=== PATIENT | female | born 1985 | race Caucasian/White ===

== ENCOUNTER 2018-05-10 20:45 | Outpatient (REF) | payer MEDICAID, SELFPAY ==
[2018-05-12 13:59] LABS: Chlamydia Result Negative; GC Result Negative; Specimen Description URINE
== END 2018-05-10 20:46 ==
LOC: NCHCN 20:45
PROVIDERS: PCP Nurse Practitioner Family; Visit Provider Nurse Practitioner Family
DX: R10.2 Pelvic and perineal pain (principal); N94.6 Dysmenorrhea, unspecified; Z71.89 Other specified counseling
CPT/HCPCS: 87491; 87591

== ENCOUNTER 2018-05-24 15:54 | Outpatient (REF) | payer MEDICAID, SELFPAY | END 2018-05-24 15:55 | LOC: NCHCN 15:54 | PROVIDERS: PCP Nurse Practitioner Family; Visit Provider Nurse Practitioner Family | DX: N39.0 Urinary tract infection, site not specified (principal) | CPT/HCPCS: 87077; 87086; 87186 ==

== ENCOUNTER 2018-08-10 15:36 | Outpatient (REF) | payer MEDICAID, SELFPAY ==
[2018-08-10 21:15] LABS: Abs Immature Grans 0.02 k/cumm (0.0-0.09); Absolute Basophil Count 0.01 k/cumm (0.0-0.2); Absolute Eosinophil Count 0.11 k/cumm (0.0-0.7); Absolute Lymphocyte Count 2.03 k/cumm (1.2-3.4); Absolute Monocyte Count 0.45 k/cumm (0.11-0.7); Absolute Neutrophil Count 4.44 k/cumm (1.2-6.7); Basophils % 0.1; Eosinophils % 1.6; HCT 44.3 % (36.0-46.0); HGB 14.6 g/dL (12.0-15.5); Immature Grans % 0.3; Lymphocytes % 28.8; Mean Corpuscular Hemoglobin 29.4 pg (27.0-33.0); Mean Corpuscular Volume 89.3 fL (80-95); Mean Platelet Volume 10.2 fL (8.0-11.0); Monocytes % 6.4; Neutrophils % 62.8; Platelet Count 254 x1000/uL (130-400); RBC 4.96 m/cumm (4.00-5.20); RBC Distribution Width 13.7 % (11.7-14.6); White Blood Cell Count 7.06 k/cumm (4.4-10.8)
[2018-08-10 21:34] LABS: ALT 17 U/L (12-78); AST 16 U/L (15-37); Albumin 3.5 g/dL (3.4-5.0); Alkaline Phosphatase 72 U/L (46-116); BUN 9 mg/dL (7-18); Bilirubin, Total 0.3 mg/dL (0.2-1.0); C-Reactive Protein 4.35 mg/dL (0.0-0.3); CREATININE 0.78 mg/dL (0.55-1.02); Calcium 9.7 mg/dL (8.5-10.1); Chloride 102 mmol/L (98-107); Glucose 70 mg/dL (70-100); Potassium 4.6 mmol/L (3.5-5.1); Sodium 138 mmol/L (136-145); Total Protein 7.1 g/dL (6.4-8.2)
[2018-08-10 22:15] LABS: ESR 34 MM/HR (0-20)
== END 2018-08-10 15:56 ==
LOC: NCHCN 15:36
PROVIDERS: PCP Nurse Practitioner Family; Visit Provider Nurse Practitioner Family
DX: R53.81 Other malaise (principal); R19.7 Diarrhea, unspecified; K92.1 Melena; R11.2 Nausea with vomiting, unspecified; N94.6 Dysmenorrhea, unspecified
CPT/HCPCS: 80053; 85652; 84443; 85025; 86140

== ENCOUNTER 2018-08-13 21:40 | Outpatient (REF) | payer MEDICAID, SELFPAY ==
[2018-08-16 10:47] LABS: Campylobacter PCR SEE COMMENTS; Salmonella PCR SEE COMMENTS; Shiga Toxin PCR SEE COMMENTS; Shigella/Enteroinvasive Ecoli SEE COMMENTS
== END 2018-08-13 22:00 ==
LOC: NCHCN 21:40
PROVIDERS: PCP Nurse Practitioner Family; Visit Provider Nurse Practitioner Family
DX: R53.81 Other malaise (principal); R19.7 Diarrhea, unspecified; K92.1 Melena; R11.2 Nausea with vomiting, unspecified
CPT/HCPCS: 87329; 87505; 83630; 87177; 87324

== ENCOUNTER 2019-03-24 10:57 | Outpatient (REF) | payer MEDICAID, SELFPAY ==
[2019-03-25 11:19] LABS: Abs Immature Grans 0.02 k/cumm (0.0-0.09); Absolute Basophil Count 0.02 k/cumm (0.0-0.2); Absolute Eosinophil Count 0.08 k/cumm (0.0-0.7); Absolute Lymphocyte Count 1.81 k/cumm (1.2-3.4); Absolute Neutrophil Count 4.82 k/cumm (1.2-6.7); Basophils % 0.3; Eosinophils % 1.1; HCT 40.8 % (36.0-46.0); HGB 12.6 g/dL (12.0-15.5); Immature Grans % 0.3; Lymphocytes % 25.3; Mean Corp. HGB Concentration 30.9 g/dL (32.0-36.0); Mean Corpuscular Hemoglobin 26.5 pg (27.0-33.0); Mean Corpuscular Volume 85.9 fL (80-95); Mean Platelet Volume 10.5 fL (8.0-11.0); Monocytes % 5.6; Neutrophils % 67.4; Platelet Count 344 x1000/uL (130-400); RBC 4.75 m/cumm (4.00-5.20); RBC Distribution Width 14.2 % (11.7-14.6); White Blood Cell Count 7.15 k/cumm (4.4-10.8)
[2019-03-25 12:06] LABS: ALT 25 U/L (12-78); AST 19 U/L (15-37); Albumin 3.3 g/dL (3.4-5.0); Alkaline Phosphatase 62 U/L (46-116); Anion Gap 10.9 mmol/L (3-11); BUN 11 mg/dL (7-18); Bilirubin, Total 0.4 mg/dL (0.2-1.0); CO2 25.1 mmol/L (21.0-32.0); CREATININE 0.92 mg/dL (0.55-1.02); Calcium 9.3 mg/dL (8.5-10.1); Chloride 107 mmol/L (98-107); Glucose 89 mg/dL (70-100); Lipase 127 U/L (73-393); Sodium 143 mmol/L (136-145)
[2019-03-26 14:44] LABS: C-Reactive Protein 1.72 mg/dL (0.0-0.3); TSH 0.94 uIU/mL (0.358-3.74)
[2019-03-27 00:38] LABS: Anaplasma phagocytophilum Negative (Negative); B. miyamotoi PCR Negative (Negative); Babesia divergens/MO-1 Negative (Negative); Babesia duncani Negative (Negative); Babesia microti Negative (Negative); Ehrlichia chaffeensis Negative (Negative); Ehrlichia ewingii/canis Negative (Negative); Ehrlichia muris eauclairensis Negative (Negative)
[2019-03-28 09:36] LABS: Cyclic Citrullinated Peptide <2.5 U/mL (<5.0)
[2019-03-28 10:17] LABS: Rheumatoid Factor 10 IU/mL (<12.5)
[2019-03-28 11:48] LABS: Lyme Ab w Rflx to Lyme Confirm Negative
[2019-03-28 14:00] LABS: ANA Interpretation Negative (NEGAT)
== END 2019-03-24 11:17 ==
LOC: NCHCN 10:57
PROVIDERS: PCP Nurse Practitioner Family; Visit Provider Nurse Practitioner Family
DX: K52.9 Noninfective gastroenteritis and colitis, unspecified (principal); L56.8 Other specified acute skin changes due to ultraviolet radiation; R10.11 Right upper quadrant pain; M25.50 Pain in unspecified joint
CPT/HCPCS: 80053; 83690; 85652; 86200; 87798; 84443; 85025; 86038; 86140; 86431; 86618

== ENCOUNTER 2019-03-29 10:23 | Outpatient (REF) | payer MEDICAID, SELFPAY ==
[2019-03-29 22:19] LABS: ESR 34 MM/HR (0-20)
== END 2019-03-29 10:43 ==
LOC: NCHCN 10:23
PROVIDERS: PCP Nurse Practitioner Family; Visit Provider Nurse Practitioner Family
DX: M25.50 Pain in unspecified joint (principal); R10.11 Right upper quadrant pain; L56.8 Other specified acute skin changes due to ultraviolet radiation; K52.9 Noninfective gastroenteritis and colitis, unspecified
CPT/HCPCS: 85652

== ENCOUNTER 2019-04-29 13:27 | Outpatient (REF) | payer MEDICAID, SELFPAY ==
--- NOTE | 2019-04-29 10:00 | SKI_PTH ---
PATIENT: Liat Flanagan LOC: [facility] U#:[id number] AGE/SX: 33/F ROOM: RE04/29/[address]: Susi Wallace : 1985 BED: DIS: 04/29/2019 SPEC #: [id number] RECD: 05/02/19 12:46 STATUS: CHERELLE REJuany #: [id number] NAHEED: 04/29/19 10:[address]: Susi Yuan DEPT: Surgical Specimen RECD BY: Piper Meyer Tissues: 1 - SKIN BIOPSY(SHAVE/PUNCH) Procedures: SPECIAL STAIN 2 SKIN LEVEL 4 Comments: [id number]
== END 2019-04-29 13:47 ==
LOC: NCHCN 13:27
PROVIDERS: PCP Nurse Practitioner Family; Visit Provider Nurse Practitioner Family
DX: L98.8 Other specified disorders of the skin and subcutaneous tissue (principal); R21 Rash and other nonspecific skin eruption
CPT/HCPCS: 88305; 88313

== ENCOUNTER 2020-03-26 11:58 | Outpatient (REF) | payer MEDICAID, SELFPAY ==
--- NOTE | 2020-03-26 10:30 | PAPFT_PTH ---
PATIENT: Liat Flanagan LOC: [facility] U#:[id number] AGE/SX: 34/F ROOM: RE03/26/[address]: Susi Wallace : 1985 BED: DIS: 03/26/2020 SPEC #: [id number] RECD: 03/27/20 12:44 STATUS: CHERELLE REJuany #: [id number] ANHEED: 03/26/20 10:[address]: Susi Yuan DEPT: [facility] Cytology RECD BY: Piper Meyer Tissues: 1 - CX/ENDOCX FOR PAP SMEARS Procedures: PAP THIN PREP/UVM Screening HPV DNA PROBE Comments: [id number]
[2020-03-26 22:40] LABS: Hemoglobin A1C 5.3 % (3.8-5.6)
[2020-03-26 22:52] LABS: Calculated LDL 191 mg/dL (<100); Cholesterol 267 mg/dL (<200); HDL Cholesterol 53 mg/dL (40-60); Triglyceride 118 mg/dL (<150)
== END 2020-03-26 12:18 ==
LOC: NCHCN 11:58
PROVIDERS: PCP Nurse Practitioner Family; Visit Provider Nurse Practitioner Family
DX: R51 Headache (principal); K58.9 Irritable bowel syndrome, unspecified; K21.9 Gastro-esophageal reflux disease without esophagitis; E66.9 Obesity, unspecified; Z13.220 Encounter for screening for lipoid disorders; Z13.1 Encounter for screening for diabetes mellitus; Z12.4 Encounter for screening for malignant neoplasm of cervix; Z11.51 Encounter for screening for human papillomavirus (HPV)
CPT/HCPCS: 80061; 88142; 83036; 87624

== ENCOUNTER 2020-04-02 12:51 | Outpatient (REF) | payer MEDICAID, SELFPAY ==
[2020-04-02 21:40] LABS: Calculated LDL 160 mg/dL (<100); Cholesterol 244 mg/dL (<200); HDL Cholesterol 51 mg/dL (40-60); Triglyceride 169 mg/dL (<150)
== END 2020-04-02 13:11 ==
LOC: NCHCN 12:51
PROVIDERS: PCP Nurse Practitioner Family; Visit Provider Nurse Practitioner Family
DX: E78.5 Hyperlipidemia, unspecified (principal)
CPT/HCPCS: 80061

== ENCOUNTER 2022-06-02 17:19 | Outpatient (REF) | payer MEDICAID, SELFPAY ==
[2022-06-02 20:56] LABS: Bilirubin Color Interference (Negative); Blood Color Interference (Negative); Clarity Clear (Clear); Glucose Color Interference mg/dL (Negative); Ketones Color Interference mg/dL (Negative); Leukocyte Esterase Color Interference (Negative); Nitrite Color Interference (Negative); Specific Gravity 1.023 (1.005-1.025); Urobilinogen Color Interference EU/dL (Up TO 0.2)
[2022-06-02 21:04] LABS: Epithelial Cells Moderate HPF (Negative); RBC 0-2 HPF (0-2); WBC 0-2 HPF (0-5)
[2022-06-02 21:05] LABS: Bacteria Negative HPF (Negative); C & S Indicated? No; Crystals Mod Calcium Oxalate HPF (Negative); Mucus Heavy (Negative)
== END 2022-06-02 17:20 | disposition home or self-care (01) ==
LOC: NCHCN 17:19
PROVIDERS: PCP Family Medicine; Visit Provider Family Medicine
DX: R39.15 Urgency of urination (principal)
CPT/HCPCS: 81003; 81015

== ENCOUNTER 2022-06-26 16:43 | Outpatient (REF) | payer MEDICAID, SELFPAY ==
[2022-06-26 16:40] LABS: Bacteria Negative HPF (Negative); C & S Indicated? C&S Done As Ordered; Crystals Many Amorphous HPF (Negative); Epithelial Cells Few HPF (Negative); Mucus Negative (Negative); RBC Negative HPF (0-2); WBC Negative HPF (0-5)
== END 2022-06-26 16:44 | disposition home or self-care (01) ==
LOC: NCHCN 16:43
PROVIDERS: PCP Family Medicine; Visit Provider Nurse Practitioner Family
DX: N10 Acute pyelonephritis (principal)
CPT/HCPCS: 81015; 87086

== ENCOUNTER 2023-04-21 16:11 | Outpatient (REF) | payer MEDICAID, SELFPAY ==
[2023-04-21 15:02] LABS: Abs Immature Grans 0.02 10^3/uL (0.0-0.06); Absolute Basophil Count 0.04 10^3/uL (0.0-0.2); Absolute Eosinophil Count 0.12 10^3/uL (0.0-0.7); Absolute Monocyte Count 0.29 10^3/uL (0.1-0.8); Absolute Neutrophil Count 3.74 10^3/uL (1.2-6.7); Basophils % 0.7; Eosinophils % 2.1; HCT 40.3 % (36.0-46.0); Immature Grans % 0.4; Lymphocytes % 26.3; MCH 23.6 pg (27.0-33.0); MCHC 29.8 % (32.0-36.0); MCV 79 fL (80-95); MPV 10.5 fL (8.0-11.0); Monocytes % 5.1; Neutrophils % 65.4; RBC 5.09 10^6/uL (3.93-5.22); RDW 20.7 % (11.7-14.6); WBC 5.71 10^3/uL (4.4-10.8)
[2023-04-21 15:20] LABS: ESR 48 mm/hr (0-20)
[2023-04-21 15:30] LABS: ALT 17 U/L (14-59); AST 23 U/L (15-37); Albumin 3.3 g/dL (3.4-5.0); Alkaline Phosphatase 66 U/L (46-116); Anion Gap 10.8 mmol/L (3-11); BUN 10 mg/dL (7-18); Bilirubin, Total 0.4 mg/dL (0.2-1.0); C-Reactive Protein 2.02 mg/dL (0.0-0.3); CO2 21.2 mmol/L (21.0-32.0); CREATININE 1.1 mg/dL (0.55-1.02); Chloride 107 mmol/L (98-107); Glucose 89 mg/dL (74-106); Potassium 3.9 mmol/L (3.5-5.1); Sodium 139 mmol/L (136-145); TSH 1.72 uIU/mL (0.36-3.74); Total Protein 7.6 g/dL (6.4-8.2)
[2023-04-21 17:30] LABS: Anisocytosis 1+; Diff Comment RBC Morph Reviewed; Platelet Count 350 10^3/uL (130-400)
[2023-04-22 09:10] LABS: Cyclic Citrullinated Peptide <2.5 U/mL (<5.0)
[2023-04-22 11:12] LABS: Lyme Ab w Rflx to Lyme Confirm Negative (Negative)
[2023-04-22 15:55] LABS: ANA Interpretation Positive (Negative); ANA Titer Pattern 1:80 Speckled
[2023-04-24 00:34] LABS: Anaplasma phagocytophilum Negative (Negative); B. miyamotoi PCR Negative (Negative); Babesia divergens/MO-1 Negative (Negative); Babesia duncani Negative (Negative); Babesia microti Negative (Negative); Ehrlichia chaffeensis Negative (Negative); Ehrlichia ewingii/canis Negative (Negative); Ehrlichia muris eauclairensis Negative (Negative)
== END 2023-04-21 16:12 | disposition home or self-care (01) ==
LOC: NCHCN 16:11
PROVIDERS: PCP Family Medicine; Visit Provider Nurse Practitioner Family
DX: M79.641 Pain in right hand (principal); M79.642 Pain in left hand; R53.81 Other malaise; M25.59 Pain in other specified joint; M79.18 Myalgia, other site; N95.1 Menopausal and female climacteric states; R53.83 Other fatigue; R70.0 Elevated erythrocyte sedimentation rate; R79.82 Elevated C-reactive protein (CRP); R79.89 Other specified abnormal findings of blood chemistry; R76.0 Raised antibody titer
CPT/HCPCS: 80053; 82533; 85652; 86200; 87798; 83036; 84443; 85025; 86038; 86140; 86618

== ENCOUNTER 2023-04-29 10:09 | Outpatient (REF) | payer MEDICAID, SELFPAY ==
[2023-05-04 19:21] LABS: Cortisol, U 25 mcg/24 h (3.5-45); Urine Volume 1400 mL
== END 2023-04-29 10:10 | disposition home or self-care (01) ==
LOC: NCHCN 10:09
PROVIDERS: PCP Family Medicine; Visit Provider Nurse Practitioner Family
DX: R79.89 Other specified abnormal findings of blood chemistry (principal)
CPT/HCPCS: 81050; 82530; 83789

== ENCOUNTER 2024-01-25 16:07 | Outpatient (REF) | payer MEDICAID, SELFPAY ==
[2024-01-26 20:35] LABS: Anion Gap 11.3 mmol/L (3-11); BUN 8 mg/dL (7-18); CO2 20.7 mmol/L (21.0-32.0); CREATININE 0.9 mg/dL (0.55-1.02); Calcium 8.9 mg/dL (8.5-10.1); Chloride 108 mmol/L (98-107); Estimated GFR 84.97 (mL/min/1.73m2); Glucose 76 mg/dL (74-106); Potassium 3.9 mmol/L (3.5-5.1); Sodium 140 mmol/L (136-145); TSH (W/Ref FT4) 1.78 uIU/mL (0.36-3.74)
[2024-01-28 12:38] LABS: Lyme Ab w Rflx to Lyme Confirm Negative (Negative)
== END 2024-01-25 16:08 | disposition home or self-care (01) ==
LOC: NCHCN 16:07
PROVIDERS: PCP Family Medicine; Visit Provider Family Medicine
DX: R25.1 Tremor, unspecified (principal)
CPT/HCPCS: 80048; 84443; 86618

== ENCOUNTER 2024-01-27 13:29 | Outpatient (REF) | payer MEDICAID, SELFPAY ==
[2024-01-27 20:50] LABS: HCT 38.7 % (36.0-46.0); HGB 11.4 g/dL (11.2-15.7); MCH 24.3 pg (27.0-33.0); MCHC 29.5 % (32.0-36.0); MCV 83 fL (80-95); Platelet Count 376 10^3/uL (130-400); RBC 4.69 10^6/uL (3.93-5.22); RDW 16.6 % (11.7-14.6); RDW-SD 49.9 fL; WBC 7.64 10^3/uL (4.4-10.8)
== END 2024-01-27 13:30 | disposition home or self-care (01) ==
LOC: NCHCN 13:29
PROVIDERS: PCP Family Medicine; Visit Provider Nurse Practitioner Family
DX: R53.83 Other fatigue (principal)
CPT/HCPCS: 85027

== ENCOUNTER 2024-03-31 09:20 | Outpatient (REF) | payer MEDICAID, SELFPAY ==
--- OUTSIDE RECORDS SUMMARY | 2024-03-31 09:21 | XMS_ITS ---
Author Name Unknown Address [address] [place] [address] [phone] Phone Organization Unknown Address [address] [place] [address] [phone] Phone Care Team Providers Care Fitness Studies Teacher Name Role Phone TOÑO Dewitt Attending Unavailable Results XR CHEST 2V PA AND LATERAL - Completed: 03/07/2022 16:32 LOINC: CHEST - 2 VIEWS Heart size normal and the mediastinum is not widened. There are no infiltrates nor pleural effusions evident on the frontal view. On the lateral view there is a density noted anteriorly over the heart shadow, possibly representing a small area of infiltrate. No pleural effusions. No pneumothorax. IMPRESSION: Subtle infiltrates seen anteriorly on the lateral view. This is less evident on the frontal view. Appropriate follow up recommended. Dictated by: ISH BURNS MD Transcribed by: [facility] 03/10/22/14:33 D Monday, March 07, 2022 4:37:18 PM [id number] Electronically Reviewed and Signed By: CHAMP BURNS MD 03/10/22 20:28 Copy for: TOÑO Dewitt via fax Copy for: [facility] HEALTH INFORMATION MGMT Social History Type Status Start Date End Date Code Code Syst em Smoking History Former smoker 10/05/2004 10/05/[address] Sex Female Hospital Discharge Instructions Should you have any questions prior to discharge, please contact a member of your healthcare team. If you have left the hospital and have any questions, please contact your primary care physician. Reason For Referral No Data Found Allergies and Adverse Reactions Allergy Substance Reaction Severity Start Date Concern Status Co de Code System CEPHALOSPORIN Hives (SNOMED-CT: 589192908) Moderate Active AMOXICILLIN Rash (SNOMED-CT: 519899792) Moderate Active 723 RxNorm SCOPOLAMINE Nausea/Vomiting (SNOMED-CT: 22984462) Active Plan of Treatment MRI BRAIN W WO CONTRAST 10/29/2023 US BREAST UNI LT 05/07/2023 MM DIAG BILAT 05/07/2023 Encounters Encounter Diagnosis Start Date Code Code Sys tem Other nonspecific abnormal finding of lung field 03/07 SNOMED-CT Personal Care Team Section Performer Name Performer Role Active Date Inactive Da te
--- OUTSIDE RECORDS SUMMARY | 2024-03-31 09:22 | XMS_ITS ---
Author Name Unknown Address [address], [place] [phone] Phone Organization Unknown Address [address] [place] [address] [phone] Phone Care Team Providers Care Reel Winder Name Role Phone MARY Panda Attending Unavailable TOÑO Dewitt Primary Unavailable Social History Type Status Start Date End Date Code Code Syst em Smoking History Former smoker 10/05/2004 10/05/[address] Sex Female Hospital Discharge Instructions [...] Co de Code System CEPHALOSPORIN Hives (SNOMED-CT: 167030782) Moderate Active AMOXICILLIN Rash (SNOMED-CT: 286763973) Moderate Active 723 RxNorm SCOPOLAMINE Nausea/Vomiting (SNOMED-CT: 09709789) Active Plan of Treatment MRI BRAIN W WO CONTRAST 10/29/2023 US BREAST UNI LT 05/07/2023 MM DIAG BILAT 05/07/2023 Encounters Encounter Diagnosis Start Date Code Code Sys tem Fatigue 06/12/2023 43194122 SNOMED-CT Personal Care Team Section Performer Name Performer Role Active Date Inactive Da te
--- OUTSIDE RECORDS SUMMARY | 2024-03-31 09:22 | XMS_ITS ---
Author Name Unknown Address [address] [place] [address] [phone] Phone Organization Unknown Address [address] [place] [phone] Phone Care Team Providers Care Primer Inserting Machine Operator Name Role Phone KEMAR RENE Registered Nurse Unavailable RUBI AMBROSIO Registered Nurse Unavailable DANIEL Panda Attending Unavailable DIANA BLACKMON Unavailable TOÑO Dewitt Primary Unavailable UNLISTED PROVIDER - REQUESTED Xhandoff Un available Results URINALYSIS WITH REFLEX CULT IF POSITIVE* - Collect Date/Time: 12/06/2022 18:35 [facility] ID: [id number] [address], [place], [address] LOINC: 54002-3 Test Value Unit Reference Range Code Code System Flag COLLECTION MODE: CLEAN CATCH 32517-0 LOINC Color STRAW yellow 5778-6 LOINC Appearance SL CLOUD clear 5767-9 LOINC Glucose urine NEGATIVE negative mg/dl 11854-4 LOINC Bilirubin NEGATIVE negative 5770-3 LOINC Ketones NEGATIVE negative mg/dl 2514-8 LOINC Spec gravity 1.020 1.003 - 1.030 5811-5 LOINC pH urine 7.0 5.0 - 7.0 2756-5 LOINC Protein NEGATIVE negative mg/dl 63207-8 LOINC Urobilinogen 0.2 <or= 1 EU/dl 62578-0 LOINC Nitrite. NEGATIVE negative 5802-4 LOINC Blood NEGATIVE negative 5794-3 LOINC Leukocytes. NEGATIVE negative MICROSCOPIC NOT INDICAT TEST QUAL (URINE) - Collect Date/Time: 12/06/2022 18:35 [facility] ID: [id number] [address], [place], [address] LOINC: 2106-3 Test Value Unit Reference Range Code Code System Flag TEST NEGATIVE 2105-3 LOINC LIPASE* NEW - Collect Date/T [place]: 12/06/2022 18:35 [facility] ID: [id number] [address], [place], [id number] LOINC: 3040-3 Test Value Unit Reference Range Code Code System Flag LIPASE. 50 U/L L=16 H=77 COMPREHENSIVE METABOLIC PANE L (CMP) - Collect Date/Time: 12/06/2022 18:35 [facility] ID: [id number] [address] [place] [address], [address] LOINC: 39759-6 Test Value Unit Reference Range Code Code System Flag GLUCOSE 89 mg/dL L=70 H=116 2345-7 LOINC BUN 14 mg/dL L=6 H=25 3094-0 LOINC CREATININE 0.96 mg/dL L=0.51 H=0.95 2160-0 LOINC H SODIUM SERUM 138 mmol/L L=136 H=145 2951-2 LOINC POTASSIUM SERUM 3.7 mmol/L L=3.4 H=5.2 2823-3 LOINC CHLORIDE SERUM 106 mmol/L L=96 H=110 2075-0 LOINC CARBON DIOXIDE (CO2) 25 mmol/L L=22 H=34 2028-9 LOINC ANION GAP 7.1 mmol/L 65525-0 LOINC CALCIUM SERUM 8.8 mg/dL L=8.2 H=10.2 77270-3 LOINC BILIRUBIN TOTAL 0.2 mg/dL L=0.0 H=1.3 1975-2 LOINC ALK. PHOS. 58 U/L L=46 H=116 6768-6 LOINC SGOT (AST) 15 U/L L=15 H=37 1920-8 LOINC SGPT (ALT) 15 U/L L=12 H=78 1742-6 LOINC TOTAL PROTEIN 6.9 gm/dL L=6.0 H=8.0 2885-2 LOINC ALBUMIN 3.0 gm/dL L=3.4 H=5.0 1751-7 LOINC L AGE 37 years eGFR (non-Afr.Amer.) 66 mL/min 76566-5 LOINC eGFR (Afr-Belgian) 80 mL/min 33523-1 LOINC CBC W/ DIFFERENTIAL* - Colle ct Date/Time: 12/06/2022 18:35 [facility] ID: [id number] [address], [place], [address] LOINC: 77148-4 Test Value Unit Reference Range Code Code System Flag WBC 6.17 th/cmm L=5.00 H=10.00 6690-2 LOINC NEUT % 49.9 % L=40.0 H=80.0 LYMPH % 40.0 % L=10.0 H=50.0 MONO % 7.6 % L=2.0 H=12.0 15124-2 LOINC EOS % 1.8 % L=0.0 H=8.0 BASO % 0.5 % L=0.0 H=3.0 IG % 0.2 % L=0.0 H=1.1 2514-8 LOINC NRBC % 0.0 % L=0.0 H=0.0 08871-4 LOINC NEUT abs count 3.1 th/cmm L=1.6 H=8.4 751-8 LOINC LYMPH abs count 2.5 th/cmm L=1.5 H=4.0 731-0 LOINC MONO abs count 0.5 th/cmm L=0.2 H=1.0 742-7 LOINC EOS abs count 0.1 th/cmm L=0.0 H=0.5 711-2 LOINC BASO abs count 0.0 th/cmm L=0.0 H=0.2 704-7 LOINC IG abs count 0.0 th/cmm L=0.0 H=0.1 23566-3 LOINC NRBC abs count 0.0 mil/cmm L=0.0 H=0.0 60544-9 LOINC RBC 4.64 mil/cmm L=3.90 H=5.40 789-8 LOINC HEMOGLOBIN 10.7 gm/dL L=12.0 H=16.0 718-7 LOINC L HEMATOCRIT 35 % L=37 H=47 4544-3 LOINC L MCV 76 fL L=82 H=92 787-2 LOINC L MCH 23.1 pg L=27.0 H=31.0 785-6 LOINC L MCHC 30.2 % L=32.0 H=36.0 786-4 LOINC L RDW-SD 47.0 fL L=39.0 H=49.0 788-0 LOINC PLATELET COUNT 312 th/cmm L=150 H=450 777-[address] ABD PELVIS W IV CONTRAST ONLY - Completed: 12/06/2022 19:46 LOINC: [facility] [place], [place] [address] PACS ZONING ADMINISTRATOR REPORT Patient Name: REID MASON MRN: Sex: : Age: [id number] F 1985 37 Account: Accession: Admit: StayType: [id number] 12/06/2022 E/R Ordered: Order ID: Submitted: Ordering Provider: 12/06/2022 18:50 [id number] ANAYA RICHARD Completed: Technologist: Resulted: 12/06/2022 19:46 CLB 12/07/2022 15:22 Study Description: CT ABD PELVIS W IV CONTRAST ONLY Study Reason: RLQ Pain TECHNIQUE: Imaging Protocol: Axial computed tomography images with coronal and sagittal reformatted images were created and reviewed CONTRAST MATERIAL: Intravenous Omnipaque 100cc Oral: None COMPARISON: No exams were available for comparison FINDINGS: VISUALIZED LUNG BASES: No nodules nor pleural effusions evident ABDOMEN: There is no ascites. LIVER: There are no focal hepatic lesions evident. No dilated intrahepatic ducts. GALLBLADDER/BILIARY: No obvious gallbladder pathology. CBD is not dilated. PANCREAS: No evidence of pancreatic mass nor dilatation of the pancreatic duct. SPLEEN: Spleen is not enlarged. No obvious intrasplenic lesions. Splenic and portal veins are patent. ADRENALS: There are no significant adrenal masses. KIDNEYS:No cysts evident. No solid renal masses. No calculi nor hydronephrosis. ABDOMINAL AORTA: Abdominal aorta is not enlarged. LYMPH NODES: There is no retroperitoneal nor paraaortic adenopathy ABDOMINAL WALL/GI: No evidence of significant anterior abdominal wall hernia. No bowel obstruction. PELVIS: GI: No evidence of appendicitis.No evidence of sigmoid diverticulitis. LYMPH NODES: There is no intrapelvic nor inguinal adenopathy. REPRODUCTIVE: Retroverted zuterus and ovaries are age-appropriate. There is a tiny amount of fluid in the cul-de-sac, probably female physiologic. URINARY BLADDER: No calculi nor obvious masses evident OSSEOUS: No significant osseous lesions and no acute fractures evident. IMPRESSION: 1. The only findings is a small amount of fluid in the cul-de-sac which is probably female physiologic. Adnexal regions appear age-appropriate. Also no evidence of appendicitis nor diverticulitis. Report Digitally Signed by Sixto Lopez on 12/07/2022 03:22 PM EST Social History Type Status Start Date End Date Code Code Syst em Smoking History Former smoker 10/05/2004 10/05/[address] Sex Female Vital Signs Vital Sign Value Unit [place] Value [place] Unit Date/Time Recent/Initial? Code Code System Body Mass Index 39.16 kg/m2 12/06/2022 17:32 Initial 57955 -5 LOINC Systolic Blood Pressure 118 mm[Hg] 12/06/2022 20:42 Most Recent 8480- 6 LOINC Diastolic Blood Pressure 83 mm[Hg] 12/06/2022 20:42 Most Recent 8462- 4 LOINC Systolic Blood Pressure 130 mm[Hg] 12/06/2022 17:32 Initial 8480- 6 LOINC Diastolic Blood Pressure 83 mm[Hg] 12/06/2022 17:32 Initial 8462- 4 LOINC Body Surface Area 2.32 m2 12/06/2022 17:32 Initial 3140- 1 LOINC Height 170.180 0 cm 67.00 in 12/06/2022 17:32 Initial 8302- 2 LOINC O2 Saturation 98 % 2022 20:42 Most Recent 14985 -5 LOINC O2 Saturation 98 % 2022 17:32 Initial 70342 -5 LOINC Pulse 70.0 /min 12/06/2022 20:42 Most Recent 8867- 4 LOINC Pulse 79.0 /min 12/06/2022 17:32 Initial 8867- 4 LOINC Respiration 18 /min 12/07/19 20:42 Most Recent 9279- 1 LOINC Respiration 18 /min 12/07/19 17:32 Initial 9279- 1 LOINC Temperature 37.0 Citlalli 98.6 F 12/07/19 17:32 Initial 8310- 5 LOINC Weight 113.40 kg 250.00 lbs 12/06/2022 17:32 Initial 28595 -7 LOINC Hospital Discharge Instructions Should you have any questions prior to discharge, please contact a member of your healthcare team. If you have left the hospital and have any questions, please contact your primary care physician. Reason For Referral No Data Found Allergies and Adverse Reactions Allergy Substance Reaction Severity Start Date Concern Status Co de Code System CEPHALOSPORIN Hives (SNOMED-CT: 900232075) Moderate Active AMOXICILLIN Rash (SNOMED-CT: 557385298) Moderate Active 723 RxNorm SCOPOLAMINE Nausea/Vomiting (SNOMED-CT: 91675639) Active Plan of Treatment MRI BRAIN W WO CONTRAST 10/29/2023 US BREAST UNI LT 05/07/2023 MM DIAG BILAT 05/07/2023 Encounters Encounter Diagnosis Start Date Code Code Sys tem Nausea with vomiting, unspecified 12/06/2022 SNOMED-CT Personal Care Team Section Performer Name Performer Role Active Date Inactive Da te
--- OUTSIDE RECORDS SUMMARY | 2024-03-31 09:23 | XMS_ITS ---
Author Name Unknown Address [address] [place] [address] [phone] Phone Organization Unknown Address [address] [place] [address] [phone] Phone Care Team Providers Care Overhead Foreman Name Role Phone MARVEL Nelson Attending Unavailable TOÑO Dewitt Primary Unavailable Results MR BRAIN WWO CONTRAST - Comp leted: 10/29/2023 14:50 LOINC: [place], [place] [address] PACS VICE PRESIDENT INVESTOR RELATIONS REPORT Patient Name: REID MASON MRN: Sex: : Age: [id number] F 1985 38 Account: Accession: Admit: StayType: [id number] 10/29/2023 O/P Ordered: Order ID: Submitted: Ordering Provider: 10/29/2023 12:51 [id number] KT TONIA GRIER Completed: Technologist: Resulted: 10/29/2023 14:50 HTP 10/29/2023 15:03 Study Description: MR BRAIN WWO CONTRAST Study Reason: HEADACHE COMPARISON: Head CT 27 October 2023 TECHNIQUE: Multiplanar, multipulse images obtained. Post contrast imaging also performed following administration of ml Dotarem IV. FINDINGS: VENTRICLES AND EXTRA AXIAL SPACES: Normal in size and morphology for the patient's age. HEMORRHAGE: None. CEREBRAL PARENCHYMA: No focus of restricted diffusion to suggest acute infarct. No space-occupying lesion identified. No abnormal white matter MIDLINE SHIFT: None. BRAINSTEM/CEREBELLUM: Normal. CALVARIUM: Normal. ENHANCEMENT: No suspicious enhancement identified. VISUALIZED PARANASAL SINUSES/MASTOIDS: Clear. [place] REID: Normal flow void. PITUITARY GLAND: Unremarkable. Orbits are unremarkable. IMPRESSION: Normal MRI of the brain. Report Digitally Signed by Ashleigh Mensah on 10/29/2023 03:03 PM EST Social History Type Status Start Date End Date Code Code Syst em Smoking History Former smoker 10/05/2004 10/05/[address] Sex Female Hospital Discharge Instructions [...] Co de Code System CEPHALOSPORIN Hives (SNOMED-CT: 991202912) Moderate Active AMOXICILLIN Rash (SNOMED-CT: 943377983) Moderate Active 723 RxNorm SCOPOLAMINE Nausea/Vomiting (SNOMED-CT: 76635481) Active Plan of Treatment MRI BRAIN W WO CONTRAST 10/29/2023 US BREAST UNI LT 05/07/2023 MM DIAG BILAT 05/07/2023 Encounters Encounter Diagnosis Start Date Code Code Sys tem Headache, unspecified 10/29/2023 SNOMED -CT Personal Care Team Section Performer Name Performer Role Active Date Inactive Da te
--- OUTSIDE RECORDS SUMMARY | 2024-03-31 09:23 | XMS_ITS ---
Author Name Unknown Address [address] [place], [place] [phone] Phone Organization Unknown Address [address] [place] [phone] Phone Care Team Providers Care Operational Meteorologist Name Role Phone GILBERT CHAPPELL Attending Unavailable TOÑO Dewitt Primary Unavailable Social History Type Status Start Date End Date Code Code Syst em Smoking History Former smoker 10/05/2004 10/05/[address] Sex Female Hospital Discharge Instructions [...] Co de Code System CEPHALOSPORIN Hives (SNOMED-CT: 046080684) Moderate Active AMOXICILLIN Rash (SNOMED-CT: 930799859) Moderate Active 723 RxNorm SCOPOLAMINE Nausea/Vomiting (SNOMED-CT: 52852472) Active Plan of Treatment MRI BRAIN W WO CONTRAST 10/29/2023 US BREAST UNI LT 05/07/2023 MM DIAG BILAT 05/07/2023 Encounters Encounter Diagnosis Start Date Code Code Sys tem Periodic limb movement disorder 12/14/2023 SNOMED-CT Personal Care Team Section Performer Name Performer Role Active Date Inactive Da te
--- OUTSIDE RECORDS SUMMARY | 2024-03-31 09:23 | XMS_ITS ---
Author Name Unknown Address [address] [place] [address] [phone] Phone Organization Unknown Address [address] [place] [address] [phone] Phone Care Team Providers Care Videographer Name Role Phone KIKI SMALLWOOD Registered Nurse Unavailable DANIEL Panda Attending Unavailable [facility] Unavailable TOÑO Dewitt Primary Unavailable UNLISTED PROVIDER - REQUESTED Xhandoff Un available Results CT HEAD WO CONTRAST - Comple prasad: 10/27/2023 18:25 LOINC: [facility] [place], [place] [address] PACS TANK TENDER REPORT Patient Name: REID MASON MRN: Sex: : Age: [id number] F 1985 38 Account: Accession: Admit: StayType: [id number] 10/27/2023 E/R Ordered: Order ID: Submitted: Ordering Provider: 10/27/2023 18:13 [id number] SANJANA LONDONO Completed: Technologist: Resulted: 10/27/2023 18:25 BXS 10/27/2023 18:28 Study Description: CT HEAD WO CONTRAST Study Reason: Headache COMPARISON: None FINDINGS: Ventricles and Extra axial spaces: Normal in size and morphology for the patient's age. Hemorrhage: None. Cerebral parenchyma: No acute infarct or mass. Midline shift: None. Brainstem/Cerebellum: Normal. Calvarium: Normal. Visualized Paranasal sinuses/Mastoids: Clear. Soft Tissues: Unremarkable. IMPRESSION: No acute intracranial process. Radiation Optimization: All CT scans at this facility use at least one of these dose optimization techniques: automated exposure control; mA and/or kV adjustment per patient size (includes targeted exams where dose is matched to clinical indication); or iterative reconstruction. Report Digitally Signed by Ashleigh Mensah on 10/27/2023 06:28 PM EST Social History Type Status Start Date End Date Code Code Syst em Smoking History Former smoker 10/05/2004 10/05/[address] Sex Female Vital Signs Vital Sign Value Unit [place] Value [place] Unit Date/Time Recent/Initial? Code Code System Systolic Blood Pressure 101 mm[Hg] 10/27/2023 19:34 Most Recent 8480-6 LOINC Diastolic Blood Pressure 61 mm[Hg] 10/27/2023 19:34 Most Recent 8462-4 LOINC Systolic Blood Pressure 126 mm[Hg] 10/27/2023 17:25 Initial 8480-6 LOINC Diastolic Blood Pressure 85 mm[Hg] 10/27/2023 17:25 Initial 8462-4 LOINC O2 Saturation 99 % 2023 19:34 Most Recent 36763- 5 LOINC O2 Saturation 100 % 2023 17:25 Initial 02851- 5 LOINC Pulse 57.0 /min 10/27/2023 19:34 Most Recent 8867-4 LOINC Pulse 67.0 /min 10/27/2023 17:25 Initial 8867-4 LOINC Respiration 16 /min 10/27/19 19:34 Most Recent 9279-1 LOINC Respiration 18 /min 10/27/19 17:25 Initial 9279-1 LOINC Temperature 36.0 Citlalli 96.8 F 10/27/19 17:25 Initial 8310-5 LOINC Hospital Discharge Instructions Should you have any questions prior to discharge, please contact a member of your healthcare team. If you have left the hospital and have any questions, please contact your primary care physician. Reason For Referral No Data Found Allergies and Adverse Reactions Allergy Substance Reaction Severity Start Date Concern Status Co de Code System CEPHALOSPORIN Hives (SNOMED-CT: 947400585) Moderate Active AMOXICILLIN Rash (SNOMED-CT: 591878298) Moderate Active 723 RxNorm SCOPOLAMINE Nausea/Vomiting (SNOMED-CT: 28832350) Active Plan of Treatment MRI BRAIN W WO CONTRAST 10/29/2023 US BREAST UNI LT 05/07/2023 MM DIAG BILAT 05/07/2023 Encounters Encounter Diagnosis Start Date Code Code Sys tem Headache 10/27/2023 72503981 SNOMED-CT Personal Care Team Section Performer Name Performer Role Active Date Inactive Da te
[2024-03-31 14:57] LABS: Iron 23 ug/dL (50-170); Total Iron Binding Capacity 494 ug/dL (250-450); Transferrin Sat 5 % (15-50)
[2024-03-31 15:12] LABS: Ferritin 11 ng/mL (8-252); Vitamin B12 549 pg/mL (193-986)
== END 2024-03-31 09:21 | disposition home or self-care (01) ==
LOC: NCHCN 09:20
PROVIDERS: PCP Family Medicine; Visit Provider Nurse Practitioner Family
DX: E61.1 Iron deficiency (principal); Z86.2 Personal history of diseases of the blood and blood-forming organs and certain disorders involving the immune mechanism
CPT/HCPCS: 82607; 82728; 83540; 83550

== ENCOUNTER 2024-06-30 15:43 | Outpatient (REF) | payer MEDICAID, SELFPAY ==
[2024-06-30 15:33] LABS: HCT 42.2 % (36.0-46.0); HGB 13.3 g/dL (11.2-15.7); MCH 27.4 pg (27.0-33.0); MCHC 31.5 % (32.0-36.0); MCV 87 fL (80-95); MPV 10.3 fL (8.0-11.0); Platelet Count 368 10^3/uL (130-400); RBC 4.85 10^6/uL (3.93-5.22); RDW 14.6 % (11.7-14.6); RDW-SD 46.5 fL; WBC 6.67 10^3/uL (4.4-10.8)
--- OUTSIDE RECORDS SUMMARY | 2024-06-30 15:45 | XMS_ITS ---
Author Organization Unknown Address [address] [place] [phone] Phone Care Team Providers Care [employer] Name Role Phone KEMAR RENE Registered Nurse Unavailable RUBI AMBROSIO Registered Nurse Unavailable DANIEL Panda Attending Unavailable DIANA BLACKMON Unavailable TOÑO Dewitt Primary Unavailable UNLISTED PROVIDER - REQUESTED Xhandoff Un available Results URINALYSIS WITH REFLEX CULT IF POSITIVE* - Collect Date/Time: 12/06/2022 18:35 [facility] ID: [id number] [address] [place] [address], [address] LOINC: 46222-5 Test Value Unit Reference Range Code Code System Flag COLLECTION MODE: CLEAN CATCH 66370-4 LOINC Color STRAW yellow 5778-6 LOINC Appearance SL CLOUD clear 5767-9 LOINC Glucose urine NEGATIVE negative mg/dl 90260-5 LOINC Bilirubin NEGATIVE negative 5770-3 LOINC Ketones NEGATIVE negative mg/dl 2514-8 LOINC Spec gravity 1.020 1.003 - 1.030 5811-5 LOINC pH urine 7.0 5.0 - 7.0 2756-5 LOINC Protein NEGATIVE negative mg/dl 23593-0 LOINC Urobilinogen 0.2 <or= 1 EU/dl 79962-3 LOINC Nitrite. NEGATIVE negative 5802-4 LOINC Blood NEGATIVE negative 5794-3 LOINC Leukocytes. NEGATIVE negative MICROSCOPIC NOT INDICAT TEST QUAL (URINE) - Collect Date/Time: 12/06/2022 18:35 [facility] ID: [id number] [address] [place] [address], [address] LOINC: 2106-3 Test Value Unit Reference Range Code Code System Flag TEST NEGATIVE 2105-3 LOINC LIPASE* NEW - Collect Date/T [place]: 12/06/2022 18:35 [facility] ID: [id number] [address] [place], [place], [id number] LOINC: 3040-3 Test Value Unit Reference Range Code Code System Flag LIPASE. 50 U/L L=16 H=77 COMPREHENSIVE METABOLIC PANE L (CMP) - Collect Date/Time: 12/06/2022 18:35 [facility] ID: [id number] [address] [place], [place], [address] LOINC: 92259-1 Test Value Unit Reference Range Code Code [...] H=34 2028-9 LOINC ANION GAP 7.1 mmol/L 65151-1 LOINC CALCIUM SERUM 8.8 mg/dL L=8.2 H=10.2 41928-4 LOINC BILIRUBIN TOTAL 0.2 mg/dL L=0.0 H=1.3 1975-2 LOINC ALK. PHOS. 58 U/L L=46 H=116 6768-6 LOINC SGOT (AST) 15 U/L L=15 H=37 1920-8 LOINC SGPT (ALT) 15 U/L L=12 H=78 1742-6 LOINC TOTAL PROTEIN 6.9 gm/dL L=6.0 H=8.0 2885-2 LOINC ALBUMIN 3.0 gm/dL L=3.4 H=5.0 1751-7 LOINC L AGE 37 years eGFR (non-Afr.Amer.) 66 mL/min 80403-9 LOINC eGFR (Afr-Moroccan) 80 mL/min 62405-0 LOINC CBC W/ DIFFERENTIAL* - Colle ct Date/Time: 12/06/2022 18:35 [facility] ID: [id number] [address] [place], [place], [address] LOINC: 95555-2 Test Value Unit Reference Range Code Code System Flag WBC 6.17 th/cmm L=5.00 H=10.00 6690-2 LOINC NEUT % 49.9 % L=40.0 H=80.0 LYMPH % 40.0 % L=10.0 H=50.0 MONO % 7.6 % L=2.0 H=12.0 61605-4 LOINC EOS % 1.8 % L=0.0 H=8.0 BASO % 0.5 % L=0.0 H=3.0 IG % 0.2 % L=0.0 H=1.1 2514-8 LOINC NRBC % 0.0 % L=0.0 H=0.0 45300-4 LOINC NEUT abs count 3.1 th/cmm L=1.6 H=8.4 751-8 LOINC LYMPH abs count 2.5 th/cmm L=1.5 H=4.0 731-0 LOINC MONO abs count 0.5 th/cmm L=0.2 H=1.0 742-7 LOINC EOS abs count 0.1 th/cmm L=0.0 H=0.5 711-2 LOINC BASO abs count 0.0 th/cmm L=0.0 H=0.2 704-7 LOINC IG abs count 0.0 th/cmm L=0.0 H=0.1 62092-1 LOINC NRBC abs count 0.0 mil/cmm L=0.0 H=0.0 32760-9 LOINC RBC 4.64 mil/cmm L=3.90 H=5.40 789-8 [...] CONTRAST ONLY - Completed: 12/06/2022 19:46 LOINC: [facility] [place], [place] [address] PACS PRODUCT APPLICATIONS SCIENTIST REPORT Patient Name: REID MASON MRN: Sex: : Age: [id number] F 1985 37 Account: Accession: Admit: StayType: [id number] 12/06/2022 E/R Ordered: Order ID: Submitted: Ordering Provider: 12/06/2022 18:50 [id number] ANAYA RICHARD Completed: Technologist: Resulted: 12/06/2022 19:46 [...] em Smoking History Former smoker 10/05/2004 10/05/[address] Sex Female Vital Signs Vital Sign Value Unit [place] Value [place] Unit Date/Time Recent/Initial? Code Code System Body Mass Index 39.16 kg/m2 12/06/2022 17:32 Initial 77455 -5 LOINC Systolic Blood Pressure 118 mm[Hg] [...] Saturation 98 % 2022 20:42 Most Recent 60591 -5 LOINC O2 Saturation 98 % 2022 17:32 Initial 44741 -5 LOINC Pulse 70.0 /min 12/06/2022 20:42 Most Recent 8867- 4 LOINC Pulse 79.0 /min 12/06/2022 17:32 Initial 8867- 4 LOINC Respiration 18 /min 12/07/19 20:42 Most Recent 9279- 1 LOINC Respiration 18 /min 12/07/19 17:32 Initial 9279- 1 LOINC Temperature 37.0 Citlalli 98.6 F 12/07/19 17:32 Initial 8310- 5 LOINC Weight 113.40 kg 250.00 lbs 12/06/2022 17:32 Initial 91696 -7 LOINC Hospital Discharge Instructions Should you have any questions prior to discharge, please contact a member of your healthcare team. If you have left the hospital and have any questions, please contact your primary care physician. Reason For Referral No Data Found Allergies and Adverse Reactions Allergy Substance Reaction Severity Start Date Concern Status Co de Code System CEPHALOSPORIN Hives (SNOMED-CT: 013627805) Moderate Active AMOXICILLIN Rash (SNOMED-CT: 540690453) Moderate Active 723 RxNorm SCOPOLAMINE Nausea/Vomiting (SNOMED-CT: 54510449) Active Plan of Treatment MRI BRAIN W WO CONTRAST 10/29/2023 US BREAST UNI LT 05/07/2023 MM DIAG BILAT 05/07/2023 Encounters Encounter Diagnosis Start Date Code Code Sys tem Nausea with vomiting, unspecified 12/06/2022 SNOMED-CT Personal Care Team Section Performer Name Performer Role Active Date Inactive Da te
--- OUTSIDE RECORDS SUMMARY | 2024-06-30 15:45 | XMS_ITS ---
Author Organization Unknown Address [address] [place] [phone] Phone Care Team Providers Care Devulcanizer Operator Name Role Phone TOÑO Dewitt Attending Unavailable Results LALY DIAG BILAT MAMMO W CAD - Completed: 05/07/2023 09:07 LOINC: [facility] [place], [place] [address] PACS LAVATORY ATTENDANT REPORT Patient Name: REID MASON MRN: Sex: : Age: [id number] F 1985 37 Account: Accession: Admit: StayType: [id number] 05/07/2023 O/P Ordered: Order ID: Submitted: Ordering Provider: 05/07/2023 08:49 [id number] MOE ESTRADA Completed: Technologist: Resulted: 05/07/2023 09:07 MLL 05/07/2023 10:06 Study Description: MM DIAG BILAT MAMMO W CAD AND COMPLETE LEFT BREAST ULTRASOUND Study Reason: LT BREAST PAIN TECHNIQUE: Both CC and MLO views of both breasts were performed and were obtained with3D Tomosynthesistechnique and utilizing computer aided detection (CAD). Also performed Spot compression mammographic view of the area of clinical concern. Complete left breast ultrasound was also performed including all 4 quadrants as well as the left axilla. COMPARISON: None. This is a 7-year-old patient who feels lateral left breast pain for few months time. She does not feel an actual lump. FINDINGS: MAMMOGRAM: Tissue pattern of the breast is moderately dense. There are no spiculated masses nor malignant-appearing microcalcification groups in either breast. There is suggestion of a mild asymmetric density towards the lateral of the left breast. Additional spot compression 3D view of this area was and did not reveal evidence of discernible nodule. There is no significant architectural distortion or skin thickening-traction. Proceed with ultrasound. COMPLETE LEFT BREAST ULTRASOUND: There is no evidence of solid nor significant cystic lesions in all 4 quadrants. Scanning of the lateral left breast and multiple positions did not reveal discernible abnormality. Scanning of the ipsilateral left axilla is negative for adenopathy. IMPRESSION: No radiographic evidence of malignancy Also negative complete left breast ultrasound Appropriate follow-up is to perform repeat breast imaging months time if symptoms persist. BI-RADS category: 2-benign findings BI_RADS Density Category C: Heterogeneously denseDensity: Breast density Category C or D implies that the patient has dense breast tissue. Dense breast tissue can make it harder to find cancer on a mammogram. Dense breast tissue is also associated with an increased risk of breast cancer. This information about the result of the mammogram report was provided to the patient to raise their awareness. Use this report when you speak with the patient about their risks for breast cancer, which includes their family history. At that time, you may recommend additional screening tests (Ultrasound or MRI) as these tests may add significant information. A negative radiographic report should not delay biopsy if a dominant or clinically suspicious mass is present. Up to ten percent of cancers are not identified on mammography. A negative report may reinforce clinical impression. Adenosis and dense breasts may obscure an underlying neoplasm. False positive reports average 6 to 10%. Patient will receive a letter notifying them of these results. Report Digitally Signed by Sixto Lopez on 05/07/2023 10:06 AM EDT US BREAST COMPLETE LT* - Com pleted: 05/07/2023 09:57 LOINC: [facility] [place], [place] [address] PACS LAVATORY ATTENDANT REPORT Patient Name: REID MASON MRN: Sex: : Age: [id number] F 1985 37 Account: Accession: Admit: StayType: [id number] 05/07/2023 O/P Ordered: Order ID: Submitted: Ordering Provider: 05/07/2023 08:50 [id number] MOE ESTRADA Completed: Technologist: Resulted: 05/07/2023 09:57 GVS 05/07/2023 10:07 DIAGNOSTIC MAMMOGRAM AND COMPLETE LEFT BREAST ULTRASOUND Study Reason: LT BREAST PAIN Technique: See combination report. Report Digitally Signed by Sixto Lopez on 05/07/2023 10:07 AM EDT Social History Type Status Start Date End Date Code Code Syst em Smoking History Former smoker 10/05/2004 10/05/[address] Sex Female Hospital Discharge Instructions [...] Co de Code System CEPHALOSPORIN Hives (SNOMED-CT: 248555020) Moderate Active AMOXICILLIN Rash (SNOMED-CT: 443384712) Moderate Active 723 RxNorm SCOPOLAMINE Nausea/Vomiting (SNOMED-CT: 48055801) Active Plan of Treatment MRI BRAIN W WO CONTRAST 10/29/2023 US BREAST UNI LT 05/07/2023 MM DIAG BILAT 05/07/2023 Encounters Encounter Diagnosis Start Date Code Code Sys tem Pain of breast 05/07/2023 60527481 SNOMED-CT Personal Care Team Section Performer Name Performer Role Active Date Inactive Da te
--- OUTSIDE RECORDS SUMMARY | 2024-06-30 15:45 | XMS_ITS ---
Author Organization Unknown Address [address] [place] [address] [phone] Phone Care Team Providers Care Clearance Diver Name Role Phone TOÑO Dewitt Attending Unavailable [...] Dictated by: ISH BURNS MD Transcribed by: [facility] 03/10/22/14:33 D Monday, March 07, 2022 4:37:18 PM [id number] Electronically Reviewed and Signed By: CHAMP BURNS MD 03/10/22 20:28 Copy for: TOÑO Dewitt via fax Copy for: [facility] HEALTH INFORMATION MGMT Social History Type Status Start Date End Date Code Code Syst em Smoking History Former smoker 10/05/2004 10/05/[address] Sex Female Hospital Discharge Instructions [...] Co de Code System CEPHALOSPORIN Hives (SNOMED-CT: 816735008) Moderate Active AMOXICILLIN Rash (SNOMED-CT: 039786634) Moderate Active 723 RxNorm SCOPOLAMINE Nausea/Vomiting (SNOMED-CT: 80317194) Active Plan of Treatment MRI BRAIN W WO CONTRAST 10/29/2023 US BREAST UNI LT 05/07/2023 MM DIAG BILAT 05/07/2023 Encounters Encounter Diagnosis Start Date Code Code Sys tem Other nonspecific abnormal finding of lung field 03/07 SNOMED-CT Personal Care Team Section Performer Name Performer Role Active Date Inactive Da te
--- OUTSIDE RECORDS SUMMARY | 2024-06-30 15:46 | XMS_ITS ---
Author Organization Unknown Address [address] [place] [phone] Phone Care Team Providers Care Biostatistician Name Role Phone MARY Panda Attending Unavailable TOÑO Dewitt Primary Unavailable Social History Type Status Start Date End Date Code Code Syst em Smoking History Former smoker 10/05/2004 10/05/[address] Sex Female Hospital Discharge Instructions [...] Co de Code System CEPHALOSPORIN Hives (SNOMED-CT: 682017038) Moderate Active AMOXICILLIN Rash (SNOMED-CT: 257534883) Moderate Active 723 RxNorm SCOPOLAMINE Nausea/Vomiting (SNOMED-CT: 55141594) Active Plan of Treatment MRI BRAIN W WO CONTRAST 10/29/2023 US BREAST UNI LT 05/07/2023 MM DIAG BILAT 05/07/2023 Encounters Encounter Diagnosis Start Date Code Code Sys tem Fatigue 06/12/2023 49661351 SNOMED-CT Personal Care Team Section Performer Name Performer Role Active Date Inactive Da te
--- OUTSIDE RECORDS SUMMARY | 2024-06-30 15:46 | XMS_ITS ---
Author Organization Unknown Address [address] [place] [phone] Phone Care Team Providers Care Global Technical Writer Name Role Phone MARVEL Nelson Attending Unavailable TOÑO Dewitt Primary Unavailable Results MR BRAIN WWO CONTRAST - Comp leted: 10/29/2023 14:50 LOINC: [facility] [place], [place] [address] PACS SPEECH THERAPIST TECHNICIAN REPORT Patient Name: REID MASON MRN: Sex: : Age: [id number] F 1985 38 Account: Accession: Admit: StayType: [id number] 10/29/2023 O/P Ordered: Order ID: Submitted: Ordering Provider: 10/29/2023 12:51 [id number] KT TONIA GRIER Completed: Technologist: Resulted: 10/29/2023 [...] suspicious enhancement identified. VISUALIZED PARANASAL SINUSES/MASTOIDS: Clear. [employer] [place] [employer] [place] [facility] [place]: Normal flow void. PITUITARY GLAND: Unremarkable. Orbits are unremarkable. IMPRESSION: Normal MRI of the brain. Report Digitally Signed by Ashleigh Mensah on 10/29/2023 03:03 PM EST Social History Type Status Start Date End Date Code Code Syst em Smoking History Former smoker 10/05/2004 10/05/[address] [employer] [address] Sex Female Hospital Discharge Instructions Should you have any questions prior to discharge, please contact a member of your healthcare team. If you have left the hospital and have any questions, please contact your primary care physician. Reason For Referral No Data Found Allergies and Adverse Reactions Allergy Substance Reaction Severity Start Date Concern Status Co de Code System CEPHALOSPORIN Hives (SNOMED-CT: 737757161) Moderate Active AMOXICILLIN Rash (SNOMED-CT: 710214483) Moderate Active 723 RxNorm SCOPOLAMINE Nausea/Vomiting (SNOMED-CT: 27951425) Active Plan of Treatment MRI BRAIN W WO CONTRAST 10/29/2023 US BREAST UNI LT 05/07/2023 MM DIAG BILAT 05/07/2023 Encounters Encounter Diagnosis Start Date Code Code Sys tem Headache, unspecified 10/29/2023 SNOMED -CT Personal Care Team Section Performer Name Performer Role Active Date Inactive Da te
--- OUTSIDE RECORDS SUMMARY | 2024-06-30 15:46 | XMS_ITS ---
Author Organization Unknown Address [address] [place] [phone] Phone Care Team Providers Care Electrical Mechanic Name Role Phone KIKI SMALLWOOD Registered Nurse Unavailable DANIEL Panda Attending Unavailable [facility] Unavailable TOÑO Dewitt Primary Unavailable UNLISTED PROVIDER - REQUESTED Xhandoff Un available Results CT HEAD WO CONTRAST - Comple prasad: 10/27/2023 18:25 LOINC: [place], [place] [address] PACS BRUSH AND BROOM CLIPPER REPORT Patient Name: REID MASON MRN: Sex: : Age: [id number] F 1985 38 Account: Accession: Admit: StayType: [id number] 10/27/2023 E/R Ordered: Order ID: Submitted: Ordering Provider: 10/27/2023 18:13 [id number] SANJANA LONDONO Completed: Technologist: Resulted: 10/27/2023 18:25 [...] em Smoking History Former smoker 10/05/2004 10/05/[address] Sex Female Vital Signs Vital Sign Value Unit [place] Value [place] Unit Date/Time Recent/Initial? Code Code System Systolic Blood Pressure 101 mm[Hg] 10/27/2023 19:34 Most Recent 8480-6 LOINC Diastolic Blood Pressure 61 mm[Hg] 10/27/2023 19:34 Most Recent 8462-4 LOINC Systolic Blood Pressure 126 mm[Hg] 10/27/2023 17:25 Initial 8480-6 LOINC Diastolic Blood Pressure 85 mm[Hg] 10/27/2023 17:25 Initial 8462-4 LOINC O2 Saturation 99 % 2023 19:34 Most Recent 72979- 5 LOINC O2 Saturation 100 % 2023 17:25 Initial 91428- 5 LOINC Pulse 57.0 /min 10/27/2023 19:34 [...] Co de Code System CEPHALOSPORIN Hives (SNOMED-CT: 747329275) Moderate Active AMOXICILLIN Rash (SNOMED-CT: 259343902) Moderate Active 723 RxNorm SCOPOLAMINE Nausea/Vomiting (SNOMED-CT: 73643729) Active Plan of Treatment MRI BRAIN W WO CONTRAST 10/29/2023 US BREAST UNI LT 05/07/2023 MM DIAG BILAT 05/07/2023 Encounters Encounter Diagnosis Start Date Code Code Sys tem Headache 10/27/2023 28189328 SNOMED-CT Personal Care Team Section Performer Name Performer Role Active Date Inactive Da te
--- OUTSIDE RECORDS SUMMARY | 2024-06-30 15:46 | XMS_ITS ---
Author Organization Unknown Address [address] [place] [phone] Phone Care Team Providers Care Printing Sign Machine Operator Name Role Phone GILBERT CHAPPELL Attending Unavailable TOÑO Dewitt Primary Unavailable Social History Type Status Start Date End Date Code Code Syst em Smoking History Former smoker 10/05/2004 10/05/[address] Sex Female Hospital Discharge Instructions [...] Co de Code System CEPHALOSPORIN Hives (SNOMED-CT: 528014124) Moderate Active AMOXICILLIN Rash (SNOMED-CT: 358945495) Moderate Active 723 RxNorm SCOPOLAMINE Nausea/Vomiting (SNOMED-CT: 93305257) Active Plan of Treatment MRI BRAIN W WO CONTRAST 10/29/2023 US BREAST UNI LT 05/07/2023 MM DIAG BILAT 05/07/2023 Encounters Encounter Diagnosis Start Date Code Code Sys tem Periodic limb movement disorder 12/14/2023 SNOMED-CT Personal Care Team Section Performer Name Performer Role Active Date Inactive Da te
--- OUTSIDE RECORDS SUMMARY | 2024-06-30 15:47 | XMS_ITS | Encounter Summary ---
Author Organization [facility] Address [address] [place] [address] Care Team Providers Care Tire Repairman Name Role Phone Unknown, Provider Primary Care Provider [phone] Reason for Visit * Reason Comments EMG (Electomyography) * Consult, Test and Treat (Routine) - Authorization Not Required Specialty Diagnoses / Procedures [facility] Referred To Contact Neurology Diagnoses Carpal tunnel syndrome, bilateral Procedures EMG/NERVE CONDUCTION STUDY Celeste Mcneill [address] [place] [phone] [facility] [address] [place] [address] Referral ID Status Reason Start Date Expiration Date Visits Requested Visits Authorized [id number] Authorization Not Required 1 1 Encounter Details Date Type Department Care Team (Late st Contact Info) Description 07/09/2023 11:00 EDT Procedure visit [facility] [address] [place] [address] Pritesh Lemos MD [address] [place] [address] [address] [place] [address] Bilateral carpal tunnel syndrome (Primary Dx) Social History Tobacco Use Types Packs/Day Years Used Date Smoking Tobacco: Never Assessed Interpersonal Safety Answer Date Record ed Physically Hurt Never 05/06/2020 Verbally Threaten Not on file 05/06/2020 Sex and Gender Information Value Date Recorded Sex Assigned at Not on file Gender Identity Not on file Sexual Orientation Not on file documented as of this encounter Procedure Notes * Pritesh Lemos MD - 07/09/2023 1100 EDT [facility] [place] [facility] Clinical Neurophysiology Nerve Conduction and Electromyography Report PATIENT NAME: Liat Flanagan PATIENT : 1985 PCP: [facility] DATE OF SERVICE: 07/09/2023 History: Liat Flanagan is a 37 y.o. female who presents to EMG on referral by Celeste Mcneill MD for evaluation of hand symptoms. She describes left more than right sided hand pain and numbness. It came on all of a sudden one day, and there was sharp shooting pain. Since then symptoms have improved. She'staking gabapentin which helps with the pain, but numbness persists. No injury. There is chronic neck pain but not different around this time. All fingers are involved. Symptoms in fact have resolved on the right. Separate from those acute onset symptoms, she has had years of mild chronic bilateral nocturnal hand tingling which has not worsened since the onset of the bilateral hand pain. Clinical Exam: Limbs studied were warmed if necessary with moist heat, and skin temperature of the hands was measured at 33 deg C before starting the study. Motor : Normal bulk, strength in the arms and hands DTRs: 3/4 bilateral brachioradialis, biceps and triceps Sensation: Intact pinprick in the hands Electrodiagnostic Findings: Nerve Conduction: -The left median sensory peak latency was mildly prolonged (4.0 ms), as was the transcarpal latency, with normal amplitude. The left median motor response was normal. The left median/ulnar transcarpal mixed nerve comparison study showed a prolongation of the median response by 0.7 ms, mildly abnormal. -The right median sensory peak latency was mildly prolonged (4.0 ms) as was the transcarpal latency, with normal the right median motor response was normal. The right median/ulnar transcarpal mixed nerve comparison study showed a prolongation of the median response by 0.7 ms, mildly abnormal. -The left ulnar sensory and motor responses were normal. EMG: -The left abductor pollicis brevis showed very mild chronic reinnervation. The right was normal. The left biceps, triceps, pronator teres and first dorsal interosseous were all normal. For waveforms/values/tables of EMG/nerve conduction study please see accompanying scanned document in the scans tab in EMR. 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 Based on herchronic mild bilateral nocturnal hand tingling this would fit a clinical diagnosis of carpal tunnelsyndrome. There is no evidence of left cervical radiculopathy or ulnar neuropathy. Clinical Impression: -I do not think today's findings of mild bilateral median neuropathy is the cause of the acute severe onset bilateral hand pain that occurred several months ago. She does have some symptoms consistent with this finding which have been present nocturnally for many years, but have not worsened since the hand pain started. The overall arc of her symptoms recently in terms of the hand pain is of steady improvement reassuringly. Pritesh Lemos MD documented in this encounter Plan of Treatment Not on file documented as of this encounter Visit Diagnoses Diagnosis Bilateral carpal tunnel syndrome- Primary Carpal tunnel syndrome documented in this encounter Care Teams Tire Repairman Relationship Specialty Start Date End Date Unknown, Provider, PCP - General 08/10/09 documented as of this encounter
--- OUTSIDE RECORDS SUMMARY | 2024-06-30 15:47 | XMS_ITS | Encounter Summary ---
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 Name Role Phone Unknown, Provider Primary Care Provider Encounter Details Date Type Department Care Team (Late st Contact Info) Description 08/09/2009 Orders Only [facility] Laboratory Services - [facility] ([facility]) [address], [place] [phone] Sindhu Condon CNM [address] [place], [place] [id number] Social History Tobacco Use Types Packs/Day Years Used Date Smoking Tobacco: Never Assessed Sex and Gender Information Value Date Recorded Sex Assigned at Not on file Gender Identity Not on file Sexual Orientation Not on file documented as of this encounter Plan of Treatment Not on file documented as of this encounter Procedures Procedure Name Priority Date/Time Associated Diagnosis Comments CYTOPATHOLOGY Routine 08/09/2009 0:00 EST documented in this encounter Results * CYTOPATHOLOGY (08/09/2009 0:00 EST) Pathology Report: CYTOPATHOLOGY REPORT ? Reports generated via electronic interface contain original data; ? however they are lacking the format of the original report. ? Caution should be taken when reading/interpreti ng unformatted reports. ? Name: ? LIAT HARP ? Accession #: ? [id number] ? : ? 1985 (Age: 23) ??F ?Collect Date: ? 08/09/2009 ? Location: ? [facility] ? Receive Date: ? 08/10/2009 ? Provider: ?ANEA LELONG CNM ? Copy to: ? Specimen/Source: ?Pap Test, Cervix/Endocervix, ThinPrep Imaging System ? with manual evaluation ? Last Menstrual Period: ? 9/10/09 ? Menstrual/Pregnanc y Status: ? Other: ? HPVA - HPV testing requested if ASC-US on the current ThinPrep Pap test. ? SPECIMEN ADEQUACY ? Satisfactory for Evaluation ? - transformation zone component present ? GENERAL CATEGORIZATION ? Negative for Intraepithelial Lesion or Malignancy ? Document reviewed and electronically signed by: ? Lynan Elias, CT(ASCP) ? Report Date: ??08/17/2009 09:34 ? End of Report ? [facility] 08/09/2009 08/10/2009 Sindhu Condon CNM PATHOLOGY ORDERABLES Performing Organization Address City/State/[facility] Co de Phone Number [facility] [address] [place] [address] documented in this encounter Visit Diagnoses Not on filedocumented in this encounter Care Teams Hollow Handle Knife Assembler Relationship Specialty Start Date End Date Unknown, Provider, PCP - General 08/10/09 documented as of this encounter
--- OUTSIDE RECORDS SUMMARY | 2024-06-30 15:47 | XMS_ITS | Continuity of Care Document ---
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 Plan of Treatment Reminders Order Date Submit Date Provider Last Modified By Organization Details Last Modified Time Details Appointments Follow Up 2023 10:00A M Not available Not available Not available Lab ferritin, serum or plasma - 1 mint,1 lav, 1 tiger drawn in [place], [facility], . 2023 024 [facility] (Registration ), [address] [place] [address] [place] [facility] [place], [address], 06/30/2024 10:56:49 iron + total iron-bind ing capacity (TIBC), serum - 1 mint,1 lav, 1 tiger drawn in [place], [facility], KB. 2023 024 [facility] (Registration ), [address] [place] [address] [place], [address], 06/30/2024 10:56:49 CBC - 1 mint,1 lav, 1 tiger drawn in [place], [facility], [facility]. 2023 024 [facility] (Registration ), [address] [place] [address] [place], [address], 06/30/2024 15:44:04 lipid panel, serum - 1 mint, 1 lav, 1 tiger drawn in house. 2023 [facility] (Registration ), [address] [place] [address] [place], [address], 06/30/2024 12:03:58 HbA1c (hemoglob in A1c), blood - 1 mint, 1 lav, 1 tiger drawn in house. 2023 [facility] (Registration ), [address] [place] [address] , [place], [address], 06/30/2024 12:03:58 Referral gynecolog ist referral 2023 [facility] Damon Álvarez, [address] [place], [address], 06/30/2024 12:25:19 Procedures None recorded. Surgeries None recorded. Imaging US, pelvis, transabdo adrian + transvagi nal - heavy bleeding, r/o fibroids, cc dr Álvarez pls 2023 [facility], [address] [place], [address], 06/30/2024 11:58:57 Medication Orders Victoza 2-Sb 0.6 mg/0.1 mL (18 mg/3 mL) subcutane ous pen injector 2023 [facility], [address] [facility], [address], [place], [address], 06/30/2024 11:11:31 Patient TargetsNo targets recorded. Patient Instructions Encounter Date Encounter Id Patient Instructions Last Modified By Organization Details Last Modified Time 06/30/2024 [id number] Dear LOYDA, Thank you for visiting us today and for your dedication to enhancing your health. Your proactive approach to addressing your health concerns is commendable, and we are here to support you every step of the way. Here is a summary of the bishop instructions and recommendations we discussed: - Raynaud's Management: Continue the use of heated gloves or hot packs. Should symptoms escalate, medication may be considered. - Carpal Tunnel Surgery: Your surgery is scheduled with Dr. Knott, following the results of your EMG. - Medication Updates: - Maintain your current regimen of fluoxetine and buspirone as prescribed. - For headaches, persist with taking 50 mg in the morning and 25 mg at night. Utilize Tylenol as necessary for breakthrough headaches. - Adjust Victoza dosage to 1.8 mg daily, administered subcutaneously. Ensure your prescription is updated to reflect the correct dosage and that you have a sufficient supply. - Gastrointestinal Health: Aim to keep stools soft. If symptoms continue, consider discussing potential treatments with a specialist. - Menstrual Health: - A pelvic ultrasound is recommended. - Consultation with Dr. King at [facility] for potential treatments, such as uterine artery ablation, is advised. - Iron and Vitamin B12 Levels: - Iron levels will be rechecked today. - Continue with B12 supplements, as they have proven effective. - Prescription Management: It is crucial to process all prescriptions, particularly Victoza, through [facility] to ensure cost-effectiveness. Verify the supply of needle tips and the correct quantity of pens. Please make sure to follow up on all tests and consultations with specialists as recommended. Should you have any questions or require further clarification on your treatment plan, please feel free to reach out to our office. Warm regards, Susi Yuan, [facility] Family Medicine [email or web address] Not available 06/30/2024 10:10:49 Reason for Referral Neurologist Referral for Tavares mor semi-urgent referral Referring Physician: Mariaelena Plaza, Family Medicine, Encounter Date: 01/25/2024 General Surgeon Referral for Hemorrhoids hemorroids Referring Physician: Joleen Coates Family Medicine, Encounter Date: 03/24/2024 Orthopedic Surgeon Referral for Carpal tunnel syndrome of left wrist Pt wih hx of CTS in b/l wrist, worse in left currently, please eval for possible steroid injection Referring Physician: Jennifer Combs Family Medicine, Encounter Date: 05/31/2024 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 Not Available 06/17 01:10:29 06/17/20 24 05/07/2023 US, breas t, compl ete No observ ation record ed. Not Available 06/17 01:10:33 06/17/20 24 05/07/2023 MAMMO , scree danay, bilat eral, w/ CAD No observ ation record ed. Not Available 06/17 01:10:34 06/17/20 24 02/22/2019 XR, foot, 3 or more view No observ ation record ed. Not Available 06/17 01:10:36 06/17/20 24 12/07/2022 CT, abdom en + pelvi s, w/ contr ast No observ ation record ed. Not Available 06/17 01:12:15 06/17/20 24 03/10/2022 XR, chest No observ ation record ed. Not Available 06/17 01:12:26 Result Notes None recorded. Problems Name Problem SNOMED Code Status Onset Date Resolution Date Notes Provider Name and Address Organization Details Recorded Time Insomnia 567627768 Active 2015 Problem Code: G47.00; Problem Code Type: ICD-10; [address], [place], [address] , [facility]. 16:34:11 Obesity 657096165 Active 2015 Problem Code: E66.9; Problem Code Type: ICD-10; [address], [place], [address] , [facility]. 4 16:34:11 History of disorder of digestiv e system 190365365 Active 2016 Problem Code: Z87.19; Problem Code Type: ICD-10; [address], [address] 4 16:34:11 Acute bronchit is 88655356 Completed 201611/08/2016 Problem Code: J20.9; Problem Code Type: ICD-10; Not Available [facility] 3 04:42:39 Urticari a [id number] Completed 201602/28/2024 Problem Code: L50.9; Problem Code Type: ICD-10; [address], [address] 4 08:04:53 Pelvic and perineal pain 268503122 Active 2017 Problem Code: R10.2; Problem Code Type: ICD-10; [address], [address] 4 16:34:11 Dysmenor pilar 395295690 Active 2017 Problem Code: N94.6; Problem Code Type: ICD-10; [address], [address] 4 16:34:11 Urinary tract infectio us disease 15676650 Completed 201706/03/2018 05/24/20 18 - Comments only - 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 - -UA pos for leuks, RBCs, nitrites , sent for C&S -START bactim DS 1 tab po bid x3 days -reviewe d red flag sx -RTC if sx worsen/p ersist Problem Code: N39.0; Problem Code Type: ICD-10; Not Available [facility] 3 04:42:39 Malaise [id number] Completed 201711/24/2023 Problem Code: R53.81; Problem Code Type: ICD-10; [address], [place], [address] , [facility] 4 16:34:37 Joint pain 03913463 Active 2018 Problem Code: M25.50; Problem Code Type: ICD-10; [address], [facility] [address] , [facility] 4 16:34:11 C-reacti ve protein above referenc e range 97644315522 9104 Active 2018 Problem Code: R79.82; Problem Code Type: ICD-10; [address], [facility] [address] [place] [address] 4 16:34:10 Migraine 41064602 Active 2018 Problem Code: G43.909; Problem Code Type: ICD-10; [address], [facility] [address] , [facility] 4 16:34:11 Irritabl e bowel syndrome 51955434 Active 2019 Problem Code: K58.9; Problem Code Type: ICD-10; [address], [facility] [address] , [facility] 4 16:34:10 Gastroes ophageal reflux disease without esophagi tis 843760138 Active 2019 Problem Code: K21.9; Problem Code Type: ICD-Cory; [address], [facility] [address] , [facility] 4 16:34:11 Adult health examinat ion Active 2019 Problem Code: Z00.00; Problem Code Type: ICD-10; [address], [facility] [address] , [facility] 4 16:34:11 Hyperlip idemia screenin g Active 2019 Problem Code: Z13.220; Problem Code Type: ICD-10; [address], [facility] [address] , [facility] 4 16:34:11 Diabetes mellitus screenin g Active 2019 Problem Code: Z13.1; Problem Code Type: ICD-10; [address], [address] 4 16:34:10 Hyperlip idemia 19687846 Active 2019 Problem Code: E78.5; Problem Code Type: ICD-10; [address], [facility] [address] [place] [address] 4 16:34:11 Acute upper respirat ory infectio n 06555862 Completed 202103/19/2022 03/05/20 22 - Comments only - Zoya Oconnor MD - refilled cough syrup which helped before; advised conserva tive manageme nt; Reviewed indicati ons for re-evalu ation. Problem Code: J06.9; Problem Code Type: ICD-10; Not Available [facility] 3 04:42:41 Fever 769537903 Completed 202103/21/2022 Problem Code: R50.9; Problem Code Type: ICD-10; Not Available [facility] 3 04:42:41 Cough 91917806 Completed 202103/21/2022 Problem Code: R05.8; Problem Code Type: ICD-10; [address], [facility] [address] , [facility] 4 08:03:39 Urgent desire to urinate 51584113 Completed 202106/16/2022 Problem Code: R39.15; Problem Code Type: ICD-10; Not Available [facility] 3 04:42:41 Acute pyelonep hritis 03836802 Completed 202106/16/2022 06/02/20 22 - Comments only - Zoya Oconnor MD - will treat with 2 wk course cipro; cautione d re: rare risk of tendon rupture. Will send urine for cx and repeat UA followin g treatmen t to ensure clearanc e given presence of what appeared to be renal casts today. Cautione d against extended use of Pyridium and importan ce of prompt eval of recurren t urinary symptoms in future. Problem Code: N10; Problem Code Type: ICD-10; [address], [place], [address] , [facility] 4 16:34:28 Acute pyelonep hritis 50172779 Completed 202111/24/2023 Problem Code: N10; Problem Code Type: ICD-10; [address], [place], [address] , [facility] 4 16:34:28 Acute sinusiti s 67962835 Completed 202212/11/2022 12/02/19 23 - Comments only - Zoya Oconnor MD - And bronchit is in patient with history of asthma and prior pneumoni a. Nothing at this time pointing toward a bacteria l process but advised treatmen t with Flonase plus codeine to help with nighttim e symptoms , and if no signific ant improvem ent in the next day or 2, would add Bactrim DS (patient with penicill in and cephalos porin allergy) . Reviewed indicati ons for reevalua tion. Problem Code: J01.90; Problem Code Type: ICD-10; Not Available [facility] 3 04:42:42 Acute bronchit is 86444701 Completed 202212/17/2022 Problem Code: J20.9; Problem Code Type: ICD-10; Not Available [facility] 3 04:42:42 Carpal tunnel syndrome of left wrist 62534005285 9102 Active 2022 Problem Code: G56.02; Problem Code Type: ICD-10; [address], [facility] [address] [facility] 4 16:34:11 Hand pain 08308111 Completed 202207/27/2023 Problem Code: M79.643; Problem Code Type: ICD-10; Not Available [facility] 4 05:35:53 Pain of breast 08496234 Completed 202207/27/2023 Problem Code: N64.4; Problem Code Type: ICD-10; Not Available [facility] 4 05:35:54 Family history of breast cancer 596232874 Active 2022 Problem Code: Z80.3; Problem Code Type: ICD-10; [address], [facility] [address] , [facility] 4 16:34:11 Blood chemistr y outside referenc e range 143226086 Completed 202205/07/2023 Problem Code: R79.89; Problem Code Type: ICD-10; Not Available [facility] 3 04:42:43 Abnormal finding on evaluati on procedur e 102665577 Completed 202207/27/2023 Problem Code: R89.9; Problem Code Type: ICD-10; Not Available [facility] 4 05:35:52 Fatigue 43541077 Active 2022 Problem Code: R53.83; Problem Code Type: ICD-10; [address], [facility] [address] [facility] 4 16:34:11 Hypertro phic conditio n of skin 64925361 Completed 201705/10/2018 Problem Code: L91.8; Problem Code Type: ICD-10; Not Available [facility] 3 04:42:43 General examinat ion of patient Completed 200502/12/2018 Problem Code: Z00.8; Problem Code Type: ICD-10; Not Available [facility] 3 04:42:44 Acute effect of ultravio let radiatio n on normal skin 650697172 Completed 201805/30/2019 Problem Code: L56.8; Problem Code Type: ICD-10; Not Available [facility] 3 04:42:44 Headache 41577471 Completed 201807/01/2023 Problem Code: R51; Problem Code Type: ICD-10; Not Available [facility] 3 04:42:44 Abdomina l pain 76442426 Completed 202111/03/2022 Problem Code: R10.9; Problem Code Type: ICD-10; Not Available [facility] 3 04:42:44 Cholecys titis 94074843 Completed 201607/01/2023 Problem Code: K81.9; Problem Code Type: ICD-10; Not Available [facility] 3 04:42:44 Diarrhea 99853737 Completed 201704/29/2019 Problem Code: R19.7; Problem Code Type: ICD-10; Not Available [facility] 3 04:42:45 Irregula r periods 84788498 Completed 201505/10/2018 Problem Code: N92.6; Problem Code Type: ICD-10; Not Available [facility] 3 04:42:45 Pelvic and perineal pain 757920297 Completed 201502/12/2018 Problem Code: R10.2; Problem Code Type: ICD-10; [address], [place], [address] , [facility]. 4 16:34:11 Saurabh peoples Completed 201705/24/2018 Problem Code: Z71.89; Problem Code Type: ICD-10; Not Available [facility] 3 04:42:45 Pain of right knee joint 65897406542 4100 Completed 202106/26/2022 Problem Code: M25.561; Problem Code Type: ICD-10; Not Available [facility] 3 04:42:45 History AND physical examinat ion Completed 200507/01/2023 Not Available [facility] 3 04:42:45 Acute pharyngi tis 990836962 Completed 201702/12/2018 Problem Code: J02.9; Problem Code Type: ICD-10; Not Available [facility] 3 04:42:46 Pain in left foot 68088718238 9107 Completed 201806/26/2022 Problem Code: M79.672; Problem Code Type: ICD-10; Not Available [facility] 3 04:42:46 History of urinary disease 099254770 Active 2021 Problem Code: Z87.448; Problem Code Type: ICD-10; [address], [facility] [address] , [facility] 4 16:34:11 Mixed anxiety and depressi ve disorder 718482388 Active [address], [place], [address] , [facility] 4 10:36:32 Tremor 51638961 Completed 202306/30/[address], [facility] [address] , [facility]. 4 10:59:59 Numbness 23914231 Completed 202306/30/[address], [place], [address] , [facility]. 4 11:00:11 Cobalami n deficien cy 750755935 Active [address], [place], [address] , [facility]. 4 16:39:58 Iron deficien cy 23007772 Active [address], [place], [address] , [facility] 4 17:10:09 Hemorrho ids 81046538 Active [address], [place], [address] , [facility] 4 10:19:46 Paresthe fede 83171497 Completed 202306/30/[address], [facility] [address] , [facility] 4 11:00:03 Restless legs 82783529 Active 2023 sleep study 2023, no LORNE [address], [place], [address] , [facility] 16:47:53 Carpal tunnel syndrome 75773480 Active 2023 ALAN CHRISTIANSON MA null, [facility] 4 13:48:15 Sleep pattern disturba dce 58464870 Active 2023 no result from sleep study? Did not have it? [address], [place], [address] , [facility] 4 14:43:07 Menorrha og 407212339 Active [address], [place], [address] , [facility] 4 09:54:15 Raynaud' s phenomen on 884092636 Active [address], [place], [address] , [facility]. 4 09:55:53 Notes:*Problem Name: Franck mejia- 2012 *Problem Status: inactive *Comments: *Problem Code: V25.02 *Problem Code Type: ICD-9 *Note Date: 12/13/2013 Problem Notes None recorded. Medical Equipment None Reported. Allergies Allergen ID Allergen Name Allergen Category Reaction Reaction Severity Criticality Documentation Date Start Date Code Code System Note Provider Name and Address Organization Details Recorded Time amoxicill in trihydrat e medicatio n hives severe Not available 08/14/20232002 17474 8 RxNorm full body hives Aller gyCod e: '3081 82'; Aller gyNam e: 'AMOX ICILL IN'; Aller gyCon ceptT ype: 'RX Norm' ; Aller gyRea ction : 'full body hives '; Not Available [facility] 3 16:11:42 cephalexi n monohydra te medicatio n hives severe Not available 08/14/20232015 20218 8 RxNorm full body hives Aller gyRea ction : 'full body hives '; Not Available [facility] 3 16:11:42 Medications Name Sig Start Date Stop Date Status Note LastModified by Organization Details LastModified Time Prescript ion - Renewal active Med fill Not Available Not Available Not Available Singulair 10 mg tablet 1 TAB QD 12/23 completed Not Available Not Available Not Available fluoxetin e 40 mg capsule TAKE ONE CAPSULE BY MOUTH EVERY DAY 03/04 completed 40mg is thought to have cause tremor in pt. See #[id number]. Not Available Not Available Not Available promethaz ine-DM 6.25 mg-15 mg/5 mL oral syrup Take 5 ml by mouth three times a day as needed for cough 04/15 completed Not Available Not Available Not Available azithromy juanita 250 mg tablet Take 2 tablet by mouth single dose Take 2 tablets by mouth now, then take 1 tablet by mouth daily for the next 4 days 03/12 completed Not Available Not Available Not Available doxepin 25 mg capsule 2 tab at bedtime 06/21 completed Not Available Not Available Not Available sumatript an 100 mg tablet TAKE 1 TABLET BY MOUTH ONCE AT ONSET OF HEADACHE . MAY REPEAT DOSE AFTER 2 HOURS IF INEFFECT LELA active Not Available Not Available No t Available prednison e 20 mg tablet take 2 tabs po QD 03/27 completed Not Available Not Available Not Available Protonix 20 mg tablet,de layed release Take 1 tab by mouth daily 07/28 completed Not Available Not Available Not Available topiramat e 25 mg tablet TAKE 1 TABLET BY MOUTH ONCE DAILY AT BEDTIME FOR 1 WEEK, THEN TAKE 1 TABLET TWICE DAILY FOR 1 WEEK, THEN 2 TABLETS TWICE DAILY active Not Available Not Available No t Available Zyrtec 10 mg tablet 1 TAB UAD 06/21 completed Not Available Not Available Not Available omeprazol e 40 mg capsule,d elayed release TAKE ONE CAPSULE BY MOUTH EVERY DAY active Not Available Not Available No t Available Nexium 20 mg capsule,d elayed release 06/26 completed patient takes in morning Not Available Not Available Not Available Aerochamb er MV spacer Use 1 device as directed 2021 active Not Available Not Available Not Avai lable hydrocort isone 2.5 % topical cream with perineal applicato r APPLY THIN LAYER TOPICALL Y TO THE AFFECTED AREA 2 TO 4 TIMES DAILY 05/31 completed Not Available Not Available Not Available omeprazol e 10 mg capsule,d elayed release 06/26 completed pt takes in evening Not Available Not Available Not Available Zoloft 50 mg tablet 1 .5 tab QAM 03/06 completed Not Available Not Available Not Available IBU 600 mg tablet TAKE 1 TABLET BY MOUTH THREE TIMES DAILY WITH MEALS 11/26 completed Not Available Not Available Not Available dicyclomi ne 20 mg tablet take one tablet 4 times daily as needed for bowel issues 2019 active from [facility] Not Available Not Available Not Available pantopraz ole 40 mg tablet,de layed release Take 1 tablet by mouth once a day 04/15 completed Not Available Not Available Not Available Cipro 500 mg tablet 1 tablet by mouth twice a day 06/16 completed Not Available Not Available Not Available buspirone 10 mg tablet TAKE ONE TABLET BY MOUTH TWICE A DAY FOR ANXIETY active Not Available Not Available No t Available fluoxetin e 10 mg capsule Take 1 capsule by mouth once a day 11/03 completed Not Available Not Available Not Available gabapenti n 300 mg capsule TAKE 1 CAPSULE 1X DAILY AT BEDTIME NEEDED FOR 3 DAYS. THEN INCREASE TO 2X DAILY, THEN 2 CAPSULES 2X DAILY NEEDED AFTER 3 MORE DAYS 09/29 completed reports no longer taking Not Available Not Available Not Available omeprazol e 20 mg capsule,d elayed release TAKE ONE CAPSULE BY MOUTH ONCE DAILY 2019 active Not Available Not Available Not Avai lable hydroxyzi ne HCl 25 mg tablet Take 1 tab by mouth three times daily as needed 2016 active Not Available Not Available Not Avai lable codeine 10 mg-guaife nesin 100 mg/5 mL oral liquid 2 tsp at night as needed for cough 12/07 completed Not Available Not Available Not Available Entocort EC 3 mg capsule,d elayed,ex tended release Take 3 tablets/ day by mouth for 8 weeks. 04/29 completed Not Available Not Available Not Available gabapenti n 100 mg capsule TAKE ONE CAPSULE BY MOUTH EVERY DAY AT BEDTIME 06/30 completed Not Available Not Available Not Available SF 5000 Plus 1.1 % dental cream Use as directed 06/02 completed Not Available Not Available Not Available fluoxetin e 20 mg capsule Take 1 capsule by mouth once a day 2023 active Not Available Not Available Not Avai lable Vitamin B-12 1,000 mcg tablet Take 1 tablet every day by oral route. active Not Available Not Available No t Available Benadryl 25 mg capsule 1-2 tabs daily as needed 08/10 completed Not Available Not Available Not Available Bactrim DS 800 mg-160 mg tablet 1 tablet by mouth twice a day 04/03 completed Not Available Not Available Not Available Sprintec (28) 0.25 mg-35 mcg tablet TAKE ONE TABLET BY MOUTH EVERY DAY active Not Available Not Available No t Available Unifine Pentips 29 gauge x 1/2 needle USE ONCE DAILY WITH VICTOZA active Not Available Not Available No t Available topiramat e 50 mg tablet TAKE 2 TABLETS BY MOUTH ONCE DAILY IN THE MORNING AND 2 TABLETS AT BEDTIME active Not Available Not Available No t Available Albuterol Sulfate HFA 90 mcg/Actua tion aerosol inhaler 2 PUFFS q6h 12/23 completed Not Available Not Available Not Available Zantac Maximum Strength 150 mg tablet BID 08/10 completed Not Available Not Available Not Available Bactrim DS 1 tab bid 11/15 completed Not Available Not Available Not Available Zithromax Z-Sb 06/09 completed Not Available Not Available Not Available ProAir HFA 90 mcg/actua tion aerosol inhaler Inhale 1-2 puff as directed every four to six hours as needed 2023 active Not Available Not Available Not Avai lable FeroSul 325 mg (65 mg iron) tablet Take 1 tablet every day by oral route. active Not Available Not Available No t Available omeprazol e 20 mg tablet,de layed release 1CAP daily 06/19 completed Not Available Not Available Not Available Plus (calcium carbonate ) 27 mg iron-1 mg tablet Take 1 tab by mouth daily 07/28 completed Not Available Not Available Not Available Victoza 2-Sb 0.6 mg/0.1 mL (18 mg/3 mL) subcutane ous pen injector Inject 1.8 mg every day by subcutan eous route for 84 days. 2023 active Not Available Not Available Not Avai lable budesonid e DR-ER 9 mg tablet,de layed and extended release Take one tablet/d ay by mouth for 8 weeks. 02/14 completed Not Available Not Available Not Available Flonase Allergy Relief 50 mcg/actua tion nasal spray,ismael pension 2 spray once a day 04/03 completed Not Available Not Available Not Available Vitals Date Recorded Body height Body mass index (BMI) Body weight Body temperature Oxygen saturation Oxygen saturation in Arterial blood by Pulse oximetry Heart rate Systolic blood pressure Diastolic blood pressure Provider Name and Address Organization Details Last Updated DateTime 4 170.815 cm 37.2 kg/m2 590283. 58 g 97.3 [degF] 98 % 98 % 83 /min 100 mm[Hg] 70 mm[Hg] ALAN CHRISTIANSON [facility] 09:51:27 Social History Question Answer Notes LastModified by Organizat ion Details LastModified Time Tobacco Smoking Status Former Smoker ED MATTHEW MADDOX [facility] 09/29/2023 13:02:52 When Did You Quit Smoking? 11-15yearssi ncelastcigar ette Information not available 09/29/2023 Sex: Female Functional Status None recorded. Mental Status None recorded. Family History Relationship Description Onset Age of this Age Resolved Age Notes LastModified by Organization Details LastModified Time Unspecified Relation Family history unknown Relati ve: 'First Degree Blood Relati ve'; [email or web address] Not available 08/14/2023 03:54:41 Notes:*Problem: Mother: sebastian e , mental health, adiction mgm- ? DM, [place] 50s or 60s Father- HLD, mgm- breast cancer (? age) brother- healthy Father: alive age 43 Sisters: none Brothers: 1 Children: none Family History of: Hypertension: yes Hyperlipidemia: yes Coronary heart disease: yes Diabetes mellitus: no Breast cancer: yes Colorectal cancer: no Alcoholism: yes Mental illness: yes Other: yes [employer] paternal gm- breast cancer Medical History No medical history recorded. Gynecological HistoryNo gynecological history recorded. Obstetrics History GPAL:G 0 P 0 0 0 0 Immunizations Vaccine Type Date Status Provider Name and Address Organization Details Recorded Time Influenza, split virus, trivalent, PF 06/30/2024 completed [facility] 06/30/2024 11:12:59 MMR 11/11/1988 completed Not Available [facility] 05:59:12 MMR 05/19/1994 completed Not Available [facility] 05:59:12 Td (adult), 2 Lf tetanus toxoid, preservative free, adsorbed 04/15/2022 completed Not Available [facility] 08/14/2023 05:59:12 Tdap 03/04/2012 completed Not Available [facility] 05:59:12 Novel [id number], all formulations 08/02/2009 completed Not Available [facility] 08/14/2023 05:59:12 Td(adult) unspecified formulation 05/05/2002 completed Not Available [facility] 08/14/2023 05:59:12 Td(adult) unspecified formulation 08/15/1992 completed Not Available [facility] 08/14/2023 05:59:12 Influenza, split virus, quadrivalent, PF 06/26/2022 completed Not Available [facility] 08/14/2023 05:59:13 Influenza, split virus, quadrivalent, PF 07/05/2020 completed Not Available [facility] 08/14/2023 05:59:13 Influenza, split virus, quadrivalent, PF 09/09/2021 completed Not Available [facility] 08/14/2023 05:59:13 Influenza, split virus, quadrivalent, preservative 07/28/2017 completed Not Available [facility] 08/14/2023 05:59:13 DTaP 1987 completed Not Available [facility] 05:59:13 DTaP 1987 completed Not Available [facility] 05:59:13 DTaP 02/04/1989 completed Not Available [facility] 05:59:13 DTaP 02/26/1988 completed Not Available [facility] 05:59:13 COVID-19, mRNA, LNP-S, PF, 30 mcg/0.3 mL dose 09/11/2021 completed Not Available [facility] 08/14/2023 05:59:14 COVID-19, mRNA, LNP-S, PF, 30 mcg/0.3 mL dose 10/01/2021 completed Not Available [facility] 08/14/2023 05:59:14 Hep B, unspecified formulation 03/27/1998 completed Not Available [facility] 08/14/2023 05:59:14 Hep B, unspecified formulation 04/30/1998 completed Not Available [facility] 08/14/2023 05:59:14 Hep B, unspecified formulation 10/02/1998 completed Not Available [facility] 08/14/2023 05:59:14 influenza, unspecified formulation 06/21/2014 completed Not Available [facility] 08/14/2023 05:59:14 influenza, unspecified formulation 07/26/2009 completed Not Available [facility] 08/14/2023 05:59:14 influenza, unspecified formulation 08/23/2013 completed Not Available [facility] 08/14/2023 05:59:14 polio, unspecified formulation 1987 completed Not Available [facility] 08/14/2023 05:59:14 polio, unspecified formulation 1987 completed Not Available [facility] 08/14/2023 05:59:14 polio, unspecified formulation 02/04/1989 completed Not Available [facility] 08/14/2023 05:59:15 polio, unspecified formulation 02/26/1988 completed Not Available [facility] 08/14/2023 05:59:15 polio, unspecified formulation 08/15/1992 completed Not Available [facility] 08/14/2023 05:59:15 Influenza, split virus, quadrivalent, PF 07/27/2023 completed Not Available [facility] 10/16/2023 05:31:15 Past Encounters Encounter ID Performer Location Encounter Start Date Encounter Closed Date Diagnosis/Indication Diagnosis SNOMED-CT Code Diagnosis ICD10 Code [id number] SILVERIO PETTY [address] [address] 05/31/2024 07:45:38 05/31/2024 08:41:09 Carpal tunnel syndrome of left wrist 4973461372 49405 G56.02 Hand pain 42999440 M79.6 42 [id number] ALAN CHRISTIANSON MA [address] [address] 06/30/2024 09:42:18 06/30/2024 10:23:28 Mixed anxiety and depressive disorder 909060090 F41.8 Migraine 26373523 G43.90 9 Iron deficiency 66874088 E61.1 Fatigue 86429108 R53.83 Obesity 142458153 E66.9 Menorrhagia 190706724 N9 2.0 Carpal ana maria robbie syndrome 31538130 G56.02 Raynaud's phenomenon 266 990662 I73.00 Active or passive immunization 555069735 Z23 Diabetes m ellitus screening 541660968 Z13.1 Hyperlipid emia screening 752027479 Z13.220 Health Concerns Section Related Observation LastModified by Organization Detai ls LastModified Time None Recorded Concern Status LastModified by Organization Details LastModified Time None Recorded Payers Encounter Date Sequence Insurance Name Policy Number Policy Del Castillo Covered Member ID Del Castillo Member ID Guarantor Name 06/30/2024 1 [facility] (MEDICAID) Liat Flanagan [id number] Liat Flanagan Notes Date Note Type Note Provider Name and Address Organization Details Recorded Time 06/30/2024 text/html HPI Notes: CC: Follow-up The patient presents with a new symptom of fingers turning white and numb in cold, wet conditions, raising concerns about potential Raynaud's and nerve damage. Saw provider soumya harvey this am and they dx raynauds. Carpal tunnel syndrome has been confirmed by EMG, and surgery is scheduled with Dr. Knott. Medications: - Fluoxetine and buspirone: reports doing okay, working well for mood - Victoza: Dosage increased from 0.6 mg to 1.8 mg; notes prescription shortage from [facility], doing well w this medication and would like to continue Gynecological concerns: - Heavy periods; on Sprintec control - Daily bleeding for 3 months with cramping - Previous Mirena use resulted in ovarian cysts, wants it all out Supplements: - B12 and iron; hemoglobin normal, iron previously low - B12 levels fine on last check due to supplementation ALAN CHRISTIANSON MA null, [place] - [facility]. 06/30/2024 11:13:37 OBGyn Episode No OBEpisode recorded.
--- OUTSIDE RECORDS SUMMARY | 2024-06-30 15:47 | XMS_ITS | Encounter Summary ---
Author Organization [facility] Address [address] [place] [address] Care Team Providers Care Parcel Carrier Name Role Phone Unknown, Provider Primary Care Provider [phone] Encounter Details Date Type Department Care Team (Late st Contact Info) Description 05/13/2016 Results Only [facility] [phone] Vazquez Alex CNM Social History Tobacco Use Types Packs/Day Years Used Date Smoking Tobacco: Never Assessed Sex and Gender Information Value Date Recorded Sex Assigned at Not on file Gender Identity Not on file Sexual Orientation Not on file documented as of this encounter Plan of Treatment Not on file documented as of this encounter Procedures Procedure Name Priority Date/Time Associated Diagnosis Comments PAP TEST- RESULT ONLY Routine 05/13/2016 0:00 EDT documented in this encounter Results * PAP TEST- RESULT ONLY (05/13/2016 0:00 EDT) Pathology Report: CYTOPATHOLOGY REPORT Reports generated via electronic interface contain original data; however they are lacking the format of the original report. Caution should be taken when reading/interpreti ng unformatted reports. Name: ? LIAT FLANAGAN ? Accession #: ? [id number] : ? 1985 (Age: 30) ??F ?Collect Date: ? 05/13/2016 Location: ? [facility] ? Receive Date: ? 05/14/2016 Provider: ?VAZQUEZ ALEX CNM Copy to: ?DAVIS ARIZMENDI PLATE CLEANER ? Specimen/Source: ?Pap Test, Cervix/Endocervix, ThinPrep Imaging System with manual evaluation Last Menstrual Period: ? 03/09/2016 Menstrual/Pregnanc y Status: ? Other: ? Talent Buyer Clinical/Treatment Hx - None ? SPECIMEN ADEQUACY ? Satisfactory for Evaluation - transformation zone component present - scant squamous epithelial component secondary to excessive blood GENERAL CATEGORIZATION ? Negative for Intraepithelial Lesion or Malignancy ? Document reviewed and electronically signed by: ? LATHA Oscar(ASCP) ? Report Date: ??05/21/2016 14:[address] [facility] 05/13/2016 05/14/2016 Vazquez Alex CNM PATHOLOGY ORDERABLES [facility] [address] [place] [address] documented in this encounter Visit Diagnoses Not on filedocumented in this encounter Care Teams Parcel Carrier Relationship Specialty Start Date End Date Unknown, Provider, PCP - General 08/10/09 documented as of this encounter
--- OUTSIDE RECORDS SUMMARY | 2024-06-30 15:47 | XMS_ITS | Encounter Summary ---
Author Organization [facility] Address [address] [place] [address] Care Team Providers Care Air Tool Operator Name Role Phone Unknown, Provider Primary Care Provider [phone] Encounter Details Date Type Department Care Team (Latest Contact Info) Description 04/29/2019 13:29 EDT - 04/29/2019 23:59 EDT Hospital Encounter [address] [address] Unknown, Provider, Discharge Disposition: Home or Self Care Social History Tobacco Use Types Packs/Day Years Used Date Smoking Tobacco: Never Assessed Sex and Gender Information Value Date Recorded Sex Assigned at Not on file Gender Identity Not on file Sexual Orientation Not on file documented as of this encounter Discharge Disposition Disposition Code Departure Means Destination Home or Self Alf documented in this encounter Plan of Treatment Not on file documented as of this encounter Visit Diagnoses Not on filedocumented in this encounter Care Teams Air Tool Operator Relationship Specialty Start Date End Date Unknown, Provider, PCP - General 08/10/09 documented as of this encounter
--- OUTSIDE RECORDS SUMMARY | 2024-06-30 15:47 | XMS_ITS | Clinical Summary ---
Author Organization [facility] Address [address] [place] [address] Care Team Providers Care Oracle Architect Name Role Phone Unknown, Provider MD Primary Care Provider [phone] Allergies Active Allergy Reactions Criticality Noted Date Comments Amoxicillin Rash,Hives High 10/17/2002 Cephalosporins Hives,Rash High 11/28/2015 Scopolamine Nausea And Vomiting 05/23/2019 Medications Medication Sig Dispensed Refills Start Date End Date Status norgestimate-ethinyl estradioL (SPRINTEC, 28,) 0.25-35 mg-mcg per tablet Take 1 Tablet by mouth daily. Active insulin pen needles 29G x 1/2 (UNIFINE PENTIPS) USE ONCE DAILY WITH VICTOZA Active SUMAtriptan (IMITREX) 100 mg tablet Take 1 Tablet by mouth once as needed. Active albuterol (PROAIR HFA) 90 mcg/actuation inhaler Inhale 2 Puffs as directed every 4 hours as needed for Wheezing. 11/26/2023 Active liraglutide (VICTOZA 2-BIANCA) 0.6 mg/0.1 mL (18 mg/3 mL) injectable pen Inject 0.6 mg into the skin daily. 07/27/2023 Active gabapentin (NEURONTIN) 300 mg capsule Take 2 Capsules by mouth 2 times daily. 06/12/2023 Active topiramate (TOPAMAX) 50 mg tablet TAKE 2 TABLETS BY MOUTH ONCE DAILY IN THE MORNING AND 2 TABLETS AT BEDTIME Active omeprazole (PRILOSEC) 40 mg capsule Take 1 Capsule by mouth daily. Active FLUoxetine (PROZAC) 40 mg capsule Take 1 Capsule by mouth daily. Active Social History Tobacco Use Types Packs/Day Years Used Date Smoking Tobacco: Never Assessed Interpersonal Safety Answer Date Record ed Physically Hurt Never 05/06/2020 Verbally Threaten Not on file 05/06/2020 Sex and Gender Information Value Date Recorded Sex Assigned at Not on file Gender Identity Not on file Sexual Orientation Not on file Last Filed Vital Signs Vital Sign Reading Time Taken Comments Blood Pressure 96/60 02/10/2024 0845 EDT Pulse 76 02/10/2024 0845 EDT Temperature - - Respiratory Rate 12 02/10/2024 0845 EDT Oxygen Saturation - - Inhaled Oxygen Concentration - - Weight - - Height - - Body Mass Index - - Plan of Treatment Health Maintenance Due Date Last Done Comments Hepatitis C Screen 1987 Hepatitis B Vaccine (1 of 3 - 19+ 3-dose series) 2006 COVID-19 Vaccine (2022- season) 2024, 09/11/2021 Care Teams Oracle Architect Relationship Specialty Start Date End Date Unknown, Provider, PCP - General 08/10/09
--- OUTSIDE RECORDS SUMMARY | 2024-06-30 15:47 | XMS_ITS | Encounter Summary ---
Author Organization [facility] Address [address] [place] [address] Care Team Providers Care Metal Buffer Name Role Phone Unknown, Provider Primary Care Provider Encounter Details Date Type Department Care Team (Late st Contact Info) Description 04/21/2023 Lab Requisition [facility] Pathology & Laboratory Medicine - [facility] [address] [place], [place] [id number] Outr Resulting Lab, Provider Social History Tobacco Use Types Packs/Day Years [...] Procedure Name Priority Date/Time Associated Diagnosis Comments HOLD SST Today 04/21/2023 9:15 EDT CCP ANTIBODIES Today 04/21/2023 9:15 EDT LYME AB Today 04/21/2023 9:15 EDT ANTI NUCLEAR AB (MIYA), IFA Today 04/21/2023 9:15 EDT CORTISOL Today 04/21/2023 9:15 EDT documented in this encounter Results * HOLD SST (04/21/2023 9:15 EDT) Hold Hold 04/21/2023 22:46 EDT [facility] Blood VENOUS BLOOD / Unknown 04/21/2023 9:15 EDT 04/21/2023 21:37 EDT Provider Outr Resulting Lab LAB INFO SER VICE AND SUPPORT & PHONE RESULT Performing Organization Address [facility] Co de Phone Number [facility] [address] [place] [address] * LYME AB (04/21/2023 9:15 EDT) [facility] Lyme Ab Negative Negative 04/22/2023 11:08 EDT [facility] Blood VENOUS BLOOD / Unknown 04/21/2023 9:15 EDT 04/21/2023 21:35 EDT Provider Outr Resulting Lab IMMUNOLOGY A ND SEROLOGY ORDERABLES Performing Organization Address [facility] de Phone Number [facility] [address] [place] [address] * CORTISOL (04/21/2023 9:15 EDT) [facility] Cortisol 22 See Note ug/dL 04/21/2023 22:34 EDT [facility] Comment: NOTE: Reference Ranges (from OCD IFU): Collected Before 10:00 AM: ??4 - 23 ug/dL Collected After 5:00 PM: ?2 - 14 ug/dL The results of this assay can be falsely elevated due to the consumption of Biotin. Blood VENOUS BLOOD / Unknown 04/21/2023 9:15 EDT 04/21/2023 21:35 EDT Provider Outr Resulting Lab CHEMISTRY & BLOOD GAS ORDERABLES Performing Organization Address [facility] Co de Phone Number [facility] [address] [place] [address] * (ABNORMAL) ANTI NUCLEAR AB (MIYA), IFA (04/21/2023 9:15 EDT) [facility] MIYA Interpretation Positive(A) Negative 04/22/2023 15:48 EDT [facility] MIYA Titer and Pattern 1 1:80 Speckled 04/22/2023 15:48 EDT [facility] Blood VENOUS BLOOD / Unknown 04/21/2023 9:15 EDT 04/21/2023 21:35 EDT Narrative [facility] - 04/22/2023 15:48 EDT Results were obtained with the INOVA NOVA Lite HEp-2 MIYA Kit by indirect immunofluorescence. Provider Outr Resulting Lab IMMUNOLOGY A ND SEROLOGY ORDERABLES Performing Organization Address City/[facility]/ZIP Co de Phone Number [facility] [address] [place] [address] * CCP ANTIBODIES (04/21/2023 9:15 EDT) CCP Antibodies <2.5 <5.0 U/mL 04/22/2023 9:05 EDT [facility] Blood VENOUS BLOOD / Unknown 04/21/2023 9:15 EDT 04/21/2023 21:35 EDT Provider Outr Resulting Lab IMMUNOLOGY A ND SEROLOGY ORDERABLES Performing Organization Address City/[facility]/ZIP Co de Phone Number [facility] [address] [place] [address] documented in this encounter Visit Diagnoses Not on filedocumented in this encounter Care Teams Metal Buffer Relationship Specialty Start Date End Date Unknown, Provider, PCP - General 08/10/09 documented as of this encounter
--- OUTSIDE RECORDS SUMMARY | 2024-06-30 15:47 | XMS_ITS | Encounter Summary ---
Author Organization [facility] Address [address] [place] [address] Care Team Providers Care Eco Industrial Development Consultant Name Role Phone Unknown, Provider Primary Care Provider [phone] Encounter Details Date Type Department Care Team (Latest Contact Info) Description 03/13/2014 10:34 EDT - 03/13/2014 23:59 EDT Hospital Encounter [facility] [address] [place] [address] Unknown, Provider, Discharge Disposition: Home or Self Care Social History Tobacco Use Types Packs/Day Years Used Date Smoking Tobacco: Never Assessed Sex and Gender Information Value Date Recorded Sex Assigned at Not on file Gender Identity Not on file Sexual Orientation Not on file documented as of this encounter Discharge Disposition Disposition Code Departure Means Destination Home or Self Half-Way documented in this encounter Plan of Treatment Not on file documented as of this encounter Visit Diagnoses Not on filedocumented in this encounter Care Teams Eco Industrial Development Consultant Relationship Specialty Start Date End Date Unknown, Provider, PCP - General 08/10/09 documented as of this encounter
--- OUTSIDE RECORDS SUMMARY | 2024-06-30 15:47 | XMS_ITS | Encounter Summary ---
Author Organization [facility] Address [address] [place] [address] Care Team Providers Care Box Icer Name Role Phone Unknown, Provider Primary Care Provider Encounter Details Date Type Department Care Team (Late st Contact Info) Description 03/27/2020 Lab Requisition [facility] Pathology & Laboratory Medicine - [facility] [address] [place] [address] Susi Yuan, PRODUCTION CONTROL MANAGER [address] [place], [place] [address] Encounter for general adult medical examination without abnormal findings; Encounter for screening for malignant neoplasm of cervix Social History Tobacco Use Types Packs/Day Years Used Date Smoking Tobacco: Never Assessed Sex and Gender Information Value Date Recorded Sex Assigned at Not on file Gender Identity Not on file Sexual Orientation Not on file documented as of this encounter Plan of Treatment Not on file documented as of this encounter Procedures Procedure Name Priority Date/Time Associated Diagnosis Comments PAP TEST Today 03/26/2020 10:30 EDT Encounter for general adult medical examination without abnormal findings Encounter for screening for malignant neoplasm of cervix HPV DNA DETECTION WITH GENOTYPING, PCR Today 03/26/2020 10:30 EDT Encounter for general adult medical examination without abnormal findings Encounter for screening for malignant neoplasm of cervix documented in this encounter Results * HUMAN PAPILLOMAVIRUS (HPV) DETECTION-HIGH RISK TYPES (03/26/2020 10:30 EDT) HPV other High Risk types, PCR Negative Negative 04/06/2020 13:05 EDT [facility] Comment:No E6 or E7 mRNA is detected from HPV types 16,18,31,33,35,39,45,51,52,56,58,59,66, and 68 by special tester mediated amplification. Papanicolaou smear specimen (specimen) CERVIX UTERI STRUCTURE / Unknown 03/26/2020 10:30 EDT 04/04/2020 13:45 EDT Susi Yuan NP MICROBIOLOGY - GENER AL ORDERABLES [facility] [address] [place] [address] * PAP TEST (03/26/2020 10:30 EDT) Specimens A. Cervix and/or Endocervix , ThinPrep Imaging System with Manual Evaluation 04/06/2020 13:05 [facility] Specimen Adequacy Satisfactory for Evaluation - transformation zone component present Scant due to excessive blood 04/06/2020 13:05 [facility] General Categorization Negative for intraepithelial lesion or malignancy 04/06/2020 13:05 [facility] Attestation . 04/06/2020 13:05 [facility] at 1305 Educational Comments An additional slide was prepared and evaluated. 04/06/2020 13:05 [facility] Clinical History SEE ORDER COMMENTS 04/06/2020 13:05 [facility] HPV The result for the Human Papillomavirus (HPV) Detection-High Risk Types is Negative. No E6 or E7 mRNA is detected from HPV types 16,18,31,33,35,39 ,45,51,52,56,58,5 9,66, and 68 by special tester mediated amplification.Sintia ting was performed on specimen [id number] and was resulted on 04/06/2020 1303 EDT by MOISES, LAB INSTRUMENT RESULTS IN 04/06/2020 13:05 T [facility] Scanned Images 04/06/2020 13:05 [facility] Papanicolaou smear specimen (specimen) CERVIX UTERI STRUCTURE / Unknown 03/26/2020 10:30 EDT 03/27/2020 15:57 EDT Susi Yuan NP PATHOLOGY ORDERABLES [facility] [address] [place] [address] documented in this encounter Visit Diagnoses Diagnosis Encounter for general adult medical examination without abnormal findings Unspecified general medical examination Encounter for screening for malignant neoplasm of cervix Screening for malignant neoplasm of the cervix documented in this encounter Care Teams Box Icer Relationship Specialty Start Date End Date Unknown, Provider, PCP - General 08/10/09 documented as of this encounter
--- OUTSIDE RECORDS SUMMARY | 2024-06-30 15:47 | XMS_ITS | Encounter Summary ---
Author Organization [facility] Address [address] [place] [address] Care Team Providers Care Prop Maker Name Role Phone Unknown, Provider Primary Care Provider [phone] Encounter Details Date Type Department Care Team (Late st Contact Info) Description 01/28/2024 Lab Requisition [facility] Pathology & Laboratory Medicine - [address] [id number] Outr Resulting Lab, Provider Social History Tobacco [...] Procedure Name Priority Date/Time Associated Diagnosis Comments LYME AB Routine 01/25/2024 16:00 EDT documented in this encounter Results * LYME AB (01/25/2024 16:00 EDT) Lyme Ab Negative Negative 01/28/2024 12:34 EDT [facility] Blood VENOUS BLOOD / Unknown 01/25/2024 16:00 EDT 01/28/2024 11:15 EDT Provider Outr Resulting Lab IMMUNOLOGY A ND SEROLOGY ORDERABLES [facility] [address] [place] [address] documented in this encounter Visit Diagnoses Not on filedocumented in this encounter Care Teams Prop Maker Relationship Specialty Start Date End Date Unknown, Provider, PCP - General 08/10/09 documented as of this encounter
--- OUTSIDE RECORDS SUMMARY | 2024-06-30 15:47 | XMS_ITS | Encounter Summary ---
Author Organization [facility] Address [address] [place] [id number] Care Team Providers Care Core Stripper Name Role Phone Unknown, Provider Primary Care Provider [phone] Encounter Details Date Type Department Care Team (Late st Contact Info) Description 09/16/2010 Results Only [facility] Laboratory Services - [facility] ([facility] [address], [place] [phone] Sindhu Condon CNM [address] [place], [place] [phone] Social History Tobacco Use Types Packs/Day Years Used Date Smoking Tobacco: Never Assessed Sex and Gender Information Value Date Recorded Sex Assigned at Not on file Gender Identity Not on file Sexual Orientation Not on file documented as of this encounter Plan of Treatment Not on file documented as of this encounter Procedures Procedure Name Priority Date/Time Associated Diagnosis Comments CYTOPATHOLOGY Routine 09/16/2010 0:00 EST documented in this encounter Results * CYTOPATHOLOGY (09/16/2010 0:00 EST) Pathology Report: CYTOPATHOLOGY REPORT ? Reports generated via electronic interface contain original data; ? however they are lacking the format of the original report. ? Caution should be taken when reading/interpreti ng unformatted reports. ? Name: ? LIAT HARP ? Accession #: ? [id number] ? : ? 1985 (Age: 25) ??F ?Collect Date: ? 09/16/2010 ? Location: ? [facility] ? Receive Date: ? 09/17/2010 ? Provider: ?ANEA LELONG CNM ? Copy to: ? Specimen/Source: ?Pap Test, Cervix/Endocervix, ThinPrep Imaging System ? with manual evaluation ? Last Menstrual Period: ? spots occ. ? Hormonal/Contracep tive Status: ? Intrauterine device: Mirena ? SPECIMEN ADEQUACY ? Satisfactory for Evaluation ? - transformation zone component present ? GENERAL CATEGORIZATION ? Negative for Intraepithelial Lesion or Malignancy ? Document reviewed and electronically signed by: ? Lynan Elias, CT(ASCP) ? Report Date: ??09/20/2010 11:06 ? End of Report ? KATHRYN BOOTHE 09/16/2010 09/17/2010 Sindhu Condon [facility] ORDERABLES KATHRYN BOOTHE [address] [place] [address] documented in this encounter Visit Diagnoses Not on filedocumented in this encounter Care Teams Core Stripper Relationship Specialty Start Date End Date Unknown, Provider, PCP - General 08/10/09 documented as of this encounter
--- OUTSIDE RECORDS SUMMARY | 2024-06-30 15:47 | XMS_ITS | Encounter Summary ---
Author Organization [facility] Address [address] [place] [address] Care Team Providers Care Inseamer Name Role Phone Unknown, Provider Primary Care Provider [phone] Reason for Visit * Reason Comments Tremors * Consult, Test and Treat (Routine) - Authorization Not Required Specialty Diagnoses / Procedures [facility] Referred To Contact Neurology Diagnoses Tremor, unspecified Bola, MD Mariaelena [address] [place] [address] [facility] [address] [place] [address] Referral ID Status Reason Start Date Expiration Date Visits Requested Visits Authorized [id number] Authorization Not Required 1 1 Encounter Details Date Type Department Care Team (Late st Contact Info) Description 02/10/2024 9:00 EDT Office Visit [facility] [address] [place] [address] Pritesh Lemos MD [address] [place] [address] [address] [place] [address] Other fatigue (Primary Dx); Paresthesia; Excessive physiologic tremor Social History Tobacco Use Types Packs/Day Years Used Date Smoking Tobacco: Never Assessed Interpersonal Safety Answer Date Record ed Physically Hurt Never 05/06/2020 Verbally Threaten Not on file 05/06/2020 Sex and Gender Information Value Date Recorded Sex Assigned at Not on file Gender Identity Not on file Sexual Orientation Not on file documented as of this encounter Last Filed Vital Signs Vital Sign Reading Time Taken Comments Blood Pressure 96/60 02/10/2024 0845 EDT Pulse 76 02/10/2024 0845 EDT Temperature - - Respiratory Rate 12 02/10/2024 0845 EDT Oxygen Saturation - - Inhaled Oxygen Concentration - - Weight - - Height - - Body Mass Index - - documented in this encounter Functional Status Functional Status Response Date of Assess ment Because of a physical, menta l, or emotional condition, does this person have difficulty doing errands alone such as visiting a doctor's office or shopping? No 02/10/2024 Cognitive Status Response Date of Assessm ent Because of a physical, menta l, or emotional condition, does this person have serious difficulty concentrating, remembering, or making decisions? No 02/10/2024 documented as of this encounter Progress Notes * Pritesh Lemos MD - 02/10/2024 0900 EDT [facility] PATIENT NAME: Liat Flanagan PATIENT : 1985 PCP: Dr Plaza DATE OF SERVICE: 02/10/2024 CHIEF COMPLAINT: tremor HISTORY Liat Flanagan is a 38 y.o. female who presents as a new patient for evaluation of tremor. She describes waking up a while ago having trouble talking, which happens during interview and is a hesitant kind of speech, and is very intermittent. She has pain in her fingers also, and numbness in the toes, and feels generally weak and tired. She's sleeping excessively as well, with dizziness when she gets up. No medication changes recently, and no other changes in her health or body. Sometimes her lips feel like they're going numb which can also happen in the throat. She shivers also, in her hands mostly, and legs also sometimes. The arms will also shake, and she demonstrates a high frequency low a mplitude whole body shakiness. 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 The other day she had a tightening feeling around her mid abdomen which made it hard to breathe. The shakiness sometimes gets in the way of her eating or writing. The pain she had previously evaluated here by EMG/NCS is also back, both hands, predominantly index and ring fingers but also in the tips of all fingers. There are no triggering factors. Her hands also go completely numb sometimes. She has had testing so far with low titer 1:80 speckled MIYA. Gabapentin she takes for pain in the fingers. She had an MRI of her head done at [facility] which was read as normal. She also describes an internal creepy crawly feeling which comes and goes. ALLERGIES Allergies Allergen Reactions Amoxicillin Rash and Hives Cephalosporins Hives and Rash Scopolamine Nausea And Vomiting CURRENT MEDICATIONS Outpatient Medications Marked as Taking for the 02/10/24 encounter (Office Visit) with Pritesh Lemos MD Medication Sig albuterol (PROAIR HFA) 90 mcg/actuation inhaler Inhale 2 Puffs as directed every 4 hours as needed for Wheezing. FLUoxetine (PROZAC) 40 mg capsule Take 1 Capsule by mouth daily. gabapentin (NEURONTIN) 300 mg capsule Take 2 Capsules by mouth 2 times daily. liraglutide (VICTOZA 2-BIANCA) 0.6 mg/0.1 mL (18 mg/3 mL) injectable pen Inject 0.6 mg into the skin daily. norgestimate-ethinyl estradioL (SPRINTEC, 28,) 0.25-35 mg-mcg per tablet Take 1 Tablet by mouth daily. omeprazole (PRILOSEC) 40 mg capsule Take 1 Capsule by mouth daily. topiramate (TOPAMAX) 50 mg tablet TAKE 2 TABLETS BY MOUTH ONCE DAILY IN THE MORNING AND 2 TABLETS AT BEDTIME EXAMINATION BP 96/60 Pulse 76 Resp 12 Alert, fluent speech, normal content, overall psychomotor agitation, intermittent stuttering duringspeech but only briefly. No vocal tremor. She feels light touch slightly differently on the left side than the right. Normal extraocular movements in all cardinal planes. No significant nystagmus. Normal pupillary response to light and accommodation. Moderate right more than left arm postural kinetic tremor high-frequency low amplitude, but supple tone in the arms and the legs except for difficulty relaxing them. Full strength in the arms and the legs. No pronator drift. Normal rapid alternating movements of the hands. Intact pinprick in the arms and legs. 2/4 bilateral brachioradialis, biceps, triceps, patella and Achilles, though she has somewhat of a whole body jerk sometimes just beforeor just after reflex testing. Rises from a chair easily with arms crossed. Difficulty relaxing the arms to let them swing during ambulation, but normal casual gait. Absent Romberg. LABORATORY DATA: Lab Results Component Value Date LYME Negative 01/25/2024 Lab Results Component Value Date MIYA Positive (A) 04/21/2023 ANAT1P 1:80 Speckled 04/21/2023 NEUROIMAGING STUDIES: She describes MRI of the head from [facility] as normal but it is not available for my review. ASSESSMENT/PLAN: Liat Flanagan is a 38 y.o. female who presents for constellation of relatively acute onset diffuse whole body symptoms including fatigue, weakness, shakiness, lightheadedness and dizziness, cognitivesymptoms, stuttering, and diffuse paresthesia. Shaking appears to be enhanced physiologic tremor. Given normal head MRI, absence of timing of symptoms consistent with inflammation in the central nervous system, and very reassuring neurologic examination, I do not see any obvious concern for neurodegenerative or infectious condition. We talked about other ways this could potentially be further investigated from a primary neurologic disease standpoint such as lumbar puncture or MRI of the thoracic and cervical spine. I did explain that I think these would be very likely to be normal and would not explain her symptoms. I proposed to her the possibility that this could be a stress reaction, andshannene did seem to identify with that somewhat. I gave her quite a bit of reassurance that I think at this is likely to get better, though she will need probably some help in terms of counseling and/or medications. She will talk to her primary care provider about finding these resources. We did not schedule follow-up in neurology, but if new issues arise we are happy to see her back. Pritesh Lemos MD I spent a total of 45 minutes on the date of this encounter meeting with the patient and reviewing documentation/coordinating care as described in the above note. documented in this encounter Plan of Treatment Not on file documented as of this encounter Visit Diagnoses Diagnosis Other fatigue- Primary Paresthesia Disturbance of skin sensation Excessive physiologic tremor Essential and other specified forms of tremor documented in this encounter Historical Medications * This list may reflect changes made after this encounter. Medication Sig Dispensed Refills Start Date End Date FLUoxetine (PROZAC) 40 mg capsule Take 1 Capsule by mouth daily. omeprazole (PRILOSEC) 40 mg capsule Take 1 Capsule by mouth daily. topiramate (TOPAMAX) 50 mg tablet TAKE 2 TABLETS BY MOUTH ONCE DAILY IN THE MORNING AND 2 TABLETS AT BEDTIME gabapentin (NEURONTIN) 300 mg capsule Take 2 Capsules by mouth 2 times daily. 06/12/2023 liraglutide (VICTOZA 2-BIANCA) 0.6 mg/0.1 mL (18 mg/3 mL) injectable pen Inject 0.6 mg into the skin daily. 07/27/2023 albuterol (PROAIR HFA) 90 mcg/actuation inhaler Inhale 2 Puffs as directed every 4 hours as needed for Wheezing. 11/26/2023 SUMAtriptan (IMITREX) 100 mg tablet Take 1 Tablet by mouth once as needed. insulin pen needles 29G x 1/2 (UNIFINE PENTIPS) USE ONCE DAILY WITH VICTOZA norgestimate-ethinyl estradioL (SPRINTEC, 28,) 0.25-35 mg-mcg per tablet Take 1 Tablet by mouth daily. added in this encounter Care Teams Inseamer Relationship Specialty Start Date End Date Unknown, Provider, PCP - General 08/10/09 documented as of this encounter
--- OUTSIDE RECORDS SUMMARY | 2024-06-30 15:47 | XMS_ITS | Encounter Summary ---
Author Organization [facility] Address [address] [place] [address] Care Team Providers Care Fellmongering Machine Operator Name Role Phone Unknown, Provider Primary Care Provider [phone] Reason for Visit * Reason Onset Date Comments Appointment Related 08/10/2019 Encounter Details Date Type Department Care Team (Late st Contact Info) Description 08/10/2019 Telephone [facility] - [place] [address] [place] [phone] Unknown, Provider, Appointment Related Social History Tobacco Use Types Packs/Day Years Used Date Smoking Tobacco: Never Assessed Interpersonal Safety Answer Date Record ed Physically Hurt Never 05/06/2020 Verbally Threaten Not on file 05/06/2020 Sex and Gender Information Value Date Recorded Sex Assigned at Not on file Gender Identity Not on file Sexual Orientation Not on file documented as of this encounter Miscellaneous Notes * Telephone Encounter - Jose Botello - 08/10/2019 0930 EST PCP called to check on ref status for Consult - rec in January 2019 - Is in system and subject to newscheduling protocols and advised PCP of same - PCP is amenable and may look at other options for Pt. documented in this encounter Plan of Treatment Not on file documented as of this encounter Visit Diagnoses Not on filedocumented in this encounter Care Teams Fellmongering Machine Operator Relationship Specialty Start Date End Date Unknown, ProviderMD PCP - General 08/10/09 documented as of this encounter
--- OUTSIDE RECORDS SUMMARY | 2024-06-30 15:47 | XMS_ITS ---
Author Organization Unknown Address [address], [place] [id number] Phone Care Team Providers Care Stave Saw Operator Name Role Phone LAMELL RAHUL Plummer Attending Unavailable TOÑO Dewitt Primary Unavailable Social History Type Status Start Date End Date Code Code Syst em Smoking History Former smoker 10/05/2004 10/05/[id number] Sex Female Hospital Discharge Instructions [...] Co de Code System CEPHALOSPORIN Hives (SNOMED-CT: 374448612) Moderate Active AMOXICILLIN Rash (SNOMED-CT: 618687168) Moderate Active 723 RxNorm SCOPOLAMINE Nausea/Vomiting (SNOMED-CT: 92224752) Active Plan of Treatment MRI BRAIN W WO CONTRAST 10/29/2023 US BREAST UNI LT 05/07/2023 MM DIAG BILAT 05/07/2023 Personal Care Team Section Performer Name Performer Role Active Date Inactive Da te
--- OUTSIDE RECORDS SUMMARY | 2024-06-30 15:47 | XMS_ITS | Data Portability ---
Author Organization [facility] Address Zita Stuart [facility] [place] [address] Care Team Providers Care [employer]er Name Role Phone KEANU MARTIN Dentist SCHUYLER KRISHNAN Neurologist Assessment Encounter Date Assessment Date Assessment LastModified by Organization Details LastModified Time 03/24/2024 03/24/2024 The patient presents with a history of external hemorrhoids causing severe pain for over a week. The physical exam revealed the presence of external hemorrhoids. The patient has tried conservative treatments with little relief, and referral to a surgeon for potential surgical intervention. Not available 03/24/2024 10:34:32 03/31/2024 03/31/2024 38-year-old female here for follow-up of multiple symptoms, initially concerning for multiple sclerosis. Has been seen by neurology and has follow-up with them in a number of weeks. [email or web address] Not available 03/31/2024 09:21:16 05/31/2024 05/31/2024 Pt with hx of CTS with acute exacerbation, mild relief with OTC medications. Pt wishes to restart gabapentin 100mg nightly for pain. She is aware of SE, has taken for extended periods of time in the past. Offered steroid taper in lieu of gabapentin, pt prefers gabapentin. Will refer to ortho for CTS steroid injection. With current exacerbation of CTS, recommend avoiding repetitive wrist movements, wearing a brace regularly, modest weight loss, cool compresses, continuing OTC pain meds with food. [email or web address] Not available 05/31/2024 08:36:55 Plan of Treatment Reminders Order Date Submit Date Provider Last Modified By Organization Details Last Modified Time Details Appointments Follow Up 30 2023 10:00A M Not available Not available Not available Lab ferritin, serum or plasma [address] [facility] (Registration ), [address] [place] [address] [place], [address], 04/08/2024 08:04:52 iron + total iron-bind ing capacity (TIBC), serum - CC results: Aurelio Krishnan MOONER at [facility] [address] [facility] (Registration ), [address] [place] [address] [place], [address], 04/08/2024 08:04:32 vitamin B12, serum [address] [facility] (Registration ), [address] [place] [address] [place], [address], 04/08/2024 08:04:32 ferritin, serum or plasma - 1 mint,1 lav, 1 tiger drawn in house, [facility], [facility]. 2023 024 [facility] (Registration ), [address] [place] [address] [place], [address], 06/30/2024 10:56:49 iron + total iron-bind ing capacity (TIBC), serum - 1 mint,1 lav, 1 tiger drawn in house, [facility], KB. 2023 024 [facility] (Registration ), [address] [place] [address] [place], [address], 06/30/2024 10:56:49 CBC - 1 mint,1 lav, 1 tiger drawn in house, [facility], KB. 20[facility] [address] [place] [address] [place], [address], 06/30/2024 15:44:04 lipid panel, serum - 1 mint, 1 lav, 1 tiger drawn in house. 2023 024 [facility] (Registration ), [address] [place] [address] [place], [address], 06/30/2024 12:03:58 HbA1c (hemoglob in A1c), blood - 1 mint, 1 lav, 1 tiger drawn in house. 2023 024 [facility] (Registration ), [address] [place] [address] [place], [address], 06/30/2024 12:03:58 Referral general surgeon referral - hemorroid s [address] General Surgery, [address] [place] [address], [address], 04/21/2024 07:26:23 orthopedi c surgeon referral - Pt wih hx of CTS in b/l wrist, worse in left currently , please eval for possible steroid injection 2023 024 [facility], [address] [place], [address], 06/01/2024 17:55:17 gynecolog ist referral 2023 024 [facility], [address] [place], [address], 06/30/2024 12:25:19 Procedures None recorded. Surgeries None recorded. Imaging US, pelvis, transabdo adrian + transvagi nal - heavy bleeding, r/o fibroids, cc dr Álvarez pls 2023 024 [facility] - Radiology, [address] [place] [address], [address], 06/30/2024 11:58:57 Medication Orders sumatript an 100 mg tablet 2023 024 [id number], [address] [place], [address], 03/03/2024 12:16:03 buspirone 10 mg tablet 2023 024 [id number], [address] [place], [address], 03/03/2024 08:19:03 Anusol-HC 2.5 % topical cream with perineal applicato r 2023 024 [id number], [address], [place], [place], [id number], 05/31/2024 07:51:56 topiramat e 25 mg tablet 2023 024 [email or web address] [facility], [address] [place], [address], 03/31/2024 10:36:18 gabapenti n 100 mg capsule 2023 024 [employer] [facility], [address] [place], [address], 06/30/2024 09:55:21 Victoza 2-Sb 0.6 mg/0.1 mL (18 mg/3 mL) subcutane ous pen injector 2023 024 [facility], [address] [place] [address], [address], [place], [address], 06/30/2024 11:11:31 Patient TargetsNo targets recorded. Patient Instructions Encounter Date Encounter Id Patient Instructions Last Modified By Organization Details Last Modified Time 03/03/2024 [id number] It was nice to s ee you today! [email or web address] Not available 03/03/2024 16:34:50 03/24/2024 [id number] - Begin using si tz baths to help alleviate pain and discomfort. - Apply the prescription-strengt h cream as directed by the clinician. - Monitor symptoms and contact the clinic if there is any worsening or new symptoms. - Await referral for the surgical evaluation. [email or web address] Not available 03/24/2024 10:30:40 03/31/2024 [id number] medical record request* [email or web address] Not available 04/20/2024 10:28:09 It was nice to s ee you today! [email or web address] Not available 03/31/2024 10:12:00 06/30/2024 [id number] Dear EM, Thank you for visiting us today and [...] recommended. - Consultation with Dr. King at [facility] for potential treatments, such as uterine artery ablation, is advised. - Iron and Vitamin B12 Levels: - Iron levels will be rechecked today. - Continue with B12 supplements, as they have proven effective. - Prescription Management: It is crucial to process all prescriptions, particularly Victoza, through [facility] to ensure cost-effectiveness. Verify the supply of needle tips and the correct quantity of pens. Please make sure to follow up on all tests and consultations with specialists as recommended. Should you have any questions or require further clarification on your treatment plan, please feel free to reach out to our office. Warm regards, [facility] [email or web address] Not available 06/30/2024 10:10:49 Reason for Referral Neurologist Referral for Tavares mor semi-urgent referral Referring Physician: Mariaelena Plaza, Family Medicine, Encounter Date: 01/25/2024 General Surgeon Referral for Hemorrhoids hemorroids Referring Physician: Nicko Camarena, Family Medicine, Encounter Date: 03/24/2024 Orthopedic Surgeon Referral for Carpal tunnel syndrome of left wrist Pt wih hx of CTS in b/l wrist, worse in left currently, please eval for possible steroid injection Referring Physician: Jennifer Combs [facility], Encounter Date: 05/31/2024 Travel Administrator Referral for Me norrhagia Referring Physician: Susi Lundberg [facility], Encounter Date: 06/30/2024 Results Created Date Observation Date Name Description Value Unit Range Abnormal Flag Note LastModifiedBy Organization Detail LastModifiedTime 03/31/20 24 03/31/2024 IRON AND IBCT iron 23 ug/dL 50-170 low Not Available Johanna perdue [address] [place], [address] 03/31/2024 15:00:48 03/31/20 24 03/31/2024 IRON AND IBCT total iron binding capacity 494 ug/dL 250-45 0 high Not Available [address] [place], [address] 03/31/2024 15:00:48 03/31/20 24 03/31/2024 IRON AND IBCT transferrin sat 5 % 15-50 low Not Available Aneta yu [address] [place], [address] 03/31/2024 15:00:48 03/31/20 24 03/31/2024 VALERIA TIN ferritin 11 NG/mL 8-252 normal Not Available [address] [place], [address] 03/31/2024 15:15:58 03/31/20 24 03/31/2024 VITAM IN B12 vitamin B12 549 pg/mL 193-98 6 normal Not Available [address], [place], [address] 03/31/2024 15:15:59 06/17/20 24 03/31/2019 imagi ng/di agnos tic [...] and Address Organization Details Recorded Time Insomnia 778353583 Active 2015 Problem Code: G47.00; Problem Code Type: ICD-10; [address], [place], [address] , [facility] 4 16:34:11 Obesity 598572458 Active 2015 Problem Code: E66.9; Problem Code Type: ICDHeidi; [address], [place], [address] , [facility] 4 16:34:11 History of disorder of digestiv e system 282430881 Active 2016 Problem Code: Z87.19; Problem Code Type: ICD-10; [address], [facility] [address] , [facility] 4 16:34:11 Acute bronchit is 10365169 Completed 201611/08/2016 Problem Code: J20.9; Problem Code Type: ICD-10; Not Available [facility] 3 04:42:39 Urticari a [id number] Completed 201602/28/2024 Problem Code: L50.9; Problem Code Type: ICD-10; [address], [address] 4 08:04:53 Pelvic and perineal pain 829315199 Active 2017 Problem Code: R10.2; Problem Code Type: ICD-10; [address], [address] 4 16:34:11 Dysmenor pilar 550813342 Active 2017 Problem Code: N94.6; Problem Code Type: ICD-10; [address], [address] 4 16:34:11 Urinary tract infectio us disease 18005474 Completed 201706/03/2018 05/24/20 18 - Comments only - Liat Avila APRN - -UA pos for leuks, RBCs, nitrites , sent for C&S -START bactim DS 1 tab po bid x3 days -reviewe d red flag sx -RTC if sx worsen/p ersist Problem Code: N39.0; Problem Code Type: ICD-10; Not Available [facility] 3 04:42:39 Malaise 630916006 Completed 201711/24/2023 Problem Code: R53.81; Problem Code Type: ICD-10; [address], [facility] [address] , [facility] 4 16:34:37 Joint pain 07991697 Active 2018 Problem Code: M25.50; Problem Code Type: ICD-10; [address], [address] 4 16:34:11 C-reacti ve protein above referenc e range 06092959261 9104 Active 2018 Problem Code: R79.82; Problem Code Type: ICD-10; [address], [address] 4 16:34:10 Migraine 53629779 Active 2018 Problem Code: G43.909; Problem Code Type: ICD-10; [address]IL[address], [address] 4 16:34:11 Irritabl e bowel syndrome 84571504 Active 2019 Problem Code: K58.9; Problem Code Type: ICD-10; [address], [facility] [address] [place] [address] 4 16:34:10 Gastroes ophageal reflux disease without esophagi tis 356607142 Active 2019 Problem Code: K21.9; Problem Code Type: ICD-10; [address], [address] 4 16:34:11 Adult health examinat ion Active 2019 Problem Code: Z00.00; Problem Code Type: ICD-10; [address], [facility] [address] , [facility] 4 16:34:11 Hyperlip idemia screenin g Active 2019 Problem Code: Z13.220; Problem Code Type: ICD-10; [address], [place], [address] , [facility] 4 16:34:11 Diabetes mellitus screenin g Active 2019 Problem Code: Z13.1; Problem Code Type: ICD-10; [address], [facility] [address] [place] [address] 4 16:34:10 Hyperlip idemia 62141288 Active 2019 Problem Code: E78.5; Problem Code Type: ICD-10; [address]IL[address], [facility] [address] [place] [address] 4 16:34:11 Acute upper respirat ory infectio n 75994503 Completed 202103/19/2022 03/05/20 22 - Comments only - Zoya Oconnor MD - refilled cough syrup which helped before; advised conserva tive manageme nt; Reviewed indicati ons for re-evalu ation. Problem Code: J06.9; Problem Code Type: ICD-10; Not Available [facility] 3 04:42:41 Fever 823116014 Completed 202103/21/2022 Problem Code: R50.9; Problem Code Type: ICD-10; Not Available [facility] 3 04:42:41 Cough 87045572 Completed 202103/21/2022 Problem Code: R05.8; Problem Code Type: ICD-10; [address], [facility] [address] , [facility] 4 08:03:39 Urgent desire to urinate 53526072 Completed 202106/16/2022 Problem Code: R39.15; Problem Code Type: ICD-10; Not Available [facility] 3 04:42:41 Acute pyelonep hritis 79169545 Completed 202106/16/2022 06/02/20 22 - Comments only [...] Code: N10; Problem Code Type: ICD-10; SIL[address] F[address], [place], [address] , [facility] 4 16:34:28 Acute pyelonep hritis 20070398 Completed 202111/24/2023 Problem Code: N10; Problem Code Type: ICD-10; SIL[address] F[address], [place], [address] , [facility] 4 16:34:28 Acute sinusiti s 71784785 Completed 202212/11/2022 12/02/19 23 - Comments only [...] J01.90; Problem Code Type: ICD-10; Not Available [facility] 3 04:42:42 Acute bronchit is 45602426 Completed 202212/17/2022 Problem Code: J20.9; Problem Code Type: ICD-10; Not Available [facility] 3 04:42:42 Carpal tunnel syndrome of left wrist 54835625343 9102 Active 06/30/ 2023 Problem Code: G56.02; Problem Code Type: ICD-10; [address], [facility] [address] [facility] 4 16:34:11 Hand pain 96764941 Completed 202207/27/2023 Problem Code: M79.643; Problem Code Type: ICD-10; Not Available [facility] 4 05:35:53 Pain of breast 53446618 Completed 202207/27/2023 Problem Code: N64.4; Problem Code Type: ICD-10; Not Available [facility] 4 05:35:54 Family history of breast cancer 770641655 Active 2022 Problem Code: Z80.3; Problem Code Type: ICD-10; [address], [facility] [address] , [facility] 4 16:34:11 Blood chemistr y outside referenc e range 503718140 Completed 202205/07/2023 Problem Code: R79.89; Problem Code Type: ICD-10; Not Available [facility] 3 04:42:43 Abnormal finding on evaluati on procedur e 093239840 Completed 202207/27/2023 Problem Code: R89.9; Problem Code Type: ICD-10; Not Available [facility] 4 05:35:52 Fatigue 93428326 Active 2022 Problem Code: R53.83; Problem Code Type: ICD-10; [address], [facility] [address] [facility] 4 16:34:11 Hypertro phic conditio n of skin 03315219 Completed 201705/10/2018 Problem Code: L91.8; Problem Code Type: ICD-10; Not Available [facility] 3 04:42:43 General examinat ion of patient Completed 200502/12/2018 Problem Code: Z00.8; Problem Code Type: ICD-10; Not Available [facility] 3 04:42:44 Acute effect of ultravio let radiatio n on normal skin 505308168 Completed 201805/30/2019 Problem Code: L56.8; Problem Code Type: ICD-10; Not Available [facility] 3 04:42:44 Headache 67096061 Completed 201807/01/2023 Problem Code: R51; Problem Code Type: ICD-10; Not Available [facility] 3 04:42:44 Abdomina l pain 23040545 Completed 202111/03/2022 Problem Code: R10.9; Problem Code Type: ICD-10; Not Available [facility] 3 04:42:44 Cholecys titis 84842123 Completed 201607/01/2023 Problem Code: K81.9; Problem Code Type: ICD-10; Not Available [facility] 3 04:42:44 Diarrhea 49044318 Completed 201704/29/2019 Problem Code: R19.7; Problem Code Type: ICD-10; Not Available [facility] 3 04:42:45 Irregula r periods 18680922 Completed 201505/10/2018 Problem Code: N92.6; Problem Code Type: ICD-10; Not Available [facility] 3 04:42:45 Pelvic and perineal pain 744045861 Completed 201502/12/2018 Problem Code: R10.2; Problem Code Type: ICD-10; [address], [place], [address] , [facility]. 4 16:34:11 Saurabh peoples Completed 201705/24/2018 Problem Code: Z71.89; Problem Code Type: ICD-10; Not Available [facility] 3 04:42:45 Pain of right knee joint 29272972107 4100 Completed 202106/26/2022 Problem Code: M25.561; Problem Code Type: ICD-10; Not Available [facility] 3 04:42:45 History AND physical examinat ion Completed 200507/01/2023 Not Available [facility] 3 04:42:45 Acute pharyngi tis 871699563 Completed 201702/12/2018 Problem Code: J02.9; Problem Code Type: ICD-10; Not Available [facility] 3 04:42:46 Pain in left foot 26403562176 9107 Completed 201806/26/2022 Problem Code: M79.672; Problem Code Type: ICD-10; Not Available [facility] 3 04:42:46 History of urinary disease 476884198 Active 2021 Problem Code: Z87.448; Problem Code Type: ICD-10; [address], [facility] [address] , [facility] 4 16:34:11 Mixed anxiety and depressi ve disorder 526518531 Active [address], [facility] [address] , [facility] 4 10:36:32 Tremor 35701448 Completed 202306/30/[address], [facility] [address] , [facility] 4 10:59:59 Numbness 05280543 Completed 202306/30/[address], [facility] [address] , [facility] 4 11:00:11 Cobalami n deficien cy 498956772 Active [address], [facility] [address] , [facility] 4 16:39:58 Iron deficien cy 64094060 Active [address], [facility] [address] , [facility] 4 17:10:09 Hemorrho ids 98997766 Active [address], [facility] [address] , [facility] 4 10:19:46 Paresthe fede 36288718 Completed 202306/30/[address], [facility] [address] , [facility] 4 11:00:03 Restless legs 26077571 Active 2023 sleep study 2023, no LORNE [address], [facility] [address] , [facility] 4 16:47:53 Carpal tunnel syndrome 53640050 Active 2023 ALAN CHRISTIANSON MA null, [facility] 4 13:48:15 Sleep pattern disturba pre 46343058 Active 2023 no result from sleep study? Did not have it? SIL[address]IO F[address] Dr, [facility] [address] , [facility] 4 14:43:07 Menorrha og 896689322 Active [address], [facility] [address] , [facility] 4 09:54:15 Raynaud' s phenomen on 834224588 Active [address], [facility] [address] , [facility] 09:55:53 Notes:*Problem Name: Contrac eption-mirena- 2012 *Problem Status: inactive *Comments: *Problem Code: V25.02 *Problem Code Type: ICD-9 *Note Date: 12/13/2013 Problem Notes None recorded. Procedures Surgical History None recorded. Imaging Results Imaging Date Name Status LastModified by Organiz ation Details LastModified Time 03/31/2019 imaging/diagn ostic result completed Information not available 06/17/2024 01:10:29 05/07/2023 US, breast, complete completed Information not available 06/17/2024 01:10:33 05/07/2023 MAMMO, screening, bilateral, w/ CAD completed Information not available 06/17/2024 01:10:34 02/22/2019 XR, foot, 3 or more view completed Information not available 06/17/2024 01:10:36 12/07/2022 CT, abdomen + pelvis, w/ contrast completed Information not available 06/17/2024 01:12:15 03/10/2022 XR, chest completed Information no t available 06/17/2024 01:12:26 Procedure Notes None recorded. Medical Equipment None Reported. Allergies Allergen ID Allergen Name Allergen Category Reaction Reaction Severity Criticality Documentation Date Start Date Code Code System Note Provider Name and Address Organization Details Recorded Time amoxicill in trihydrat e medicatio n hives severe Not available 08/14/20232002 93922 8 RxNorm full body hives Aller gyCod e: '3081 82'; Aller gyNam e: 'AMOX ICILL IN'; Aller gyCon ceptT ype: 'RX Norm' ; Aller gyRea ction : 'full body hives '; Not Available [facility] 3 16:11:42 cephalexi n monohydra te medicatio n hives severe Not available 08/14/20232015 68831 8 RxNorm full body hives Aller gyRea ction : 'full body hives '; Not Available [facility] 3 16:11:42 Medications Name Sig Start Date [...] to have cause tremor in pt. See #[id number]. Not Available Not Available Not Available promethaz [...] needed for bowel issues 2019 active from [facility] Not Available [...] Details Last Updated DateTime 4 170.815 cm 36.3 kg/m2 506847. 74 g 97.5 [degF] 99 % 99 % 71 /min 118 mm[Hg] 72 mm[Hg] VARUN MIKE RN [facility] 4 07:40:41 Date Recorded Body height Body mass index (BMI) Body weight Body temperature Oxygen saturation Oxygen saturation in Arterial blood by Pulse oximetry Heart rate Systolic blood pressure Diastolic blood pressure Provider Name and Address Organization Details Last Updated DateTime 4 170.815 cm 37.6 kg/m2 052888. 35 g 97.4 [degF] 98 % 98 % 68 /min 116 mm[Hg] 84 mm[Hg] DEEPAK MCCALL MA [facility] 4 09:46:51 Date Recorded Body height Body mass index (BMI) Body weight Body temperature Oxygen saturation Oxygen saturation in Arterial blood by Pulse oximetry Heart rate Systolic blood pressure Diastolic blood pressure Provider Name and Address Organization Details Last Updated DateTime 4 170.815 cm 37 kg/m2 744200. 98 g 97.8 [degF] 99 % 99 % 79 /min 118 mm[Hg] 78 mm[Hg] VARUN MIKE RN [facility], [facility] 4 08:30:12 Date Recorded Body height Body mass index (BMI) Body weight Body temperature Oxygen saturation Oxygen saturation in Arterial blood by Pulse oximetry Heart rate Systolic blood pressure Diastolic blood pressure Provider Name and Address Organization Details Last Updated DateTime 4 170.815 cm 37.6 kg/m2 407880. 05 g 97.6 [degF] 99 % 99 % 80 /min 120 mm[Hg] 74 mm[Hg] ED MADDOX LPN [facility] 4 07:50:56 Date Recorded Body height Body mass index (BMI) Body weight Body temperature Oxygen saturation Oxygen saturation in Arterial blood by Pulse oximetry Heart rate Systolic blood pressure Diastolic blood pressure Provider Name and Address Organization Details Last Updated DateTime 4 170.815 cm 37.2 kg/m2 798569. 58 g 97.3 [degF] 98 % 98 % 83 /min 100 mm[Hg] 70 mm[Hg] ALAN CHRISTIANSON MA [facility] 4 09:51:27 Social History Question Answer Notes LastModified by Organizat ion Details LastModified Time Tobacco Smoking Status Former Smoker ED MADDOX LPN [facility], [facility] 09/29/2023 13:02:52 When Did You Quit Smoking? 11-15yearssi ncelastcigar ette Information not available 09/29/2023 Sex: Female Functional Status None recorded. Mental Status None recorded. Family History Relationship Description Onset Age of this Age Resolved Age Notes LastModified by Organization Details LastModified Time Unspecified Relation Family history unknown Relati ve: 'First Degree Blood Relati ve'; 72 Not available 08/14/2023 03:54:41 Notes:*Problem: Mother: sebastian e , mental health, adiction mgm- ? [place], [place] 50s or 60s Father- HLD, mgm- breast [...] Influenza, split virus, trivalent, PF 06/30/2024 completed ALAN CHRISTIANSON MA null, [place] - [facility] 06/30/2024 11:12:59 MMR 11/11/1988 completed Not Available [facility] 05:59:12 MMR 05/19/1994 completed Not Available [facility] 05:59:12 Td (adult), 2 Lf tetanus toxoid, preservative free, adsorbed 04/15/2022 completed Not Available [facility] 08/14/2023 05:59:12 Tdap 03/04/2012 completed Not Available [facility] 05:59:12 Novel Gqudyulmi-H2I8-94, all formulations 08/02/2009 completed Not Available [facility] 08/14/2023 05:59:12 Td(adult) unspecified formulation 05/05/2002 completed Not Available [facility] 08/14/2023 05:59:12 Td(adult) unspecified formulation 08/15/1992 completed Not Available [facility] 08/14/2023 05:59:12 Influenza, split virus, quadrivalent, PF 06/26/2022 completed Not Available [facility] 08/14/2023 05:59:13 Influenza, split virus, quadrivalent, PF 07/05/2020 completed Not Available [facility] 08/14/2023 05:59:13 Influenza, split virus, quadrivalent, PF 09/09/2021 completed Not Available [facility] 08/14/2023 05:59:13 Influenza, split virus, quadrivalent, preservative 07/28/2017 completed Not Available [facility] 08/14/2023 05:59:13 DTaP 1987 completed Not Available [facility] 05:59:13 DTaP 1987 completed Not Available [facility] 05:59:13 DTaP 02/04/1989 completed Not Available [facility] 05:59:13 DTaP 02/26/1988 completed Not Available [facility] 05:59:13 COVID-19, mRNA, LNP-S, PF, 30 mcg/0.3 mL dose 09/11/2021 completed Not Available [facility] 08/14/2023 05:59:14 COVID-19, mRNA, LNP-S, PF, 30 mcg/0.3 mL dose 10/01/2021 completed Not Available [facility] 08/14/2023 05:59:14 Hep B, unspecified formulation 03/27/1998 completed Not Available [facility] 08/14/2023 05:59:14 Hep B, unspecified formulation 04/30/1998 completed Not Available [facility] 08/14/2023 05:59:14 Hep B, unspecified formulation 10/02/1998 completed Not Available [facility] 08/14/2023 05:59:14 influenza, unspecified formulation 06/21/2014 completed Not Available [facility] 08/14/2023 05:59:14 influenza, unspecified formulation 07/26/2009 completed Not Available [facility] 08/14/2023 05:59:14 influenza, unspecified formulation 08/23/2013 completed Not Available [facility] 08/14/2023 05:59:14 polio, unspecified formulation 1987 completed Not Available [facility] 08/14/2023 05:59:14 polio, unspecified formulation 1987 completed Not Available [facility] 08/14/2023 05:59:14 polio, unspecified formulation 02/04/1989 completed Not Available [facility] 08/14/2023 05:59:15 polio, unspecified formulation 02/26/1988 completed Not Available [facility] 08/14/2023 05:59:15 polio, unspecified formulation 08/15/1992 completed Not Available [facility] 08/14/2023 05:59:15 Influenza, split virus, quadrivalent, PF 07/27/2023 completed Not Available [facility] 10/16/2023 05:31:15 Past Encounters Encounter ID Performer Location Encounter Start Date Encounter Closed Date Diagnosis/Indication Diagnosis SNOMED-CT Code Diagnosis ICD10 Code [id number] [facility] Yenni OJocelynGALO Banks [address] [address] 09/29/2023 12:54:32 09/29/2023 13:30:06 Headache 97692787 R51.9 [id number] Jennifer Yennielías Combs PA-C [address] [address] 10/27/2023 15:07:19 10/27/2023 16:35:54 Headache 78570187 R51.9 [id number] SUSI LUNDBERG [address] [address] 11/26/2023 07:55:37 11/26/2023 08:59:01 Migraine 42351043 G43.909 Obesity 974197795 E66.9 Cough 00194102 R05.9 [id number] SUSI LUNDBERG[address] [address] 12/21/2023 10:06:18 12/21/2023 10:38:38 Migraine 09155745 G43.909 Mixed anxi ety and depressive disorder 148318702 F41.8 [id number] SUSI LUNDBERG[address] [address] 01/25/2024 15:15:09 01/25/2024 15:55:28 Tremor 57646421 R25.1 [id number] JESSE GRAY LPN [address] [address] 01/27/2024 12:23:32 01/27/2024 12:30:47 Fatigue 83059676 R53.83 [id number] SUSI LUNDBERG [address] [address] 03/03/2024 07:25:04 03/03/2024 08:52:05 Adult health examination 806408895 Z00.00 Tremor 25794089 R25.1 Mixed anxi ety and depressive disorder 464727251 F41.8 Obesity 478855194 E66.9 Migraine 28947741 G43.90 9 Numbness 72980304 R20.0 Fatigue 96389295 R53.83 Cobalamin deficiency 190 349425 E53.8 Patient vt dical record not available [id number] Z76.89 [id number] NICKOSANJAY CAMARENA, [address] [address] 03/24/2024 09:37:14 03/24/2024 10:04:57 Hemorrhoids 87883877 K64.9 [id number] SUSI LUNDBERG, [address] [address] 03/31/2024 08:18:17 03/31/2024 09:06:05 Mixed anxiety and depressive disorder 571965897 F41.8 Tremor 88092952 R25.1 Migraine 89593831 G43.90 9 Iron deficiency 78273771 E61.1 Cobalamin deficiency 190 323347 E53.8 Hemorrhoids 42079916 K64 .9 Fatigue 47415286 R53.83 Obesity 941190727 E66.9 [id number] SUSI LUNDBERG, [address] [address] 05/31/2024 07:45:38 05/31/2024 08:41:09 Carpal tunnel syndrome of left wrist 7719531782 97929 G56.02 Hand pain 66980535 M79.6 [id number] ALAN CHRISTIANSON MA [address] [address] 06/30/2024 09:42:18 06/30/2024 10:23:28 Mixed anxiety and depressive disorder 276527322 F41.8 Migraine 40796807 G43.90 9 Iron deficiency 93537752 E61.1 Fatigue 58062015 R53.83 Obesity 720744268 E66.9 Menorrhagia 948649431 N9 2.0 Carpal ana maria robbie syndrome 58380658 G56.02 Raynaud's phenomenon 266 581962 I73.00 Active or passive immunization 049681625 Z23 Diabetes m ellitus screening 315943064 Z13.1 Hyperlipid emia screening 527771518 Z13.220 Health Concerns Section Related Observation LastModified by Organization Detai ls LastModified Time None Recorded Concern Status LastModified by Organization Details LastModified Time None Recorded Advance Directives Directive None Recorded Payers Encounter Date Sequence Insurance Name Policy Number Policy Del Castillo Covered Member ID Del Castillo Member ID Guarantor Name 03/03/2024 1 [employer] ([employer]ICAID) Liat Flanagan [id number] Liat Flanagan 03/24/2024 1 [employer] ([employer]ICA[employer]) Liat Flanagan [id number] Liat Flanagan 03/31/2024 1 [employer] ([employer]ICA[employer]) Liat Flanagan [id number] Liat Flanagan 05/31/2024 1 [employer] ([employer]ICA[employer]) Liat Flanagan [id number] Liat Flanagan 06/30/2024 1 [employer] ([employer]) Liat Flanagan [id number] Liat Flanagan Notes Date Note Type Note Provider Name and Address Organization Details Recorded Time 03/03/2024 text/html HPI Notes: Here for annual exam sleep study 2023- never had results Dental: yes Optho: not needed 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 Multiple complaints including fatigue, hard to get out of bread, worsening depression, no suicidal ideation. She was seen a couple of months ago with concerning neurologic symptoms including headache, tremor, numbness, weakness, stomach pain, lack of motivation. Had recently had an MRI in the emergency department which was normal. Was referred to neurology at [facility] for concern regarding MS. That provider did not feel that she needed any further evaluation other than perhaps lab work and suggested that her symptoms may be due to anxiety. She did get a second opinion in [place] with a neurology nurse practitioner there who did do additional lab work and told her she had low B12. She is now taking 1000 mg of B12 daily orally. There was also concern about essential tremor, but was reassuring that this was not Parkinson's. The patient also complained of paresthesias in her mouth and arm, predominantly affecting 1 side of her body. The decision was made to start slowly weaning down on the topiramate in case this was implicated. Liat reports that she still is having the paresthesias but has not completely weaned off the topiramate. She is not having any rebound migraine headaches. She is also trying to discontinue the gabapentin as she is wondering if that has anything to do with her symptoms. Finds it helpful to sleep at night. She did have a sleep evaluation but never got the result. Does report being very tired during the day, taking naps, hard to get out of bed. She complains of acid reflux but takes PPI. Also on Victoza and feels like she would like to continue this medication. Does not feel that the symptoms are related to starting the Victoza. Has good social support from her . Does admit to a great deal of emotional stress at home with a teenage daughter who is acting out SILVERIO FERRER [address], [place], [address], [facility] 03/03/2024 16:43:25 03/24/2024 text/html HPI Notes: The patient reports severe pain from external hemorrhoids for over a week. External hemorrhoids: The patient, a 38-year-old female, developed external hemorrhoids over a week ago after an episode of violent vomiting. She had a previous history of hemorrhoids after giving to her older child about 11 years ago. The patient describes the pain as unbearable, affecting her sleep and daily activities. She has tried kozu-plm-fralxvp treatments such as suppositories and creams with lidocaine, but the pain remains. She has not been using sitz baths, instead opting for warm showers. The patient denies any bleeding from the hemorrhoids. SH - [place] and has been unable to perform her daily activities due to the pain. - Patient has children, with the youngest being 7 years old and the oldest about to be 11. NICKO CAMARENA, [address], [place], [address], [facility] 03/24/2024 10:34:46 03/31/2024 text/html HPI Notes: She i s here for follow-up of several medical issues. Was seen a few weeks ago for hemorrhoids which continue to bother her. Had not previously had any issues with hemorrhoids, even during . Had started on iron supplementation due to iron deficiency and low ferritin which she thinks contributed to harder stools. However does report that her stools now are the consistency of toothpaste. Has a bump at her anus which continues to bother her. Has a referral to colorectal surgery but has not yet heard about the date She reports that after seeing neurology she started to take B12 supplementation as well as ferrous sulfate. Discontinued ferrous sulfate about 2 weeks ago due to hemorrhoids. Continuing B12. She also titrated off her topiramate as it was thought that that was causing her numbness and tingling in her hands. That has improved and almost resolved. She is no longer taking gabapentin as she does not need it. Notes that she is not sleeping as well. Due to tremor, decreased dose of fluoxetine and tremor has resolved. Added buspirone which she feels has helped significantly with anxiety and depression. Unfortunately has been out of Victoza due to shortage. Would like something instead to use for weight loss SUSI LUNDBERG, VIDEO SYSTEMS ENGINEER [address], [place], [address], [facility]. 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 Pt c/o soreness, numbness, tingling, hand feeling cold. She states her brace made it worse. She woke up at 3 am took 1000mg APAP and 800 mg ibuprofen with some relief. She is here for eval. 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 Denies new or increased repetitive movements. Denies limited ROM. Pt on topiramate taper for paresthesias, pt states this pain is more consistent with her hx of CTS sxs. Pt has neuro appt in [place] in 2 days. [place] [facility] [place]: dxed mild b/l CTS. Jennifer Combs PA-C [address], [place], [address], [place] [facility]. 05/31/2024 08:37:42 06/30/2024 text/html HPI Notes: CC: Follow-up The [...] to 1.8 mg; notes prescription shortage from [facility], doing well w this medication and would like to continue Gynecological concerns: - Heavy periods; on Sprintec control - Daily bleeding for 3 months with cramping - Previous Mirena use resulted in ovarian cysts, wants it all out Supplements: - B12 and iron; hemoglobin normal, iron previously low - B12 levels fine on last check due to supplementation ALAN CHRISTIANSON MA null, [place] - [facility]. 06/30/2024 11:13:37 OBGyn Episode No OBEpisode recorded.
--- OUTSIDE RECORDS SUMMARY | 2024-06-30 15:47 | XMS_ITS | Encounter Summary ---
Author Organization [facility] Address [address] [place] [address] Care Team Providers Care Child Protection Specialist Name Role Phone Unknown, Provider Primary Care Provider Encounter Details Date Type Department Care Team (Late st Contact Info) Description 04/29/2019 Results Only [facility] [phone] Susi Lundberg, COMMERCIAL DIRECTOR [address], [place] [id number] Social History Tobacco Use Types Packs/Day Years Used Date Smoking Tobacco: Never Assessed Sex and Gender Information Value Date Recorded Sex Assigned at Not on file Gender Identity Not on file Sexual Orientation Not on file documented as of this encounter Plan of Treatment Not on file documented as of this encounter Procedures Procedure Name Priority Date/Time Associated Diagnosis Comments SURGICAL PATHOLOGY Routine 04/29/2019 15 :18 EDT documented in this encounter Results * SURGICAL PATHOLOGY (04/29/2019 15:18 EDT) Pathology Report: SURGICAL PATHOLOGY REPORT Reports generated via electronic interface contain original data; however they are lacking the format of the original report. Caution should be taken when reading/interpret ing unformatted reports. Name: ? LIAT FLANAGAN ? Accession #: ? [id number] ? : ? 1985 (Age: 33) ??F ? Collect Date: ? 04/29/2019 ? Location: ? [facility] ? Receive Date: ? 05/02/2019 ? Provider: SUSI LUNDBERG COMMERCIAL DIRECTOR Copy to: ? Final Pathologic Diagnosis: SKIN OF ARM, RIGHT UPPER, PUNCH BIOPSY: - Sparse superficial perivascular inflammation with telangiectasias. See microscopic and comment. Comment: The histologic findings are subtle and nonspecific. ??There is mild dermal telangiectasia with a sparse perivascular inflammatory infiltrate. ??Eosinophils are not readily identified. ??The findings are not those of a connective tissue disease including lupus erythematosus. ??An urticarial-like reaction is a possibility though not all the classic findings are present. ??Clinical correlation is recommended. ??(Dr. Cervantes)/[facility] Microscopic Description: Sections reveal a small punch biopsy showing an unremarkable epidermis with basketweave stratum corneum. ??Within the dermis, scattered mildly dilated thin walled vessels are seen with a sparse perivascular inflammatory infiltrate. ??The infiltrate is composed of lymphocytes and a rare mast cell. ??Multiple levels are examined and show similar findings. ??A colloidal iron stain is performed, given the clinical history, and shows no increased dermal mucin deposition. ??(Dr. Cervantes)/[facility] Document reviewed and electronically signed by: BIANCA CERVANTES MD Report ??Date: 05/04/2019 13:10 By the signature above, the attending physician certifies that he/she has personally conducted a gross and/or microscopic examination of the described specimens and rendered or confirmed the above diagnosis. Specimen(s) Received: Punch biopsy R upper arm Clinical History: Rash bilat arms, ? SLE Gross Description: ? Received in formalin labelled with proper patient identification (initials M, E) and R upper arm is a punch biopsy of norman skin (0.2 cm in diameter x 0.2 cm in thickness). The specimen is submitted intact in 1. RAOUL Sanz ([facility]) 05/02/2019 3:30 PM End of Report [facility] 04/29/2019 15:1 8 EDT 05/02/2019 15:18 EDT Susi Lundberg NP PATHOLOGY ORDERABLES [facility] [address] [place] [address] documented in this encounter Visit Diagnoses Not on filedocumented in this encounter Care Teams Child Protection Specialist Relationship Specialty Start Date End Date Unknown, Provider, PCP - General 08/10/09 documented as of this encounter
--- OUTSIDE RECORDS SUMMARY | 2024-06-30 15:47 | XMS_ITS | Encounter Summary ---
Author Organization [facility] Address [address] [place] [address] Care Team Providers Care Manager Technical Support Name Role Phone Unknown, Provider Primary Care Provider [phone] Encounter Details Date Type Department Care Team (Late st Contact Info) Description 06/22/2012 Results Only [facility] - [facility] ([facility] [address] [place] [address] Natasha Garcia NP Social History Tobacco Use Types Packs/Day Years [...] Diagnosis Comments PAP TEST- RESULT ONLY Routine 06/22/2012 0:00 EDT documented in this encounter Results * PAP TEST- RESULT ONLY (06/22/2012 0:00 EDT) Pathology Report: CYTOPATHOLOGY REPORT Reports generated via electronic interface contain original data; however they are lacking the format of the original report. Caution should be taken when reading/interpreti ng unformatted reports. Name: ? LIAT FLANAGAN ? Accession #: ? [id number] : ? 1985 (Age: 26) ??F ?Collect Date: ? 06/22/2012 Location: ? [facility] ? Receive Date: ? 06/23/2012 Provider: ?NATASHA GARCIA SALESPERSON CORSETS Copy to: ?DAVIS ARIZMENDI DOUBLE SPINDLE SHAPER OPERATOR ? Specimen/Source: ?Pap Test, Cervix/Endocervix, ThinPrep Imaging System with manual evaluation Last Menstrual Period: ? Hormonal/Contracep tive Status: ? Yes: mirena removed today ? SPECIMEN ADEQUACY ? Satisfactory for Evaluation - transformation zone component present GENERAL CATEGORIZATION ? Negative for Intraepithelial Lesion or Malignancy ? Document reviewed and electronically signed by: ? LATHA Talley(ASCP) ? Report Date: ??06/29/2012 16:00 End of Report [facility] 06/22/2012 06/23/2012 Natasha Garcia NP PATHOLOGY ORDERABLES [facility] [address] [place] [address] documented in this encounter Visit Diagnoses Not on filedocumented in this encounter Care Teams Manager Technical Support Relationship Specialty Start Date End Date Unknown, Provider, PCP - General 08/10/09 documented as of this encounter
--- OUTSIDE RECORDS SUMMARY | 2024-06-30 15:47 | XMS_ITS | Referral Summary ---
Author Organization [facility] Address [address] [place] [address] Care Team Providers Care Drug Abuse Social Worker Name Role Phone Unknown, Provider MD Primary Care Provider [phone] Allergies Active Allergy Reactions Criticality Noted Date [...] - - Body Mass Index - - Functional Status Functional Status Response Date of [...] concentrating, remembering, or making decisions? No 02/10/2024 Plan of Treatment Not on file Care Teams Drug Abuse Social Worker Relationship Specialty Start Date End Date Unknown, Provider, PCP - General 08/10/09
--- OUTSIDE RECORDS SUMMARY | 2024-06-30 15:48 | XMS_ITS | Clinical Summary ---
Author Organization [facility] [place] [address] Care Team Providers Care Cargo Router Name Role Phone Susi Yuan APRN Primary Care Provider Allergies Active Allergy Reactions Criticality Noted Date Comments Amoxicillin Rash 12/03/2012 Cephalosporins Rash 05/23/2019 Scopolamine Nausea And Vomiting 05/23/2019 Medications Medication Sig Dispensed Refills Start Date End Date Status ALFONSO 0.25-35 mg-mcg Tablet take 1 tablet by mouth once daily 0 05/17/2019 Active omeprazole (PRILOSEC) 20 mg Capsule, Delayed Release(E.C.) daily. 0 05/17/2019 Active topiramate (TOPAMAX) 25 mg Tablet 50 mg 2 times daily. 0 04/29/2019 Active dicyclomine (Bentyl) 10 mg Capsule Take 1 capsule by mouth 4 times daily as needed. 60 capsule 3 01/18/2020 Active Active Problems No known active problems Immunizations Name Administration Dates Next Due DTaP 03/04/2012 Hepatitis B (Engerix-B, Brad mbivax) 0-19yrs 10/02/1998,04/30/1998,03/27/1998 Inactivated Polio Vaccine (IPOL) 992,02/04/1989,02/26/1988,1987,1987 MMR Vaccine LIVE 05/19/1994,11/11/1988 Family History Medical History Relation Comments Autism Spectrum Disorder Cousin Relation Status Comments Cousin Social History Tobacco Use Types Packs/Day Years Used Date Smoking Tobacco: Former Smokeless Tobacco: Former Alcohol Use Standard Drinks/Week Comments Yes 0 (1 standard drink = 0.6 oz pur e alcohol) once a month Sex and Gender Information Value Date Recorded Sex Assigned at Not on file Gender Identity Not on file Sexual Orientation Not on file Last Filed Vital Signs Vital Sign Reading Time Taken Comments Blood Pressure 107/93 12/05/2019 12:30 PM EST Pulse 65 12/05/2019 12:07 PM EST Temperature 36.7 ??C (98.1 ??F) 12/05/2019 1 0:23 AM EST Respiratory Rate 18 12/05/2019 12:3 0 PM EST Oxygen Saturation 100% 12/05/2019 12: 30 PM EST Inhaled Oxygen Concentration - - Weight 116.8 kg (257 lb 9.6 oz) 020 10:51 AM EST Height 172.7 cm (5' 8) 10/18/2019 10:5 1 AM EST Body Mass Index 39.17 10/18/2019 10:51 AM EST Plan of Treatment Health Maintenance Due Date Last Done Comments HIV screen 2005 Hepatitis C Screening 2005 HPV test 2017 PAP Smear 2017 Tetanus/Diphtheria/Pertussis Vaccines (2 - Tdap) 03/04/2022 03/04/2012 Covid-19 Vaccine ( - 2022-2 4 season) 2024 Influenza (Flu) vaccine (1 o f 1 - Influenza standard series) 06/05/2024 Hepatitis B vaccine (0-59 yrs) Completed 1 , 04/30/1998, 03/27/1998 Care Teams Cargo Router Relationship Specialty Start Date End Date Susi Yuan APRN [address] [place], [place] [address] PCP - General Family Medicine 8/19/19
--- OUTSIDE RECORDS SUMMARY | 2024-06-30 15:48 | XMS_ITS | Encounter Summary ---
[place] [address] Care Team Providers Care Backrest Assembler Name Role Phone Susi Yuan APRN Primary Care Provider [phone] Reason for Visit * Reason Onset Date Comments Medication Refill 01/18/2020 Encounter Details Date Type Department Care Team (Late st Contact Info) Description 01/18/2020 [place] [address] Liat Estrada APRN [address] [address] Social History Tobacco Use Types Packs/Day Years [...] on filedocumented in this encounter Care Teams Backrest Assembler Relationship Specialty Start Date End Date Susi Yuan APRN [address] [place] [address] PCP - General Family Medicine 05/23/19 documented as of this encounter
--- OUTSIDE RECORDS SUMMARY | 2024-06-30 15:48 | XMS_ITS | Continuity of Care Document ---
Author Organization [place] - [facility] Address [address] [place] [address] Care Team Providers Care Applications Development Analyst Name Role Phone KEANU MARTIN Dentist SCHUYLER KRISHNAN Neurologist Assessment Encounter Date Assessment Date Assessment LastModified by Organization Details LastModified Time 05/31/2024 05/31/2024 Pt with hx of CTS [...] Not available Not available Not available Lab None recorded. Referral orthopedi c surgeon referral - Pt wi hx of CTS in b/l wrist, worse in left currently , please eval for possible steroid injection 2023 024 [facility], [address] [place] [address], [id number], 06/01/2024 17:55:17 Procedures None recorded. Surgeries None recorded. Imaging None recorded. Medication Orders gabapenti n 100 mg capsule 2023 024 [id number], [address] [place], [address], 06/30/2024 09:55:21 Patient TargetsNo targets recorded. Patient InstructionsNo instructions recorded. Reason for Referral Neurologist Referral for Tavares mor semi-urgent referral Referring Physician: Mariaelena Plaza, Family Medicine, Encounter Date: 01/25/2024 General Surgeon Referral for Hemorrhoids hemorroids Referring Physician: Joleen Coates, Family Medicine, Encounter Date: 03/24/2024 Orthopedic Surgeon Referral for Carpal tunnel syndrome of left wrist Pt wih hx of CTS in b/l wrist, worse in left currently, please eval for possible steroid injection Referring Physician: Jennifer Combs Family Medicine, Encounter Date: 05/31/2024 Forest Pathology Professor Referral for Me norrhagia Referring Physician: Susi Lundberg, Family Medicine, Encounter Date: 06/30/2024 Results Created Date Observation Date Name Description Value Unit Range Abnormal Flag Note LastModifiedBy Organization Detail LastModifiedTime 06/17/20 24 03/31/2019 imagi ng/di uvaldo tic resul t No observ ation record [...] ation record ed. Not Available 06/17 01:12:15 06/17/2003/10/2022 XR, chest No observ ation record ed. Not Available 06/17 01:12:26 Result Notes None recorded. Problems Name Problem SNOMED Code Status Onset Date Resolution Date Notes Provider Name and Address Organization Details Recorded Time Insomnia 361555893 Active 2015 Problem Code: G47.00; Problem Code Type: ICD-10; [address], [place], [address] , [facility] 4 16:34:11 Obesity 546285662 Active 2015 Problem Code: E66.9; Problem Code Type: ICD-10; [address], [facility] [address] , [facility] 4 16:34:11 History of disorder of digestiv e system 892217593 Active 2016 Problem Code: Z87.19; Problem Code Type: ICD-10; [address], [facility] [address] , [facility] 4 16:34:11 Acute bronchit is 66834877 Completed 201611/08/2016 Problem Code: J20.9; Problem Code Type: ICD-10; Not Available [facility] 3 04:42:39 Urticari a 204764274 Completed 201602/28/2024 Problem Code: L50.9; Problem Code Type: ICD-10; [address], [facility] [address] , [facility] 4 08:04:53 Pelvic and perineal pain 764216712 Active 2017 Problem Code: R10.2; Problem Code Type: ICD-10; [address], [facility] [address] , [facility] 4 16:34:11 Dysmenor pilar 526938890 Active 2017 Problem Code: N94.6; Problem Code Type: ICD-10; [address], [address] 4 16:34:11 Urinary tract infectio us disease 11721010 Completed 201706/03/2018 05/24/20 18 - Comments only - Liat Margarita SPINNER HAND - -UA pos for leuks, RBCs, nitrites , sent for C&S -START bactim DS 1 tab po bid x3 days -reviewe d red flag sx -RTC if sx worsen/p ersist Problem Code: N39.0; Problem Code Type: ICD-10; Not Available [facility] 3 04:42:39 Malaise [id number] Completed 201711/24/2023 Problem Code: R53.81; Problem Code Type: ICD-10; [address], [address] 4 16:34:37 Joint pain 59827586 Active 2018 Problem Code: M25.50; Problem Code Type: ICD-10; [address], [place] [address] , [facility] 4 16:34:11 C-reacti ve protein above referenc e range 52990900589 9104 Active 2018 Problem Code: R79.82; Problem Code Type: ICD-10; [address], [facility] [address] [place] [address] 4 16:34:10 Migraine 98622899 Active 2018 Problem Code: G43.909; Problem Code Type: ICD-10; [address], [place], [address] , [facility] 4 16:34:11 Irritabl e bowel syndrome 53105456 Active 2019 Problem Code: K58.9; Problem Code Type: ICD-10; [address], [place], [address] , [facility] 4 16:34:10 Gastroes ophageal reflux disease without esophagi tis 045573467 Active 2019 Problem Code: K21.9; Problem Code Type: ICD-10; [address], [place] [address] , [facility] 4 16:34:11 Adult health examinat ion Active 2019 Problem Code: Z00.00; Problem Code Type: ICD-10; [address], [facility] [address] , [facility] 4 16:34:11 Hyperlip idemia screenin g Active 2019 Problem Code: Z13.220; Problem Code Type: ICD-10; [address], [facility] [address] , [facility] 4 16:34:11 Diabetes mellitus screenin g Active 2019 Problem Code: Z13.1; Problem Code Type: ICD-10; [address], [facility] [address] , [facility] 4 16:34:10 Hyperlip idemia 72502950 Active 2019 Problem Code: E78.5; Problem Code Type: ICD-10; [address], [facility] [address] , [facility] 4 16:34:11 Acute upper respirat ory infectio n 16065903 Completed 202103/19/2022 03/05/20 22 - Comments only - Zoya Oconnor MD - refilled cough syrup which helped before; advised conserva tive manageme nt; Reviewed indicati ons for re-evalu ation. Problem Code: J06.9; Problem Code Type: ICD-10; Not Available [facility] 3 04:42:41 Fever 144391700 Completed 202103/21/2022 Problem Code: R50.9; Problem Code Type: ICD-10; Not Available [facility] 3 04:42:41 Cough 48545749 Completed 202103/21/2022 Problem Code: R05.8; Problem Code Type: ICD-10; [address], [place], [address] , [facility] 4 08:03:39 Urgent desire to urinate 67057893 Completed 202106/16/2022 Problem Code: R39.15; Problem Code Type: ICD-10; Not Available [facility] 3 04:42:41 Acute pyelonep hritis 46722003 Completed 202106/16/2022 06/02/20 22 - Comments only [...] N10; Problem Code Type: ICD-10; [address], [place], [address] , [facility] 4 16:34:28 Acute pyelonep hritis 99087027 Completed 202111/24/2023 Problem Code: N10; Problem Code Type: ICD-10; [address], [place], [address] , [facility] 4 16:34:28 Acute sinusiti s 82460899 Completed 202212/11/2022 12/02/19 23 - Comments only [...] J01.90; Problem Code Type: ICD-10; Not Available [facility] 3 04:42:42 Acute bronchit is 67501189 Completed 202212/17/2022 Problem Code: J20.9; Problem Code Type: ICD-10; Not Available [facility] 3 04:42:42 Carpal tunnel syndrome of left wrist 03567934536 9102 Active 2022 Problem Code: G56.02; Problem Code Type: ICD-10; [address], [place], [address] , [facility] 4 16:34:11 Hand pain 58638552 Completed 202207/27/2023 Problem Code: M79.643; Problem Code Type: ICD-10; Not Available [facility] 4 05:35:53 Pain of breast 95209676 Completed 202207/27/2023 Problem Code: N64.4; Problem Code Type: ICD-10; Not Available [facility] 4 05:35:54 Family history of breast cancer 504465078 Active 2022 Problem Code: Z80.3; Problem Code Type: ICD-10; [address], [place], [address] , [facility] 4 16:34:11 Blood chemistr y outside referenc e range 784085119 Completed 202205/07/2023 Problem Code: R79.89; Problem Code Type: ICD-10; Not Available [facility] 3 04:42:43 Abnormal finding on evaluati on procedur e 214725834 Completed 202207/27/2023 Problem Code: R89.9; Problem Code Type: ICD-10; Not Available [facility] 4 05:35:52 Fatigue 78696666 Active 2022 Problem Code: R53.83; Problem Code Type: ICD-10; [address], [place], [address] , [facility] 4 16:34:11 Hypertro phic conditio n of skin 65967007 Completed 201705/10/2018 Problem Code: L91.8; Problem Code Type: ICD-10; Not Available [facility] 3 04:42:43 General examinat ion of patient Completed 200502/12/2018 Problem Code: Z00.8; Problem Code Type: ICD-10; Not Available [facility] 3 04:42:44 Acute effect of ultravio let radiatio n on normal skin 371622522 Completed 201805/30/2019 Problem Code: L56.8; Problem Code Type: ICD-10; Not Available [facility] 3 04:42:44 Headache 41546352 Completed 201807/01/2023 Problem Code: R51; Problem Code Type: ICD-10; Not Available [facility] 3 04:42:44 Abdomina l pain 25916769 Completed 202111/03/2022 Problem Code: R10.9; Problem Code Type: ICD-10; Not Available [facility] 3 04:42:44 Cholecys titis 96055250 Completed 201607/01/2023 Problem Code: K81.9; Problem Code Type: ICD-10; Not Available [facility] 3 04:42:44 Diarrhea 70272512 Completed 201704/29/2019 Problem Code: R19.7; Problem Code Type: ICD-10; Not Available [facility] 3 04:42:45 Irregula r periods 07276036 Completed 201505/10/2018 Problem Code: N92.6; Problem Code Type: ICD-10; Not Available [facility] 3 04:42:45 Pelvic and perineal pain 348725328 Completed 201502/12/2018 Problem Code: R10.2; Problem Code Type: ICD-10; [address], [place], [address] , [facility] 4 16:34:11 Counseli shelton Completed 201705/24/2018 Problem Code: Z71.89; Problem Code Type: ICD-10; Not Available [facility] 3 04:42:45 Pain of right knee joint 39137526221 4100 Completed 202106/26/2022 Problem Code: M25.561; Problem Code Type: ICD-10; Not Available [facility] 3 04:42:45 History AND physical examinat ion Completed 200507/01/2023 Not Available [facility] 3 04:42:45 Acute pharyngi tis 091826417 Completed 201702/12/2018 Problem Code: J02.9; Problem Code Type: ICD-10; Not Available [facility] 3 04:42:46 Pain in left foot 40073433966 9107 Completed 201806/26/2022 Problem Code: M79.672; Problem Code Type: ICD-10; Not Available [facility] 3 04:42:46 History of urinary disease 546970808 Active 2021 Problem Code: Z87.448; Problem Code Type: ICD-10; [place], [address] , [facility] 16:34:11 Mixed anxiety and depressi ve disorder 065657355 Active [address], [place], [address] , [facility] 10:36:32 Tremor 55266576 Completed 202306/30/[address], [place], [address] , [facility] 10:59:59 Numbness 16939183 Completed 202306/30/[address], [facility] [address] , [facility] 11:00:11 Cobalami n deficien cy 769747542 Active [address], [place], [address] , [facility] 16:39:58 Iron deficien cy 94887722 Active [address], [place], [address] , [facility] 17:10:09 Hemorrho ids 43005621 Active [address], [place], [address] , [facility] 10:19:46 Paresthe fede 20266952 Completed 202306/30/[address], [place], [address] , [facility] 11:00:03 Restless legs 86984466 Active 2023 sleep study 2023, no LORNE [address], [place], [address] , [facility] 4 16:47:53 Carpal tunnel syndrome 96143057 Active 2023 ALAN CHRISTIANSON MA [facility] [place], [facility] 4 13:48:15 Sleep pattern disturba sce 62452351 Active 2023 no result from sleep study? Did not have it? [address], [facility] [address] , [facility] 4 14:43:07 Menorrha og 533991107 Active [address], [facility] [address] [facility] 4 09:54:15 Raynaud' s phenomen on 727584416 Active [address], [facility] [address] , [facility] 4 09:55:53 Notes:*Problem Name: Contrac eption-mirena- 2013 *Problem Status: inactive *Comments: *Problem Code: V25.02 *Problem Code Type: ICD-9 *Note Date: 12/13/2013 Problem Notes None recorded. Medical Equipment None Reported. Allergies Allergen ID Allergen Name Allergen Category Reaction Reaction Severity Criticality Documentation Date Start Date Code Code System Note Provider Name and Address Organization Details Recorded Time amoxicill in trihydrat e medicatio n hives severe Not available 08/14/20232002 88591 8 RxNorm full body hives Aller gyCod e: '3081 82'; Aller gyNam e: 'AMOX ICILL IN'; Aller gyCon ceptT ype: 'RX Norm' ; Aller gyRea ction : 'full body hives '; Not Available [facility] 3 16:11:42 cephalexi n monohydra te medicatio n hives severe Not available 08/14/20232015 95226 8 RxNorm full body hives Aller gyRea ction : 'full body hives '; Not Available [facility] 16:11:42 Medications Name Sig Start Date Stop [...] to have cause tremor in pt. See #[id number]. Not Available Not Available Not Available promethaz [...] needed for bowel issues 2019 active from [facility] Not Available Not Available Not Available [...] Updated DateTime 4 170.815 cm 37.6 kg/m2 749160. 05 g 97.6 [degF] 99 % 99 % 80 /min 120 mm[Hg] 74 mm[Hg] ED MADDOX LPN [facility] 4 07:50:56 Social History Question Answer Notes LastModified by Organizat ion Details LastModified Time Tobacco Smoking Status Former Smoker ED MADDOX LPN [facility] [place], [facility] 09/29/2023 13:02:52 When Did You Quit Smoking? 11-15yearssi ncelastcigar ette Information not available 09/29/2023 Sex: Female Functional Status None recorded. Mental Status None recorded. Family History Relationship Description Onset Age of this Age Resolved Age Notes LastModified by Organization Details LastModified Time Unspecified Relation Family history unknown Relati ve: 'First Degree Blood Relati ve'; [email or web address] Not available 08/14/2023 03:54:41 Notes:*Problem: Mother: sebastian manriquez , mental health, adiction mgm- ? DM, [place] 50s or 60s Father- HLD, mgm- breast [...] PF 06/30/2024 completed ALAN CHRISTIANSON MA null, [place] [facility] 06/30/2024 11:12:59 MMR 11/11/1988 completed Not Available [facility] 05:59:12 MMR 05/19/1994 completed Not Available [facility] 05:59:12 Td (adult), 2 Lf tetanus toxoid, preservative free, adsorbed 04/15/2022 completed Not Available [facility] 08/14/2023 05:59:12 Tdap 03/04/2012 completed Not Available [facility] 05:59:12 Novel [id number], all formulations 08/02/2009 completed Not Available [facility] 08/14/2023 05:59:12 Td(adult) unspecified formulation 05/05/2002 completed Not Available [facility] 08/14/2023 05:59:12 Td(adult) unspecified formulation 08/15/1992 completed Not Available [facility] 08/14/2023 05:59:12 Influenza, split virus, quadrivalent, PF 06/26/2022 completed Not Available [facility] 08/14/2023 05:59:13 Influenza, split virus, quadrivalent, PF 07/05/2020 completed Not Available [facility] 08/14/2023 05:59:13 Influenza, split virus, quadrivalent, PF 09/09/2021 completed Not Available [facility] 08/14/2023 05:59:13 Influenza, split virus, quadrivalent, preservative 07/28/2017 completed Not Available [facility] 08/14/2023 05:59:13 DTaP 1987 completed Not Available [facility] 05:59:13 DTaP 1987 completed Not Available [facility] 05:59:13 DTaP 02/04/1989 completed Not Available [facility] 05:59:13 DTaP 02/26/1988 completed Not Available [facility] 05:59:13 COVID-19, mRNA, LNP-S, PF, 30 mcg/0.3 mL dose 09/11/2021 completed Not Available [facility] 08/14/2023 05:59:14 COVID-19, mRNA, LNP-S, PF, 30 mcg/0.3 mL dose 10/01/2021 completed Not Available [facility] 08/14/2023 05:59:14 Hep B, unspecified formulation 03/27/1998 completed Not Available [facility] 08/14/2023 05:59:14 Hep B, unspecified formulation 04/30/1998 completed Not Available [facility] 08/14/2023 05:59:14 Hep B, unspecified formulation 10/02/1998 completed Not Available [facility] 08/14/2023 05:59:14 influenza, unspecified formulation 06/21/2014 completed Not Available [facility] 08/14/2023 05:59:14 influenza, unspecified formulation 07/26/2009 completed Not Available [facility] 08/14/2023 05:59:14 influenza, unspecified formulation 08/23/2013 completed Not Available [facility] 08/14/2023 05:59:14 polio, unspecified formulation 1987 completed Not Available [facility] 08/14/2023 05:59:14 polio, unspecified formulation 1987 completed Not Available [facility] 08/14/2023 05:59:14 polio, unspecified formulation 02/04/1989 completed Not Available [facility] 08/14/2023 05:59:15 polio, unspecified formulation 02/26/1988 completed Not Available [facility] 08/14/2023 05:59:15 polio, unspecified formulation 08/15/1992 completed Not Available [facility] 08/14/2023 05:59:15 Influenza, split virus, quadrivalent, PF 07/27/2023 completed Not Available [facility] 10/16/2023 05:31:15 Past Encounters Encounter ID Performer Location Encounter Start Date Encounter Closed Date Diagnosis/Indication Diagnosis SNOMED-CT Code Diagnosis ICD10 Code [id number] SUSI LUNDBERGSILVERIO [address] [address] 05/31/2024 07:45:38 05/31/2024 08:41:09 Carpal tunnel syndrome of left wrist 3222136514 53055 G56.02 Hand pain 23650548 M79.6 42 Health Concerns Section Related Observation LastModified by Organization Detai ls LastModified Time None Recorded Concern Status LastModified by Organization Details LastModified Time None Recorded Payers Encounter Date Sequence Insurance Name Policy Number Policy Del Castillo Covered Member ID Del Castillo Member ID Guarantor Name 05/31/2024 1 [facility] (MEDICAID) Liat Flanagan [id number] Liat Flanagna Notes Date Note Type Note Provider Name and Address Organization Details Recorded Time 05/31/2024 text/html HPI Notes: Pt is a [...] CTS sxs. Pt has neuro appt in [place] in 2 days. Hx of [facility] 07/2023: dxed mild b/l CTS. [address], [place], [address], [facility]. 05/31/2024 08:37:42 OBGyn Episode No OBEpisode recorded.
--- OUTSIDE RECORDS SUMMARY | 2024-06-30 15:48 | XMS_ITS | Continuity of Care Document ---
Author Organization [facility] Address [address] [place] [address] Care Team Providers Care Loan Documents Closer Name Role Phone KEANU MARTIN Dentist SCHUYLER KRISHNAN Neurologist Assessment Encounter Date Assessment Date Assessment LastModified by Organization Details LastModified Time 03/31/2024 03/31/2024 38-year-old female here for follow-up of multiple symptoms, initially concerning for multiple sclerosis. Has been seen by neurology and has follow-up with them in a number of weeks. [email or web address] Not available 03/31/2024 09:21:16 Plan of Treatment Reminders Order Date Submit Date Provider Last Modified By Organization Details Last Modified Time Details Appointments Follow Up 30 2023 10:00A M Not available Not available Not available Lab ferritin, serum or plasma [address] [facility] (Registration ), [address] [place] [address] [place], [address], 04/08/2024 08:04:52 iron + total iron-bind ing capacity (TIBC), serum - CC results: Aurelio Krishnan LEACH T[employer] TENDER at [facility] [address] [facility] (Registration ), [address] [place] [address] [place], [address], 04/08/2024 08:04:32 vitamin B12, serum [address] [facility] (Registration ), [address] [place] [address] Dr, [place], [address], 04/08/2024 08:04:32 Referral None recorded. Procedures None recorded. Surgeries None recorded. Imaging None recorded. Medication Orders topiramat e 25 mg tablet 2023 024 [email or web address] [id number], [address] [place], [address], 03/31/2024 10:36:18 Patient TargetsNo targets recorded. Patient Instructions Encounter Date Encounter Id Patient Instructions Last Modified By Organization Details Last Modified Time 03/31/2024 [id number] medical record request* [email or web address] Not available 04/20/2024 10:28:09 It was nice to see you today! [email or web address] Not available 03/31/2024 10:12:00 Reason for Referral Neurologist Referral for Tavares mor semi-urgent referral Referring Physician: Mariaelena Plaza, Family Medicine, Encounter Date: 01/25/2024 General Surgeon Referral for Hemorrhoids hemorroids Referring Physician: Nicko Coates Family Medicine, Encounter Date: 03/24/2024 Orthopedic Surgeon Referral for Carpal tunnel syndrome of left wrist Pt wih hx of CTS in b/l wrist, worse in left currently, please eval for possible steroid injection Referring Physician: Jennifer Combs Family Medicine, Encounter Date: 05/31/2024 Telephone Solicitor Referral for Me norrhagia Referring Physician: Susi Lundberg Family Medicine, Encounter Date: 06/30/2024 Results Created Date Observation Date Name Description Value Unit Range Abnormal Flag Note LastModifiedBy Organization Detail LastModifiedTime 06/17/2003/31/2019 livia peoples/jaclyn de t No observ ation record ed. Not Available 06/17 01:10:29 06/17/20 24 05/07/2023 , chas alvarez, compl ete No observ ation record ed. Not Available 06/17 01:10:33 06/17/20 24 05/07/2023 MAMMO , scree danay, bilat eral, w/ CAD No observ ation record ed. [email or web address] Not Available 06/17 01:10:34 06/17/20 24 02/22/2019 XR, foot, 3 or more view No observ ation record ed. Not Available 06/17 01:10:36 06/17/20 24 12/07/2022 CT, abdom en + pelvi s, w/ contr ast No observ ation record ed. Not Available 06/17 01:12:15 06/17/20 24 03/10/2022 XR, chest No observ ation record ed. [email or web address] Not Available 06/17 01:12:26 Result Notes None recorded. Problems Name Problem SNOMED Code Status Onset Date Resolution Date Notes Provider Name and Address Organization Details Recorded Time Insomnia 757790796 Active 2015 Problem Code: G47.00; Problem Code Type: ICD-10; [address], [place], [address] , [facility] 4 16:34:11 Obesity 079054794 Active 2015 Problem Code: E66.9; Problem Code Type: ICD-Cory; [address], [place], [address] , [facility] 4 16:34:11 History of disorder of digestiv e system 517005173 Active 2016 Problem Code: Z87.19; Problem Code Type: ICD-10; [address], [place], [address] , [facility] 4 16:34:11 Acute bronchit is 08248526 Completed 201611/08/2016 Problem Code: J20.9; Problem Code Type: ICD-10; Not Available [facility] 3 04:42:39 Urticari a [id number] Completed 201602/28/2024 Problem Code: L50.9; Problem Code Type: ICD-10; [address], [facility] [address] , [facility] 4 08:04:53 Pelvic and perineal pain 524429954 Active 2017 Problem Code: R10.2; Problem Code Type: ICD-10; [address], [facility] [address] [place] [address] 4 16:34:11 Dysmenor pilar 290103489 Active 2017 Problem Code: N94.6; Problem Code Type: ICD-10; [address], [facility] [address] [place] [address] 4 16:34:11 Urinary tract infectio us disease 77733092 Completed 201706/03/2018 05/24/20 18 - Comments only - Liat Margarita M1A1 TANK CREWMAN - -UA pos for leuks, RBCs, nitrites , sent for C&S -START bactim DS 1 tab po bid x3 days -reviewe d red flag sx -RTC if sx worsen/p ersist Problem Code: N39.0; Problem Code Type: ICD-10; Not Available [facility] 3 04:42:39 Malaise 758041599 Completed 201711/24/2023 Problem Code: R53.81; Problem Code Type: ICD-10; [address], [facility] [address] , [facility] 4 16:34:37 Joint pain 32426817 Active 2018 Problem Code: M25.50; Problem Code Type: ICD-10; [address], [facility] [address] [place] [address] 4 16:34:11 C-reacti ve protein above referenc e range 20946513108 9104 Active 2018 Problem Code: R79.82; Problem Code Type: ICD-10; [address], [place] [address] , [facility] 4 16:34:10 Migraine 01090349 Active 2018 Problem Code: G43.909; Problem Code Type: ICD-10; [address], [address] 4 16:34:11 Irritabl e bowel syndrome 07371744 Active 2019 Problem Code: K58.9; Problem Code Type: ICD-10; [address], [address] 4 16:34:10 Gastroes ophageal reflux disease without esophagi tis 703462433 Active 2019 Problem Code: K21.9; Problem Code Type: ICD-Cory; [address], [place] [address] , [facility] 4 16:34:11 Adult health examinat ion Active 2019 Problem Code: Z00.00; Problem Code Type: ICD-Cory; [address], [address] 4 16:34:11 Hyperlip idemia screenin g Active 2019 Problem Code: Z13.220; Problem Code Type: ICD-10; [address], [place] [address] , [facility] 4 16:34:11 Diabetes mellitus screenin g Active 2019 Problem Code: Z13.1; Problem Code Type: ICD-10; [address], [place], [address] , [facility] 4 16:34:10 Hyperlip idemia 39940869 Active 2019 Problem Code: E78.5; Problem Code Type: ICD-10; [address], [facility] [address] , [facility] 4 16:34:11 Acute upper respirat ory infectio n 54019369 Completed 202103/19/2022 03/05/20 22 - Comments only - Zoya Oconnor MD - refilled cough syrup which helped before; advised conserva tive manageme nt; Reviewed indicati ons for re-evalu ation. Problem Code: J06.9; Problem Code Type: ICD-10; Not Available [facility] 3 04:42:41 Fever 406337562 Completed 202103/21/2022 Problem Code: R50.9; Problem Code Type: ICD-10; Not Available [facility] 3 04:42:41 Cough 93146352 Completed 202103/21/2022 Problem Code: R05.8; Problem Code Type: ICD-10; [address], [facility] [address] , [facility] 4 08:03:39 Urgent desire to urinate 59550086 Completed 202106/16/2022 Problem Code: R39.15; Problem Code Type: ICD-10; Not Available [facility] 3 04:42:41 Acute pyelonep hritis 95648232 Completed 202106/16/2022 06/02/20 22 - Comments only [...] Problem Code Type: ICD-10; [address], [place], [address] , [facility] 4 16:34:28 Acute pyelonep hritis 33600370 Completed 202111/24/2023 Problem Code: N10; Problem Code Type: ICD-10; [address], [place], [address] , [facility] 4 16:34:28 Acute sinusiti s 27589412 Completed 202212/11/2022 12/02/19 23 - Comments only [...] J01.90; Problem Code Type: ICD-10; Not Available [facility] 3 04:42:42 Acute bronchit is 60433175 Completed 202212/17/2022 Problem Code: J20.9; Problem Code Type: ICD-10; Not Available [facility] 3 04:42:42 Carpal tunnel syndrome of left wrist 88296315678 9102 Active 2022 Problem Code: G56.02; Problem Code Type: ICD-10; [address], [place], [address] , [facility] 4 16:34:11 Hand pain 37276012 Completed 202207/27/2023 Problem Code: M79.643; Problem Code Type: ICD-10; Not Available [facility] 4 05:35:53 Pain of breast 71303724 Completed 202207/27/2023 Problem Code: N64.4; Problem Code Type: ICD-10; Not Available [facility] 4 05:35:54 Family history of breast cancer 057704942 Active 2022 Problem Code: Z80.3; Problem Code Type: ICD-10; [address], [place], [address] , [facility] 4 16:34:11 Blood chemistr y outside referenc e range 506358956 Completed 202205/07/2023 Problem Code: R79.89; Problem Code Type: ICD-10; Not Available [facility] 3 04:42:43 Abnormal finding on evaluati on procedur e 085203865 Completed 202207/27/2023 Problem Code: R89.9; Problem Code Type: ICD-10; Not Available [facility] 4 05:35:52 Fatigue 17349433 Active 2022 Problem Code: R53.83; Problem Code Type: ICD-10; [address], [place], [address] , [facility] 4 16:34:11 Hypertro phic conditio n of skin 89254430 Completed 201705/10/2018 Problem Code: L91.8; Problem Code Type: ICD-10; Not Available [facility] 3 04:42:43 General examinat ion of patient Completed 200502/12/2018 Problem Code: Z00.8; Problem Code Type: ICD-10; Not Available [facility] 3 04:42:44 Acute effect of ultravio let radiatio n on normal skin 190602399 Completed 201805/30/2019 Problem Code: L56.8; Problem Code Type: ICD-10; Not Available [facility] 3 04:42:44 Headache 52321218 Completed 201807/01/2023 Problem Code: R51; Problem Code Type: ICD-10; Not Available [facility] 3 04:42:44 Abdomina l pain 33163996 Completed 202111/03/2022 Problem Code: R10.9; Problem Code Type: ICD-10; Not Available [facility] 3 04:42:44 Cholecys titis 75648067 Completed 201607/01/2023 Problem Code: K81.9; Problem Code Type: ICD-10; Not Available [facility] 3 04:42:44 Diarrhea 82466320 Completed 201704/29/2019 Problem Code: R19.7; Problem Code Type: ICD-10; Not Available [facility] 3 04:42:45 Irregula r periods 32537629 Completed 201505/10/2018 Problem Code: N92.6; Problem Code Type: ICD-10; Not Available [facility] 3 04:42:45 Pelvic and perineal pain 588245280 Completed 201502/12/2018 Problem Code: R10.2; Problem Code Type: ICD-10; [address], [place], [address] , [facility]. 4 16:34:11 Counseli shelton Completed 201705/24/2018 Problem Code: Z71.89; Problem Code Type: ICD-10; Not Available [facility] 3 04:42:45 Pain of right knee joint 69124608520 4100 Completed 202106/26/2022 Problem Code: M25.561; Problem Code Type: ICD-10; Not Available [facility] 3 04:42:45 History AND physical examinat ion Completed 200507/01/2023 Not Available [facility] 3 04:42:45 Acute pharyngi tis 699768938 Completed 201702/12/2018 Problem Code: J02.9; Problem Code Type: ICD-10; Not Available [facility] 3 04:42:46 Pain in left foot 62982721766 9107 Completed 201806/26/2022 Problem Code: M79.672; Problem Code Type: ICD-10; Not Available [facility] 3 04:42:46 History of urinary disease 311170880 Active 2021 Problem Code: Z87.448; Problem Code Type: ICD-10; [address], [facility] [address] , [facility] 4 16:34:11 Mixed anxiety and depressi ve disorder 299367572 Active [address], [place] [address] , [facility] 4 10:36:32 Tremor 54631369 Completed 202306/30/[address], [place] [address] , [facility] 4 10:59:59 Numbness 38157808 Completed 202306/30/[address], [facility] [address] , [facility] 4 11:00:11 Cobalami n deficien cy 650841471 Active [address], [place] [address] , [facility] 4 16:39:58 Iron deficien cy 66976452 Active [address], [place] [address] , [facility] 4 17:10:09 Hemorrho ids 38379781 Active [address], [place], [address] , [facility] 4 10:19:46 Macho mistry 38673350 Completed 202306/30/[address], [facility] [address] , [facility] 4 11:00:03 Restless legs 49665974 Active 2023 sleep study 2023, no LORNE [address], [place], [address] , [facility] 4 16:47:53 Carpal tunnel syndrome 67644587 Active 2023 ALAN CHRISTIANSON MA null, [facility] 4 13:48:15 Sleep pattern disturba are 22169402 Active 2023 no result from sleep study? Did not have it? [address], [place], [address] , [facility] 4 14:43:07 Menorrha og 157707320 Active [address], [place], [address] , [facility] 4 09:54:15 Raynaud' s phenomen on 101050861 Active [address], [place], [address] , [facility] 4 09:55:53 Notes:*Problem Name: Contrac eption-mirena- [...] medicatio n hives severe Not available 08/14/20232002 05628 8 RxNorm full body hives Aller gyCod e: '3081 82'; Aller gyNam e: 'AMOX ICILL IN'; Aller gyCon ceptT ype: 'RX Norm' ; Aller gyRea ction : 'full body hives '; Not Available [facility] 3 16:11:42 cephalexi n monohydra te medicatio n hives severe Not available 08/14/20232015 23149 8 RxNorm full body hives Aller gyRea ction : 'full body hives '; Not Available [facility] 3 16:11:42 Medications Name Sig Start Date [...] to have cause tremor in pt. See #241280. Not Available Not Available Not Available promethaz [...] needed for bowel issues 2019 active from [facility] Not Available Not Available Not Available [...] Updated DateTime 4 170.815 cm 37 kg/m2 909548. 98 g 97.8 [degF] 99 % 99 % 79 /min 118 mm[Hg] 78 mm[Hg] VARUN MIKE RN [place] - [facility]. 4 08:30:12 Social History Question Answer Notes LastModified by Organizat ion Details LastModified Time Tobacco Smoking Status Former Smoker ED MADDOX LPN [facility] 09/29/2023 13:02:52 When Did You Quit Smoking? 11-17yearssi urielelalawanda charles Information not available 09/29/2023 Sex: Female Functional Status None recorded. Mental Status None recorded. Family History Relationship Description Onset Age of this Age Resolved Age Notes LastModified by Organization Details LastModified Time Unspecified Relation Family history unknown Relati ve: 'First Degree Blood Relati ve'; [email or web address] Not available 08/14/2023 03:54:41 Notes:*Problem: Mother: sebastian manriquez , mental health, adiction mgm- ? [place], [place] 50s or 60s Father- HLD, mgm- breast [...] trivalent, PF 06/30/2024 completed [address]IAN[address] MA [facility], [facility] 06/30/2024 11:12:59 MMR 11/11/1988 completed Not Available [facility] 05:59:12 MMR 05/19/1994 completed Not Available [facility] 05:59:12 Td (adult), 2 Lf tetanus toxoid, preservative free, adsorbed 04/15/2022 completed Not Available [facility] 08/14/2023 05:59:12 Tdap 03/04/2012 completed Not Available [facility] 05:59:12 Novel [id number], all formulations 08/02/2009 completed Not Available [facility] 08/14/2023 05:59:12 Td(adult) unspecified formulation 05/05/2002 completed Not Available [facility] 08/14/2023 05:59:12 Td(adult) unspecified formulation 08/15/1992 completed Not Available [facility] 08/14/2023 05:59:12 Influenza, split virus, quadrivalent, PF 06/26/2022 completed Not Available [facility] 08/14/2023 05:59:13 Influenza, split virus, quadrivalent, PF 07/05/2020 completed Not Available [facility] 08/14/2023 05:59:13 Influenza, split virus, quadrivalent, PF 09/09/2021 completed Not Available [facility] 08/14/2023 05:59:13 Influenza, split virus, quadrivalent, preservative 07/28/2017 completed Not Available [facility] 08/14/2023 05:59:13 DTaP 1987 completed Not Available [facility] 05:59:13 DTaP 1987 completed Not Available [facility] 05:59:13 DTaP 02/04/1989 completed Not Available [facility] 05:59:13 DTaP 02/26/1988 completed Not Available [facility] 05:59:13 COVID-19, mRNA, LNP-S, PF, 30 mcg/0.3 mL dose 09/11/2021 completed Not Available [facility] 08/14/2023 05:59:14 COVID-19, mRNA, LNP-S, PF, 30 mcg/0.3 mL dose 10/01/2021 completed Not Available [facility] 08/14/2023 05:59:14 Hep B, unspecified formulation 03/27/1998 completed Not Available [facility] 08/14/2023 05:59:14 Hep B, unspecified formulation 04/30/1998 completed Not Available [facility] 08/14/2023 05:59:14 Hep B, unspecified formulation 10/02/1998 completed Not Available [facility] 08/14/2023 05:59:14 influenza, unspecified formulation 06/21/2014 completed Not Available [facility] 08/14/2023 05:59:14 influenza, unspecified formulation 07/26/2009 completed Not Available [facility] 08/14/2023 05:59:14 influenza, unspecified formulation 08/23/2013 completed Not Available [facility] 08/14/2023 05:59:14 polio, unspecified formulation 1987 completed Not Available [facility] 08/14/2023 05:59:14 polio, unspecified formulation 1987 completed Not Available [facility] 08/14/2023 05:59:14 polio, unspecified formulation 02/04/1989 completed Not Available [facility] 08/14/2023 05:59:15 polio, unspecified formulation 02/26/1988 completed Not Available [facility] 08/14/2023 05:59:15 polio, unspecified formulation 08/15/1992 completed Not Available [facility] 08/14/2023 05:59:15 Influenza, split virus, quadrivalent, PF 07/27/2023 completed Not Available Critical access hospital 10/16/2023 05:31:15 Past Encounters Encounter ID Performer Location Encounter Start Date Encounter Closed Date Diagnosis/Indication Diagnosis SNOMED-CT Code Diagnosis ICD10 Code [id number] SUSI LUNDBERG [address] [address] 03/03/2024 07:25:04 03/03/2024 08:52:05 Adult health examination 949931631 Z00.00 Tremor 15745282 R25.1 Mixed anxi ety and depressive disorder 739209617 F41.8 Obesity 972584382 E66.9 Migraine 46224659 G43.90 9 Numbness 90957191 R20.0 Fatigue 93979096 R53.83 Cobalamin deficiency 190 884540 E53.8 Patient me dical record not available 833139174 Z76.89 [id number] NICKO MIGUE, [address] [address] 03/24/2024 09:37:14 03/24/2024 10:04:57 Hemorrhoids 73521332 K64.9 [id number] SUSI LUNDBERG [address] [address] 03/31/2024 08:18:17 03/31/2024 09:06:05 Mixed anxiety and depressive disorder 490843916 F41.8 Tremor 70394970 R25.1 Migraine 41072051 G43.90 9 Iron deficiency 24999124 E61.1 Cobalamin deficiency 190 988848 E53.8 Hemorrhoids 51256100 K64 .9 Fatigue 04830126 R53.83 Obesity 754566565 E66.9 Health Concerns Section Related Observation LastModified by Organization Danisha ls LastModified Time None Recorded Concern Status LastModified by Organization Details LastModified Time None Recorded Payers Encounter Date Sequence Insurance Name Policy Number Policy Del Castillo Covered Member ID Del Castillo Member ID Guarantor Name 03/31/2024 1 [facility] (MEDICAID) Liat Flanagan [id number] Liat Flanagan Notes Date Note Type Note Provider Name and Address Organization Details Recorded Time 03/31/2024 text/html HPI Notes: She i s [...] to use for weight loss SUSI LUNDBERG, [address], [place], [address], [facility], [facility]. 03/31/2024 10:12:32 OBGyn Episode No OBEpisode recorded.
--- OUTSIDE RECORDS SUMMARY | 2024-06-30 15:48 | XMS_ITS | Encounter Summary ---
[place] [address] Care Team Providers Care Repairer Resistance Welding Machines Name Role Phone Susi Yuan APRN Primary Care Provider [phone] Encounter Details Date Type Department Care Team (Late st Contact Info) Description 09/17/2020 Telephone Gastroenterology at [place] [id number] Yanique Dunne Social History Tobacco Use Types Packs/Day Years [...] encounter Miscellaneous Notes * Telephone Encounter - Yanique Dunne - 09/17/2020 1:12 PM EST 24 HOUR PH IMPEDANCE CLINICAL SAFETY CHECKLIST 09/17/2020 Yanique Flanagan [address] [facility] [address] [id number] : 1985 REFERRING PROVIDER: LIAT LUNSFORD [[id number]] PRIMARY CARE PROVIDER: Susi Yuan APRN PRIMARY SYMPTOM (PROCEDURE INDICATION): heartburn SAFETY QUESTIONS FOR THE PATIENT HISTORY OF TRANSSPHENOIDAL OR PITUITARY SURGERY? no IF YES, please inform the patient that the test cannot be scheduled due to safety concerns about testing, and the patient should speak with their provider to consider alternative testing. The senior care specialist should also contact the provider's office directly to notify them that we are unable to schedule due to a contraindication to testing. Then, delete the remainder of this checklist and close out thereferral. HISTORY OF NASAL SURGERY IN THE LAST SIX MONTHS? no IF YES: PT CANNOT BE SCHEDULED DUE TO SAFETY CONCERNS until we receive documented clearance by their ENT provider. Then, delete the remainder of this checklist and close out the referral. PLEASE LOOK THIS UP IN THE CHART IN THE PRIOR 12 MONTHS, HAS AN ESOPHAGEAL MANOMETRY BEEN PERFORMED AT [facility]? no IF NO, please inform the patient that an esophageal manometry will be scheduled at the same time asthe pH impedance test as part of the procedure. A new referral is not needed. Please add the .xmohrem checklist to bottom of this note. QUESTIONS FOR THE PATIENT DIABETIC? no Diabetic patients should speak with their PCP or managing provider at least two weeks before the test to ask what medication or insulin adjustments are needed for testing. If the patient feels ill while fasting due to diabetes, it is OK to have a little apple juice - just enough to feel better. Patients fast 8 hours before testing and the test lasts 1 hour. ALLERGIC TO LIDOCAINE, BENZOCAINE? no (OK to schedule procedure but please document type of allergy if present) BLOOD THINNERS SUCH PLAVIX, COUMADIN, PRADAXA? no (pt does not have to stop any blood thinners for this procedure) DOES THE PATIENT USE A WHEELCHAIR? no ANA MARIA VERBAL PATIENT INSTRUCTIONS FOR on-PPI STUDY The written instructions are very important for the patient to review and contain specific dietary and medication instructions prior to testing. These instructions will give the patient the most accurate test result. The patient should speak with their referring provider or our office if they have any questions. APPOINTMENT NOTES TEMPLATE Document the correct appointment notes template depending on if an esophageal manometry is also needed. Esophageal manometry with pH impedance: HREM with Ph/IMP on PPI, symptom: heartburn, RMD: LIAT LUNSFORD [[id number]], PCP: Susi Yuan APRN, wheelchair: No, blood thinners: No, allergy to lidocaine/benzocaine/novocaine: No PLEASE DOCUMENT THE ESOPHAGEAL MANOMETRY CHECKLIST BELOW if you use this template. (At exit, the RMD for appointment notes is the GI provider who saw the patient) documented in this encounter Plan of Treatment Not on file documented as of this encounter Visit Diagnoses Not on filedocumented in this encounter Care Teams Repairer Resistance Welding Machines Relationship Specialty Start Date End Date Susi Yuan APRN [address] [place] [address] PCP - General Family Medicine 05/23/19 documented as of this encounter
--- OUTSIDE RECORDS SUMMARY | 2024-06-30 15:48 | XMS_ITS | Encounter Summary ---
Author Organization [facility] [place] [address] Care Team Providers Care Pairer Substandard Name Role Phone Susi Yuan APRN Primary Care Provider [phone] Encounter Details Date Type Department Care Team (Late st Contact Info) Description 12/05/2019 Telephone Gastroenterology at [facility] [place] [id number] Adam Narvaez MD [facility] [place] [address] Social History Tobacco Use Types Packs/Day Years [...] encounter Miscellaneous Notes * Telephone Encounter - Adam Narvaez MD - 12/05/2019 12:03 PM EST Schedule esophageal manometry with pH impedance ON PPI for heartburn, RMD Liat Estrada If this is negative, then Liat can consider a Lab Whitten OFF PPI. documented in this encounter Plan of Treatment Not on file documented as of this encounter Visit Diagnoses Not on filedocumented in this encounter Care Teams Pairer Substandard Relationship Specialty Start Date End Date Susi Yuan APRN [address] [place] [address] PCP - General Family Medicine 05/23/19 documented as of this encounter
--- OUTSIDE RECORDS SUMMARY | 2024-06-30 15:48 | XMS_ITS | Encounter Summary ---
[place] [address] Care Team Providers Care Forestry Consultant Name Role Phone Susi Yuan APRN Primary Care Provider [phone] Encounter Details Date Type Department Care Team (Late st Contact Info) Description 02/20/2021 Telephone Gastroenterology [place] [address] Joseph Benavides Social History Tobacco Use Types Packs/Day Years [...] encounter Miscellaneous Notes * Telephone Encounter - Joseph Benavides - 02/20/2021 1:57 PM EDT Inbound/Outbound: Outbound Spoke to Patient/Left Message: Left message Notes: Outbound call to patient as she is on wait list for earlier testing in motility lab. Left message advising of 02/21 opening and that spot cannot be held. Asked patient to call back LEONARD if interested. Return calls can be handled by: Motility Lab Director Compensation documented in this encounter Plan of Treatment Not on file documented as of this encounter Visit Diagnoses Not on filedocumented in this encounter Care Teams Forestry Consultant Relationship Specialty Start Date End Date Susi Yuan APRN [address] [place] [address] PCP - General Family Medicine 05/23/19 documented as of this encounter
--- OUTSIDE RECORDS SUMMARY | 2024-06-30 15:48 | XMS_ITS | Encounter Summary ---
Author Organization [facility] [place] [address] Care Team Providers Care Coal Weigher Name Role Phone Lissy Susi Dewitt APRN Primary Care Provider [phone] Encounter Details Date Type Department Care Team (Latest Contact Info) Description 12/05/2019 9:54 AM EST - 12/05/2019 12:53 PM EST Hospital Encounter Gastroenterology at [facility] [place] [address] Adam Narvaez MD [facility] [place] [address] Discharge Disposition: Home Social History Tobacco Use Types Packs/Day Years [...] EST Temperature 36.7 ??C (98.1 ??F) 12/05/2019 10:[address] Respiratory Rate 18 12/05/2019 12:30 PM EST Oxygen Saturation 100% 12/05/2019 12:30 PM EST Inhaled Oxygen Concentration - - Weight - - Height - - Body Mass Index - - documented in this encounter Discharge Instructions * Discharge Instructions* Frank Coppola RN - 12/05/2019 12:10 PM EST Upper GI Endoscopy: What to Expect at Home Your Recovery You will be able to go home after your doctor or nurse checks to make sure you are not having any problems. You may have to stay overnight if you had treatment during the test. You may have a sore throat fora day or two after the test. This care sheet gives you a general idea about what to expect after the test. How can you care for yourself at home? Activity Rest when you feel tired. ?? You can do your normal activities when it feels okay to do so. Diet ?? Follow your doctor's directions for eating. ?? Unless your doctor has told you not to, drink plenty of fluids. This helps to replace the fluidsthat were lost during the prep. ?? Do not drink alcohol. Medicines ?? Your doctor will tell you if and when you can restart your medicines. He or she will also give you instructions about taking any new medicines. ?? If you take blood thinners, such as warfarin (Coumadin), clopidogrel (Plavix), or aspirin, be sure to talk to your doctor. He or she will tell you if and when to start taking those medicines again. Make sure that you understand exactly what your doctor wants you to do. ?? If polyps were removed or a biopsy was done during the test, your doctor may tell you not to take aspirin or other anti-inflammatory medicines for a few days. These include ibuprofen (Advil, Motrin) and naproxen (Aleve). ?? If you have a sore throat the day after the procedure, use an ghee-gsw-[id number] spray to numb your throat. Sucking on throat lozenges and gargling with warm salt water may also help relieve your symptoms. Other instructions ?? For your safety, do not drive or operate machinery until the medicine wears off and you can think clearly. Your doctor may tell you not to drive or operate machinery until the day after your test. ?? Do not sign legal documents or make major decisions until the medicine wears off and you can think clearly. The anesthesia can make it hard for you to fully understand what you are agreeing to. Additional Information for Sedation Patients For patients who received sedation: ?? You may have received medications before and/or during your procedure which effects your judgement and reaction time. ?? Do not drive, operate machinery, drink alcoholic beverages or make important decisions for 24 hours. ?? Be careful on stairs as you may be unsteady on your feet. ?? You may eat a regular diet as tolerated. ?? Do not smoke if you are alone. ?? IV site: Slight redness or tenderness is normal, you can use a warm compress if you would like. If tenderness and/or redness increase or if foul drainage occurs, please contact your Doctor. Please call [phone] before 8pm Mon-Fri with problems, questions or concerns. If you call after 8pm or on weekends, call the Hospital at [phone] and ask to speak to the Primary Class Teacher chapter relations administrator and the robotic machine operator will contact that person for you. When should you call for help? Call [phone] anytime you think you may need emergency care. For example, call if: ?? You passed out (lost consciousness). ?? You pass maroon or bloody stools. ?? You have trouble breathing. Call your doctor now or seek immediate medical care if: ?? You have pain that does not get better after you take pain medicine. ?? You are sick to your stomach or cannot drink fluids. ?? You have new or worse belly pain. ?? You have blood in your stools. ?? You have a fever. ?? You cannot pass stools or gas. Watch closely for changes in your health, and be sure to contact your doctor if you have any problems. Where can you learn more? [facility] View your After Visit Summary and more online at [email or web address] If you would like to provide feedback about your hospital experience, please call the Office of Patient and Family Relations at . If you have received this After Visit Summary in error, please immediately return it in person to the department, or notify the [facility] Privacy Office by calling toll free at between the hours of 8AM and 5PM to arrange for our retrieval of the documents at no cost to you. Content Version: 12.2 ?? 1717-2458 [employer]. Care instructions adapted under license by [facility]. If you have questions about a medical condition or this instruction, always ask your healthcare professional. [employer] disclaims any warranty or liability for your use of this information. documented in this encounter Medications at Time of Discharge Medication Sig Dispensed Refills Start Date End Date ALFONSO 0.25-35 mg-mcg Tablet take 1 tablet by mouth once daily 0 05/17/2019 omeprazole (PRILOSEC) 20 mg Capsule, Delayed Release(E.C.) daily. 0 05/17/2019 topiramate (TOPAMAX) 25 mg Tablet 50 mg 2 times daily. 0 04/29/2019 dicyclomine (BENTYL) 10 mg Capsule Take 1 capsule by mouth 4 times daily as needed. 60 capsule 3 10/18/2019 01/18/2020 documented as of this encounter H&P Notes * Adam Narvaez MD - 12/05/2019 11:25 AM EST Gastroenterology and Hepatology Pre-Procedure History and Physical Exam Procedure: EGD: Indication: diarrhea There is no problem list on file for this patient. EXAM: HEENT: Airway examined, oropharynx clear Mallampati Score: II (soft palate, uvula, fauces visible) LUNGS: Clear to auscultation HEART: Regular rate and rhythm, normal S1, S2 ABDOMEN: Normal bowel sounds, soft, non tender, non distended, A/P Proceed with the planned endoscopic procedure. ASA 1 - Normal health patient Sedation Plan: moderate (conscious sedation) Risks and benefits of the procedure explained to the patient. Consent signed. documented in this encounter Plan of Treatment Not on file documented as of this encounter Procedures Procedure Name Priority Date/Time Associated Diagnosis Comments SPECIMEN TO PATHOLOGY Routine 12/05/2019 12:00 PM EST SPECIMEN TO PATHOLOGY Routine 12/05/2019 12:00 PM EST SPECIMEN TO PATHOLOGY Routine 12/05/2019 12:00 PM EST SURGICAL PATHOLOGY REPORT Routine 12/05/2019 11:54 AM EST Upper Gi Endoscopy, Biopsy ([id number]) 12/05/2019 11:43 AM EST Gastroesophageal reflux disease, esophagitis presence not specified Lower abdominal pain UPPER GI ENDOSCOPY Routine 12/05/2019 11 :28 AM EST documented in this encounter Results * Specimen to Pathology (12/05/2019 12:00 PM EST) AP Specimen 12/05/2019 12:0 0 PM EST 12/05/2019 12:[address] [facility] - 12/05/2019 12:00 PM EST Specimen requisition ordered. ??Separate Pathology report to follow Adam Narvaez MD PATHOLOGY/CYTOLOGY O [place] Performing Organization Address [facility] [place] [place] [address] * Specimen to Pathology (12/05/2019 12:00 PM EST) AP Specimen 12/05/2019 12:0 0 PM EST 12/05/2019 12:[address] [facility] - 12/05/2019 12:00 PM EST Specimen requisition ordered. ??Separate Pathology report to follow Adam Narvaez MD PATHOLOGY/CYTOLOGY O [place] Performing Organization Address [facility] [place] [address] * Specimen to Pathology (12/05/2019 12:00 PM EST) AP Specimen 12/05/2019 12:0 0 PM EST 12/05/2019 12:[address] [facility] - 12/05/2019 12:00 PM EST Specimen requisition ordered. ??Separate Pathology report to follow Adam Narvaez MD PATHOLOGY/CYTOLOGY O [place] Performing Organization Address [facility] Co de Phone Number [facility] [place] [address] * Surgical Pathology Report (12/05/2019 11:54 AM EST) Final Diagnosis [id number] ? Location: 4T; EA13; A The signing pathologist has (i) examined the relevant preparation(s) for the specimen(s) and (ii) rendered or confirmed the diagnosis(es). . ?Surgical Pathology DIAGNOSIS A - Duodenum, biopsy: - ??Duodenal mucosa, negative for diagnostic abnormality ??. B - Stomach, biopsy: - Gastric antrum-type and body/fundic-typ e mucosa, negative for diagnostic abnormality. C - Esophagus, biopsy: - ??Squamous mucosa negative for diagnostic abnormality. Electronically signed by: ??Turner Cunningham MD Verified: ??12/07/2019 ?Pathologist Performed at: ??-[facility] [place], [place], [place] CLINICAL INFORMATION Specimen Submitted: A - Duodenum biopsies, r/o celiac disease B - Gastric biopsies r/o h pylori C - Esophagus biopsies r/o EOE Clinical History and Diagnosis: History of diarrhea, heartburn SPECIMEN PROCESSING A - Labeled/Fixativ e: Duodenum biopsies R/O celiac, formalin. Quantity/Size: Six, 0.1-0.3 cm. Tissue Description: Soft, norman tissues. Sections/Proces sing: Submitted en toto ??in 2 cassettes labeled A1-A2. B - Labeled/Fixativ e: Gastric biopsies R/O H. pylori, formalin. Quantity/Size: Three, 0.2-0.4 cm. Tissue Description: Soft, norman tissues. Sections/Proces sing: Submitted en toto ??in 1 cassette labeled B1. C - Labeled/Fixativ e: Esophagus biopsies rule out EoE, formalin. Quantity/Size: Multiple, 0.2-0.3 cm. Tissue Description: Soft, white tissues. Sections/Proces sing: Submitted en toto ??in 2 cassettes labeled C1-C2. ??scar 12/07/2019 3:20 PM [facility] GI Biopsy 12/05/2019 11:5 4 AM EST 12/05/2019 11:54 AM EST GI Biopsy 12/05/2019 11:5 4 AM EST 12/05/2019 11:54 AM EST GI Biopsy 12/05/2019 11:5 4 AM EST 12/05/2019 11:54 AM EST Adam Narvaze MD PATHOLOGY/CYTOLOGY Brittni MORA [facility] [place] [address] * UPPER GI ENDOSCOPY (12/05/2019 11:28 AM EST) UPPER GI ENDOSCOPY [facility] Endoscopy ___ Procedure Date: 12/05/2019 11:28 AM ? Patient Name: Liat Flanagan ? Date of : 1985 ? Age: 34 ? Order #: [id number] ? Instrument Name: [id number] ? ___ Procedure: ? Upper GI endoscopy Indications: ? Heartburn, Diarrhea Providers: ? Adam Narvaez, Yanique Bowles, ? Dalton Bledsoe MD: ?Louisa Yuan MD Medicines: ? Fentanyl 150 micrograms IV, Midazolam ? 4 mg IV, Benzocaine spray Complications: ? No immediate complications. ___ Procedure: ? Pre-Anesthesia Assessment: ? - Prior to the procedure, a History ? and Physical was performed, and ? patient medications and allergies ? were reviewed. The patient is ? competent. The risks and benefits of ? the procedure and the sedation ? options and risks were discussed with ? the patient. All questions were ? answered and informed consent was ? obtained. Patient identification and ? proposed procedure were verified by ? the physician and the nurse in the ? endoscopy suite. Mental Status ? Examination: alert and oriented. ? Airway Examination: normal ? oropharyngeal airway and neck ? mobility. Respiratory Examination: ? clear to auscultation. CV ? Examination: normal. Prophylactic ? Antibiotics: The patient does not ? require prophylactic antibiotics. ? Prior Anticoagulants: The patient has ? taken no previous anticoagulant or ? antiplatelet agents. ASA Grade ? Assessment: I - A normal, healthy ? patient. After reviewing the risks ? and benefits, the patient was deemed ? in satisfactory condition to undergo ? the procedure. The anesthesia plan ? was to use monitored anesthesia care ? (MAC). Immediately prior to ? administration of medications, the ? patient was re-assessed for adequacy ? to receive sedatives. The heart rate, ? respiratory rate, oxygen saturations, ? blood pressure, adequacy of pulmonary ? ventilation, and response to care ? were monitored throughout the ? procedure. The physical status of the ? patient was re-assessed after the ? procedure. ? The procedure, indications, benefits, ? risks and alternatives were explained ? to the patient. Specifically ? discussed were potential ? complications including, but not ? limited to, bleeding, perforation, ? infection, missing a cancer, and ? adverse medication reactions. The ? Endoscope was introduced through the ? mouth, and advanced to the second ? part of duodenum. The patient ? tolerated the procedure well. The ? upper GI endoscopy was accomplished ? without difficulty. The patient ? tolerated the procedure well. ? Findings: ? Two areas of ectopic gastric mucosa were found in the ? proximal esophagus just distal to the epiglottis. ? The examined esophagus was otherwise normal. Biopsies ? were obtained from the proximal and distal esophagus ? with cold forceps for histology of suspected ? eosinophilic esophagitis. ? The Z-line was found 39 cm from the incisors. ? The esophagus and gastroesophageal junction were ? examined with white light and narrow band imaging ? (NBI). There was no visual evidence of Currie's ? esophagus. ? The entire examined stomach was normal. Biopsies were ? taken with a cold forceps for Helicobacter pylori ? testing. ? The examined duodenum was normal. Biopsies for ? histology were taken with a cold forceps for ? evaluation of celiac disease. ? Moderate Sedation: ? I was present during the intraservice time as ? documented by the sedation RN. 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 This may be ? related to her hoarseness, although ? this is less likely as she is already ? on PPI therapy. ? - Otherwise normal esophagus. ? Biopsied to rule out eosinophilic ? esophagitis. ? - Z-line, 39 cm from the incisors. ? - There is no endoscopic evidence of ? Currie's esophagus. ? - Normal stomach. Biopsied. ? - Normal examined duodenum. Biopsied. Recommendation: ?- Await pathology results. ? - Discharge patient to home (with ? escort). ? - Return to GI clinic as previously ? scheduled. ? - I separately sent a message to our ? motility schedulers to arrange: ? combined esophageal manometry with pH ? impedance ON PPI for heartburn. RMD: ? Liat Estrada ? Attending Participation: ? I personally performed the entire procedure. ? Adam Narvaez, 12/05/2019 12:06:03 PM Number of Addenda: 0 Note Initiated On: 12/05/2019 11:28 AM PROVATION 12/05/2019 11:2 8 AM EST Susi Yuan APRN GENERAL SURGICAL OR DERABLES PROVATION documented in this encounter Visit Diagnoses Not on filedocumented in this encounter Administered Medications Inactive Administered Medications - up to 3 most recent administrations Medication Order MAR Action Action Date Dose Rate Site lactated ringers infusion 100 mL/hr, Intravenous, CONTINUOUS, Starting on Thu12/05/19 at 1100, Until Thu12/05/19 at 1253, Endoscopy (Day of Procedure) New Bag 12/05/2019 10:32 AM EST 100 mL/hr 100 mL/hr documented in this encounter Active and Recently Administered Medications Times are shown in EST. Continuous Medication Order 12/03/2019 12/04/2019 12/05/2019 lactated ringers infusion (CANCELED) 100 mL/hr, Intravenous, CONTINUOUS, Starting on Thu12/05/19 at 1100, Until Thu12/05/19 at 1253, Endoscopy (Day of Procedure) 1032 (New Bag - Prov ider: Inder Kidd RN) PRN Medication Order 12/03/2019 12/04/2019 12/05/2019 benzocaine (Hurricane One) Mucosal spray 20% (restricted to concepcion-procedural use) (CANCELED) ONCE PRN, Starting on Thu12/05/19 at 1146, Until Thu12/05/19 at 1454, Intra-Operative (Intra-Procedure) 1146 (Given - Provid er: Yanique Bolwes RN) fentaNYL 50 mcg/mL multi-dose injection (CANCELED) ONCE PRN, Starting on Thu12/05/19 at 1144, Until Thu12/05/19 at 1454, Intra-Operative (Intra-Procedure), Routine 1144 (Given - Provid er: Yanique Bowles RN)1147 (Given - Provider: Yanique Bowles RN)1150 (Given - Provider: Yanique Bowles RN) midazolam (PF) (VERSED) multi-dose injection (CANCELED) ONCE PRN, Starting on Thu12/05/19 at 1145, Until Thu12/05/19 at 1454, Intra-Operative (Intra-Procedure), Routine 1144 (Given - Provid er: Yanique Bowles RN)1147 (Given - Provider: Yanique Bowles RN)1150 (Given - Provider: Yanique Bowles RN)1155 (Given - Provider: Yanique Bowles RN) documented in this encounter Care Teams Coal Weigher Relationship Specialty Start Date End Date Susi Yuan APRN [address] [place] [address] PCP - General Family Medicine 05/23/19 documented as of this encounter
--- OUTSIDE RECORDS SUMMARY | 2024-06-30 15:48 | XMS_ITS | Encounter Summary ---
Author Organization Formerly [facility] [place] [address] Care Team Providers Care Group Exercise Instructor Name Role Phone Lissy Susi Dewitt APRN Primary Care Provider [phone] Encounter Details Date Type Department Care Team (Late st Contact Info) Description 12/05/2019 11:30 AM EST - 12/05/2019 12:00 PM EST Surgery Gastroenterology at [facility] [place] [address] Adam Narvaez MD [facility] [place] [address] EGD WITH BIOPSY (WRVU 2.39) Social History Tobacco Use Types Packs/Day Years [...] Sign Reading Time Taken Comments Blood Pressure 118/65 12/05/2019 11:55 AM EST Pulse 75 12/05/2019 11:55 AM EST Temperature 36.7 ??C (98.1 ??F) 12/05/2019 10:[address] Respiratory Rate 13 12/05/2019 11:55 AM EST Oxygen Saturation 98% 12/05/2019 11:55 AM EST Inhaled Oxygen Concentration - - Weight [...] the day after the procedure, use an gzhz-ccj-zxqfqna spray to numb your throat. Sucking on [...] occurs, please contact your Doctor. Please call [phone] before 8pm Mon-Fri with problems, questions or concerns. If you call after 8pm or on weekends, call the Hospital at [phone] and ask to speak to the Production [employer] configuration management consultant and the picking machine operator will contact that person for you. When should you call for help? Call [phone] anytime you think you may need emergency [...] any problems. Where can you learn more? [facility] View your After Visit Summary and more online at [email or web address] If you would like to provide feedback about your hospital experience, please call the Office of Patient and Family Relations at . If you have received this After Visit Summary in error, please immediately return it in person to the department, or notify the [facility] Privacy Office by calling toll free at between the hours of 8AM and 5PM to arrange for our retrieval of the documents at no cost to you. Content Version: 12.2 ?? [id number] [employer]. Care instructions adapted under license by [facility]. If you have questions about a medical condition or this instruction, always ask your healthcare professional. [employer] disclaims any warranty or liability for your [...] 11:54 AM EST Upper Gi Endoscopy, Biopsy (32780) 12/05/2019 11:43 AM EST Gastroesophageal reflux disease, esophagitis presence not specified Lower abdominal pain UPPER GI ENDOSCOPY Routine 12/05/2019 11 :28 AM EST documented in this encounter Results * Specimen to Pathology (12/05/2019 12:00 PM EST) AP Specimen 12/05/2019 12:0 0 PM EST 12/05/2019 12:[address] [facility] - 12/05/2019 12:00 PM EST Specimen requisition ordered. ??Separate Pathology report to follow Adam Narvaez MD PATHOLOGY/CYTOLOGY O [place]ORGAN Performing Organization Address City/[facility]/[place] [address] * Specimen to Pathology (12/05/2019 12:00 PM EST) AP Specimen 12/05/2019 12:0 0 PM EST 12/05/2019 12:[address] [facility] - 12/05/2019 12:00 PM EST Specimen requisition ordered. ??Separate Pathology report to follow Adam Narvaez MD PATHOLOGY/CYTOLOGY O [place] Performing Organization Address City/[facility]/[place] [address] * Specimen to Pathology (12/05/2019 12:00 PM EST) AP Specimen 12/05/2019 12:0 0 PM EST 12/05/2019 12:[address] [facility] - 12/05/2019 12:00 PM EST Specimen requisition ordered. ??Separate Pathology report to follow Adam Narvaez MD PATHOLOGY/CYTOLOGY O [place] Performing Organization Address City/[facility]/ZIP Co de Phone Number [facility] [place] [address] * Surgical Pathology Report (12/05/2019 11:54 AM EST) Final Diagnosis [id number] ? Location: 4T; EA13; A The signing [...] Cunningham MD Verified: ??12/07/2019 ?Pathologist Performed at: ??-[facility] [place], [place], [place] CLINICAL INFORMATION Specimen Submitted: A - [...] cassettes labeled C1-C2. ??scar 12/07/2019 3:20 PM [facility] GI Biopsy 12/05/2019 11:5 4 AM EST 12/05/2019 11:54 AM EST GI Biopsy 12/05/2019 11:5 4 AM EST 12/05/2019 11:54 AM EST GI Biopsy 12/05/2019 11:5 4 AM EST 12/05/2019 11:54 AM EST Adam Narvaez MD PATHOLOGY/CYTOLOGY O RDLESLY [facility] [place] [address] * UPPER GI ENDOSCOPY (12/05/2019 11:28 AM EST) UPPER GI ENDOSCOPY [facility] Endoscopy ___ Procedure Date: 12/05/2019 11:28 AM ? Patient Name: Liat Flanagan ? Date of : 1985 ? Age: 34 ? Order #: [id number] ? Instrument Name: [id number] ? ___ Procedure: ? Upper GI endoscopy Indications: ? Heartburn, Diarrhea Providers: ? Adam Narvaez, Yanique Bowles, ? Dalton Casas Referring : ?Louisa Yuan MD Medicines: ? Fentanyl 150 [...] 12/05/2019 11:2 8 AM EST Susi Yuan HOME OFFICE CLAIMS EXAMINER GENERAL SURGICAL OR DERABLES PROVATION documented in this encounter Visit Diagnoses Diagnosis Gastroesophageal reflux disease, esophagitis presence not specified Lower abdominal pain Abdominal pain, other specified site documented in this encounter Administered Medications Inactive Administered Medications - up to 3 most recent administrations Medication Order MAR Action Action Date Dose Rate Site benzocaine (Hurricane One) Mucosal spray 20% (restricted to concepcion-procedural use) ONCE PRN, Starting on Thu12/05/19 at 1146, Until Thu12/05/19 at 1454, Intra-Operative (Intra-Procedure) Given 12/05/2019 11:46 AM EST 1 each fentaNYL 50 mcg/mL multi-dose injection ONCE PRN, Starting on Thu12/05/19 at 1144, Until Thu12/05/19 at 1454, Intra-Operative (Intra-Procedure), Routine Given 12/05/2019 11:50 AM EST 50 mcg Given 12/05/2019 11:47 AM EST 50 mcg Given 12/05/2019 11:44 AM EST 50 mcg lactated ringers infusion 100 mL/hr, Intravenous, CONTINUOUS, Starting on Thu12/05/19 at 1100, Until Thu12/05/19 at 1253, Endoscopy (Day of Procedure) New Bag 12/05/2019 10:32 AM EST 100 mL/hr 100 mL/hr midazolam (PF) (VERSED) multi-dose injection ONCE PRN, Starting on Thu12/05/19 at 1145, Until Thu12/05/19 at 1454, Intra-Operative (Intra-Procedure), Routine Given 12/05/2019 11:55 AM EST 1 mg Given 12/05/2019 11:50 AM EST 1 mg Given 12/05/2019 11:47 AM EST 1 mg documented in this encounter Active and Recently [...] (Intra-Procedure) 1146 (Given - Provid er: Yanique Bowles RN) fentaNYL 50 mcg/mL multi-dose injection (CANCELED) ONCE PRN, Starting on Thu12/05/19 at 1144, Until Thu12/05/19 at 1454, Intra-Operative (Intra-Procedure), Routine 1144 (Given - Provid er: Yanique Bowles RN)1147 (Given - Provider: Yanique Bowles RN)1150 (Given - Provider: Yanique Bowles RN) midazolam (PF) (VERSED) multi-dose injection (CANCELED) ONCE PRN, Starting on 12/05/19 at 1145, Until Thu12/05/19 at 1454, Intra-Operative (Intra-Procedure), Routine 1144 (Given - Provid er: Yanique Bowles RN)1147 (Given - Provider: Yanique Bowles RN)1150 (Given - Provider: Yanique Bowles RN)1155 (Given - Provider: Yanique Bowles RN) documented in this encounter Care Teams Group Exercise Instructor Relationship Specialty Start Date End Date Susi Yuan APRN [address] [place] [address] PCP - General Family Medicine 05/23/19 documented as of this encounter
[2024-06-30 15:49] LABS: Iron 49 ug/dL (50-170); Total Iron Binding Capacity 462 ug/dL (250-450); Transferrin Sat 11 % (15-50)
--- OUTSIDE RECORDS SUMMARY | 2024-06-30 15:49 | XMS_ITS | Encounter Summary ---
[place] [address] Care Team Providers Care Industrial Designer Name Role Phone Susi Yuan APRN Primary Care Provider [phone] Reason for Visit * Consultation (Routine) - Closed Specialty Diagnoses / Procedures Referred By Damaso t Referred To Contact Gastroenterology Diagnoses Noninfective gastroenteritis and colitis, unspecified Melena Chronic diarrhea , Hematochezia - blood in stool Procedures consult Susi Yuan APRN [address] [place] [address] [facility] [address] [place] [address] Referral ID Status Reason Start Date Expiration Date Visits Re quested Visits Authorized [id number] Closed 03/31/2019 03/30/2020 1 1 Encounter Details Date Type Department Care Team (Latest Contact Info) Description 10/18/2019 11:00 AM EST Office Visit [place] [address] Liat Estrada, SEROLOGY TECHNICIAN [address] [address] Gastroesophageal reflux disease, esophagitis presence not specified; Lower abdominal pain Social History Tobacco Use Types Packs/Day Years Used Date Smoking Tobacco: Former Smokeless Tobacco: Former Alcohol Use Standard Drinks/Week Comments No 0 (1 standard drink = 0.6 oz pur e alcohol) Comments Yes Sex and Gender Information Value Date Recorded Sex Assigned at Not on file Gender Identity Not on file Sexual Orientation Not on file documented as of this encounter Last Filed Vital Signs Vital Sign Reading Time Taken Comments Blood Pressure 147/84 10/18/2019 10:51 AM EST Pulse 74 10/18/2019 10:51 AM EST Temperature - - Respiratory Rate - - Oxygen Saturation - - Inhaled Oxygen Concentration - - Weight 116.8 kg (257 lb 9.6 oz) 020 10:51 AM EST Height 172.7 cm (5' 8) 10/18/2019 10:5 1 AM EST Body Mass Index 39.17 10/18/2019 10:51 AM EST documented in this encounter Patient Instructions * Patient Instructions* Liat Estrada APRN - 10/18/2019 11:00 AM EST 1. Upper endoscopy 2. Change timing of omeprazole 20mg 30-60 minutes prior to eating first meal of the day 3. Avoid non-steroidal anti-inflammatory medications (NSAIDs) including but not limited to Advil, ibuprofen, Motrin, Aleve, Excedrin, naproxen, Mobic, indomethacin, and aspirin. Acetaminophen (Tylenol) is okay for aches and pains. 4. Metamucil FREE or psyllium husk powder one teaspoon mixed in 8 oz of fluid daily. Increase by one teaspoon per day every 2 weeks as tolerated up to 2 Tbs per day. If this makes symptoms worse, please stop taking. 5. Ideally you wouldn't drink soda, but please change your soda to diet or throw-back soda 6. Dicyclomine 10mg four times daily as needed for abdominal pain. May make you sleepy. 7. Please send me a [employer] message about 1-2 weeks after upper endoscopy 8. Follow up in 3-6 months documented in this encounter Progress Notes * Liat Estrada APRN - 10/18/2019 11:00 AM EST FINISHED HARDWARE ERECTOR: THANH NesbittCP: Susi Yuan APRN REQUESTING PROVIDER: Susi Yuan APRN REASON FOR CONSULTATION This is a 34 y.o. female with a history significant for migraines and autoimmune uticaria. I am seeing her as a new patient today in consult for chronic diarrhea and hematochezia. HPI COMMENTS Onset of symptoms years ago. I got really sick during in 2012. In 2017- was again. Sick. Abdominal ultrasound. Biliary colic and sludge. Reflux during the entire . Even after reflux didn't resolve. Omeprazole did relieve symptoms initially. Stopped working. Vocal changes. Coughing with drinking fluids. It tickles. Constant cough. Foul taste in the morning. Currently taking omeprazole 20mg at night. Pepcid doesn't relieve symptoms. Nausea with vomiting. Vomiting several times per month. Mostly in the morning. Admits to chronic NSAID use on a daily basis for many years. Has not used for several months. Good appetite. Denies early satiety. Denies dysphagia, odynophagia, and globus. Since May her symptoms have been getting worse. Laryngitis. Bloating and gas. Denies unintentional weight loss. No anemia. Abdominal pain and fecal urgency. Located in periumbilicus. Occasionally has gallbladder pain. Occasionally pain is located in lower quadrants. Difficulty emptying. Failed attempts at defecation. Straining and difficulty emptying. Denies fecal incontinence. Denies fecal seepage. This occurs most days. bristol type 1-7. Denies blood in stool currently. Did have hematochezia prior to colonoscopy.I feel like I have diarrhea but I'm constipated. Colonoscopy unrevealing except for mild non-specific inflammation. Budesonide made symptoms worse. Endorses three vaginal deliveries. Denies urinary symptoms. Has not tried eliminating foods from her diet. Has been trying to identify triggers. Endorses a low grade fever for several months. Consistently 99 degrees. Endorses autoimmune uticaria. Diet Reviewed: Soda/Juice/Sugary Beverages: Drinks soda daily Coffee: a few cups per week Food recall: Breakfast- 1/2 croissant and 1/2 egg. Lunch- school lunch Dinner- meat/starch/veg or take-out Eating disorders: Denies Abuse history: Denies ROS Notable for the gastrointestinal symptoms as described above. CONSTITUTIONAL: Denies anorexia, fever, or unintended weight change EYES: Denies red or painful eyes ENT: Denies oral ulcers, dysphagia, odynophagia, globus. RESPIRATORY: Denies cough, shortness of breath, wheezing CV: Denies palpitations, chest pain. : Denies dysuria, urinary incontinence, or dyspareunia. MUSC/SKELETAL: Denies chronic joint pains or history of inflammatory arthritis. INTEGUMENTARY: Autoimmune uticaria. NEURO: Denies neuropathy, loss of sensation, facial drooping or unilateral weakness. PSYCH: Denies psychiatric problems. ENDO: Denies frequent urination and excessive hunger or thirst. HEM/LYMPH: Denies easy bleeding or bruising. ALL/IMMUNO: Denies seasonal allergies, frequent colds. ALLERGIES Allergies Allergen Reactions ??? Amoxicillin Rash ??? Cephalosporins Rash ??? Scopolamine Nausea And Vomiting CURRENT MEDICATIONS Medications reviewed and reconciled in e-DH Current Outpatient Medications: ??? ALFONSO 0.25-35 mg-mcg Tablet, take 1 tablet by mouth once daily, Disp: , Rfl: 0 ??? omeprazole (PRILOSEC) 20 mg Capsule, Delayed Release(E.C.), daily., Disp: , Rfl: 0 ??? topiramate (TOPAMAX) 25 mg Tablet, 50 mg 2 times daily., Disp: , Rfl: 0 ??? dicyclomine (BENTYL) 10 mg Capsule, Take 1 capsule by mouth 4 times daily as needed., Disp: 60 capsule, Rfl: 3 MEDICAL HISTORY 1. Migraines 2. Autoimmune uticaria SURGICAL HISTORY Past Surgical History: Procedure Laterality Date ??? 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 . 4 children (3 biological). HABITS Denies tobacco use. Occasional alcohol use. Denies using other substances. FAMILY HISTORY Father- diverticulitis Maternal GF- some sort of colitis. Denies family history of celiac disease, esophageal cancer, stomach cancer, colon cancer, pancreatic or liver issues. RELEVANT TESTING 1. Colonoscopy 12/2018 outside hospital; mild non-specific inflammation 2. O&P, lactoferrin outside hospital negative per referral note 3. Abdominal ultrasound 10/2016 outside hospital normal/negative 4. HIDA scan several months ago outside hospital normal TREATMENT TRIALS 1. Omeprazole; initially effective for reflux symptoms. No longer effective. PHYSICAL EXAM: Most Recent Vitals: 10/18/19 1051 BP: 147/84 Pulse: 74 Height: 172.7 cm (5' 8) Weight: 116.8 kg (257 lb 9.6 oz) Body mass index is 39.17 kg/m??. GENERAL: Healthy-appearing in no acute distress. Appears stated age. Well nourished. SKIN: No lesions, rashes, lumps, or angiomas on exposed skin. NECK: No adenopathy. No thyromegaly. HEENT: PERRL, EOMI, mucosa clear without ulceration or lesions, normal Dentition LUNGS: Clear to auscultation bilaterally COR: Regular, normal S1 and S2 without murmurs. ABD: Tympanic. Tenderness deep palpation periumbilicus. No rebound or guarding. Normal active BS. Soft, non-distended. No bruits. No organomegaly. EXT: No cyanosis, clubbing, or edema. NEURO: Alert and oriented to person, place, time, and situation. Cranial nerves II-XII intact. PSYCH: Mood appropriate. Good eye contact. Normal interaction. Answers all questions appropriately. LABS: ASSESSMENT This is a 34 y.o. female with a history significant for migraines and autoimmune uticaria. I am seeing her as a new patient today in consult for chronic diarrhea and hematochezia. Previous work-up includes a negative ova and parasite and fecal is interesting lactoferrin and a colonoscopy done summer 2018. This was grossly normal, but pathology showed a mild nonspecific inflammation. She was subsequently treated with a course of budesonide, which seemed to make her symptoms worse per her report.She has not had an abdominal ultrasound and HIDA scan without significant findings. She does admit to history of chronic NSAID use, which is most likely contributing to her current symptoms. She is no longer taking NSAIDs. We reviewed adverse effects of NSAIDs on the GI tract including erosions, ulcers, and GI bleeds. She is currently taking proton pump inhibitor at bedtime. Recommend changing the timing of omeprazole to maximize therapy. Recommend an upper endoscopy. Recommend GERD diet and lifestyle modifications. Differential diagnoses include GERD, Currie's esophagus, gastritis, reflux hy persensitivity. In terms of her lower GI symptoms, recommend eliminating high fructose corn syrup from her diet as she does consume a fair amount of soda. Recommend Metamucil. Recommend dicyclomine. We reviewed medication indications, administration, and side effects. There does seem to be a pelvicfloor component to her symptoms. Consider utility of anorectal manometry and MR defecography. Consider increasing PPI dosing pending results of EGD. Ddx for lower GI symptoms; NSAID induced enteritis/colitis, IBD, IBS, celiac disease, pelvic floor dyssynergia PLAN 1. Upper endoscopy 2. Change timing of omeprazole 20mg 30-60 minutes prior to eating first meal of the day 3. Avoid non-steroidal anti-inflammatory medications (NSAIDs) including but not limited to Advil, ibuprofen, Motrin, Aleve, Excedrin, naproxen, Mobic, indomethacin, and aspirin. Acetaminophen (Tylenol) is okay for aches and pains. 4. Metamucil FREE or psyllium husk powder one teaspoon mixed in 8 oz of fluid daily. Increase by one teaspoon per day every 2 weeks as tolerated up to 2 Tbs per day. If this makes symptoms worse, please stop taking. 5. Ideally you wouldn't drink soda, but please change your soda to diet or throw-back soda 6. Dicyclomine 10mg four times daily as needed for abdominal pain. May make you sleepy. 7. Please send me a [employer] message about 1-2 weeks after upper endoscopy 8. Follow up in 3-6 months I have provided her with my contact information. She has been encouraged to contact me with any questions or concerns. I used voice recognition technology to dictate this note. Although I do my best to review documentation, errors in dictation may still be present. Please contact me for clarification if needed. Signed, Liat Estrada APRN 10/18/2019 11:51 AM Section of Gastroenterology & Hepatology [facility] documented in this encounter Plan of Treatment Scheduled Orders Name Type Priority Associated Diagnoses Orde r Schedule UPPER GI ENDOSCOPY Procedures Routine Gastroesophageal Reflux Disease, Esophagitis Presence Not Specified Lower abdominal pain Ordered: 10/18/2019 documented as of this encounter Visit Diagnoses Diagnosis Gastroesophageal reflux disease, esophagitis presence not specified Lower abdominal pain Abdominal pain, other specified site documented in this encounter Care Teams Industrial Designer Relationship Specialty Start Date End Date Susi Yuan APRN [address] [place] [address] PCP - General Family Medicine 05/23/19 documented as of this encounter
--- OUTSIDE RECORDS SUMMARY | 2024-06-30 15:49 | XMS_ITS | Encounter Summary ---
[place] [address] Care Team Providers Care Rose Grading Supervisor Name Role Phone Susi Yuan APRN Primary Care Provider Encounter Details Date Type Department Care Team (Late st Contact Info) Description 10/17/2019 Tele[place] [id number] Clary Saul Social History Tobacco Use Types Packs/Day Years [...] encounter Miscellaneous Notes * Telephone Encounter - Clary Saul - 10/17/2019 8:34 AM EST Left message asking patient to come at 11am for her office visit with Liat tomorrow instead of 1pm. documented in this encounter Plan of Treatment Not on file documented as of this encounter Visit Diagnoses Not on filedocumented in this encounter Care Teams Rose Grading Supervisor Relationship Specialty Start Date End Date Susi Yuan APRN [address] [place] [address] PCP - General Family Medicine 05/23/19 documented as of this encounter
--- OUTSIDE RECORDS SUMMARY | 2024-06-30 15:49 | XMS_ITS | Encounter Summary ---
[facility] Organization [facility] [place] [place] [address] Care Team Providers Care Telemetry Rn Name Role Phone Susi Yuan APRN Primary Care Provider [phone] Reason for Visit * Consultation (Routine) - Closed Specialty Diagnoses / Procedures Referred By Damaso t Referred To Contact Rheumatology Diagnoses Polyarthralgia; Photosensitivity due to sunlight; Malaise and fatigue Susi Yuan APRN [address] [place] [id number] [facility] Rheumatology [address] [place] [id number] Referral ID Status Reason Start Date Expiration Date Visits Re quested Visits Authorized [id number] Closed 03/29/2019 03/28/2020 1 1 Encounter Details Date Type Department Care Team (Late st Contact Info) Description 05/23/2019 2:00 PM EDT Office [place] [address] Howie Galarza MD [facility] [address] [place] [address] Sleep disturbance; Carpal tunnel syndrome, bilateral Social History Tobacco Use Types Packs/Day Years [...] Sign Reading Time Taken Comments Blood Pressure 126/72 05/23/2019 1:56 PM EDT Pulse 73 05/23/2019 1:56 PM EDT Temperature 36.5 ??C (97.7 ??F) 05/23/2019 1:56 PM ED T Respiratory Rate - - Oxygen Saturation 100% 05/23/2019 1:56 PM EDT Inhaled Oxygen Concentration - - Weight 121.1 kg (267 lb) 05/23/2019 1:56 PM EDT Height 172.7 cm (5' 8) 05/23/2019 1:56 PM EDT Body Mass Index 40.6 05/23/2019 1:56 PM EDT documented in this encounter Progress Notes * Howie Galarza MD - 05/23/2019 2:00 PM EDT 33 yo woman referred simultaneously for gastroenterology and rheumatology consultations. The formerwas appparently prompted by chronic abdominal pain and diarrhea unresponsive to budesonide and the latter because of a photosensitive rash, peripheral polyarthralgias and malaise/fatigue with daytimesomnolence. Her chief complaint today is: I used to be healthy and my life has been hard 6 years ago after a complicated with chronic hives 9 months with prednisone making my hives came back. One other recurrence. She reports a photosensitve rash with diffuse erythema on upper arms, very sensitive to pressure and reports sun induced rash that occurs for 24 h characterized by 1mm bumps. Has been present for 5 years. 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 Good night sleep. Daytime somnolence. Topamax for chronic BRAMBILA for 3 weeks,post reactive, doing well Review of Systems Constitutional: No fevers, chills, malaise. Skin: no rashes HEENT: no sicca sx, change in hearing, taste sinus pain, BRAMBILA, change in taste. Respiratory: no chest pain, shortness of breath CV: no CARRIZALES, angina sx, claudication Back: No sciatica, pain with standing GI: no abd pain, normal bowel movements : no dysuria, normal voiding, no nocturia Neuro: no focal deficit There is no problem list on file for this patient. This symptom complex exists on a backdrop of the following medical issues in the referring provider's note 1. Morbid obesity 67 inches 277 pounds 2. Chronic fatigue in association with a sleep disturbance 3. Chronic Pelvic Pain and dysmenorrhea 4. Chronic RUQ pain in association with chronic nausea, vomiting and diarrhea 5. Photosensitive rash 6. 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 4 kids 2,,6,9 and 12 No smoke, occasional alcohol Physical Examination: Blood pressure 126/72, pulse 73, temperature 36.5 ??C (97.7 ??F), temperature source Oral, height 172.7 cm (5' 8), weight 121.1 kg (267 lb), SpO2 100 %. General-obese vigorous who is alert and in no apparent distress at rest. Skin-No clubbing, cyanosis, edema, rash. Diffuse rubor of deltoids and upper arms, blanching,not indrate HEENT: No temporal artery, sinus or TMJ tenderness. Mucus membranes moist, normal salivary pooling without lesions.Normal parotid, submental and submandibular nodes Neck-Supple no bruits Chest: clear to auscultation, good air movement without wheezes Cor: RR no M,G,R Abd: normal Back: No tenderness to punch, normal SLR Ext: Extremities warm w// normal pulses Musculoskeletal: Trigger points not present. Shoulders: FROM, no AC/subacromial tenderness. Elbows: Full motion, no joint or epicondylar swelling or tenderness. Wrists: Full motion, no swelling, no warmth, no tenderness over radiocarpal or ulnocarpal joints. Hands: Normal computed tomography technologist and claw. SJC/TJC 0/0. Hips: Full motion, no trochanteric tenderness Knees: Full motion, no swelling, no popliteal or joint line tenderness. No patellar tenderness or crepitance. Ankles: No warmth, swelling, normal motion. No Achilles or plantar fascia tenderness. Feet: No deformity. Normal MTPJs no compression tenderness. Neuro: No focal weakness, normal sensation, including JPS. Romberg normal Tandem gait normal +phalens Outside labs: normal CBC and chemistries Assess This is not a rheumatologic process. Photosensitive rash is not really a rash as much as it is ruborous; biopsy reportedly showed hives. Normal joint and nailfold exam. Nothing to suggest SLE, psoriasis, RA.. Very strong hx for sleep disturbance. No obvious secondary gain associated. 2. CT syndrome Recommend 1. Wrist splints at night refer prn for nerve conductions 2. Sleep study. 3. Refer Dermatology in winter to assess rash (present for 5 years) Level 4 consult Howie Galarza M.D. documented in this encounter Plan of Treatment Not on file documented as of this encounter Visit Diagnoses Diagnosis Sleep disturbance Sleep disturbance, unspecified Carpal tunnel syndrome, bilateral Carpal tunnel syndrome documented in this encounter Care Teams Telemetry Rn Relationship Specialty Start Date End Date Susi Yuan, HOSPICE COORDINATOR [address] [place] [address] PCP - General Family Medicine 05/23/19 documented as of this encounter
--- OUTSIDE RECORDS SUMMARY | 2024-06-30 15:49 | XMS_ITS | Encounter Summary ---
Author Organization [facility] [address] Care Team Providers Care Optical Technician Name Role Phone Otilia Escamilla APRN Primary Care Provider + Reason for Visit * Reason Onset Date Comments Other 11/25/2012 please sign orde r Encounter Details Date Type Department Care Team (Late st Contact Info) Description 11/25/2012 Telephone Obstetrics [place] [address] Mitra Aceves MD [facility] DR OBSTETRICS [place] [address] Other (please sign order) Social History Tobacco Use Types Packs/Day Years Used Date Smoking Tobacco: Never Assessed Sex and Gender Information Value Date Recorded Sex Assigned at Not on file Gender Identity Not on file Sexual Orientation Not on file documented as of this encounter Miscellaneous Notes * Telephone Encounter - [address] - 11/25/2012 8:01 AM EST Please sign order documented in this encounter Plan of Treatment Not on file documented as of this encounter Visit Diagnoses Diagnosis Choroid plexus cyst- Primary Cerebral cysts documented in this encounter Care Teams Optical Technician Relationship Specialty Start Date End Date Otilia Escamilla APRN [address] [place] [address] PCP - General 11/24/12 05/22/19 documented as of this encounter
--- OUTSIDE RECORDS SUMMARY | 2024-06-30 15:49 | XMS_ITS | Encounter Summary ---
Author Organization [facility] [place] [address] Care Team Providers Care Profile Saw Operator Name Role Phone Otilia Escamilla APRN Primary Care Provider + Reason for Visit * Reason Comments Advice Only Encounter Details Date Type Department Care Team (Late st Contact Info) Description 12/03/2012 10:45 AM EST Office Visit Obstetrics [place] [phone] Liat Maldonado MD [facility] DR OBSTETRICS [place] [address] choroid plexus cysts affecting antepartum care of mother (Primary Dx) Discharge Disposition: Home Social History Tobacco Use Types Packs/Day Years Used Date Smoking Tobacco: Former Alcohol Use Standard Drinks/Week Comments No 0 (1 standard drink = 0.6 oz pur e alcohol) Comments Yes Sex and Gender Information Value Date Recorded Sex Assigned at Not on file Gender Identity Not on file Sexual Orientation Not on file documented as of this encounter Last Filed Vital Signs Vital Sign Reading Time Taken Comments Blood Pressure 112/66 12/03/2012 8:44 AM EST Pulse - - Temperature - - Respiratory Rate - - Oxygen Saturation - - Inhaled Oxygen Concentration - - Weight 112.6 kg (248 lb 3.2 oz) 12/03/2012 8:44 AM EST Height - - Body Mass Index - - documented in this encounter Progress Notes * Liat Maldonado MD - 12/03/2012 5:19 PM EST Liat Flanagan is a 27-year-old 2, para 1 ED 04/18/2013 currently at 20 weeks 4 days by menstrual dates consistent with early ultrasound examination. She is sent at the request of Sindhu Condon C.N.M., with regard to an ultrasound examination finding of bilateral choroid plexus cysts. The patient reports that this has been an otherwise uncomplicated . She had quad screen/aneuploidy testing. The results included a risk for Down syndrome of less than 1 in 20,000 and trisomy 18 at 1 in 10,000. The risk for open spinal bifida is 1 in 35,300. The patient's medical history is remarkable for knee surgery from a sports injury in 2007. She has had one other and was delivered vaginally at term of a 7 pound 11 ounce baby. She is allergic to AMOXICILLIN, which produces a pruritic rash. Medications are vitamins. A family history revealed no structural abnormality, inherited disease, learning disability, mental retardation, repetitive loss, , or epilepsy. Social History: The patient denies alcohol, tobacco, or drug exposure. Ultrasound Examination: There is a devlin in cephalic presentation with posterior placenta and normal amniotic fluid. The biometry is consistent with previous dates with an estimated gestational age of 20 weeks 5 days. The choroid plexus cysts are confirmed, and no other abnormalities are noted. Impression: Isolated choroid plexus cysts are confirmed. In the absence of other structural abnormalities, markers for aneuploidy, or an increased risk for trisomy 18 by aneuploidy screening, the risk to this fetus of having trisomy 18 is very small. I explained that further precision could be obtained with amniocentesis, which would carry risk of loss of normal . The patient is not interested in amniocentesis at this time. I do not recommend any additional evaluation during this . The physician practice market manager does not need to be informed of the choroid plexus cysts nor do followup ultrasound examinations need be done. I appreciated the opportunity to be involved in this patient's care and would be happy to see her again in the future if needed. This was a 30 minute encounter 25 minutes of which was face to face consultation regarding the ultrasound findings and options for follow up. 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
--- OUTSIDE RECORDS SUMMARY | 2024-06-30 15:49 | XMS_ITS | Encounter Summary ---
[place] [address] Care Team Providers Care Revolving Field Assembler Name Role Phone Otilia Escamilla ARTIFICIAL MARBLE WORKER Primary Care Provider + Encounter Details Date Type Department Care Team (Late st Contact Info) Description 12/03/2012 8:28 AM EST - 12/03/2012 11:59 PM EST Hospital [place] [phone] Social History Tobacco Use Types Packs/Day Years Used Date Smoking Tobacco: Former Alcohol Use Standard Drinks/Week Comments No 0 (1 standard drink = 0.6 oz pur e alcohol) Comments Yes Sex and Gender Information Value Date Recorded Sex Assigned at Not on file Gender Identity Not on file Sexual Orientation Not on file documented as of this encounter Medications at Time of Discharge Medication Sig Dispensed Refills Start Date End Date vitamin 27 & [id number] 60 mg iron-1 mg tablet Take 1 tablet by mouth daily. 05/23/2019 documented as of this encounter Plan of Treatment Not on file documented as of this encounter Procedures Procedure Name Priority Date/Time Associated Diagnosis Comments US OB DETAILED MORPHOLOGY Routine 12/03/2012 11:25 AM EST documented in this encounter Results * US OB Targeted Morphology (12/03/2012 11:25 AM EST) Anatomical Region Laterality Modality Pelvis, Abdomen Ultrasound 12/03/2012 11:2 5 AM EST Narrative 12/03/2012 5:19 PM EST ?OBSTETRICS REPORT ? (Signed Final 12/03/2012 05:18 pm) Patient Info ID: ? [id number] ? : ??[birth year] (27 yrs) Name: ? LIAT FLANAGAN ? Visit Date: 12/03/2012 11:18 am Performed By Performed By: ?Gloria Perez Attending: ? Liat Maldonado MD Service(s) Provided [facility] - Targeted Morphology - Genetics - ? [id number] Indications Bilateral SUPERVISOR ELEMENTARY EDUCATION Evaluation Num Of Fetuses: ?1 Heart Rate: ??129 ?bpm Cardiac Activity: ??Observed, normal rhythm Presentation: ?Cephalic Placenta: ?Posterior P. Cord ?Within Normal Limits Insertion: Amniotic Fluid KUMAR FV: ?Normal -------- Biometry -------- BPD: ?50.1 ??mm ?G. Age: ?? 21w 1d OFD: ?59.3 ??mm HC: ?176.9 ??mm ?G. Age: ?? 20w 1d AC: ?155.4 ??mm ?G. Age: ?? 20w 5d FL: ? 35 ??mm ?G. Age: ?? 21w 0d HUM: ?32.2 ??mm ?G. Age: ?? 20w 5d CER: ?20.8 ??mm ?G. Age: ?? 19w 6d CI: ?84.5 ??% ? 70 - 86 FL/HC: ? 19.8 ??% ? 15.9 - 20.3 HC/AC: ? 1.14 ?1.06 - 1.25 FL/BPD: ?69.9 ??% FL/AC: ? 22.5 ??% ? 20 - 24 Est. FW: ? 379 ?? gm ?? 0 lb 13 oz Gestational Age LMP: ? 20w 4d ?Date: ??07/12/12 ? DERRICK: ?? 04/18/13 U/S Today: ? 20w 5d ?DERRICK: ?? 04/17/13 Best: ?20w 4d ?? Det. By: ??LMP ??(07/12/12) ?DERRICK: ?? 04/18/13 Targeted Anatomy Central Nervous System Calvarium: ?Within Normal Limits Intracranial: ? Within Normal Limits Lat. Ventricles: ?Within Normal Limits Cerebellum: ? Within Normal Limits Choroid Plexus: ? Bilateral choroid plexus cysts Cisterna Magna: ? Within Normal Limits Spine Cervical: ? Visualized Thoracic: ? Visualized Lumbar: ? Visualized Sacral: ? Visualized Head/Neck Face: ? Within Normal Limits Nuchal Fold: ?Within Normal Limits Thorax Four Chamber: ? Within Normal Limits Cardiac Motion: ? Normal Rhythm R Outflow Tract: ?Visualized L Outflow Tract: ?Visualized Cardiac Mcintosh: ? Visualized Diaphragm: ?Visualized Abdomen Ventral Wall: ? Visualized Stomach: ?Visualized Lt Kidney: ?Visualized Rt Kidney: ?Visualized Bladder: ?Visualized Extremities Lt Humerus: ? Within Nomal Limits Rt Humerus: ? Within Normal Limits Lt Forearm: ? Within Normal Limits Rt Forearm: ? Within Normal Limits Lt Hand: ?Within Normal Limits Rt Hand: ?Within Normal Limits Lt Femur: ? Within Normal Limits Rt Femur: ? Within Normal Limits Lt Lower Leg: ? Within Normal Limits Rt Lower Leg: ? Within Normal Limits Lt Foot: ?Visualized Rt Foot: ?Visualized Other Umbilical Cord: ? 3 vessel cord Cord Insertion: ? WIthin Normal Limits Comment: ? Nasal Bone: Present Cervix Uterus Adnexa Left Ovary: ?visualized Right Ovary: ?? visualized Impression 2nd Trimester - Targeted Morphology- Summary Single intrauterine with a gestational age of 20w 4d based on LMP. Composite age based on the current ultrasound alone is 20w 5d. Amniotic fluid volume is Normal. Current growth parameters are consistent indicating normal growth. Detailed anatomic evaluation was performed and no structural abnormalities are noted other than bilateral choroid plexus cysts. I ??viewed the images and agree with the above interpretation. Thank you for allowing us to participate in the care of LIAT FLANAGAN. Please do not hesitate to call if you have any questions. ? Liat Maldonado MD Electronically Signed Final Report ?? 12/03/2012 05:18 pm Procedure Note Liat Maldonado MD - 12/03/2012 OBSTETRICS REPORT (Signed Final 12/03/2012 05:18 pm) Patient Info ID: [id number] : [birth year] (27 yrs) Name: LIAT FLANAGAN Visit Date: 12/03/2012 11:18 am Performed By Performed By: Gloria Perez Attending: Liat Maldonado MD Service(s) Provided [facility] - Targeted Morphology - Genetics - [id number] Indications Bilateral SUPERVISOR ELEMENTARY EDUCATION Evaluation Num Of Fetuses: 1 Heart Rate: 129 bpm Cardiac Activity: Observed, normal rhythm Presentation: Cephalic Placenta: Posterior P. Cord Within Normal Limits Insertion: Amniotic Fluid KUMAR FV: Normal -------- Biometry -------- BPD: 50.1 mm G. Age: 21w 1d OFD: 59.3 mm HC: 176.9 mm G. Age: 20w 1d AC: 155.4 mm G. Age: 20w 5d FL: 35 mm G. Age: 21w 0d HUM: 32.2 mm G. Age: 20w 5d CER: 20.8 mm G. Age: 19w 6d CI: 84.5 % 70 - 86 FL/HC: 19.8 % 15.9 - 20.3 HC/AC: 1.14 1.06 - 1.25 FL/BPD: 69.9 % FL/AC: 22.5 % 20 - 24 Est. FW: 379 gm 0 lb 13 oz Gestational Age LMP: 20w 4d Date: 07/12/12 DERRICK: 04/18/13 U/S Today: 20w 5d DERRICK: 04/17/13 Best: 20w 4d Det. By: LMP (07/12/12) DERRICK: 04/18/13 Targeted Anatomy Central Nervous System Calvarium: Within Normal Limits Intracranial: Within Normal Limits Lat. Ventricles: Within Normal Limits Cerebellum: Within Normal Limits Choroid Plexus: Bilateral choroid plexus cysts Cisterna Magna: Within Normal Limits Spine Cervical: Visualized Thoracic: Visualized Lumbar: Visualized Sacral: Visualized Head/Neck Face: Within Normal Limits Nuchal Fold: Within Normal Limits Thorax Four Chamber: Within Normal Limits Cardiac Motion: Normal Rhythm R Outflow Tract: Visualized L Outflow Tract: Visualized Cardiac Mcintosh: Visualized Diaphragm: Visualized Abdomen Ventral Wall: Visualized Stomach: Visualized Lt Kidney: Visualized Rt Kidney: Visualized Bladder: Visualized Extremities Lt Humerus: Within Nomal Limits Rt Humerus: Within Normal Limits Lt Forearm: Within Normal Limits Rt Forearm: Within Normal Limits Lt Hand: Within Normal Limits Rt Hand: Within Normal Limits Lt Femur: Within Normal Limits Rt Femur: Within Normal Limits Lt Lower Leg: Within Normal Limits Rt Lower Leg: Within Normal Limits Lt Foot: Visualized Rt Foot: Visualized Other Umbilical Cord: 3 vessel cord Cord Insertion: WIthin Normal Limits Comment: Nasal Bone: Present Cervix Uterus Adnexa Left Ovary: visualized Right Ovary: visualized Impression 2nd Trimester - Targeted Morphology- Summary Single intrauterine with a gestational age of 20w 4d based on LMP. Composite age based on the current ultrasound alone is 20w 5d. Amniotic fluid volume is Normal. Current growth parameters are consistent indicating normal growth. Detailed anatomic evaluation was performed and no structural abnormalities are noted other than bilateral choroid plexus cysts. I viewed the images and agree with the above interpretation. Thank you for allowing us to participate in the care of LIAT FLANAGAN. Please do not hesitate to call if you have any questions. Liat Maldonado MD Electronically Signed Final Report 12/03/2012 05:18 pm Anea G Roseanna CNM IMG US OB ORDERABLES documented in this encounter Visit Diagnoses Not on filedocumented in this encounter Care Teams Revolving Field Assembler Relationship Specialty Start Date End Date Otilia Escamilla APRN [address] [place] [address] PCP - General 11/24/12 05/22/19 documented as of this encounter
--- OUTSIDE RECORDS SUMMARY | 2024-06-30 15:49 | XMS_ITS | Encounter Summary ---
[place] [address] Care Team Providers Care Survey Superintendent Name Role Phone Susi Yuan APRN Primary Care Provider [phone] [phone] Encounter Details Date Type Department Care Team (Late st Contact Info) Description 10/27/2019 Telephone [place] [phone] Clary Saul Social History Tobacco Use Types [...] * Telephone Encounter - Clary Saul - 10/28/2019 10:32 AM EST Left second message for patient for patient to contact the office to schedule a gif with Liat (blue sheet). A letter has been sent to the patient requesting that she contact the office for scheduling. * Telephone Encounter - Clary Saul - 10/27/2019 4:00 PM EST Left message for patient for patient to contact the office to schedule a gif with Liat (blue sheet). documented in this encounter Plan of Treatment Not on file documented as of this encounter Visit Diagnoses Not on filedocumented in this encounter Care Teams Survey Superintendent Relationship Specialty Start Date End Date Susi Yuan, KATH [address] [place] [address] PCP - General Family Medicine 05/23/19 documented as of this encounter
--- OUTSIDE RECORDS SUMMARY | 2024-06-30 15:49 | XMS_ITS | Encounter Summary ---
[facility] Organization [facility] [place] [address] Care Team Providers Care Media Clerk Name Role Phone Otilia Escamilla APRN Primary Care Provider + Reason for Visit * Reason Comments Ultrasound Finding choroid plexus cysts Encounter Details Date Type Department Care Team (Late st Contact Info) Description 12/03/2012 9:30 AM EST Office Visit Obstetrics [place] [address] Jayme Ortega, [facility] [place] [address] Choroid plexus cysts, , affecting care of mother, antepartum (Primary Dx); Genetic counseling Social History Tobacco Use Types Packs/Day Years Used Date Smoking Tobacco: Former Alcohol Use Standard Drinks/Week Comments No 0 (1 standard drink = 0.6 oz pur e alcohol) Comments Yes Sex and Gender Information Value Date Recorded Sex Assigned at Not on file Gender Identity Not on file Sexual Orientation Not on file documented as of this encounter Progress Notes * Jayme Ortega, MS - 12/06/2012 11:26 AM EST GENETIC COUNSELING NOTE Liat Flanagan was referred to the Diagnosis Program by Sindhu Condon CNM. I met with Liat for a 25 minute genetic counseling visit. She was accompanied to the visit by her , Kodak Flanagan. Chief Complaint Patient presents with ??? Ultrasound Finding choroid plexus cysts Medical History No significant medical history. Family History Problem Relation Age of Onset ??? Autism Spectrum Disorder Cousin Kodak reports that his brother and his have four children and also had two miscarriages. The family history was otherwise unremarkable for intellectual disability, congenital anomalies, recurrent loss, or known genetic conditions. Liat and Kodak are both of ancestry. OB History Grav Para Term Abortions TAB SAB Ect Mult Living 2 1 1 1 Patient's last menstrual period was 07/12/2012. Estimated Date of Delivery: 04/18/2013 based on menstrual dating. Screening Results Test Result ??? Quad screen Screen negative ??? Open spina bifida risk 1:57783 ? ? Down syndrome risk <1:37747 ??? Trisomy 18 risk 1:76883 ??? Cystic fibrosis carrier screen Negative in 2008 (report not available for review) ??? Thalassemia screen MCV within normal limits (89.6 fL) Assessment Liat is a 27 y.o. female currently at 20w4d by menstrual dating with the sonographic finding of choroid plexus cysts. Discussion Choroid plexus cysts are found in up to 2% of euploid second-trimester fetuses. They are also seen in 30% to 50% of fetuses with trisomy 18. Most fetuses with trisomy 18 have other sonographic findings suggesting aneuploidy. We reviewed the results of Liat's quad marker screen, which estimated a 1:85400 risk for trisomy 18. We discussed the benefits, risks, and limitations of amniocentesis for chromosome analysis, which Liat declines at this time. Isolated choroid plexus cysts have not been associated with any significant neurocognitive delays. Choroid plexus cysts generally resolve by 28 weeks gestation; however, resolution does not necessarily reflect a normal karyotype. Plan Liat is scheduled for a targeted morphology ultrasound and maternal- medicine consultation following our visit today. She declines amniocentesis at this time. 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
--- OUTSIDE RECORDS SUMMARY | 2024-06-30 15:49 | XMS_ITS | Encounter Summary ---
[place] [address] Care Team Providers Care Sterilization Specialist Name Role Phone Otilia Escamilla APRN Primary Care Provider + Encounter Details Date Type Department Care Team (Late st Contact Info) Description 12/28/2015 Telephone [place] [phone] Hilda Urias Social History Tobacco Use Types Packs/Day Years [...] encounter Miscellaneous Notes * Telephone Encounter - Hilda Rivera - 02/29/2016 1:26 PM EDT error documented in this encounter Plan of Treatment Not on file documented as of this encounter Visit Diagnoses Not on filedocumented in this encounter Care Teams Sterilization Specialist Relationship Specialty Start Date End Date Otilia Escamilla APRN [address] [place] [address] PCP - General 11/24/12 05/22/19 documented as of this encounter
--- OUTSIDE RECORDS SUMMARY | 2024-06-30 15:49 | XMS_ITS | Encounter Summary ---
Author Organization [facility] [place] [address] Care Team Providers Care Animal Feeder Name Role Phone Lissy Susi Esdras STOCKTON Primary Care Provider [phone] Encounter Details Date Type Department Care Team (Late st Contact Info) Description 10/31/2019 Telephone [place] [phone] Yanique Dunne Social History Tobacco Use Types [...] * Telephone Encounter - Yanique Dunne - 10/31/2019 9:35 AM EST Liat Flanagan [id number] Diagnosis/Indication: Reflux symptoms with h/o chronic NSAID use. ?Currie's ?GERD ?gastritis 1. Have you ever had a/an Upper Endoscopy before? No If yes, did you have any problems with the procedure? No What type of sedation was used: None 2. Do you take any Blood Thinners? No 3. Do you have a Pacemaker or Defibrillator device? No 4. Are you a diabetic? No 5. Do you have any Allergies to Eggs, Latex or Medications? Yes: See EDH 6. Do you take any Oral Iron Supplements (Including multi-vitamins)? No 7. Do you have a history of three or more abdominal surgeries? No 8. Have you had a problem with sedation or anesthesia? No 9. Do you have a c-pap machine or oxygen tank? Neither 10. Do you take prescription narcotic pain medications? No 11. Do you have a preference regarding the gender of your provider? No Preference 12. Is there any other information you would like to give us to aid in scheduling? No 13. Say to patient: You must have a responsible alliance party who will drive you to your procedure, stay oncampus for the entire duration of your procedure, and drive you home from your procedure? Yes Height: 5' 8 Weight:280 BMI: 42.6 Age:34 y.o. documented in this encounter Plan of Treatment Not on file documented as of this encounter Visit Diagnoses Not on filedocumented in this encounter Care Teams Animal Feeder Relationship Specialty Start Date End Date Susi Yuan APRN [address] [place] [phone] PCP - General Family Medicine 05/23/19 documented as of this encounter
[2024-06-30 15:57] LABS: Calculated LDL 164 mg/dL (<100); Cholesterol 259 mg/dL (<200); Ferritin 9 ng/mL (8-252); HDL Cholesterol 58 mg/dL (40-60); Triglyceride 186 mg/dL (<150)
== END 2024-06-30 15:44 | disposition home or self-care (01) ==
LOC: NCHCN 15:43
PROVIDERS: PCP Family Medicine; Visit Provider Nurse Practitioner Family
DX: E61.1 Iron deficiency (principal); Z13.1 Encounter for screening for diabetes mellitus; Z13.220 Encounter for screening for lipoid disorders
CPT/HCPCS: 80061; 85027; 82728; 83036; 83540; 83550

== ENCOUNTER 2024-10-18 16:34 | Outpatient (REF) | payer MEDICAID, SELFPAY ==
--- OUTSIDE RECORDS SUMMARY | 2024-10-18 16:37 | XMS_ITS ---
Author Organization Unknown Address [address] [place] [phone] Phone Care Team Providers Care Senior Electronics Technician Name Role Phone KEMAR RENE Registered Nurse Unavailable RUBI AMBROSIO Registered Nurse Unavailable DANIEL Panda Attending Unavailable DIANA BLACKMON Unavailable TOÑO Dewitt Primary Unavailable UNLISTED PROVIDER - REQUESTED Xhandoff Un available Results URINALYSIS WITH REFLEX CULT IF POSITIVE* - Collect Date/Time: 12/06/2022 18:35 [facility] ID: [id number] [address] [place] [address], [address] LOINC: 15030-1 Test Value Unit Reference Range Code Code System Flag COLLECTION MODE: CLEAN CATCH 71840-4 LOINC Color STRAW yellow 5778-6 LOINC Appearance SL CLOUD clear 5767-9 LOINC Glucose urine NEGATIVE negative mg/dl 50525-4 LOINC Bilirubin NEGATIVE negative 5770-3 LOINC Ketones NEGATIVE negative mg/dl 2514-8 LOINC Spec gravity 1.020 1.003 - 1.030 5811-5 LOINC pH urine 7.0 5.0 - 7.0 2756-5 LOINC Protein NEGATIVE negative mg/dl 84951-8 LOINC Urobilinogen 0.2 <or= 1 EU/dl 91354-9 LOINC Nitrite. NEGATIVE negative 5802-4 LOINC Blood NEGATIVE negative 5794-3 LOINC Leukocytes. NEGATIVE negative MICROSCOPIC NOT INDICAT TEST QUAL (URINE) - Collect Date/Time: 12/06/2022 18:35 [facility] ID: [id number] [address] [place] [address], [address] LOINC: 2106-3 Test Value Unit Reference Range Code Code System Flag TEST NEGATIVE 2105-3 LOINC LIPASE* NEW - Collect Date/T [place]: 12/06/2022 18:35 [facility] ID: [id number] [address] [place], [place], [id number] LOINC: 3040-3 Test Value Unit Reference Range Code Code System Flag LIPASE. 50 U/L L=16 H=77 COMPREHENSIVE METABOLIC PANE L (CMP) - Collect Date/Time: 12/06/2022 18:35 [facility] ID: [id number] [address] [place], [place], [address] LOINC: 33553-4 Test Value Unit Reference Range Code Code [...] H=34 2028-9 LOINC ANION GAP 7.1 mmol/L 34468-3 LOINC CALCIUM SERUM 8.8 mg/dL L=8.2 H=10.2 86714-2 LOINC BILIRUBIN TOTAL 0.2 mg/dL L=0.0 H=1.3 1975-2 LOINC ALK. PHOS. 58 U/L L=46 H=116 6768-6 LOINC SGOT (AST) 15 U/L L=15 H=37 1920-8 LOINC SGPT (ALT) 15 U/L L=12 H=78 1742-6 LOINC TOTAL PROTEIN 6.9 gm/dL L=6.0 H=8.0 2885-2 LOINC ALBUMIN 3.0 gm/dL L=3.4 H=5.0 1751-7 LOINC L AGE 37 years eGFR (non-Afr.Amer.) 66 mL/min 80055-6 LOINC eGFR (Afr-Ghanaian) 80 mL/min 18418-7 LOINC CBC W/ DIFFERENTIAL* - Colle ct Date/Time: 12/06/2022 18:35 [facility] ID: [id number] [address] [place], [place], [address] LOINC: 17499-8 Test Value Unit Reference Range Code Code System Flag WBC 6.17 th/cmm L=5.00 H=10.00 6690-2 LOINC NEUT % 49.9 % L=40.0 H=80.0 LYMPH % 40.0 % L=10.0 H=50.0 MONO % 7.6 % L=2.0 H=12.0 53236-5 LOINC EOS % 1.8 % L=0.0 H=8.0 BASO % 0.5 % L=0.0 H=3.0 IG % 0.2 % L=0.0 H=1.1 2514-8 LOINC NRBC % 0.0 % L=0.0 H=0.0 17893-8 LOINC NEUT abs count 3.1 th/cmm L=1.6 H=8.4 751-8 LOINC LYMPH abs count 2.5 th/cmm L=1.5 H=4.0 731-0 LOINC MONO abs count 0.5 th/cmm L=0.2 H=1.0 742-7 LOINC EOS abs count 0.1 th/cmm L=0.0 H=0.5 711-2 LOINC BASO abs count 0.0 th/cmm L=0.0 H=0.2 704-7 LOINC IG abs count 0.0 th/cmm L=0.0 H=0.1 70721-9 LOINC NRBC abs count 0.0 mil/cmm L=0.0 H=0.0 75347-0 LOINC RBC 4.64 mil/cmm L=3.90 H=5.40 789-8 [...] CONTRAST ONLY - Completed: 12/06/2022 19:46 LOINC: [facility] [place], [place] [address] PACS SPOILAGE WORKER REPORT Patient Name: REID MASON MRN: Sex: : Age: [id number] F 1985 37 Account: Accession: Admit: StayType: [id number] 12/06/2022 E/R Ordered: Order ID: Submitted: Ordering Provider: 12/06/2022 18:50 [id number] ANAYA RICHARD Completed: Technologist: Resulted: 12/06/2022 19:46 [...] em Smoking History Former smoker 10/05/2004 10/05/[address] Sex Female Vital Signs Vital Sign Value Unit [place] Value [place] Unit Date/Time Recent/Initial? Code Code System Body Mass Index 39.16 kg/m2 12/06/2022 17:32 Initial 50414 -5 LOINC Systolic Blood Pressure 118 mm[Hg] [...] Saturation 98 % 2022 20:42 Most Recent 60162 -5 LOINC O2 Saturation 98 % 2022 17:32 Initial 88497 -5 LOINC Pulse 70.0 /min 12/06/2022 20:42 Most Recent 8867- 4 LOINC Pulse 79.0 /min 12/06/2022 17:32 Initial 8867- 4 LOINC Respiration 18 /min 12/07/19 20:42 Most Recent 9279- 1 LOINC Respiration 18 /min 12/07/19 17:32 Initial 9279- 1 LOINC Temperature 37.0 Citlalli 98.6 F 12/07/19 17:32 Initial 8310- 5 LOINC Weight 113.40 kg 250.00 lbs 12/06/2022 17:32 Initial 67663 -7 LOINC Hospital Discharge Instructions Should you have any questions prior to discharge, please contact a member of your healthcare team. If you have left the hospital and have any questions, please contact your primary care physician. Reason For Referral No Data Found Allergies and Adverse Reactions Allergy Substance Reaction Severity Start Date Concern Status Co de Code System CEPHALOSPORIN Hives (SNOMED-CT: 129408848) Moderate Active AMOXICILLIN RASH (SNOMED-CT: null) Moderate Active 723 RxNorm SCOPOLAMINE NAUSEA/VOMITING (SNOMED-CT: null) Active Plan of Treatment LAB DRAW 20MIN 08/20/2024 US PELVIC / TV 07/14/2024 MRI BRAIN W WO CONTRAST 10/29/2023 US BREAST UNI LT 05/07/2023 MM DIAG BILAT 05/07/2023 Encounters Encounter Diagnosis Start Date Code Code Sys tem Nausea with vomiting, unspecified 12/06/2022 SNOMED-CT Personal Care Team Section Performer Name Performer Role Active Date Inactive Pascual reyes
--- OUTSIDE RECORDS SUMMARY | 2024-10-18 16:37 | XMS_ITS ---
Author Organization Unknown Address [address] [place] [address] [phone] Phone Care Team Providers Care Front Of House Manager Name Role Phone TOÑO Dewitt Attending Unavailable [...] Dictated by: ISH BURNS MD Transcribed by: [facility]/10/22/14:33 D Monday, March 07, 2022 4:37:18 PM [id number] Electronically Reviewed and Signed By: CHAMP BURNS MD 03/10/22 20:28 Copy for: TOÑO Dewitt via fax Copy for: [facility] HEALTH INFORMATION MGMT Social History Type Status Start Date End Date Code Code Syst em Smoking History Former smoker 10/05/2004 10/05/[address] Sex Female Hospital Discharge Instructions [...] Co de Code System CEPHALOSPORIN Hives (SNOMED-CT: 545383662) Moderate Active AMOXICILLIN RASH (SNOMED-CT: null) Moderate [...]
--- OUTSIDE RECORDS SUMMARY | 2024-10-18 16:38 | XMS_ITS ---
Author Organization Unknown Address [address] [place] [address] [phone] Phone Care Team Providers Care Chute Boss Name Role Phone KIKI SMALLWOOD Registered Nurse Unavailable DANIEL Panda Attending Unavailable [facility] Unavailable TOÑO Dewitt Primary Unavailable UNLISTED PROVIDER - REQUESTED Xhandoff Un available Results CT HEAD WO CONTRAST - Comple prasad: 10/27/2023 18:25 LOINC: [place], [place] [address] PACS INBOUND SALES ADVISOR REPORT Patient Name: REID MASON MRN: Sex: : Age: [id number] F 1985 38 Account: Accession: Admit: StayType: [id number] 10/27/2023 E/R Ordered: Order ID: Submitted: Ordering Provider: 10/27/2023 18:13 [id number] SANJANA LONDONO Completed: Technologist: Resulted: 10/27/2023 18:25 [...] em Smoking History Former smoker 10/05/2004 10/05/[address] Sex Female Vital Signs Vital Sign Value Unit [place] Value [place] Unit Date/Time Recent/Initial? Code Code System Systolic Blood Pressure 101 mm[Hg] 10/27/2023 19:34 Most Recent 8480-6 LOINC Diastolic Blood Pressure 61 mm[Hg] 10/27/2023 19:34 Most Recent 8462-4 LOINC Systolic Blood Pressure 126 mm[Hg] 10/27/2023 17:25 Initial 8480-6 LOINC Diastolic Blood Pressure 85 mm[Hg] 10/27/2023 17:25 Initial 8462-4 LOINC O2 Saturation 99 % 2023 19:34 Most Recent 18153- 5 LOINC O2 Saturation 100 % 2023 17:25 Initial 11698- 5 LOINC Pulse 57.0 /min 10/27/2023 19:34 [...] Co de Code System CEPHALOSPORIN Hives (SNOMED-CT: 574736381) Moderate Active AMOXICILLIN RASH (SNOMED-CT: null) Moderate Active 723 RxNorm SCOPOLAMINE NAUSEA/VOMITING (SNOMED-CT: null) Active Plan of Treatment LAB DRAW 20MIN 08/20/2024 US PELVIC / TV 07/14/2024 MRI BRAIN W WO CONTRAST 10/29/2023 US BREAST UNI LT 05/07/2023 MM DIAG BILAT 05/07/2023 Encounters Encounter Diagnosis Start Date Code Code Sys tem Headache 10/27/2023 17511670 SNOMED-CT Personal Care Team Section Performer Name Performer Role Active Date Inactive Da te
--- OUTSIDE RECORDS SUMMARY | 2024-10-18 16:38 | XMS_ITS ---
Author Organization Unknown Address [address] [place] [address] [phone] Phone Care Team Providers Care Microphone Operator Name Role Phone MARY CLARA Panda Attending Unavailable TOÑO Dewitt Primary Unavailable Social History Type Status Start Date End Date Code Code Syst em Smoking History Former smoker 10/05/2004 10/05/[address] Sex Female Hospital Discharge Instructions [...] Co de Code System CEPHALOSPORIN Hives (SNOMED-CT: 452412922) Moderate Active AMOXICILLIN RASH (SNOMED-CT: null) Moderate Active 723 RxNorm SCOPOLAMINE NAUSEA/VOMITING (SNOMED-CT: null) Active Plan of Treatment LAB DRAW 20MIN 08/20/2024 US PELVIC / TV 07/14/2024 MRI BRAIN W WO CONTRAST 10/29/2023 US BREAST UNI LT 05/07/2023 MM DIAG BILAT 05/07/2023 Encounters Encounter Diagnosis Start Date Code Code Sys tem Fatigue 06/12/2023 93606422 SNOMED-CT Personal Care Team Section Performer Name Performer Role Active Date Inactive Da te
--- OUTSIDE RECORDS SUMMARY | 2024-10-18 16:38 | XMS_ITS ---
Author Organization Unknown Address [address] [place] [address] [phone] Phone Care Team Providers Care Government Sales Manager Name Role Phone MARVEL Nelson Attending Unavailable TOÑO Dewitt Primary Unavailable Results MR BRAIN WWO CONTRAST - Comp leted: 10/29/2023 14:50 LOINC: RADIOLOGY [place], [place] [address] PACS YARN FINISHER REPORT Patient Name: REID MASON MRN: Sex: : Age: [id number] F 1985 38 Account: Accession: Admit: StayType: [id number] 10/29/2023 O/P Ordered: Order ID: Submitted: Ordering Provider: 10/29/2023 12:51 [id number] KT TONIA GRIER Completed: Technologist: Resulted: 10/29/2023 [...] suspicious enhancement identified. VISUALIZED PARANASAL SINUSES/MASTOIDS: Clear. BURNS PAIUTE OF REID: Normal flow void. PITUITARY GLAND: Unremarkable. Orbits are unremarkable. IMPRESSION: Normal MRI of the brain. Report Digitally Signed by Ashleigh Mensah on 10/29/2023 03:03 PM EST Social History Type Status Start Date End Date Code Code Syst em Smoking History Former smoker 10/05/2004 10/05/[address] Sex Female Hospital Discharge Instructions [...] Co de Code System CEPHALOSPORIN Hives (SNOMED-CT: 664170409) Moderate Active AMOXICILLIN RASH (SNOMED-CT: null) Moderate [...]
--- OUTSIDE RECORDS SUMMARY | 2024-10-18 16:38 | XMS_ITS ---
Author Organization Unknown Address [address] [place] [address] [phone] Phone Care Team Providers Care Laundry Machine Mechanic Name Role Phone TOÑO Dewitt Attending Unavailable Results LALY DIAG BILAT MAMMO W CAD - Completed: 05/07/2023 09:07 LOINC: [facility] [place], [place] [address] PACS MANUAL LATHE MACHINIST REPORT Patient Name: REID MASON MRN: Sex: : Age: [id number] F 1985 37 Account: Accession: Admit: StayType: [id number] 05/07/2023 O/P Ordered: Order ID: Submitted: Ordering Provider: 05/07/2023 08:49 [id number] MOE ESTRADA Completed: Technologist: Resulted: 05/07/2023 09:07 [...] pleted: 05/07/2023 09:57 LOINC: [facility] [place], [place] [address] PACS MANUAL LATHE MACHINIST REPORT Patient Name: REID MASON MRN: Sex: : Age: [id number] F 1985 37 Account: Accession: Admit: StayType: [id number] 05/07/2023 O/P Ordered: Order ID: Submitted: Ordering Provider: 05/07/2023 08:50 [id number] MOE ESTRADA Completed: Technologist: Resulted: 05/07/2023 09:57 GVS 05/07/2023 10:07 DIAGNOSTIC MAMMOGRAM AND COMPLETE LEFT BREAST ULTRASOUND Study Reason: LT BREAST PAIN Technique: See combination report. Report Digitally Signed by Sixto Lopez on 05/07/2023 10:07 AM EDT Social History Type Status Start Date End Date Code Code Syst em Smoking History Former smoker 10/05/2004 10/05/[address] Sex Female Hospital Discharge Instructions [...] Co de Code System CEPHALOSPORIN Hives (SNOMED-CT: 828813815) Moderate Active AMOXICILLIN RASH (SNOMED-CT: null) Moderate Active 723 RxNorm SCOPOLAMINE NAUSEA/VOMITING (SNOMED-CT: null) Active Plan of Treatment LAB DRAW 20MIN 08/20/2024 US PELVIC / TV 07/14/2024 MRI BRAIN W WO CONTRAST 10/29/2023 US BREAST UNI LT 05/07/2023 MM DIAG BILAT 05/07/2023 Encounters Encounter Diagnosis Start Date Code Code Sys tem Pain of breast 05/07/2023 19794571 SNOMED-CT Personal Care Team Section Performer Name Performer Role Active Date Inactive Da te
--- OUTSIDE RECORDS SUMMARY | 2024-10-18 16:39 | XMS_ITS ---
Author Organization Unknown Address [address] [place] [address] [phone] Phone Care Team Providers Care Meat Lugger Name Role Phone LAMELL RAHUL Plummer Attending Unavailable TOÑO Dewitt Primary Unavailable Social History Type Status Start Date End Date Code Code Syst em Smoking History Former smoker 10/05/2004 10/05/[address] Sex Female Hospital Discharge Instructions [...] Co de Code System CEPHALOSPORIN Hives (SNOMED-CT: 142730215) Moderate Active AMOXICILLIN RASH (SNOMED-CT: null) Moderate Active 723 RxNorm SCOPOLAMINE NAUSEA/VOMITING (SNOMED-CT: null) Active Plan of Treatment LAB DRAW 20MIN 08/20/2024 US PELVIC / TV 07/14/2024 MRI BRAIN W WO CONTRAST 10/29/2023 US BREAST UNI LT 05/07/2023 MM DIAG BILAT 05/07/2023 Encounters Encounter Diagnosis Start Date Code Code Sys tem 06/30/2024 [id number] SNOMED-CT Personal Care Team Section Performer Name Performer Role Active Date Inactive Da te
--- OUTSIDE RECORDS SUMMARY | 2024-10-18 16:39 | XMS_ITS ---
Author Organization Unknown Address [address] [place] [phone] Phone Care Team Providers Care Programming Equipment Operator Name Role Phone TED STEVEN Attending Unavailable TOÑO Dewitt Primary Unavailable Results PAP THINPREP HPV REGARDLESS OF DX* - Collect Date/Time: 07/08/2024 18:37 [facility] ID: [id number] [address] [place] [address], [id number] LOINC: Test Value Unit Reference Range Code Code System Flag Report (See below) Social History Type Status Start Date End Date Code Code Syst em Smoking History Former smoker 10/05/2004 10/05/[address] Sex Female Hospital Discharge Instructions [...] Co de Code System CEPHALOSPORIN Hives (SNOMED-CT: 363694744) Moderate Active AMOXICILLIN RASH (SNOMED-CT: null) Moderate Active 723 RxNorm SCOPOLAMINE NAUSEA/VOMITING (SNOMED-CT: null) Active Plan of Treatment LAB DRAW 20MIN 08/20/2024 US PELVIC / TV 07/14/2024 MRI BRAIN W WO CONTRAST 10/29/2023 US BREAST UNI LT 05/07/2023 MM DIAG BILAT 05/07/2023 Encounters Encounter Diagnosis Start Date Code Code Sys tem Abnormal vaginal bleeding 07/08/2024 822830451 SN OMED-CT Personal Care Team Section Performer Name Performer Role Active Date Inactive Da te
--- OUTSIDE RECORDS SUMMARY | 2024-10-18 16:39 | XMS_ITS ---
Author Organization Unknown Address [address] [place] [address] [phone] Phone Care Team Providers Care Kiln Worker Name Role Phone GILBERT CHAPPELL Attending Unavailable TOÑO Dewitt Primary Unavailable Social History Type Status Start Date End Date Code Code Syst em Smoking History Former smoker 10/05/2004 10/05/[address] Sex Female Hospital Discharge Instructions [...] Co de Code System CEPHALOSPORIN Hives (SNOMED-CT: 934325977) Moderate Active AMOXICILLIN RASH (SNOMED-CT: null) Moderate [...]
--- OUTSIDE RECORDS SUMMARY | 2024-10-18 16:39 | XMS_ITS ---
Author Organization Unknown Address [address] [place] [address] [phone] Phone Care Team Providers Care Strong Nitric Operator Name Role Phone TED STEVEN Attending Unavailable TOÑO Dewitt Primary Unavailable Results CBC W/ DIFFERENTIAL* - Colle ct Date/Time: 08/20/2024 08:18 [facility] ID: [id number] [address] [place] [address], [address] LOINC: 45003-8 Test Value Unit Reference Range Code Code System Flag WBC 4.78 th/cmm L=5.00 H=10.00 6690-2 LOINC L NEUT % 51.3 % L=40.0 H=80.0 LYMPH % 38.5 % L=10.0 H=50.0 MONO % 6.7 % L=2.0 H=12.0 56436-4 LOINC EOS % 2.5 % L=0.0 H=8.0 BASO % 0.8 % L=0.0 H=3.0 IG % 0.2 % L=0.0 H=1.1 2514-8 LOINC NRBC % 0.0 % L=0.0 H=0.0 39538-3 LOINC NEUT abs count 2.5 th/cmm L=1.6 H=8.4 751-8 LOINC LYMPH abs count 1.8 th/cmm L=1.5 H=4.0 731-0 LOINC MONO abs count 0.3 th/cmm L=0.2 H=1.0 742-7 LOINC EOS abs count 0.1 th/cmm L=0.0 H=0.5 711-2 LOINC BASO abs count 0.0 th/cmm L=0.0 H=0.2 704-7 LOINC IG abs count 0.0 th/cmm L=0.0 H=0.1 82163-5 LOINC NRBC abs count 0.0 mil/cmm L=0.0 H=0.0 75892-7 LOINC RBC 4.78 mil/cmm L=3.90 H=5.40 789-8 LOINC HEMOGLOBIN 13.0 gm/dL L=12.0 H=16.0 718-7 LOINC HEMATOCRIT 42 % L=37 H=47 4544-3 LOINC MCV 87 fL L=82 H=92 787-2 LOINC MCH 27.2 pg L=27.0 H=31.0 785-6 LOINC MCHC 31.3 % L=32.0 H=36.0 786-4 LOINC L RDW-SD 48.9 fL L=39.0 H=49.0 788-0 LOINC PLATELET COUNT 363 th/cmm L=150 H=450 777-3 LOINC TYPE AND SCREEN* - Collect D ate/Time: 08/20/2024 08:18 [facility] ID: [id number] [address] [place], [place], [id number] LOINC: Test Value Unit Reference Range Code Code System Flag Blood Group A 883-9 LOINC Rh (D) POSITIVE 25868-7 LOINC Antibody Screen NEGATIVE 1005-8 LOINC CORRECTED Social History Type Status Start Date End Date Code Code Syst em Smoking History Former smoker 10/05/2004 10/05/[id number] Sex Female Hospital Discharge Instructions [...] Co de Code System CEPHALOSPORIN Hives (SNOMED-CT: 312334352) Moderate Active AMOXICILLIN RASH (SNOMED-CT: null) Moderate Active 723 RxNorm SCOPOLAMINE NAUSEA/VOMITING (SNOMED-CT: null) Active Plan of Treatment LAB DRAW 20MIN 08/20/2024 US PELVIC / TV 07/14/2024 MRI BRAIN W WO CONTRAST 10/29/2023 US BREAST UNI LT 05/07/2023 MM DIAG BILAT 05/07/2023 Encounters Encounter Diagnosis Start Date Code Code Sys tem Pre-surgery evaluation 08/20/2024 [id number] MAGDIEL D-CT Personal Care Team Section Performer Name Performer Role Active Date Inactive Da te
--- OUTSIDE RECORDS SUMMARY | 2024-10-18 16:40 | XMS_ITS ---
Author Organization Unknown Address [address] [place] [address] [phone] Phone Care Team Providers Care Technical Aid Name Role Phone TED STEVEN Attending Unavailable TOÑO Dewitt Primary Unavailable Social History Type Status Start Date End Date Code Code Syst em Smoking History Former smoker 10/05/2004 10/05/[id number] Sex Female Hospital Discharge Instructions [...] Co de Code System CEPHALOSPORIN Hives (SNOMED-CT: 033106184) Moderate Active AMOXICILLIN RASH (SNOMED-CT: null) Moderate Active 723 RxNorm SCOPOLAMINE NAUSEA/VOMITING (SNOMED-CT: null) Active Plan of Treatment LAB DRAW 20MIN 08/20/2024 US PELVIC / TV 07/14/2024 MRI BRAIN W WO CONTRAST 10/29/2023 US BREAST UNI LT 05/07/2023 MM DIAG BILAT 05/07/2023 Encounters Encounter Diagnosis Start Date Code Code Sys tem Abnormal uterine and vaginal bleeding, unspecified 01/2024 SNOMED-CT Personal Care Team Section Performer Name Performer Role Active Date Inactive Da te Laboratory Narrative Notes
--- OUTSIDE RECORDS SUMMARY | 2024-10-18 16:40 | XMS_ITS ---
Author Organization Unknown Address [address] [place], [place] [phone] Phone Care Team Providers Care Poundmaster Name Role Phone TED STEVEN Attending Unavailable PORTIA Plummer MILLINERY SALESPERSON Unavailable TOÑO Dewitt Primary Unavailable Results TEST QUAL (URINE) - Collect Date/Time: 08/22/2024 08:50 [facility] ID: [id number] [address] [place] [address], [address] LOINC: 2106-3 Test Value Unit Reference Range Code Code System Flag TEST NEGATIVE 2106-3 LOINC Social History Type Status Start Date End Date Code Code Syst em Smoking History Former smoker 10/05/2004 10/05/[address] Sex Female Vital Signs Vital Sign Value Unit [place] Value [place] Unit Date/Time Recent/Initial? Code Code System Body Mass Index 35.70 kg/m2 08/19/2024 14:00 Initial 59596 -5 LOINC Systolic Blood Pressure 111 mm[Hg] 08/22/2024 18:42 Most Recent 8480- 6 LOINC Diastolic Blood Pressure 59 mm[Hg] 08/22/2024 18:42 Most Recent 8462- 4 LOINC Systolic Blood Pressure 100 mm[Hg] 08/22/2024 12:45 Initial 8480- 6 LOINC Diastolic Blood Pressure 64 mm[Hg] 08/22/2024 12:45 Initial 8462- 4 LOINC Body Surface Area 2.26 m2 08/19/2024 14:00 Initial 3140- 1 LOINC Height 172.720 0 cm 68.00 in 08/19/2024 14:00 Initial 8302- 2 LOINC O2 Saturation 95 % 2023 18:42 Most Recent 01775 -5 LOINC O2 Saturation 98 % 2023 12:45 Initial 53687 -5 LOINC Pulse 82.0 /min 08/22/2024 18:42 Most Recent 8867- 4 LOINC Pulse 57.0 /min 08/22/2024 12:45 Initial 8867- 4 LOINC Respiration 16 /min 08/22/20 18:42 Most Recent 9279- 1 LOINC Respiration 18 /min 08/22/20 12:45 Initial 9279- 1 LOINC Temperature 36.6 [place]lalli 97.9 F 08/22/20 18:42 Most Recent 8310- 5 LOINC Temperature 2.2 Citlalli 36.0 F 08/22/20 12:45 Initial 8310- 5 LOINC Weight 106.50 kg 234.79 lbs 08/19/2024 14:00 Initial 63238 -7 LOINC Hospital Discharge Instructions Should you have any questions prior to discharge, please contact a member of your healthcare team. If you have left the hospital and have any questions, please contact your primary care physician. Reason For Referral No Data Found Procedures Procedure Name Date Status Code Code Syste m Laparoscopy, With Total Hyst erectomy, For Uterus 250 g Or Less; w/ Removal Of Tube(s)/Ovary(s) 08/22/2024 completed 02064 CPT Anesthesia, Intraperitoneal Proc, Lower Abdomen, w/Laparoscopy; NOS 08/22/2024 completed 43564 CPT Allergies and Adverse Reactions Allergy Substance Reaction Severity Start Date Concern Status Co de Code System CEPHALOSPORIN Hives (SNOMED-CT: 574237156) Moderate Active AMOXICILLIN RASH (SNOMED-CT: null) Moderate Active 723 RxNorm SCOPOLAMINE NAUSEA/VOMITING (SNOMED-CT: null) Active Plan of Treatment LAB DRAW 20MIN 08/20/2024 US PELVIC / TV 07/14/2024 MRI BRAIN W WO CONTRAST 10/29/2023 US BREAST UNI LT 05/07/2023 MM DIAG BILAT 05/07/2023 Encounters Encounter Diagnosis Start Date Code Code Sys tem Leiomyoma of uterus, unspecified 08/22/2024 SNOMED-CT Personal Care Team Section Performer Name Performer Role Active Date Inactive Da te Laboratory Narrative Notes Progress Notes [facility] 08/24/2024 17:46 All Demographics Patient Name Age Sex Visit Number Admission Date/Time Attending Physician Date of Service Room and Bed Emergency Contact REID MASON 1985 39 years Female [id number] 08/22/2024 07:24 MAURIZIO JEAN 08/22/2024 [id number] MARLON STEPHON Daiana - [id number] 08/22/2024 19:34 Progress Note Subjective Patient doing well Pain controlled with tylenol and toradol Ambulating, tolerating PO, and voiding No concerns and requesting same day discharge Objective Physical Exam GENERAL: Well appearing in no apparent distress. CHEST/LUNGS: RRR no murmor, CTAB, non-labored ABDOMEN: Soft, non-distended, no rebound, guarding, mild tenderness in lower quadrants, +BS MUSCULOSKELETAL: normal gait, no edema in lower extremeties. Pelvis: minimal blood-stain on peripad Vital Signs: Last 24 Hours Date/Time BP (mm/Hg) BP Position/Site MAP (mm/Hg) Heart Rate Pulse Site Resp Temp (C) Temp (F) SPO2% O2 L/min FiO2 EtCO2 (mm/Hg) O2 Device Blood Sugar Pain Score Weight (kg) Weight (lbs/ozs) Scale BSA 08/22/2024 18:42 111/59 LYING/L ARM 76 82 OTHER 16 36.6 TEMPORAL 97.9 TEMPORAL 95 % Room Air 21% 08/22/2024 13:06 127/83 LYING/R ARM 98 56 BRACHIAL 18 36.1 TEMPORAL SCANNING 97 TEMPORAL SCANNING 96 % Room Air 21% 08/22/2024 12:45 100/64 76 57 18 2.2 36 98 % Lab Results: Last 24 Hours Test Results Units Reference Range Ordered Collected Status SURGICAL PATHOLOGY* 08/22/2024 13:51 08/22/2024 13:50 registered TEST NEGATIVE 08/22/2024 00:00 08/22/2024 08:50 final Assessment POD0 s/p total laparoscopic hysterectomy, bilateral salpingectomy, cystourethroscopy Doing well meeting postop milestones, requesting same day discharge Plan Patient is stable for discharge, instructions and precautions reviewed Has postop follow up 2 weeks scheduled Ordered & Completed Meds Table Ordered Medication Start Date/Time Dosage Route Frequency Status CLINDAMYCIN IVPB PREMIX: 900MG/50ML 08/22/2024 06:00 100 ml/hr IV PIGGYBACK X1 active GENTAMICIN IVPB (PHARM PREP):400MG/100ML 08/22/2024 06:00 100 ml/hr IV PIGGYBACK X1 active LACTATED RINGERS 1000ML 08/22/2024 06:00 100 ml/hr INTRAVENOUS X1 completed MIDAZOLAM INJ SDV: 2MG/2ML 08/22/2024 06:00 2 MG IV PUSH X1 completed LACTATED RINGERS 1000ML 08/22/2024 08:46 100 ml/hr INTRAVENOUS CONT IN PACU active FentaNYL INJ SYRINGE: 50MCG/ML 08/22/2024 08:46 25 MCG IV PUSH PRN IN PACU Q5MIN active HYDROmorphone INJ SYRINGE: 0.5MG/0.5ML 08/22/2024 08:46 0.25 MG IV PUSH PRN IN PACU Q5MIN active ACETAMINOPHEN INJ IVPB: 1000MG/100ML 08/22/2024 08:46 400 ml/hr IV PIGGYBACK PRN IN PACU X1 completed OxyCODONE TABLET no apap added: 5mg 08/22/2024 08:46 5 MG ORAL PRN IN PACU active ONDANSETRON INJ SDV: 4MG/2ML 08/22/2024 08:46 4 MG IV PUSH PRN IN PACU X1 active LORazepam INJ SYRINGE: 2MG/ML 08/22/2024 08:46 0.5 MG IV PUSH PRN IN PACU Q30MIN active PROMETHAZINE SUPPOSITORY: 25MG 08/22/2024 08:46 25 MG RECTALLY PRN IN PACU X1 active ACETAMINOPHEN TABLET: 325MG 08/22/2024 12:17 975 MG ORAL Q6H active OxyCODONE TABLET no apap added: 5mg 08/22/2024 12:10 5 MG ORAL PRN Q4H active KETOROLAC INJ SDV: 30MG/1ML 08/22/2024 13:00 15 MG IV PUSH Q6H active ONDANSETRON INJ SDV: 4MG/2ML 08/22/2024 12:13 4 MG IV PUSH PRN Q4H active Discharge Medications: No Discharge Medications Available
--- OUTSIDE RECORDS SUMMARY | 2024-10-18 16:40 | XMS_ITS ---
Author Organization Unknown Address [address] [place] [address] [phone] Phone Care Team Providers Care Conditioning Yard Supervisor Name Role Phone TED STEVEN Attending Unavailable TOÑO Dewitt Primary Unavailable Social History Type Status Start Date End Date Code Code Syst em Smoking History Former smoker 10/05/2004 10/05/[address] Sex Female Hospital Discharge Instructions [...] Co de Code System CEPHALOSPORIN Hives (SNOMED-CT: 249619577) Moderate Active AMOXICILLIN RASH (SNOMED-CT: null) Moderate Active 723 RxNorm SCOPOLAMINE NAUSEA/VOMITING (SNOMED-CT: null) Active Plan of Treatment LAB DRAW 20MIN 08/20/2024 US PELVIC / TV 07/14/2024 MRI BRAIN W WO CONTRAST 10/29/2023 US BREAST UNI LT 05/07/2023 MM DIAG BILAT 05/07/2023 Personal Care Team Section Performer Name Performer Role Active Date Inactive Da te
--- OUTSIDE RECORDS SUMMARY | 2024-10-18 16:41 | XMS_ITS ---
Author Organization Unknown Address [address] [place] [address] [phone] Phone Care Team Providers Care Thread Reeler Name Role Phone LAMELL RAHUL Plummer Attending Unavailable TOÑO Dewitt Primary Unavailable Social History Type Status Start Date End Date Code Code Syst em Smoking History Former smoker 10/05/2004 10/05/[address] Sex Female Hospital Discharge Instructions [...] Co de Code System CEPHALOSPORIN Hives (SNOMED-CT: 188962319) Moderate Active AMOXICILLIN RASH (SNOMED-CT: null) Moderate Active 723 RxNorm SCOPOLAMINE NAUSEA/VOMITING (SNOMED-CT: null) Active Plan of Treatment LAB DRAW 20MIN 08/20/2024 US PELVIC / TV 07/14/2024 MRI BRAIN W WO CONTRAST 10/29/2023 US BREAST UNI LT 05/07/2023 MM DIAG BILAT 05/07/2023 Encounters Encounter Diagnosis Start Date Code Code Sys tem Procedure on nervous system 08/10/2024 [id number] SNOMED-CT Personal Care Team Section Performer Name Performer Role Active Date Inactive Da te
--- OUTSIDE RECORDS SUMMARY | 2024-10-18 16:41 | XMS_ITS ---
Author Organization Unknown Address [address] [place] [address] [phone] Phone Care Team Providers Care Powerhouse Mechanic Helper Name Role Phone TED STEVEN Attending Unavailable TOÑO Dewitt Primary Unavailable Results THYROID TESTING CASCADE* - C ollect Date/Time: 07/14/2024 09:06 [facility] ID: [id number] [address] [place] [address], [address] LOINC: 3016-3 Test Value Unit Reference Range Code Code System Flag TSH. 1.626 uIU/mL L=0.360 H=3.740 3014-8 LOINC CBC W/ DIFFERENTIAL* - Colle ct Date/Time: 07/14/2024 09:06 [facility] ID: [id number] [address] [place] [address], [address] LOINC: 73701-6 Test Value Unit Reference Range Code Code System Flag WBC 4.55 th/cmm L=5.00 H=10.00 6690-2 LOINC L NEUT % 63.5 % L=40.0 H=80.0 LYMPH % 25.9 % L=10.0 H=50.0 MONO % 7.5 % L=2.0 H=12.0 32820-0 LOINC EOS % 1.8 % L=0.0 H=8.0 BASO % 0.9 % L=0.0 H=3.0 IG % 0.4 % L=0.0 H=1.1 2514-8 LOINC NRBC % 0.0 % L=0.0 H=0.0 48200-3 LOINC NEUT abs count 2.9 th/cmm L=1.6 H=8.4 751-8 LOINC LYMPH abs count 1.2 th/cmm L=1.5 H=4.0 731-0 LOINC L MONO abs count 0.3 th/cmm L=0.2 H=1.0 742-7 LOINC EOS abs count 0.1 th/cmm L=0.0 H=0.5 711-2 LOINC BASO abs count 0.0 th/cmm L=0.0 H=0.2 704-7 LOINC IG abs count 0.0 th/cmm L=0.0 H=0.1 54238-9 LOINC NRBC abs count 0.0 mil/cmm L=0.0 H=0.0 45511-1 LOINC RBC 4.86 mil/cmm L=3.90 H=5.40 789-8 LOINC HEMOGLOBIN 13.0 gm/dL L=12.0 H=16.0 718-7 LOINC HEMATOCRIT 43 % L=37 H=47 4544-3 LOINC MCV 88 fL L=82 H=92 787-2 LOINC MCH 26.7 pg L=27.0 H=31.0 785-6 LOINC L MCHC 30.4 % L=32.0 H=36.0 786-4 LOINC L RDW-SD 47.5 fL L=39.0 H=49.0 788-0 LOINC PLATELET COUNT 357 th/cmm L=150 H=450 777-3 LOINC US PELVIC TRANSVAGINAL* - Co mpleted: 07/14/2024 08:59 LOINC: [facility] RADI[facility]Y [place], [place] [address] RADIOLOGY RIGGING UP WORKER REPORT Patient Name: REID MASON Farzad MRN: Sex: : Age: [id number] F 1985 38 Account: Accession: Admit: StayType: [id number] 07/14/2024 O Ordered: Order ID: Submitted: Ordering Provider: 07/14/2024 08:38 [id number] AUBREY MOYA Completed: Technologist: Resulted: 07/14/2024 08:42 GVS 07/14/2024 12:10 Gynecological Report (Signed Final 07/14/2024 12:10 pm) PATIENT INFO: ID #: [id number] : [birth year] (38 yrs)(F) Name: REID MASON Visit Date: 07/14/2024 09:10 am PERFORMED BY: Attending: Aubrey Vale MD Performed By: Jeffrey TRAN, Emeli BOLANOS Referred By: AUBREY JEAN Location: [facility] SERVICE(S) PROVIDED: UTV - Transvaginal - [id number] INDICATIONS: REASON: ABNORMAL UTERINE BLEEDING (AUB ADD'L INFO: NO ENTRY -------- HISTORY: -------- Age: 38 ------- UTERUS: ------- Uterus: Visualized Position: Retroverted Size (cm) L: 9.4 W: 7.7 H: 5.7 Description: Heterogeneous ENDOMETRIUM: Endometrium: Normal appearance Thickness(mm): 5.9 RIGHT OVARY: Status: Visualized Size (cm) L: 2.5 W: 1.7 H: 1.8 Vol (ml): 4.0 Morphology: Normal appearance LEFT OVARY: Status: Visualized Size (cm) L: 2.5 W: 2.8 H: 1.7 Vol (ml): 6.2 Morphology: Normal appearance IMPRESSION: Retroverted retroflexed uterus of normal overall size. Endometrium age-appropriate at about 6 mm thickness without discernible focal pathology. Electronically signed by: Aubrey Vale MD, Radiology 12:04 PM Thank you for letting us participate in the care of this patient. If you are a health care provider and have any questions regarding this report, please contact the number above. For patients who have questions, please contact the health customer care team coach that requested your imaging first. Aubrey Vale Electronically Signed Final Report 07/14/2024 12:10 pm Social History Type Status Start Date End Date Code Code Syst em Smoking History Former smoker 10/05/2004 10/05/[address] Sex Female Hospital Discharge Instructions [...] Co de Code System CEPHALOSPORIN Hives (SNOMED-CT: 124837560) Moderate Active AMOXICILLIN RASH (SNOMED-CT: null) Moderate Active 723 RxNorm SCOPOLAMINE NAUSEA/VOMITING (SNOMED-CT: null) Active Plan of Treatment LAB DRAW 20MIN 08/20/2024 US PELVIC / TV 07/14/2024 MRI BRAIN W WO CONTRAST 10/29/2023 US BREAST UNI LT 05/07/2023 MM DIAG BILAT 05/07/2023 Encounters Encounter Diagnosis Start Date Code Code Sys tem Abnormal uterine and vaginal bleeding, unspecified 07/2024 SNOMED-CT Personal Care Team Section Performer Name Performer Role Active Date Inactive Da te
--- OUTSIDE RECORDS SUMMARY | 2024-10-18 16:41 | XMS_ITS ---
Author Organization Unknown Address [address] [place] [address] [phone] Phone Care Team Providers Care Pianos And Organs Salesperson Name Role Phone TED STEVEN Attending Unavailable TOÑO Dewitt Primary Unavailable Social History Type Status Start Date End Date Code Code Syst em Smoking History Former smoker 10/05/2004 10/05/[address] Sex Female Hospital Discharge Instructions [...] Co de Code System CEPHALOSPORIN Hives (SNOMED-CT: 238700392) Moderate Active AMOXICILLIN RASH (SNOMED-CT: null) Moderate Active 723 RxNorm SCOPOLAMINE NAUSEA/VOMITING (SNOMED-CT: null) Active Plan of Treatment LAB DRAW 20MIN 08/20/2024 US PELVIC / TV 07/14/2024 MRI BRAIN W WO CONTRAST 10/29/2023 US BREAST UNI LT 05/07/2023 MM DIAG BILAT 05/07/2023 Encounters Encounter Diagnosis Start Date Code Code Sys tem Abnormal vaginal bleeding 08/01/2024 777933907 SN OMED-CT Personal Care Team Section Performer Name Performer Role Active Date Inactive Da te
--- OUTSIDE RECORDS SUMMARY | 2024-10-18 16:42 | XMS_ITS ---
Author Organization Unknown Address [address] [place] [address] [phone] Phone Care Team Providers Care Audiovisual Tech Name Role Phone TED STEVEN Attending Unavailable TOÑO Dewitt Primary Unavailable Social History Type Status Start Date End Date Code Code Syst em Smoking History Former smoker 10/05/2004 10/05/[address] Sex Female Hospital Discharge Instructions [...] Co de Code System CEPHALOSPORIN Hives (SNOMED-CT: 337648043) Moderate Active AMOXICILLIN RASH (SNOMED-CT: null) Moderate Active 723 RxNorm SCOPOLAMINE NAUSEA/VOMITING (SNOMED-CT: null) Active Plan of Treatment LAB DRAW 20MIN 08/20/2024 US PELVIC / TV 07/14/2024 MRI BRAIN W WO CONTRAST 10/29/2023 US BREAST UNI LT 05/07/2023 MM DIAG BILAT 05/07/2023 Encounters Encounter Diagnosis Start Date Code Code Sys tem Follow-up visit 09/09/2024 [id number] SNOMED-CT Personal Care Team Section Performer Name Performer Role Active Date Inactive Da te
--- OUTSIDE RECORDS SUMMARY | 2024-10-18 16:42 | XMS_ITS ---
Author Organization Unknown Address [address] [place] [address] [phone] Phone Care Team Providers Care Patient Care Coordinator Name Role Phone DELMAR Carrillo Attending Unavailable Social History Type Status Start Date End Date Code Code Syst em Smoking History Former smoker 10/05/2004 10/05/[address] Sex Female Hospital Discharge Instructions Should you have any questions prior to discharge, please contact a member of your healthcare team. If you have left the hospital and have any questions, please contact your primary care physician. Reason For Referral No Data Found Procedures Procedure Name Date Status Code Code Syste m Neuroplasty &/Or Transpositi on; Median Nerve At Carpal Tunnel 08/02/2024 completed 21848 CPT Allergies and Adverse Reactions Allergy Substance Reaction Severity Start Date Concern Status Co de Code System CEPHALOSPORIN Hives (SNOMED-CT: 675850708) Moderate Active AMOXICILLIN RASH (SNOMED-CT: null) Moderate Active 723 RxNorm SCOPOLAMINE NAUSEA/VOMITING (SNOMED-CT: null) Active Plan of Treatment LAB DRAW 20MIN 08/20/2024 US PELVIC / TV 07/14/2024 MRI BRAIN W WO CONTRAST 10/29/2023 US BREAST UNI LT 05/07/2023 MM DIAG BILAT 05/07/2023 Encounters Encounter Diagnosis Start Date Code Code Sys tem Carpal tunnel syndrome, left upper limb 08/02/2024 SNOMED-CT Personal Care Team Section Performer Name Performer Role Active Date Inactive Da te
--- OUTSIDE RECORDS SUMMARY | 2024-10-18 16:42 | XMS_ITS | Clinical Summary ---
Author Organization [facility] Address [address] [place] [address] Care Team Providers Care Rougher For Cement Name Role Phone Unknown, Provider MD Primary Care Provider Unava ilable Allergies Active Allergy Reactions Criticality Noted Date Comments Amoxicillin Rash,Hives High 10/17/2002 Cephalosporins Hives,Rash High 11/28/2015 Scopolamine Nausea And Vomiting 05/23/2019 Medications norgestimate-et hinyl estradioL (SPRINTEC, 28,) 0.25-35 mg-mcg per tablet [...] 05/06/2020 Verbally Threaten Not on file 05/06/2020 Comments Unknown Sex and Gender Information Value Date Recorded Sex Assigned at Not on file Legal Sex Female 18:47 EST Gender Identity Not on file Sexual Orientation [...] Screen 1985 Hepatitis B Vaccine (1 of - + 3-dose series) 2006 COVID-19 Vaccine ( season) 2024, 09/11/2021 Insurance [place] Care Teams Rougher For Cement Relationship Specialty Start Date End Date Unknown, Provider, PCP - General 08/10/09
--- OUTSIDE RECORDS SUMMARY | 2024-10-18 16:42 | XMS_ITS ---
Author Organization Unknown Address [address] [place] [address] [phone] Phone Care Team Providers Care Buzzle Buffer Name Role Phone TED STEVEN Attending Unavailable Social History Type Status Start Date End Date Code Code Syst em Smoking History Former smoker 10/05/2004 10/05/[address] Sex Female Hospital Discharge Instructions [...] Less; w/ Removal Of Tube(s)/Ovary(s) 08/22/2024 completed 37145 CPT Allergies and Adverse Reactions Allergy Substance Reaction Severity Start Date Concern Status Co de Code System CEPHALOSPORIN Hives (SNOMED-CT: 821817086) Moderate Active AMOXICILLIN RASH (SNOMED-CT: null) Moderate Active 723 RxNorm SCOPOLAMINE NAUSEA/VOMITING (SNOMED-CT: null) Active Plan of Treatment LAB DRAW 20MIN 08/20/2024 US PELVIC / TV 07/14/2024 MRI BRAIN W WO CONTRAST 10/29/2023 US BREAST UNI LT 05/07/2023 MM DIAG BILAT 05/07/2023 Encounters Encounter Diagnosis Start Date Code Code Sys tem Abnormal uterine and vaginal bleeding, unspecified SNOMED-CT Personal Care Team Section Performer Name Performer Role Active Date Inactive Da te
--- OUTSIDE RECORDS SUMMARY | 2024-10-18 16:43 | XMS_ITS | Encounter Summary ---
Author Organization [facility] Address [address] [place] [address] Care Team Providers Care Campground Caretaker Name Role Phone Unknown, Provider Primary Care Provider Wellington ricardo Encounter Details Date Type Department Care Team (Latest Contact Info) Description 04/29/2019 13:29 EDT - 04/29/2019 23:59 EDT Hospital Encounter [address] [address] Unknown, Provider, Discharge Disposition: Home or Self Care Social History Tobacco Use Types Packs/Day Years Used Date Smoking Tobacco: Never Assessed Comments Unknown Sex and Gender Information Value Date Recorded Sex Assigned at Not on file Legal Sex Female 18:47 EST Gender Identity Not on file Sexual Orientation Not on file documented as of this encounter Discharge Disposition Disposition Code Departure Means Destination Home or Self Custodial documented in this encounter Plan of Treatment Not on file documented as of this encounter Visit Diagnoses Not on filedocumented in this encounter Care Teams Campground Caretaker Relationship Specialty Start Date End Date Unknown, Provider, PCP - General 08/10/09 documented as of this encounter
--- OUTSIDE RECORDS SUMMARY | 2024-10-18 16:43 | XMS_ITS | Encounter Summary ---
Author Organization [facility] Address [address] [place] [address] Care Team Providers Care Airfield Defence Guard Name Role Phone Unknown, Provider MD Primary Care Provider Unava ilable Reason for Visit * Reason Comments Tremors * Consult, Test and Treat (Routine) - Authorization Not Required Specialty Diagnoses / Procedures [facility] Referred To Contact Neurology Diagnoses Tremor, unspecified BolaMariaelena joseph MD [address] [place] [address] Phone: tel: fax: [facility] [address] [place] [address] Phone: tel: fax: Referral ID Status Reason Start Date Expiration Date Visits Requested Visits Authorized [id number] Authorization Not Required 1 1 Encounter Details Date Type Department Care Team (Late st Contact Info) Description 02/10/2024 9:00 EDT Office Visit [facility] [address] [place] [address] [phone] Pritesh Lemos MD [address] [place] [address] [address] [place] [address] Other fatigue (Primary Dx); Paresthesia; [...] - documented in this encounter Functional Status * Because of a physical, mental, or emotional condition, does this person have difficulty doing errands alone such as visiting a doctor's office or shopping? Answer Date of Assessment Author No 02/10/2024 8:38 EDT documented as of this encounter Mental Status * Because of a physical, mental, or emotional condition, does this person have serious difficulty concentrating, remembering, or making decisions? Answer Entry Date Author No 02/10/2024 8:38 EDT documented in this encounter Progress Notes * Pritesh Lemos MD - 02/10/2024 0900 EDT [facility] PATIENT NAME: Liat Flanagan [...] a mplitude whole body shakiness. 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 The other day [...] an MRI of her head done at [facility] which was read as normal. She also [...] She describes MRI of the head from [facility] as normal but it is not available [...] that this could be a stress reaction, andcady did seem to identify with that somewhat. [...] may reflect changes made after this encounter. FLUoxetine (PROZAC) 40 mg capsule Take 1 [...] (UNIFINE PENTIPS) USE ONCE DAILY WITH VICTOZA norgestimate-ethi nyl estradioL (SPRINTEC, 28,) 0.25-35 mg-mcg per tablet Take 1 Tablet by mouth daily. added in this encounter Care Teams Airfield Defence Guard Relationship Specialty Start Date End Date Unknown, Provider, PCP - General 08/10/09 documented as of this encounter
--- OUTSIDE RECORDS SUMMARY | 2024-10-18 16:43 | XMS_ITS | Encounter Summary ---
Author Organization [facility] Address [address] [place] [address] Care Team Providers Care Marionette Performer Name Role Phone Unknown, Provider Primary Care Provider Wellington ricardo Encounter Details Date Type Department Care Team (Late st Contact Info) Description 05/13/2016 Results Only [facility] [phone] Vazquez Alex CNM Social History Tobacco Use [...] ? LIAT FLANAGAN ? Accession #: ? [id number] : ? 1985 (Age: 30) ??F ?Collect Date: ? 05/13/2016 Location: ? [facility] ? Receive Date: ? 05/14/2016 Provider: ?VAZQUEZ ALEX CNM Copy to: ?DAVIS ARIZMENDI RIVER TRANSPORTATION WORKER ? Specimen/Source: ?Pap Test, Cervix/Endocervix, ThinPrep Imaging System with manual evaluation Last Menstrual Period: ? 03/09/2016 Menstrual/Pregnanc y Status: ? Other: ? Lanolin Plant Operator Clinical/Treatment Hx - None ? SPECIMEN ADEQUACY ? Satisfactory for Evaluation - transformation zone component present - scant squamous epithelial component secondary to excessive blood GENERAL CATEGORIZATION ? Negative for Intraepithelial Lesion or Malignancy ? Document reviewed and electronically signed by: ? LATHA Oscar(ASCP) ? Report Date: ??05/21/2016 14:32 End of Report [facility] 05/13/2016 05/14/2016 us Vazquez Calejoceline LIONEL PATHOLOGY ORDERABLES Final Resu lt [facility] [address] [place] [address] documented in this encounter Visit Diagnoses Not on filedocumented in this encounter Care Teams Marionette Performer Relationship Specialty Start Date End Date Unknown, Provider, PCP - General 08/10/09 documented as of this encounter
--- OUTSIDE RECORDS SUMMARY | 2024-10-18 16:43 | XMS_ITS | Encounter Summary ---
Author Organization [facility] Address [address] [place] [address] Care Team Providers Care Paper Products Inspector Name Role Phone Unknown, Provider Primary Care Provider Wellington ricardo Encounter Details Date Type Department Care Team (Late st Contact Info) Description 01/28/2024 Lab Requisition [facility] Pathology & Laboratory Medicine - [facility] [address] [place], [place] [id number] Outr Resulting Lab, Provider Social History Tobacco [...] Lyme Ab Negative Negative 01/28/2024 12:34 EDT [facility] Blood VENOUS BLOOD / Unknown 01/25/2024 16:00 EDT 01/28/2024 11:15 EDT us Provider Outr Resulting Lab IMMUNOLOGY AND SEROL OGY ORDERABLES Final Result [facility] [address] [place] [address] documented in this encounter Visit Diagnoses Not on filedocumented in this encounter Care Teams Paper Products Inspector Relationship Specialty Start Date End Date Unknown, Provider, PCP - General 08/10/09 documented as of this encounter
--- OUTSIDE RECORDS SUMMARY | 2024-10-18 16:43 | XMS_ITS | Encounter Summary ---
Author Organization [facility] Address [address] [place] [address] Care Team Providers Care Lubricating Engineer Name Role Phone Unknown, Provider Primary Care Provider Wellington ricardo Encounter Details Date Type Department Care Team (Latest Contact Info) Description 03/13/2014 10:34 EDT - 03/13/2014 23:59 EDT Hospital Encounter [facility] [address] [place] [address] Unknown, Provider, Discharge Disposition: Home or Self [...] Code Departure Means Destination Home or Self Shelter documented in this encounter Plan of Treatment Not on file documented as of this encounter Visit Diagnoses Not on filedocumented in this encounter Care Teams Lubricating Engineer Relationship Specialty Start Date End Date Unknown, Provider, PCP - General 08/10/09 documented as of this encounter
--- OUTSIDE RECORDS SUMMARY | 2024-10-18 16:43 | XMS_ITS | Encounter Summary ---
Author Organization [facility] Address [address] [place] [address] Care Team Providers Care Railroad Firer Name Role Phone Unknown, Provider Primary Care Provider Wellington ricardo Encounter Details Date Type Department Care Team (Late st Contact Info) Description 04/21/2023 Lab Requisition [facility] Pathology & Laboratory Medicine - [facility] [address] [place] [address] Outr Resulting Lab, Provider Social History Tobacco [...] 9:15 EDT) Hold Hold 04/21/2023 22:46 EDT [facility] Blood VENOUS BLOOD / Unknown 04/21/2023 9:15 EDT 04/21/2023 21:37 EDT us Provider Outr Resulting Lab LAB INFO SERVICE AND SUPPORT & PHONE RESULT Final Result Performing Organization Address [facility] Co de Phone Number [facility] [address] [place] [address] * LYME AB (04/21/2023 9:15 EDT) [facility] Lyme Ab Negative Negative 04/22/2023 11:08 EDT [facility] Blood VENOUS BLOOD / Unknown 04/21/2023 9:15 EDT 04/21/2023 21:35 EDT us Provider Outr Resulting Lab IMMUNOLOGY AND SEROL OGY ORDERABLES Final Result Performing Organization Address [facility] Co de Phone Number [facility] [address] [place] [address] * CORTISOL (04/21/2023 9:15 EDT) [facility] Cortisol 22 See Note ug/dL 04/21/2023 22:34 EDT [facility] Comment: NOTE: Reference Ranges (from OCD IFU): Collected Before 10:00 AM: ??4 - 23 ug/dL Collected After 5:00 PM: ?2 - 14 ug/dL The results of this assay can be falsely elevated due to the consumption of Biotin. Blood VENOUS BLOOD / Unknown 04/21/2023 9:15 EDT 04/21/2023 21:35 EDT us Provider Outr Resulting Lab CHEMISTRY & BLOOD GA S ORDERABLES Final Result Performing Organization Address [facility] Co de Phone Number [facility] [address] [place] [address] * (ABNORMAL) ANTI NUCLEAR AB (MIYA), IFA (04/21/2023 9:15 EDT) MIYA Interpretation Positive(A) Negative 04/22/2023 15:48 EDT [facility] MIYA Titer and Pattern 1 1:80 Speckled 04/22/2023 15:48 EDT [facility] Blood VENOUS BLOOD / Unknown 04/21/2023 9:15 EDT 04/21/2023 21:35 EDT Narrative [facility] - 04/22/2023 15:48 EDT Results were obtained with the [employer] NOVA Lite HEp-2 MIYA Kit by indirect immunofluorescence. us Provider Outr Resulting Lab IMMUNOLOGY AND SEROL OGY ORDERABLES Final Result Performing Organization Address City/[facility]/ZIP Co de Phone Number [facility] [address] [place] [address] * CCP ANTIBODIES (04/21/2023 9:15 EDT) CCP Antibodies <2.5 <5.0 U/mL 04/22/2023 9:05 EDT [facility] Blood VENOUS BLOOD / Unknown 04/21/2023 9:15 EDT 04/21/2023 21:35 EDT us Provider Outr Resulting Lab IMMUNOLOGY AND SEROL OGY ORDERABLES Final Result Performing Organization Address City/[facility]/ZIP Co de Phone Number [facility] [address] [place] [address] documented in this encounter Visit Diagnoses Not on filedocumented in this encounter Care Teams Railroad Firer Relationship Specialty Start Date End Date Unknown, Provider, PCP - General 08/10/09 documented as of this encounter
--- OUTSIDE RECORDS SUMMARY | 2024-10-18 16:43 | XMS_ITS | Encounter Summary ---
Author Organization [facility] Address [address] [place] [address] Care Team Providers Care Unix Analyst Name Role Phone Unknown, Provider Primary Care Provider Wellington ricardo Encounter Details Date Type Department Care Team (Late st Contact Info) Description 06/22/2012 Results Only [facility] Laboratory Services - [facility] ([facility]) [address] [place] [address] Natasha Garcia, ASSOCIATE STORE MANAGER Social History Tobacco Use Types Packs/Day Years [...] ? LIAT FLANAGAN ? Accession #: ? [id number] : ? 1985 (Age: 26) ??F ?Collect Date: ? 06/22/2012 Location: ? [facility] ? Receive Date: ? 06/23/2012 Provider: ?NATASHA GARCIA ASSOCIATE STORE MANAGER Copy to: ?DAVIS ARIZMENDI BONDING MACHINE TENDER ? Specimen/Source: ?Pap Test, Cervix/Endocervix, ThinPrep Imaging System with manual evaluation Last Menstrual Period: ? Hormonal/Contracep tive Status: ? Yes: mirena removed today ? SPECIMEN ADEQUACY ? Satisfactory for Evaluation - transformation zone component present GENERAL CATEGORIZATION ? Negative for Intraepithelial Lesion or Malignancy ? Document reviewed and electronically signed by: ? Tatyana Griffin, LATHA(ASCP) ? Report Date: ??06/29/2012 16:00 End of Report [facility] 06/22/2012 06/23/2012 us Natasha Garcia ASSOCIATE STORE MANAGER PATHOLOGY ORDERABLES Final Re sult [facility] [address] [place] [address] documented in this encounter Visit Diagnoses Not on filedocumented in this encounter Care Teams Unix Analyst Relationship Specialty Start Date End Date Unknown, Provider, PCP - General 08/10/09 documented as of this encounter
--- OUTSIDE RECORDS SUMMARY | 2024-10-18 16:43 | XMS_ITS | Encounter Summary ---
Author Organization [facility] Address [address] [place] [address] Care Team Providers Care Retail Presentation Specialist Name Role Phone Unknown, Provider Primary Care Provider Wellington ricardo Encounter Details Date Type Department Care Team (Late st Contact Info) Description 07/08/2024 Lab Requisition [facility] Pathology & Laboratory Medicine - [facility] [address] [place] [address] Aubrey Almaraz [address] [place] [address] [address] [place] [address] Encounter for screening for human papillomavirus (HPV); Encounter for screening for malignant neoplasm of [...] on file documented as of this encounter Functional Status * Because of [...] 02/10/2024 8:38 EDT documented in this encounter Plan of Treatment Not on file documented as of this encounter Procedures Procedure Name Priority Date/Time Associated Diagnosis Comments PAP TEST Today 07/08/2024 18:37 EDT Encounter for screening for human papillomavirus (HPV) Encounter for screening for malignant neoplasm of cervix HPV DNA DETECTION WITH GENOTYPING, PCR Today 07/08/2024 18:37 EDT Encounter for screening for human papillomavirus (HPV) Encounter for screening for malignant neoplasm of cervix documented in this encounter Results * HPV DNA DETECTION WITH GENOTYPING, PCR (07/08/2024 18:37 EDT) HPV High Risk type 16, PCR Negative Negative 07/20/2024 14:01 EDT [facility] HPV High Risk type 18, PCR Negative Negative 07/20/2024 14:01 EDT [facility] HPV other High Risk types, PCR Negative Negative 07/20/2024 14:01 EDT [facility] Comment: The following Other High Risk HPV types were not detected: ??31,33, 35, 39, 45, 51, 52, 56, 58, 59, 66 and 68. Pap Test CERVIX UTERI STRUCTURE / Unknown 07/08/2024 18:37 EDT 07/19/2024 13:34 EDT Aubrey Almaraz MICROBIOLOGY - GENERAL ORDJojo BEEBE Final Result [facility] [address] [place] [address] * PAP TEST (07/08/2024 18:37 EDT) Specimens A. Cervix and/or Endocervix , ThinPrep Imaging System with Manual Evaluation 07/20/2024 14:01 EDT [facility] Specimen Adequacy Satisfactory for Evaluation - transformation zone component present Scant squamous epithelial component 07/20/2024 14:01 EDT [facility] General Categorization Negative for intraepithelial lesion or malignancy 07/20/2024 14:01 EDT [facility] Descriptive Diagnosis Reactive cellular changes associated with inflammation present (includes repair). 07/20/2024 14:01 EDT [facility] Attestation By the signature below, the attending physician certifies that they have personally conducted a gross and/or microscopic examination of the described specimens and rendered or confirmed the above diagnosis. 07/20/2024 14:01 [facility] at [address] Clinical History Clinical History, Signs, Symptoms, Chief Complaint, Pertaining to This Order: See below Hormone/Contracep tive Use?: Yes ?: No Post-?: No 07/20/2024 14:01 T [facility] Performing Lab [facility] 07/20/2024 14:01 [facility] Scanned Images 07/20/2024 14:01 [facility] HPV High Risk type 16, PCR Negative 07/20/2024 14:01 [facility] HPV High Risk type 18, PCR Negative 07/20/2024 14:01 [facility] HPV Other High Risk Types, PCR Negative The following Other High Risk HPV types were not detected: 31,33, 35, 39, 45, 51, 52, 56, 58, 59, 66 and 68. 07/20/2024 14:01 [facility] Pap Test CERVIX UTERI STRUCTURE / Unknown 07/08/2024 18:37 EDT 07/11/2024 10:00 EDT us Aubrey Almaraz PATHOLOGY ORDERABLES Final Result Performing Organization Address City/State/[facility] Co de Phone Number [facility] [address] [place] [address] documented in this encounter Visit Diagnoses Diagnosis Encounter for screening for human papillomavirus (HPV) Special screening examination for human papillomavirus (HPV) Encounter for screening for malignant neoplasm of cervix Screening for malignant neoplasm of the cervix documented in this encounter Care Teams Retail Presentation Specialist Relationship Specialty Start Date End Date Unknown, Provider, PCP - General 08/10/09 documented as of this encounter
--- OUTSIDE RECORDS SUMMARY | 2024-10-18 16:43 | XMS_ITS | Encounter Summary ---
Author Organization [facility] Address [address] [place] [address] Care Team Providers Care Territory Sales Executive Name Role Phone Unknown, Provider Primary Care Provider Wellington ricardo Encounter Details Date Type Department Care Team (Late st Contact Info) Description 09/16/2010 Results Only [facility] Laboratory Services - [facility] ([facility]) [address] [place], [place] [address] Sindhu Condon CNM [address] [place], [place] [id number] Social History Tobacco Use Types Packs/Day Years [...] ? LIAT HARP ? Accession #: ? [id number] ? : ? 1985 (Age: 25) ??F [...] of Report ? [facility] 09/16/2010 09/17/2010 us Sindhu Condon CNM PATHOLOGY ORDERABLES Final Resul t [facility] [address] [place] [address] documented in this encounter Visit Diagnoses Not on filedocumented in this encounter Care Teams Territory Sales Executive Relationship Specialty Start Date End Date Unknown, Provider, PCP - General 08/10/09 documented as of this encounter
--- OUTSIDE RECORDS SUMMARY | 2024-10-18 16:43 | XMS_ITS | Encounter Summary ---
Author Organization [facility] Address [address] [place] [address] Care Team Providers Care It Solutions Sales Consultant Name Role Phone Unknown, Provider Primary Care Provider Wellington ricardo Encounter Details Date Type Department Care Team (Late st Contact Info) Description 04/29/2019 Results [facility] [phone] Susi Lundberg, PRESS MACHINE FEEDER [address] [place], [place] [id number] Social History Tobacco Use Types Packs/Day Years [...] ? LIAT FLANAGAN ? Accession #: ? [id number] ? : ? 1985 (Age: 33) ??F ? Collect Date: ? 04/29/2019 ? Location: ? [facility] ? Receive Date: ? 05/02/2019 ? Provider: SUSI LUNDBERG PRESS MACHINE FEEDER Copy to: ? Final Pathologic Diagnosis: SKIN [...] are present. ??Clinical correlation is recommended. ??(Dr. Cervantes)/rust Microscopic Description: Sections reveal a small punch [...] shows no increased dermal mucin deposition. ??(Dr. Cervantes)/rust Document reviewed and electronically signed by: BIANCA [...] The specimen is submitted intact in 1. RA[facility]OL Sanz [facility] 05/02/2019 3:30 PM End of Report [facility] 04/29/2019 15:1 8 EDT 05/02/2019 15:18 EDT us Susi Lundberg NP PATHOLOGY ORDERABLES Final Re sult [facility] [address] [place] [address] documented in this encounter Visit Diagnoses Not on filedocumented in this encounter Care Teams It Solutions Sales Consultant Relationship Specialty Start Date End Date Unknown, Provider, PCP - General 08/10/09 documented as of this encounter
--- OUTSIDE RECORDS SUMMARY | 2024-10-18 16:43 | XMS_ITS | Encounter Summary ---
Author Organization [facility] Address [address] [place] [address] Care Team Providers Care Component Prep Operator Name Role Phone Unknown, Provider MD Primary Care Provider Unava ilable Reason for Visit * Reason Comments EMG (Electomyography) * Consult, Test and Treat (Routine) - Authorization Not Required Specialty Diagnoses / Procedures Referred By [facility] t Referred To Contact Neurology Diagnoses Carpal tunnel syndrome, bilateral Procedures EMG/NERVE CONDUCTION STUDY Celeste Mcneill [address] [place] [address] Phone: tel: fax: [facility] [address] [place] [address] Phone: tel: fax: Referral ID Status Reason Start Date Expiration Date Visits Requested Visits Authorized [id number] Authorization Not Required 1 1 Encounter Details Date Type Department Care Team (Late st Contact Info) Description 07/09/2023 11:00 EDT Procedure visit [facility] [address] [place] [address] Pritesh Lemos MD [address] [place] [address] [address] [place] [address] Bilateral carpal tunnel syndrome (Primary [...] Pritesh Lemos MD - 07/09/2023 1100 EDT [facility] Clinical Neurophysiology Nerve Conduction and Electromyography Report [...] syndrome documented in this encounter Care Teams Component Prep Operator Relationship Specialty Start Date End Date Unknown, Provider, PCP - General 08/10/09 documented as of this encounter
--- OUTSIDE RECORDS SUMMARY | 2024-10-18 16:43 | XMS_ITS | Encounter Summary ---
Author Organization [facility] Address [address] [place] [address] Care Team Providers Care Circular Stuffer Name Role Phone Unknown, Provider Primary Care Provider Wellington ricardo Encounter Details Date Type Department Care Team (Late st Contact Info) Description 08/09/2009 Orders Only [facility] Laboratory Services - [facility] ([facility]) [address] [place], [place] [phone] Sindhu Condon CNM [address] [place], [place] [id number] Social History Tobacco Use Types Packs/Day Years [...] ? LIAT HARP ? Accession #: ? [id number] ? : ? 1985 (Age: 23) ??F [...] of Report ? [facility] 08/09/2009 08/10/2009 us Sindhu Condon CNM PATHOLOGY ORDERABLES Final Resul t [facility] [address] [place] [address] documented in this encounter Visit Diagnoses Not on filedocumented in this encounter Care Teams Circular Stuffer Relationship Specialty Start Date End Date Unknown, Provider, PCP - General 08/10/09 documented as of this encounter
--- OUTSIDE RECORDS SUMMARY | 2024-10-18 16:43 | XMS_ITS | Referral Summary ---
Author Organization [facility] Address [address] [place] [address] Care Team Providers Care Lumber Tallier Name Role Phone Unknown, Provider MD Primary [...] Body Mass Index - - Functional Status * Because of a physical, mental, or emotional condition, does this person have difficulty doing errands alone such as visiting a doctor's office or shopping? Answer Date of Assessment Author No 02/10/2024 8:38 EDT Mental Status * Because of a physical, mental, or emotional condition, does this person have serious difficulty concentrating, remembering, or making decisions? Answer Entry Date Author No 02/10/2024 8:38 EDT Plan of Treatment Not on file Insurance MEDICAID [employer] [place] MEDICAID [facility] [place] Care Teams Lumber Tallier Relationship Specialty Start Date End Date Unknown, Provider, PCP - General 08/10/09
--- OUTSIDE RECORDS SUMMARY | 2024-10-18 16:43 | XMS_ITS | Encounter Summary ---
Author Organization [facility] Address [address] [place] [address] Care Team Providers Care Shale Planer Operator Helper Name Role Phone Unknown, Provider Primary Care Provider [place] ilshirley Encounter Details Date Type Department Care Team (Late st Contact Info) Description 03/27/2020 Lab Requisition [facility] Pathology & Laboratory Medicine - [facility] [address] [place] [address] Susi Yuan, COOK [employer]IE[employer] [address] [place], [place] [id number] Encounter for general adult medical examination without [...] types, PCR Negative Negative 04/06/2020 13:05 EDT [facility] Comment:No E6 or E7 mRNA is detected from HPV types 16,18,31,33,35,39,45,51,52,56,58,59,66, and 68 by operations clerk mediated amplification. Papanicolaou smear specimen (specimen) CERVIX UTERI STRUCTURE / Unknown 03/26/2020 10:30 EDT 04/04/2020 13:45 EDT us Susi Yuan NP MICROBIOLOGY - GENERAL ORDERA BLES Final Result [facility] [address] [place] [address] * PAP TEST (03/26/2020 10:30 EDT) Specimens A. Cervix and/or Endocervix , ThinPrep Imaging System with Manual Evaluation 04/06/2020 13:05 T [facility] Specimen Adequacy Satisfactory for Evaluation - transformation zone component present Scant due to excessive blood 04/06/2020 13:05 [facility] General Categorization Negative for intraepithelial lesion or malignancy 04/06/2020 13:05 [facility] Attestation . 04/06/2020 13:05 [facility] at 1305 Educational Comments An additional slide was prepared and evaluated. 04/06/2020 13:05 T [facility] Clinical History SEE ORDER COMMENTS 04/06/2020 13:05 [facility] HPV The result for the Human Papillomavirus (HPV) Detection-High Risk Types is Negative. No E6 or E7 mRNA is detected from HPV types 16,18,31,33,35,39 ,45,51,52,56,58,5 9,66, and 68 by operations clerk mediated amplification.Sintia ting was performed on specimen [id number] and was resulted on 04/06/2020 1303 EDT by MOISES, LAB INSTRUMENT RESULTS IN 04/06/2020 13:05 EDT [facility] Scanned Images 04/06/2020 13:05 EDT [facility] Papanicolaou smear specimen (specimen) CERVIX UTERI STRUCTURE / Unknown 03/26/2020 10:30 EDT 03/27/2020 15:57 EDT us Susi Yuan NP PATHOLOGY ORDERABLES Final Re sult [facility] [address] [place] [address] documented in this encounter Visit Diagnoses Diagnosis Encounter for general adult medical examination without abnormal findings Unspecified general medical examination Encounter for screening for malignant neoplasm of cervix Screening for malignant neoplasm of the cervix documented in this encounter Care Teams Shale Planer Operator Helper Relationship Specialty Start Date End Date Unknown, Provider, PCP - General 08/10/09 documented as of this encounter
--- OUTSIDE RECORDS SUMMARY | 2024-10-18 16:43 | XMS_ITS | Encounter Summary ---
Author Organization [facility] Address [address] [place] [address] Care Team Providers Care Director Of Housing And Energy Services Name Role Phone Unknown, Provider MD Primary Care Provider Unava ilable Reason for Visit * Reason Onset Date Comments Appointment Related 08/10/2019 Encounter Details Date Type Department Care Team (Late st Contact Info) Description 08/10/2019 Telephone [facility] Sleep Program - [address] [place] [address] Unknown, Provider, Appointment Related Social History Tobacco [...] on filedocumented in this encounter Care Teams Director Of Housing And Energy Services Relationship Specialty Start Date End Date Unknown, Provider, PCP - General 08/10/09 documented as of this encounter
--- OUTSIDE RECORDS SUMMARY | 2024-10-18 16:44 | XMS_ITS | Encounter Summary ---
[place] [address] Care Team Providers Care Computer Security Manager Name Role Phone Lissy Susi Esdras STOCKTON Primary Care Provider [phone] Encounter Details Date Type Department Care Team (Late st Contact Info) Description 12/05/2019 11:30 AM EST - 12/05/2019 12:00 PM EST [place] [id number] Adam Narvaez MD EGD WITH BIOPSY (WRVU 2.39) Social History [...] the day after the procedure, use an exet-smr-ezyljsa spray to numb your throat. Sucking on [...] occurs, please contact your Doctor. Please call [phone] before 8pm Mon-Fri with problems, questions or concerns. If you call after 8pm or on weekends, call the Hospital at [phone] and ask to speak to the Chief Informatics Officer home energy consultant and the joint cleaning machine operator will contact that person for you. When should you call for help? Call 541 anytime you think you may need emergency [...] any problems. Where can you learn more? [facility] View your After Visit Summary and more online at [email or web address] If you would like to provide feedback about your hospital experience, please call the Office of Patient and Family Relations at . If you have received this After Visit Summary in error, please immediately return it in person to the department, or notify the [facility] Privacy Office by calling toll free at between the hours of 8AM and 5PM to arrange for our retrieval of the documents at no cost to you. Content Version: 12.2 ?? [id number] [employer]. Care instructions adapted under license by [facility]. If you have questions about a medical condition or this instruction, always ask your healthcare professional. [employer] disclaims any warranty or liability for your [...] 11:54 AM EST Upper Gi Endoscopy, Biopsy (39811) 12/05/2019 11:43 AM EST Gastroesophageal reflux disease, esophagitis presence not specified Lower abdominal pain UPPER GI ENDOSCOPY Routine 12/05/2019 11 :28 AM EST documented in this encounter Results * Specimen to Pathology (12/05/2019 12:00 PM EST) AP Specimen 12/05/2019 12:0 0 PM EST 12/05/2019 12:00 PM EST Narrative [facility] - 12/05/2019 12:00 PM EST Specimen requisition ordered. ??Separate Pathology report to follow Adam Narvaez MD PATHOLOGY/CYTOLOGY O MORGAN Performing Organization Address [facility] [place] [place] [address] * Specimen to Pathology (12/05/2019 12:00 PM EST) AP Specimen 12/05/2019 12:0 0 PM EST 12/05/2019 12:00 PM EST Narrative [facility] - 12/05/2019 12:00 PM EST Specimen requisition ordered. ??Separate Pathology report to follow Adam Narvaez MD PATHOLOGY/CYTOLOGY O MORGAN Performing Organization Address [facility] [place] [place] [address] * Specimen to Pathology (12/05/2019 12:00 PM EST) AP Specimen 12/05/2019 12:0 0 PM EST 12/05/2019 12:00 PM EST Narrative [facility] - 12/05/2019 12:00 PM EST Specimen requisition ordered. ??Separate Pathology report to follow Adam Narvaez MD PATHOLOGY/CYTOLOGY O MORGAN Performing Organization Address City/[facility]/[place] [address] * Surgical Pathology Report (12/05/2019 11:54 AM EST) Final Diagnosis [id number] ? Location: 4T; EA13; A The signing [...] Cunningham MD Verified: ??12/07/2019 ?Pathologist Performed at: ??-[facility]ology, [place], [place] CLINICAL INFORMATION Specimen Submitted: A - [...] cassettes labeled C1-C2. ??scar 12/07/2019 3:20 PM EST [facility] GI Biopsy 12/05/2019 11:5 4 AM EST 12/05/2019 11:54 AM EST GI Biopsy 12/05/2019 11:5 4 AM EST 12/05/2019 11:54 AM EST GI Biopsy 12/05/2019 11:5 4 AM EST 12/05/2019 11:54 AM EST Adam Narvaez MD PATHOLOGY/CYTOLOGY Brittni MORA [facility] [place] [address] * UPPER GI ENDOSCOPY (12/05/2019 11:28 AM EST) UPPER GI ENDOSCOPY [facility] Endoscopy ___ Procedure Date: 12/05/2019 11:28 AM ? Patient Name: Liat Flanagan ? Date of : 1985 ? Age: 34 ? Order #: [id number] ? Instrument Name: [id number] ? ___ Procedure: ? Upper GI endoscopy [...] 12/05/2019 11:2 8 AM EST Susi Yuan FACULTY PHYSICIAN GENERAL SURGICAL OR DERABLES PROVATION documented in [...] RN) documented in this encounter Care Teams Computer Security Manager Relationship Specialty Start Date End Date Susi Yuan APRN [address] [place] [address] PCP - General Family Medicine 05/23/19 documented as of this encounter
--- OUTSIDE RECORDS SUMMARY | 2024-10-18 16:44 | XMS_ITS | Continuity of Care Document ---
Author Organization [place] [facility], [facility] Address [address] [place] [address] Care Team Providers Care Rectifier Operator Name Role Phone KEANU MARTIN Dentist SCHUYLER KRISHNAN Neurologist Assessment Encounter Date Assessment Date Assessment LastModified by Organization Details LastModified Time 09/06/2024 09/06/2024 Assessment and Plan: 1. Persistent cough - x 2 weeks, accompanied by reproducible chest wall pain, difficulty sleeping due to the cough. Yellow-brown mucus production noted, mainly in the mornings. No fever, but reports feeling achy. Discussed possibility that this is viral, and cough can last several weeks. - Plan: Order a chest x-ray to rule out pneumonia. Await results and consider antibiotics if indicated. Advise patient to stay hydrated and use cwzt-[id number]-[id number] r cough suppressants as needed. [email or web address] Not available 09/06/2024 14:04:29 Plan of Treatment Reminders Order Date Submit Date Provider Last Modified By Organization Details Last Modified Time Details Appointments Follow Up 2024 11:20A Merlyn LUNDBERG Not available Not available Not available Follow Up 2024 09:00A Merlyn LUNDBERG Not available Not available Not available Lab influenza virus A + B + SARS-CoV- 2 (COVID19) Ag panel, rapid IA, upper respirato ry specimen 2023 024 [email or web address] 1 [facility], [address] [place] [address], [place], [address], 09/06/2024 13:59:30 Referral None recorded. Procedures None recorded. Surgeries None recorded. Imaging XR, chest, 2 view 2023 024 [email or web address] n21 [facility] - Radiology, [address] [place], [address], 09/16/2024 07:53:06 Medication Orders guaifenes in ER 600 mg tablet, extended release 12 hr 2023 024 nasra [id number], [address] [place], [address], 10/18/2024 12:11:05 Patient TargetsNo targets recorded. Patient InstructionsNo instructions recorded. Reason for Referral None Reported. Results Created Date Observation Date Name Description Value Unit Range Abnormal Flag Note LastModifiedBy Organization Detail LastModifiedTime 09/06/20 24 09/06/2024 influ dee virus A + B + SARS- CoV-2 (COVI D19) Ag panel , rapid IA, upper respi rator y speci men Influenza A negati ve Not Available [address], [address], 09/06/2024 13:59:11 09/06/20 24 09/06/2024 influ dee virus A + B + SARS- CoV-2 (COVI D19) Ag panel , rapid IA, upper respi rator y speci men Influenza B negati ve Not Available [address], [address], 09/06/2024 13:59:11 09/06/20 24 09/06/2024 influ dee virus A + B + SARS- CoV-2 (COVI D19) Ag panel , rapid IA, upper respi rator y speci men SARS-COV-2 negati ve Not Available [address], [address], 09/06/2024 13:59:11 09/06/20 24 09/06/2024 XR, chest , 2 view [facility] [place] [id number] RADIOL OGY TRANSC RIPVITOO N REPORT _ Patien t Name: TARA ZIMMER MRN: Sex: : Age: [id number] F [id number] Accoun t: Access ion: Admit: StayTy pe: [id number] O Aicha d: Order ID: Submit prasad: Martínez Be er: 2023 14:44 [id number] KJG ROCKY CHAKRABORTY prasad: Techno logist : Result ed: 2023 14:47 JESSE 2023 16:53 _ EXAMIN ATION: XR CHEST 2V PA AND LATERA L CLINIC AL HISTOR Y: Reason for Chest: Cough Add'l Info: TECHNI QUE: PA and latera l views of the chest COMPAR SERGEY: 03/07/20 22 FINDIN GS/IMP RESSIO N: Cardio medias tinal silhou ette unrema rkable . Lungs and pleura l spaces clear. There is a dextro convex curve of the thorac olumba r spine, stable . Bony chest wall otherw ise unrema rkable . No active proces s seen. Thank you for tyler james partic ipate in the care of this patien t. If you are a health care provid er and have any questi ons regard ing this report , please contac t the number below. For patien ts who have questi ons please contac t the health care profes ayush that reques prasad your imagin g first. Electr onical ly signed by: Bess howard MD Radiol demetria walker ([phone]), at 024 4:[address] ([facility]) [address] [place] [address], [address], 09/16/2024 07:53:05 Result Notes None recorded. Problems Name Problem SNOMED Code Status Onset Date Resolution Date Notes Provider Name and Address Organization Details Recorded Time [facility] [place] Active 2023 sekou bedolla [facility] [place], still has ovaries, dx: AUB [address], [facility] [address] , [facility] 4 08:29:50 Cough [id number] Completed 202310/18/2024 Problem Code: R05.8; Problem Code Type: ICD-10; [address], [facility] [address] , [facility] 5 11:46:39 Persiste nt cough 574309921 Completed 202310/18/[address], [facility] [address] , [facility] 5 11:46:36 Insomnia 017235187 Active 2015 Problem Code: G47.00; Problem Code Type: ICD-10; [address], [place], [address] , [facility] 4 16:34:11 Obesity 741805657 Active 2015 Problem Code: E66.9; Problem Code Type: ICD-10; [address], [facility] [address] [place] [address] 4 16:34:11 History of disorder of digestiv e system 323886543 Active 2016 Problem Code: Z87.19; Problem Code Type: ICD-10; [address], [facility] [address] [place] [address] 4 16:34:11 Acute bronchit is 13840725 Completed 201611/08/2016 Problem Code: J20.9; Problem Code Type: ICD-10; Not Available [facility] 3 04:42:39 Urticari a 460365896 Completed 201602/28/2024 Problem Code: L50.9; Problem Code Type: ICD-10; [address], [facility] [address] [place] [address] 4 08:04:53 Pelvic and perineal pain 608053490 Active 2017 Problem Code: R10.2; Problem Code Type: ICD-10; [address], [facility] [address] [place] [address] 4 16:34:11 Dysmenor pilar 367981863 Completed 201710/18/2024 Problem Code: N94.6; Problem Code Type: ICD-10; [address], [facility] [address] 5 12:09:09 Urinary tract infectio us disease 09364894 Completed 201706/03/2018 05/24/20 18 - Comments only - Liat Margarita MANAGER OF DISTRIBUTION - -UA pos for leuks, RBCs, nitrites , sent for C&S -START bactim DS 1 tab po bid x3 days -reviewe d red flag sx -RTC if sx worsen/p ersist Problem Code: N39.0; Problem Code Type: ICD-10; Not Available [facility] 3 04:42:39 Malaise 074350335 Completed 201711/24/2023 Problem Code: R53.81; Problem Code Type: ICD-10; [address], [address] 4 16:34:37 Joint pain 31889490 Active 2018 Problem Code: M25.50; Problem Code Type: ICD-10; [address], [address] 4 16:34:11 C-reacti ve protein above referenc e range 02815442664 9104 Active 2018 Problem Code: R79.82; Problem Code Type: ICD-10; [address], [address] 4 16:34:10 Migraine 45139303 Active 2018 Problem Code: G43.909; Problem Code Type: ICD-10; [address], [address] 4 16:34:11 Irritabl e bowel syndrome 28471287 Active 2019 Problem Code: K58.9; Problem Code Type: ICD-10; [address], [address] 4 16:34:10 Gastroes ophageal reflux disease without esophagi tis 384033923 Active 2019 Problem Code: K21.9; Problem Code Type: ICD-10; [address], [address] 4 16:34:11 Adult health examinat ion Active 2019 Problem Code: Z00.00; Problem Code Type: ICD-10; [address], [place], [address] , [facility] 4 16:34:11 Hyperlip idemia screenin g Active 2019 Problem Code: Z13.220; Problem Code Type: ICD-10; [address], [place], [address] , [facility] 4 16:34:11 Diabetes mellitus screenin g Active 2019 Problem Code: Z13.1; Problem Code Type: ICD-10; [address], [place], [address] , [facility] 4 16:34:10 Hyperlip idemia 82376664 Active 2019 LDL 160s in [address], [place], [address] , [facility] 4 11:26:35 Acute upper respirat ory infectio n 42326043 Completed 202103/19/2022 03/05/20 22 - Comments only - Zoya Oconnor MD - refilled cough syrup which helped before; advised conserva tive manageme nt; Reviewed indicati ons for re-evalu ation. Problem Code: J06.9; Problem Code Type: ICD-10; Not Available [facility] 3 04:42:41 Fever 460014280 Completed 202103/21/2022 Problem Code: R50.9; Problem Code Type: ICD-10; Not Available [facility] 3 04:42:41 Cough 83620623 Completed 202103/21/2022 Problem Code: R05.8; Problem Code Type: ICD-10; [address], [place], [address] , [facility] 5 11:46:39 Urgent desire to urinate 19898010 Completed 202106/16/2022 Problem Code: R39.15; Problem Code Type: ICD-10; Not Available [facility] 3 04:42:41 Acute pyelonep hritis 23452594 Completed 202106/16/2022 06/02/20 22 - Comments only - Zoya Oconnro MD - will treat with 2 wk [...] Problem Code Type: ICD-10; [address], [place], [address] , [facility] 4 16:34:28 Acute pyelonep hritis 41693911 Completed 202111/24/2023 Problem Code: N10; Problem Code Type: ICD-10; [address], [place], [address] , [facility] 4 16:34:28 Acute sinusiti s 29169137 Completed 202212/11/2022 12/02/19 23 - Comments only [...] J01.90; Problem Code Type: ICD-10; Not Available [facility] 3 04:42:42 Acute bronchit is 68111141 Completed 202212/17/2022 Problem Code: J20.9; Problem Code Type: ICD-10; Not Available [facility] 3 04:42:42 Carpal tunnel syndrome of left wrist 39725812293 9102 Active 2022 Problem Code: G56.02; Problem Code Type: ICD-10; [address], [facility] [address] , [facility] 4 16:34:11 Hand pain 80192283 Completed 202207/27/2023 Problem Code: M79.643; Problem Code Type: ICD-10; Not Available [facility] 4 05:35:53 Pain of breast 44681568 Completed 202207/27/2023 Problem Code: N64.4; Problem Code Type: ICD-10; Not Available [facility] 4 05:35:54 Family history of breast cancer 690092627 Active 2022 Problem Code: Z80.3; Problem Code Type: ICD-10; [address], [place], [address] , [facility] 4 16:34:11 Blood chemistr y outside referenc e range 460623610 Completed 202205/07/2023 Problem Code: R79.89; Problem Code Type: ICD-10; Not Available [facility] 3 04:42:43 Abnormal finding on evaluati on procedur e 367343866 Completed 202207/27/2023 Problem Code: R89.9; Problem Code Type: ICD-10; Not Available [facility] 4 05:35:52 Fatigue 19898167 Active 2022 Problem Code: R53.83; Problem Code Type: ICD-10; [address], [place], [address] , [facility] 4 16:34:11 Hypertro phic conditio n of skin 77611360 Completed 201705/10/2018 Problem Code: L91.8; Problem Code Type: ICD-10; Not Available [facility] 3 04:42:43 General examinat ion of patient Completed 200502/12/2018 Problem Code: Z00.8; Problem Code Type: ICD-10; Not Available [facility] 3 04:42:44 Acute effect of ultravio let radiatio n on normal skin 703117346 Completed 201805/30/2019 Problem Code: L56.8; Problem Code Type: ICD-10; Not Available [facility] 3 04:42:44 Headache 72917054 Completed 201807/01/2023 Problem Code: R51; Problem Code Type: ICD-10; Not Available [facility] 3 04:42:44 Abdomina l pain 22226738 Completed 202111/03/2022 Problem Code: R10.9; Problem Code Type: ICD-10; Not Available [facility] 3 04:42:44 Cholecys titis 78185614 Completed 201607/01/2023 Problem Code: K81.9; Problem Code Type: ICD-10; Not Available [facility] 3 04:42:44 Diarrhea 02177404 Completed 201704/29/2019 Problem Code: R19.7; Problem Code Type: ICD-10; Not Available [facility] 3 04:42:45 Irregula r periods 06369095 Completed 201505/10/2018 Problem Code: N92.6; Problem Code Type: ICD-10; Not Available [facility] 3 04:42:45 Pelvic and perineal pain 953553224 Completed 201502/12/2018 Problem Code: R10.2; Problem Code Type: ICD-10; [address], [place], [address] , [facility]. 4 16:34:11 Counseli ng Completed 201705/24/2018 Problem Code: Z71.89; Problem Code Type: ICD-10; Not Available [facility] 3 04:42:45 Pain of right knee joint 49322454273 4100 Completed 202106/26/2022 Problem Code: M25.561; Problem Code Type: ICD-10; Not Available [facility] 3 04:42:45 History AND physical examinat ion Completed 200507/01/2023 Not Available [facility] 3 04:42:45 Acute pharyngi tis 175761419 Completed 201702/12/2018 Problem Code: J02.9; Problem Code Type: ICD-10; Not Available [facility] 3 04:42:46 Pain in left foot 42416067331 9107 Completed 201806/26/2022 Problem Code: M79.672; Problem Code Type: ICD-10; Not Available [facility] 3 04:42:46 History of urinary disease 542284884 Active 2021 Problem Code: Z87.448; Problem Code Type: ICD-10; [address], [facility] [address] , [facility] 4 16:34:11 Mixed anxiety and depressi ve disorder 050998070 Active [address], [facility] [address] , [facility] 4 10:36:32 Tremor 68309099 Completed 202306/30/[address], [facility] [address] , [facility] 4 10:59:59 Numbness 25215743 Completed 202306/30/[address], [facility] [address] , [facility] 4 11:00:11 Cobalami n deficien cy 901886568 Active [address], [place] [address] , [facility] 4 16:39:58 Iron deficien cy 13578783 Active [address], [place] [address] , [facility] 4 17:10:09 Hemorrho ids 59767487 Active [address], [place] [address] , [facility] 4 10:19:46 Paresthe fede 60532099 Completed 202306/30/[address], [place] [address] , [facility] 11:00:03 Restless legs 25913862 Active 2023 sleep study 2023, no LORNE [address], [place] [address] , [facility] 4 16:47:53 Carpal tunnel syndrome 32043725 Active 2023 ALAN CHRISTIANSON MA null, [facility] 4 13:48:15 Sleep pattern disturba nce 49165033 Active 2023 no result from sleep study? Did not have it? [address] Dr, [place] [address] , [facility] 14:43:07 Menorrha og 014578838 Active [address], [place] [id number] , [facility] 4 09:54:15 Raynaud' s phenomen on 551673454 Active [address], [facility] [address] , [facility] 4 09:55:53 Abnormal uterine bleeding 26181429955 100 Completed 202310/18/[address], [facility] [address] , [facility] 5 11:46:43 Notes:*Problem Name: Contrac eption-mirena- 2012 *Problem Status: inactive *Comments: *Problem Code: V25.02 *Problem Code Type: ICD-9 *Note Date: 12/13/2013 Problem Notes None recorded. Procedures Surgical History Date Name Laterality Status Provider Name and Address Organization Details Recorded Time 4 Hysterectomy completed [address], [facility] [address], [facility] 08/30/2024 08:30:09 Imaging Results None recorded. Procedure Notes None recorded. Medical Equipment None Reported. Allergies Allergen ID Allergen Name Allergen Category Reaction Reaction Severity Criticality Documentation Date Start Date Code Code System Note Provider Name and Address Organization Details Recorded Time amoxicill in trihydrat e medicatio n hives severe Not available 08/14/20232002 33764 8 RxNorm full body hives Aller gyCod e: '3081 82'; Aller gyNam e: 'AMOX ICILL IN'; Aller gyCon ceptT ype: 'RX Norm' ; Aller gyRea ction : 'full body hives '; Not Available [facility] 3 16:11:42 cephalexi n monohydra te medicatio n hives severe Not available 08/14/20232015 92284 8 RxNorm full body hives Aller gyRea ction : 'full body hives '; Not Available [facility] 3 16:11:42 Medications Name Sig Start Date Stop Date Status Note LastModified by Organization Details LastModified Time Prescript ion - Prior Authoriza tion Request active Not Available Not Available Not Available Singulair 10 mg tablet 1 TAB QD 12/23 completed Not Available Not Available Not Available fluoxetin e 40 mg capsule TAKE ONE CAPSULE BY MOUTH EVERY DAY 03/04 completed 40mg is thought to have cause tremor in pt. See #[id number]. Not Available Not Available Not Available promethaz ine-DM 6.25 mg-15 mg/5 mL oral syrup Take 5 ml by mouth three times a day as needed for cough 04/15 completed Not Available Not Available Not Available doxycycli ne hyclate 100 mg capsule Take 1 capsule twice a day by oral route, for 7 days. 10/18 completed Not Available Not Available Not Available [...] DOSE AFTER 2 HOURS IF INEFFECT LELA 10/18 completed Not Available Not Available Not Available prednison e 20 mg tablet take [...] WEEK, THEN 2 TABLETS TWICE DAILY active 10/18/24: taking 2 tabs AM and 1 tab PM Not Available Not Available Not Available Zyrtec 10 mg tablet 1 TAB UAD 06/21 completed Not Available Not Available Not Available omeprazol e 40 mg capsule,d elayed release TAKE ONE CAPSULE BY MOUTH EVERY DAY 2023 active Not Available Not Available Not Avai lable Nexium 20 mg capsule,d elayed release 06/26 [...] needed for bowel issues 2019 active from [facility] Not Available Not Available Not Available pantopraz ole 40 mg tablet,de layed release Take 1 tablet by mouth once a day 04/15 completed Not Available Not Available Not Available Cipro 500 mg tablet 1 tablet by mouth twice a day 06/16 completed Not Available Not Available Not Available buspirone 10 mg tablet TAKE ONE TABLET BY MOUTH TWICE A DAY FOR ANXIETY 10/18 completed Not Available Not Available Not Available fluoxetin e 10 mg capsule Take [...] completed Not Available Not Available Not Available norethind marimar acetate 5 mg tablet Take 1 tablet every day by oral route. 10/18 completed Not Available Not Available Not Available gabapenti n 100 mg capsule TAKE ONE CAPSULE BY MOUTH EVERY DAY AT BEDTIME 06/30 completed Not Available Not Available Not Available hydrocodo ne 10 mg-chlorp heniramin e 8 mg/5 mL oral susp extend.re l 12hr Take 5 mL every 12 hours by oral route. 10/18 completed Not Available Not Available Not Available [...] TAKE ONE TABLET BY MOUTH EVERY DAY 09/06 completed Not Available Not Available Not Available Unifine Pentips 29 gauge x 1/2 needle USE ONCE DAILY WITH VICTOZA active Not Available Not Available No t Available bupropion HCl XL 150 mg 24 hr tablet, extended release Take 1 tablet every day by oral route. 2024 active Not Available Not Available Not Avai lable topiramat e 50 mg tablet TAKE 2 TABLETS BY MOUTH ONCE DAILY IN THE MORNING AND 2 TABLETS AT BEDTIME 10/18 completed Not Available Not Available Not Available Albuterol Sulfate HFA 90 mcg/Actua tion [...] Not Available Not Available Not Avai lable Unifine Pentips 32 gauge x 5/32 needle USE DIRECTED active Not Available Not Available No t Available budesonid e DR-ER 9 mg tablet,de layed and extended release Take one tablet/d ay by mouth for 8 weeks. 02/14 completed Not Available Not Available Not Available guaifenes in ER 600 mg tablet, extended release 12 hr Take 2 tablets every 12 hours by oral route for 10 days, for cough. 10/18 completed Not Available Not Available Not Available Flonase Allergy Relief 50 mcg/actua tion nasal spray,ismael pension Meldrim 1 spray every day by intranas al route as directed . 2023 active as needed 10/18/24 Not Available Not Available Not Available Vitals Date Recorded Body height Oxygen saturation Oxygen saturation in Arterial blood by Pulse oximetry Heart rate Systolic blood pressure Diastolic blood pressure Provider Name and Address Organization Details Last Updated DateTime 4 170.815 cm 97 % 97 % 109 /min 112 mm[Hg] 81 mm[Hg] DEEPAK MCCALL MA [facility] 13:41:54 Social History Question Answer Notes LastModified by Organizat ion Details LastModified Time Tobacco Smoking Status Former Smoker ED MADDOX LPN [facility] 09/29/2023 13:02:52 When Did You Quit Smoking? 11-15yearssi [email or web address] ette Information not available 09/29/2023 What Was The Date Of Your Most Recent Tobacco Screening? 10/18/2024 [email or web address] Information not available 10/18/2024 Sex: Female Functional Status None recorded. Mental Status None recorded. Family History Relationship Description Onset Age of this Age Resolved Age Notes LastModified by Organization Details LastModified Time Unspecified Relation Family history unknown Relati ve: 'First Degree Blood Relati ve'; [email or web address] Not available 08/14/2023 03:54:41 Notes:*Problem: Mother: aliv e , mental health, adiction mgm- ? DM, [place] 50s or 60s Father- HLD, mgm- breast [...] 0 0 Immunizations Vaccine Type Date Status Note Provider Nam e and Address Organization Details Recorded Time Influenza, split virus, trivalent, PF 4 [facility]2024 11:12:59 MMR 9 completed Not Available [facility] 08/14/2023 05:59:12 MMR 4 completed Not Available [facility] 08/14/2023 05:59:12 Td (adult), 2 Lf tetanus toxoid, preservative free, adsorbed 2 completed Not Available [facility] 08/14/2023 05:59:12 Tdap 2 completed Not Available [facility] 08/14/2023 05:59:12 Novel [id number] , all formulations 9 completed Not Available [facility] 08/14/2023 05:59:12 Td(adult) unspecified formulation 2 completed Not Available [facility] 08/14/2023 05:59:12 Td(adult) unspecified formulation 2 completed Not Available [facility] 08/14/2023 05:59:12 Influenza, split virus, quadrivalent, PF 2 completed Not Available [facility] 08/14/2023 05:59:13 Influenza, split virus, quadrivalent, PF 0 completed Not Available [facility] 08/14/2023 05:59:13 Influenza, split virus, quadrivalent, PF 1 completed Not Available [facility] 08/14/2023 05:59:13 Influenza, split virus, quadrivalent, preservative 7 completed Not Available [facility] 08/14/2023 05:59:13 DTaP 8 completed Not Available [facility] 08/14/2023 05:59:13 DTaP 8 completed Not Available [facility] 08/14/2023 05:59:13 DTaP 9 completed Not Available [facility] 08/14/2023 05:59:13 DTaP 8 completed Not Available [facility] 08/14/2023 05:59:13 COVID-19, mRNA, LNP-S, PF, 30 mcg/0.3 mL dose 1 completed Not Available [facility] 08/14/2023 05:59:14 COVID-19, mRNA, LNP-S, PF, 30 mcg/0.3 mL dose 1 completed Not Available [facility] 08/14/2023 05:59:14 Hep B, unspecified formulation 8 completed Not Available [facility] 08/14/2023 05:59:14 Hep B, unspecified formulation 8 completed Not Available [facility] 08/14/2023 05:59:14 Hep B, unspecified formulation 8 completed Not Available [facility] 08/14/2023 05:59:14 influenza, unspecified formulation 4 completed Not Available [facility] 08/14/2023 05:59:14 influenza, unspecified formulation 9 completed Not Available [facility] 08/14/2023 05:59:14 influenza, unspecified formulation 3 completed Not Available [facility] 08/14/2023 05:59:14 polio, unspecified formulation 8 completed Not Available [facility] 08/14/2023 05:59:14 polio, unspecified formulation 8 completed Not Available [facility] 08/14/2023 05:59:14 polio, unspecified formulation 9 completed Not Available [facility] 08/14/2023 05:59:15 polio, unspecified formulation 8 completed Not Available [facility] 08/14/2023 05:59:15 polio, unspecified formulation 2 completed Not Available [facility] 08/14/2023 05:59:15 Influenza, split virus, quadrivalent, PF 3 completed Not Available [facility] 10/16/2023 05:31:15 Past Encounters Encounter ID Performer Location Encounter Start Date Encounter Closed Date Diagnosis/Indication Diagnosis SNOMED-CT Code Diagnosis ICD10 Code Diagnosis Note [id number] SILVERIO PETTY [address] [address] 09/06/2024 13:25:49 09/06/2024 13:58:48 Persistent cough 175607306 R05.3 Pending chest xray results. Health Concerns Section Related Observation LastModified by Organization Detai ls LastModified Time None Recorded Concern Status LastModified by Organization Details LastModified Time None Recorded Payers Encounter Date Sequence Insurance Name Policy Number Policy Del Castillo Covered Member ID Del Castillo Member ID Guarantor Name 09/06/2024 1 [facility] (MEDICAID) Liat Flanagan [id number] Liat Flanagan Notes Date Note Type Note Provider Name and Address Organization Details Recorded Time 09/06/2024 text/html Pt presents with complaint of a persistent cough lasting for approximately 2 weeks. She describes the cough as causing reproducible chest wall pain. She notes that she is having difficulty sleeping due to crackling sounds when lying down. The patient reports coughing up yellow-brown mucus, particularly in the mornings. She has been experiencing general malaise, body aches, and swollen tonsils but has not taken her temperature to check for fever. The patient denies any nausea, vomiting, or diarrhea, although she mentions almost vomiting from coughing. The patient reports a recent history of her son being treated for pneumonia approximately a month ago, and her youngest child, aged 7, is currently experiencing a severe cough as well. She has no history of asthma and reports no significant changes in appetite. CHINA STILL MD [address], [place], [address], [facility]. 09/06/2024 14:04:42 OBGyn Episode No OBEpisode recorded.
--- OUTSIDE RECORDS SUMMARY | 2024-10-18 16:44 | XMS_ITS | Clinical Summary ---
[place] [address] Care Team Providers Care Kiln Transfer Operator Name Role Phone Lissy Susi Dewitt APRN Primary Care Provider [phone] Allergies Active Allergy Reactions Criticality Noted Date [...] Active Active Problems No known active problems Encounters Date Type Department Care Team Description 09/06/2024 Interpretation Only [facility] in [address] [address] Mariaelena Plaza MD from Last 3 Months Immunizations Name Administration Dates Next Due DTaP 03/04/2012 Hepatitis B Pediatric/Adoles cant (Engerix-B, Recombivax) 10/02/1998,04/30/1998,03/27/1998 MMR Vaccine LIVE 05/19/1994,11/11/1988 Polio Inactivated (IPOL) 08/15/1992,050 12/1988,02/26/1988,1987,1987 Family History Medical History Relation Comments Autism [...] Tdap) 03/04/2022 03/04/2012 Covid-19 Vaccine ( - 2023-2 5 season) 2024 Influenza (Flu) vaccine (1 o f 1 - Influenza standard series) 06/05/2024 Hepatitis B vaccine (0-59 yrs) Completed 1 , 04/30/1998, 03/27/1998 Procedures Procedure Name Priority Date/Time Associated Diagnosis Comments XR CHEST PA AND LATERAL Routine 09/06/2024 2:52 PM EST from Last 3 Months Results * XR Chest PA & Lateral (Generic) (09/06/2024 2:52 PM EST) PT CLASS O RAD ADMITDTTM [id number] RAD PT RAD MD INFO [id number]^TARTAG JASMIN^MARIAELENA RAD EXAM DESC XCXR2^XR CHEST 2V PA AND LATERAL^RIS [facility] WORKSTATION ID [id number] [facility] Anatomical Region Laterality Modality Chest N/A Radiographic Sybil ging Impressions 09/06/2024 4:53 PM EST FINDINGS/IMPRESSION: Cardiomediastinal silhouette unremarkable. Lungs and pleural spaces clear. There is a dextroconvex curve of the thoracolumbar spine, stable. Bony chest wall otherwise unremarkable. No active process seen. Thank you for letting us participate in the care of this patient. ??If you are a health care provider and have any questions regarding this report, please contact the number below. ??For patients who have questions please contact the health health care aide that requested your imaging first. ? Narrative 09/06/2024 4:53 PM EST EXAMINATION: XR CHEST 2V PA ??AND LATERAL CLINICAL HISTORY: ??Reason for Chest: ??Cough ??Add'l Info: TECHNIQUE: PA and lateral views of the chest COMPARISON: 03/07/2022 Procedure Note Aubrey Vale MD - 09/06/2024 EXAMINATION: XR CHEST 2V PA AND LATERAL CLINICAL HISTORY: Reason for Chest: Cough Add'l Info: TECHNIQUE: PA and lateral views of the chest COMPARISON: 03/07/2022 IMPRESSION FINDINGS/IMPRESSION: Cardiomediastinal silhouette unremarkable. Lungs and pleural spacesclear. There is a dextroconvex curve of the thoracolumbar spine, stable. Bonychest wall otherwise unremarkable. No active process seen. Thank you for letting us participate in the care of this patient. If youare a health care provider and have any questions regarding this report,please contact the number below. For patients who have questions please contactthe health health care aide that requested your imaging first. Mariaelena Plaza MD IMG DX ORDERABLES from Last 3 Months Care Teams Kiln Transfer Operator Relationship Specialty Start Date End Date Susi Yuan APRN [address] [place], [place] [address] PCP - General Family Medicine 05/23/19
--- OUTSIDE RECORDS SUMMARY | 2024-10-18 16:44 | XMS_ITS | Encounter Summary ---
Author Organization [place] [id number] Care Team Providers Care Oil Spraying Machine Operator Name Role Phone Lissy Susi Esdras STOCKTON Primary Care Provider [phone] Encounter Details Date Type Department Care Team (Latest Contact Info) Description 12/05/2019 9:54 AM EST - 12/05/2019 12:53 PM EST Hospital En[place] [phone] Adam Narvaez MD Discharge Disposition: Home Social History Tobacco Use [...] the day after the procedure, use an qscv-qoj-sfuwydu spray to numb your throat. Sucking on [...] occurs, please contact your Doctor. Please call [phone] before 8pm Mon-Fri with problems, questions or concerns. If you call after 8pm or on weekends, call the Hospital at [phone] and ask to speak to the Smokehouse Worker art conservator and the television camera operator will contact that person for you. When should you call for help? Call [phone] anytime you think you may need emergency [...] any problems. Where can you learn more? [facility] View your After Visit Summary and more online at [email or web address] If you would like to provide feedback about your hospital experience, please call the Office of Patient and Family Relations at . If you have received this After Visit Summary in error, please immediately return it in person to the department, or notify the [facility] Privacy Office by calling toll free at between the hours of 8AM and 5PM to arrange for our retrieval of the documents at no cost to you. Content Version: 12.2 ?? [id number] [employer]. Care instructions adapted under license by [facility]. If you have questions about a medical condition or this instruction, always ask your healthcare professional. [employer] disclaims any warranty or liability for your [...] 11:54 AM EST Upper Gi Endoscopy, Biopsy (15215) 12/05/2019 11:43 AM EST Gastroesophageal reflux disease, esophagitis presence not specified Lower abdominal pain UPPER GI ENDOSCOPY Routine 12/05/2019 11 :28 AM EST documented in this encounter Results * Specimen to Pathology (12/05/2019 12:00 PM EST) AP Specimen 12/05/2019 12:0 0 PM EST 12/05/2019 12:00 PM EST Narrative [facility] - 12/05/2019 12:00 PM EST Specimen requisition ordered. ??Separate Pathology report to follow Adam Narvaez MD PATHOLOGY/CYTOLOGY O MORGAN Performing Organization Address [facility]/ZIP [place] [address] * Specimen to Pathology (12/05/2019 12:00 PM EST) AP Specimen 12/05/2019 12:0 0 PM EST 12/05/2019 12:00 PM EST Narrative [facility] - 12/05/2019 12:00 PM EST Specimen requisition ordered. ??Separate Pathology report to follow Adam Narvaez MD PATHOLOGY/CYTOLOGY O MORGAN Performing Organization Address [facility] [place] [address] * Specimen to Pathology (12/05/2019 12:00 PM EST) AP Specimen 12/05/2019 12:0 0 PM EST 12/05/2019 12:00 PM EST Narrative [facility] - 12/05/2019 12:00 PM EST Specimen requisition ordered. ??Separate Pathology report to follow Adam Narvaez MD PATHOLOGY/CYTOLOGY O MORGAN Performing Organization Address [facility]/ZIP [place] [address] * Surgical Pathology Report (12/05/2019 11:54 AM EST) Final Diagnosis [id number] ? Location: 4T; EA13; A The signing [...] Cunningham MD Verified: ??12/07/2019 ?Pathologist Performed at: ??-[facility] Dept. of Pathology, [place], [place] CLINICAL INFORMATION Specimen Submitted: A - [...] labeled C1-C2. ??scar 12/07/2019 3:20 PM EST [facility] GI Biopsy 12/05/2019 11:5 4 AM EST 12/05/2019 11:54 AM EST GI Biopsy 12/05/2019 11:5 4 AM EST 12/05/2019 11:54 AM EST GI Biopsy 12/05/2019 11:5 4 AM EST 12/05/2019 11:54 AM EST Adam Narvaez MD PATHOLOGY/CYTOLOGY Brittni MORA ALEE [facility] [place] [address] * UPPER GI ENDOSCOPY (12/05/2019 11:28 AM EST) UPPER GI ENDOSCOPY [facility] Endoscopy ___ Procedure Date: 12/05/2019 11:28 AM ? Patient Name: Liat Flanagan ? Date of : 1985 ? Age: 34 ? Order #: [id number] ? Instrument Name: [id number] ? ___ Procedure: ? Upper GI endoscopy [...] 12/05/2019 11:2 8 AM EST Susi Yuan JUNIOR UNDERWRITER GENERAL SURGICAL OR DERABLES PROVATION documented in [...] RN) documented in this encounter Care Teams Oil Spraying Machine Operator Relationship Specialty Start Date End Date Susi Yuan APRN [address] [address] PCP - General Family Medicine 05/23/19 documented as of this encounter
--- OUTSIDE RECORDS SUMMARY | 2024-10-18 16:44 | XMS_ITS | Encounter Summary ---
[place] [address] Care Team Providers Care Senior Care Assistant Name Role Phone Otilia Escamilla EQUIPMENT SCHEDULER Primary Care Provider + Encounter Details Date Type Department Care Team (Late st Contact Info) Description 12/03/2012 8:28 AM EST - 12/03/2012 11:59 PM EST Hospital [place] [phone] Social History Tobacco Use Types Packs/Day Years [...] Start Date End Date vitamin 27 & mqmcfbf-xfeq-CC 60 mg iron-1 mg tablet Take 1 [...] 12/03/2012 05:18 pm) Patient Info ID: ? [id number] ? : ??[birth year] (27 yrs) Name: ? LIAT FLANAGAN ? Visit Date: 12/03/2012 11:18 am Performed By Performed By: ?Gloria Perez Attending: ? Liat Maldonado MD Service(s) Provided [facility] - Targeted Morphology - Genetics - ? [id number] Indications Bilateral PLASTIC DOLLS MOLD FILLER Evaluation Num Of Fetuses: ?1 Heart Rate: [...] Tract: ?Visualized L Outflow Tract: ?Visualized Cardiac Tonasket: ? Visualized Diaphragm: ?Visualized Abdomen Ventral Wall: [...] Final 12/03/2012 05:18 pm) Patient Info ID: [id number] : [birth year] (27 yrs) Name: LIAT FLANAGAN Visit Date: 12/03/2012 11:18 am Performed By Performed By: Gloria Perez Attending: Liat Maldonado MD Service(s) Provided [facility] - Targeted Morphology - Genetics - [id number] Indications Bilateral PLASTIC DOLLS MOLD FILLER Evaluation Num Of Fetuses: 1 Heart Rate: [...] Tract: Visualized L Outflow Tract: Visualized Cardiac Tonasket: Visualized Diaphragm: Visualized Abdomen Ventral Wall: Visualized [...] on filedocumented in this encounter Care Teams Senior Care Assistant Relationship Specialty Start Date End Date Otilia Escamilla APRN [address] [place] [address] PCP - General 11/24/12 05/22/19 documented as of this encounter
--- OUTSIDE RECORDS SUMMARY | 2024-10-18 16:44 | XMS_ITS | Encounter Summary ---
[place] [address] Care Team Providers Care Permit Coordinator Name Role Phone EnderSusi cobb Esdras MERCERIZER MACHINE OPERATOR Primary Care Provider [phone] Encounter Details Date Type Department Care Team (Late st Contact Info) Description 09/06/2024 Interpretation Only [facility] in [address] [address] Mariaelena Plaza MD [address] [place] [address] Social History Tobacco Use Types Packs/Day Years [...] AND LATERAL Routine 09/06/2024 2:52 PM EST documented in this encounter Results * XR Chest PA & Lateral (Generic) (09/06/2024 2:52 PM EST) PT CLASS O DH RAD ADMITDTTM [id number] DH RAD PT RAD INFO [id number]^TARTAG JASMIN^MARIAELENA DH RAD EXAM DESC XCXR2^XR CHEST 2V PA AND LATERAL^RIS RAD WORKSTATION ID [id number] [facility] Anatomical Region Laterality Modality Chest N/A [...] who have questions please contact the health nurse care manager that requested your imaging first. ? Narrative [...] patients who have questions please contactthe health nurse care manager that requested your imaging first. Mariaelena Plaza MD IMG DX ORDERABLES documented in this encounter Visit Diagnoses Not on filedocumented in this encounter Care Teams Permit Coordinator Relationship Specialty Start Date End Date Susi Yuan APRN [address] [place] [address] PCP - General Family Medicine 05/23/19 documented as of this encounter
--- OUTSIDE RECORDS SUMMARY | 2024-10-18 16:44 | XMS_ITS | Encounter Summary ---
Author Organization [facility] [place] [address] Care Team Providers Care Constitutional Law Professor Name Role Phone Otilia Escamilla APRN Primary Care Provider + Reason for Visit * Reason Comments Advice Only Encounter Details Date Type Department Care Team (Late st Contact Info) Description 12/03/2012 10:45 AM EST Office Visit Obstetrics [place] [phone] Liat Maldonado MD [facility] DR OBSTETRICS [place] [address] choroid plexus cysts affecting antepartum care of [...] any additional evaluation during this . The auto transmission technician does not need to be informed of [...] antepartum documented in this encounter Care Teams Constitutional Law Professor Relationship Specialty Start Date End Date Otilia Escamilla, KATH [address] [place] [address] PCP - General 11/24/12 05/22/19 documented as of this encounter
--- OUTSIDE RECORDS SUMMARY | 2024-10-18 16:44 | XMS_ITS | Encounter Summary ---
Author Organization [facility] [place] [address] Care Team Providers Care Shank Tapper Name Role Phone Otilia Escamilla APRN Primary Care Provider + Reason for Visit * Reason Onset Date Comments Other 11/25/2012 please sign orde r Encounter Details Date Type Department Care Team (Late st Contact Info) Description 11/25/2012 Telephone Obstetrics [place] [address] Mitra Aceves MD [facility] DR OBSTETRICS [place] [address] Other (please sign order) Social History Tobacco [...] cysts documented in this encounter Care Teams Shank Tapper Relationship Specialty Start Date End Date Otilia Escamilla APRN [address] [place] [address] PCP - General 11/24/12 05/22/19 documented as of this encounter
--- OUTSIDE RECORDS SUMMARY | 2024-10-18 16:44 | XMS_ITS | Encounter Summary ---
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; Malaise and fatigue Susi Yuan APRN [address] [place] [address] [facility] [address] [place] [phone] Referral ID Status Reason Start Date Expiration Date Visits Re quested Visits Authorized [id number] Closed 03/29/2019 03/28/2020 1 1 Encounter Details Date Type Department Care Team (Late st Contact Info) Description 05/23/2019 2:00 PM EDT Office [place] [address] Howie Galarza MD [facility] [address] [address] Sleep disturbance; Carpal tunnel syndrome, [...] up by Allergy and Immunology Social/Family History: [place], [place], 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 4 kids 2,,6,9 and 12 No smoke, [...] over radiocarpal or ulnocarpal joints. Hands: Normal leadite worker and claw. SJC/TJC 0/0. Hips: Full motion, [...] syndrome documented in this encounter Care Teams Warehouse Supervisor 3Rd Shift Relationship Specialty Start Date End Date Susi Yuan, WET MACHINE TENDER [address] [place] [address] PCP - General Family Medicine 05/23/19 documented as of this encounter
--- OUTSIDE RECORDS SUMMARY | 2024-10-18 16:44 | XMS_ITS | Data Portability ---
Author Organization [place] - [facility], [facility] Address [place] [address] Care Team Providers Care Client Support Associate Name Role Phone KEANU MARTIN Dentist SCHUYLER [...] with food. [email or web address] Not available 05/31/2024 08:36:55 09/06/2024 09/06/2024 Assessment and Plan: 1. Persistent [...] Advise patient to stay hydrated and use gfve-[id number]-lclwht r cough suppressants as needed. [email or web address] Not available 09/06/2024 14:04:29 Plan of Treatment Reminders Order Date Submit Date Provider Last Modified By Organization Details Last Modified Time Details Appointments Follow Up 2024 11:20A Merlyn LUNDBERG Not available Not available Not available Follow Up 2024 09:00A Merlyn FREEMANALYSSA Not available Not available Not available Lab ferritin, serum or plasma [address] Laboratory (Registration ), [address] [place] [address] [place], [address], 04/08/2024 08:04:52 iron + total iron-bind ing capacity (TIBC), serum - CC results: Aurelio Krishnan PRODUCT SAFETY TECHNICAL ASSISTANT at [facility] [address] Laboratory (Registration ), [address] [place] [address] [place], [address], 04/08/2024 08:04:32 vitamin B12, serum [address] Laboratory (Registration ), [address] [place] [address] [place], [address], 04/08/2024 08:04:32 ferritin, serum or plasma - 1 mint,1 lav, 1 tiger drawn in house, [facility], [facility]. [address] Laboratory (Registration ), [address] [place] [address] [place], [address], 07/07/2024 06:49:12 iron + total iron-bind ing capacity (TIBC), serum - 1 mint,1 lav, 1 tiger drawn in house, [facility], KB. [address] Laboratory (Registration ), [address] [place] [address] [place], [address], 07/07/2024 06:49:18 CBC - 1 mint,1 lav, 1 tiger drawn in house, [facility], KB. [address] [facility] Laboratory (Registration ), [address] [place] [address] [place], [address], 06/30/2024 15:44:04 lipid panel, serum - 1 mint, 1 lav, 1 tiger drawn in house. [address] Laboratory (Registration ), [address] [place] [address] [place], [address], 07/07/2024 06:49:30 HbA1c (hemoglob in A1c), blood - 1 mint, 1 lav, 1 tiger drawn in house. [address] Laboratory (Registration ), [address] [place] [address] [place], [address], 07/07/2024 06:49:23 influenza virus A + B + SARS-CoV- 2 (COVID19) Ag panel, rapid IA, upper respirato ry specimen 2023 [email or web address] 1 [facility], [address] [facility], [place], [address], 09/06/2024 13:59:30 iron + total iron-bind ing capacity (TIBC), serum [address] [facility] Laboratory (Registration ), [address] [place] [address] [place], [address], 10/18/2024 13:00:50 ferritin, serum or plasma [address] [facility] (Registration ), [address] [place] [address] [place], [address], 10/18/2024 13:00:[address] [facility] (Registration ), [address] [place] [address] [place], [address], 10/18/2024 13:10:30 vitamin D, 25-hydrox y, total, serum [address] [facility] (Registration ), [address] [place] [address] [place], [address], 10/18/2024 13:05:28 vitamin B12, serum [address] [facility] (Registration ), [address] [place] [address] [place], [address], 10/18/2024 13:10:30 TSH, serum or plasma [address] 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 Surgeries None recorded. Imaging US, pelvis, transabdo adrian + transvagi nal - heavy bleeding, r/o fibroids, cc dr Álvarez pls 2023 024 [facility] - Radiology, [address] [place], [address], 08/01/2024 07:45:08 XR, chest, 2 view 2023 024 [email or web address] [facility] - Radiology, [address] [facility], [place], [address], 09/16/2024 07:53:06 Medication Orders topiramat e 25 mg tablet 2023 024 [facility], [address] [place], [address], 10/18/2024 11:15:41 gabapenti n 100 mg capsule 2023 024 ATHENAFAX [facility], [address] [place], [address], 06/30/2024 09:55:21 Victoza 2-Sb 0.6 mg/0.1 mL (18 mg/3 mL) subcutane ous pen injector 2023 024 [facility], [address] [place] [address], [address], [place], [address], 06/30/2024 11:11:31 guaifenes in ER 600 mg tablet, extended release 12 hr 2023 024 [email or web address] [facility], [address] [place], [address], 10/18/2024 12:11:05 bupropion HCl XL 150 mg 24 hr tablet, extended release 2024 025 [email or web address] [facility], [address] [place], [address], 10/18/2024 12:19:26 Patient TargetsNo targets recorded. Patient Instructions Encounter Date Encounter Id Patient Instructions Last Modified By Organization Details Last Modified Time 03/31/2024 [id number] medical record request* Not available 04/20/2024 10:28:09 It was nice to s ee you today! [email or web address] Not available 03/31/2024 10:12:00 06/30/2024 [id number] Dear LOYDA Thank you for visiting us today and [...] recommended. - Consultation with Dr. King at [facility] for potential treatments, such as uterine artery ablation, is advised. - Iron and Vitamin B12 Levels: - Iron levels will be rechecked today. - Continue with B12 supplements, as they have proven effective. - Prescription Management: It is crucial to process all prescriptions, particularly Victoza, through [facility] to ensure cost-effectiveness. Verify the supply of needle tips and the correct quantity of pens. Please make sure to follow up on all tests and consultations with specialists as recommended. Should you have any questions or require further clarification on your treatment plan, please feel free to reach out to our office. Warm regards, Susi Lundberg, [facility] Family Medicine [email or web address] Not available 06/30/2024 10:10:49 10/18/2024 [id number] Dear Reid, Thank you for visiting us today. Your commitment to improving your health and well-being during this challenging time is commendable. We are here to support you through this process. Here is a summary of the bishop instructions and next steps we discussed: - Laboratory Tests: We will conduct lab tests to check your Vitamin B12, Vitamin D, iron levels, and thyroid function. - Medication Adjustments: - Continue taking Fluoxetine 20 mg. - Start Wellbutrin 150 mg in the morning for a few days alongside Buspirone, then discontinue Buspirone. - Gradually wean off Topamax as discussed, monitoring for any recurrence of headaches. - Lifestyle Advice: - Take it easy and avoid strenuous activities to prevent post-surgical complications. - Consider informal counseling to help manage family dynamics and personal stress. - Follow-Up: Schedule a follow-up appointment to review your lab test results and assess how you are feeling with the new medication regimen. We have provided you with educational materials on managing stress and depression, which might be helpful during this period. Please don't hesitate to reach out if you have any questions or need further clarification on your treatment plan. Warm regards, Susi Lundberg, [employer] Family Medicine [email or web address] Not available 10/18/2024 12:13:15 Reason for Referral Orthopedic Surgeon Referral for Carpal tunnel syndrome of left wrist Pt wih hx of CTS in b/l wrist, worse in left currently, please eval for possible steroid injection Referring Physician: Jennifer Combs, Family Medicine, Encounter Date: 05/31/2024 Glass Worker Referral for Me norrhagia Referring Physician: Susi Lundberg [facility] Medicine, Encounter Date: 06/30/2024 Results Created Date Observation Date Name Description Value Unit Range Abnormal Flag Note LastModifiedBy Organization Detail LastModifiedTime 03/31/20 24 03/31/2024 IRON AND IBCT iron 23 ug/dL 50-170 low Not Available oJhanna perdue [address] [facility] [place], [address] 03/31/2024 15:00:48 03/31/20 24 03/31/2024 IRON AND IBCT total iron binding capacity 494 ug/dL 250-45 0 high Not Available [address] [place], [address] 03/31/2024 15:00:48 03/31/20 24 03/31/2024 IRON AND IBCT transferrin sat 5 % 15-50 low Not Available Aneta yu [address] [place], [address] 03/31/2024 15:00:48 03/31/20 24 03/31/2024 VALERIA TIN ferritin 11 NG/mL 8-252 normal Not Available [address] [place], [address] 03/31/2024 15:15:58 03/31/20 24 03/31/2024 VITAM IN B12 vitamin B12 549 pg/mL 193-98 6 normal Not Available [address] [place], [address] 03/31/2024 15:15:59 06/30/20 24 06/30/2024 COMPL ETE BLOOD COUNT NO DIFF WBC 6.67 10_3/ uL 4.4-10 .8 normal Not Available [address] [place], [address] 06/30/2024 15:44:04 06/30/20 24 06/30/2024 COMPL ETE BLOOD COUNT NO DIFF RBC 4.85 10_6/ uL 3.93-5 .22 normal Not Available [address] [place], [address] 06/30/2024 15:44:04 06/30/20 24 06/30/2024 COMPL ETE BLOOD COUNT NO DIFF HGB 13.3 g/dL 11.2-1 5.7 normal Not Available [address] [place], [address] 06/30/2024 15:44:04 06/30/20 24 06/30/2024 COMPL ETE BLOOD COUNT NO DIFF HCT 42.2 % 36.0-4 6.0 normal Not Available [address] [place], [address] 06/30/2024 15:44:04 06/30/20 24 06/30/2024 COMPL ETE BLOOD COUNT NO DIFF MCV 87 fL 80-95 normal Not Available Johanna [address] [place], [address] 06/30/2024 15:44:04 06/30/20 24 06/30/2024 COMPL ETE BLOOD COUNT NO DIFF MCH 27.4 pg 27.0-3 3.0 normal Not Available [address] [place], [address] 06/30/2024 15:44:04 06/30/20 24 06/30/2024 COMPL ETE BLOOD COUNT NO DIFF MCHC 31.5 % 32.0-3 6.0 low Not Available [address] [place], [address] 06/30/2024 15:44:04 06/30/20 24 06/30/2024 COMPL ETE BLOOD COUNT NO DIFF RDW 14.6 % 11.7-1 4.6 normal Not Available [address] [place], [address] 06/30/2024 15:44:04 06/30/20 24 06/30/2024 COMPL ETE BLOOD COUNT NO DIFF platelet count 368 10_3/ uL 130-40 0 normal Not Available [address] [place], [address] 06/30/2024 15:44:04 06/30/20 24 06/30/2024 COMPL ETE BLOOD COUNT NO DIFF MPV 10.3 fL 8.0-11 .0 normal Not Available [address] [place], [address] 06/30/2024 15:44:04 06/30/20 24 06/30/2024 IRON AND IBCT iron 49 ug/dL 50-170 low Not Available [address] [place], [address] 06/30/2024 15:53:20 06/30/20 24 06/30/2024 IRON AND IBCT total iron binding capacity 462 ug/dL 250-45 0 high Not Available [address] [place], [address] 06/30/2024 15:53:20 06/30/20 24 06/30/2024 IRON AND IBCT transferrin sat 11 % 15-50 low Not Available Galenajojo yu [address] [place], [address] 06/30/2024 15:53:20 06/30/20 24 06/30/2024 LIPID 2 cholesterol 259 mg/dL <200 high Not Available Aneta uy [address] [place], [address] 06/30/2024 15:59:05 06/30/20 24 06/30/2024 LIPID 2 triglyceride 186 mg/dL <150 high Not Available [address] [place], [address] 06/30/2024 15:59:05 06/30/20 24 06/30/2024 LIPID 2 HDL cholesterol 58 mg/dL 40-60 Not Available Aartiantonio lita[address] [place], [address] 06/30/2024 15:59:05 06/30/20 24 06/30/2024 LIPID 2 calculated LDL 164 mg/dL <100 high Natio nal Varsha stero l Educa tion Progr am (NCEP -ATPI II) class ifica tions : Varsha stero l <200 mg/dL Arleth able Varsha stero l 200-2 39 mg/dL Borde rline High Varsha stero l >or=2 40 mg/dL High HDL <40 mg/dL Low HDL >or=6 0 mg/dL High LDL <100 mg/dL Optim al LDL 100-1 29 mg/dL Near Optim al/Ab ove Optim al LDL 130-1 59 mg/dL Borde rline High LDL 160-1 89 mg/dL High LDL >or=1 90 mg/dL Very High *The above refer ence range is for adult s 18 years or older . Not Available [address] [place], [address] 06/30/2024 15:59:05 06/30/20 24 06/30/2024 VALERIA TIN ferritin 9 NG/mL 8-252 normal Not Available [address] [place], [address] 06/30/2024 15:59:06 06/30/20 24 06/30/2024 HEMOG LOBIN A1C hemoglobin A1C 5.0 % <5.7 Refer ence Range s <5.7 Justa l 5.7-6 .4% Predi abete s 6.5% or great er Diagn ostic for diabe harry (if confi rmed) Refer ences : 1. Ameri can Diabe harry Assoc iatio n. Clas sific ation and Diagn osis of Diabe harry. Diabe harry Care 2019 Oct;4 2(Sup pleme nt 1):S1 3-s28 . Not Available [facility] [address], [place], [address] 06/30/2024 16:33:21 07/08/20 24 07/20/2024 PAP THINP REP HPV REGAR DLESS OF DX* Pap thinprep HPV regardless of DX* CytoP athol ogy Maryam prasad: 07/20 14:01 Statu s=F ----- ----- ----- ----- ----- ----- ----- ----- ----- ----- ----- ----- ----- ----- ----- ----- TEST RESUL T FLAG RANGE UNITS ----- ----- ----- ----- ----- ----- ----- ----- ----- ----- ----- ----- ----- ----- ----- ----- Repor t (See below ) 07/20.1 404.r fl.CO MPLET E.MAY T PAP SPECI MENS A. Cervi x and/o r Endoc ervix , ThinP rep Imagi ng Syste m with Manua l Evalu ation SPECI MEN ADEQU ACY Satis facto ry for Evalu ation - trans forma tion zone compo nent prese nt Scant squam ous epith elial compo nent GENER AL CATEG ORIZA TION Negat lela for intra epith elial lesio n or malig betty DESCR IPTIV E DIAGN OSIS React lela cellhansel schaefer es assoc iated with infla mmati on prese nt (incl udes repai r). CYTOL OGY ATTES TATIO N By the signa anette below , the atten ding physi porsha certi fies that they have perso berhane condu cted a gross and/o r micro scopi c exami natio n of the descr ibed speci mens and rende red or confi rmed the above diagn osis. Elect nicole rose d by Kitty Longoria MD on 07/20 at 1401 CLINI KANDACE HISTO RY Clini kandace Histo ry, Signs , Sympt oms, Chief Compl aint, Eula ining to This Order : See below Hormo ne/Co ntrac eptiv e Use?: Yes Pregn ant?: No Post- Partu m?: No AP PERFO RMING LAB [facility] PAP HPV HIGH RISK TYPE 16, PCR Negat lela PAP HPV HIGH RISK TYPE 18, PCR Negat lela PAP HPV OTHER HIGH RISK TYPES , PCR Negat lela The follo wing Other High Risk HPV types were not detec prasad: 31,33 , 35, 39, 45, 51, 52, 56, 58, 59, 66 and 68. End of Repor t Discl aimer s: 1) Repor ts gener ated via elect nicole inter face conta in origi nal data; howev er they are lacki ng the forma t of the origi nal repor t. Cauti on shoul d be taken when readi ng/in terpr eting unfor matte d repor ts. 2) Pleas e refer ence the paper repor t if the text (End of Repor t) is not displ ayed. ELIZABETHA Elian REQUI SITIO N REQUI RED: Test perfo rmed or refer red by [facility] [address] [facility] Yojana [place], [place] [address] Not Available [facility] (Lab) [address] [place] [address], [address], 07/20/2024 14:59:50 07/08/20 24 07/11/2024 SURGI KANDACE PATHO LOGY* surgical pathology* [facility] [address] [place] [address] [place] [address] PATHO LOGY REPOR T Name: CAROLYNN Herbert michelle #: [id number] : [birth year] (AGE: 38) F 10 Order Phys: TANK BURT [id number] Admit Phys: TANK PRADHAN EL Colle cted Date: 07/08 11:55 Order #: [id number] Recei jonna Date: 07/11 11:55 Prima ry Care: WOHLB ERG J Uns igned Trans cript ions repre sent a preli minar y repor t and do not repre sent a medic al or legal docum ent * FINAL PATHO LOGIC DIAGN OSIS: Endom etriu m, biops y: Inact lela endom etriu m with pseud o-dec idual ized victoria a, consi stent with exoge nous hormo ne effec t. Revie wed and Elect nicole palomo by: AROLDO MARTINEZ MD PATHO LOGIS T 07/13 15:53 By the christin cheema above , the atten ding physi porsha certi fies that he/sh e has perso berhane condu cted a gross and/o r micro scopi c exami natio n of the descr ibed speci mens and rende red or confi rmed the above diagn osis. Gross Descr iptio n: Recei jonna in forma natalia label ed with patie nt's name and date of are multi ple fragm ents of norman pink tissu e and blood measu ring 1.5 x 1.5 x 0.2 [address] in ag[address] gate. The speci men has been caref ully filte red and entir miguelina submi tted as A1. Clini kandace Diagn osis: Abnor mal uteri ne bleed ing. Perti nent Clini kandace Data: Speci men Sourc e: Endom etria l. Proce dure Locat ion Note: Gross evalu [facility]ion done at [facility], [place], [place]. Micro scopi c evalu ation done at [facility], [place], [place]. Histo logy proce ssed at [facility] nt Medic al Shazia becerril, SARA Choudhury. Compl exity Code: R d: 07/11 12:47 :33, 53071 9 t: 07/12 10:21 ROBERTA d: 2023; #[id number] 91; 1000 t: 2023; 1500; SAB Copy for: File copy print er # [id number] Copy for: TANK BURT via modem Not Available [facility] (Lab) [address] [place] [address], [address], 07/13/2024 15:54:27 07/14/2007/14/2024 THYRO ID TESTI NG GERMANA DE* TSH. 1.626 uIU/m L 0.360 - 3.740 Not Available [facility] (Lab) [address] [place] [address], [address], 07/14/2024 11:40:15 07/14/2007/14/2024 CBC W/ DIFFE RENTI AL* WBC 4.55 TH/cm m 5.00 - 10.00 low Not Available [facility] (Lab) [address] [place] [address], [address], 07/14/2024 10:54:06 07/14/2007/14/2024 CBC W/ DIFFE RENTI AL* neut % 63.5 % 40.0 - 80.0 Not Available [facility] (Lab) [address] [place] [address], [address], 07/14/2024 10:54:06 07/14/2007/14/2024 CBC W/ DIFFE RENTI AL* lymph % 25.9 % 10.0 - 50.0 Not Available [facility] (Lab) [address] [place] [address], [address], 07/14/2024 10:54:06 07/14/2007/14/2024 CBC W/ DIFFE RENTI AL* mono % 7.5 % 2.0 - 12.0 Not Available [facility] (Lab) [address] [place] [address], [address], 07/14/2024 10:54:06 07/14/20 24 07/14/2024 CBC W/ DIFFE RENTI AL* eos % 1.8 % 0.0 - 8.0 Not Available [facility] (Lab) [address] [place] [address], [address], 07/14/2024 10:54:06 07/14/20 24 07/14/2024 CBC W/ DIFFE RENTI AL* baso % 0.9 % 0.0 - 3.0 Not Available [facility] (Lab) [address] [place] [address], [address], 07/14/2024 10:54:06 07/14/2007/14/2024 CBC W/ DIFFE RENTI AL* Ig % 0.4 % 0.0 - 1.1 Not Available [facility] (Lab) [address] [place] [address], [address], 07/14/2024 10:54:06 07/14/20 24 07/14/2024 CBC W/ DIFFE RENTI AL* NRBC % 0.0 % 0.0 - 0.0 Not Available [facility] (Lab) [address] [place] [address], [address], 07/14/2024 10:54:06 07/14/20 24 07/14/2024 CBC W/ DIFFE RENTI AL* neut abs count 2.9 TH/cm m 1.6 - 8.4 Not Available [facility] (Lab) [address] [place] [address], [address], 07/14/2024 10:54:06 07/14/20 24 07/14/2024 CBC W/ DIFFE RENTI AL* lymph abs count 1.2 TH/cm m 1.5 - 4.0 low Not Available [facility] (Lab) [address] [place] [address], [address], 07/14/2024 10:54:06 07/14/20 24 07/14/2024 CBC W/ DIFFE RENTI AL* mono abs count 0.3 TH/cm m 0.2 - 1.0 Not Available [facility] (Lab) [address] [place], [address], 07/14/2024 10:54:06 07/14/20 24 07/14/2024 CBC W/ DIFFE RENTI AL* eos abs count 0.1 TH/cm m 0.0 - 0.5 Not Available [facility] (Lab) [address] [place], [address], 07/14/2024 10:54:06 07/14/20 24 07/14/2024 CBC W/ DIFFE RENTI AL* baso abs count 0.0 TH/cm m 0.0 - 0.2 Not Available [facility] (Lab) [address] [place] [address], [address], 07/14/2024 10:54:06 07/14/20 24 07/14/2024 CBC W/ DIFFE RENTI AL* Ig abs count 0.0 TH/cm m 0.0 - 0.1 Not Available [facility] (Lab) [address] [place] [address], [address], 07/14/2024 10:54:06 07/14/20 24 07/14/2024 CBC W/ DIFFE RENTI AL* NRBC abs count 0.0 mil/c mm 0.0 - 0.0 Not Available [facility] (Lab) [address] [place] [address], [address], 07/14/2024 10:54:06 07/14/20 24 07/14/2024 CBC W/ DIFFE RENTI AL* RBC 4.86 mil/c mm 3.90 - 5.40 Not Available [facility] (Lab) [address] [place] [address], [address], 07/14/2024 10:54:06 07/14/20 24 07/14/2024 CBC W/ DIFFE RENTI AL* hemoglobin 13.0 gm/dL 12.0 - 16.0 Not Available [facility] (Lab) [address] [place], [address], 07/14/2024 10:54:06 07/14/2007/14/2024 CBC W/ DIFFE RENTI AL* hematocrit 43 % 37 - 47 Not Available [facility] (Lab) [address] [place] [address], [address], 07/14/2024 10:54:06 07/14/2007/14/2024 CBC W/ DIFFE RENTI AL* MCV 88 fL 82 - 92 Not Available [facility] (Lab) [address] [place] [address], [address], 07/14/2024 10:54:06 07/14/2007/14/2024 CBC W/ DIFFE RENTI AL* MCH 26.7 pg 27.0 - 31.0 low Not Available [facility] (Lab) [address] [place] [address], [address], 07/14/2024 10:54:06 07/14/2007/14/2024 CBC W/ DIFFE RENTI AL* MCHC 30.4 % 32.0 - 36.0 low Not Available [facility] (Lab) [address] [place] [address], [address], 07/14/2024 10:54:06 07/14/2007/14/2024 CBC W/ DIFFE RENTI AL* RDW-SD 47.5 fL 39.0 - 49.0 Not Available [facility] (Lab) [address] [place] [address], [address], 07/14/2024 10:54:06 07/14/2007/14/2024 CBC W/ DIFFE RENTI AL* platelet count 357 TH/cm m 150 - 450 Not Available [facility] (Lab) [address] [place] [address], [address], 07/14/2024 10:54:06 08/20/2008/20/2024 TYPE AND SCREE N* type and screen* COR RECTE D REPOR T BLOOD TYPE AND ANTIB SEGUNDO SCREE N Not Available [facility] (Lab) [address] [place] [address], [address], 08/20/2024 14:32:41 08/20/2008/20/2024 TYPE AND SCREE N* blood group A Not Available [facility] (Lab) [address] [place] [address], [address], 08/20/2024 14:32:41 08/20/2008/20/2024 TYPE AND SCREE N* Rh (D) POSITI VE Not Available [facility] (Lab) [address] [place] [address], [address], 08/20/2024 14:32:41 08/20/2008/20/2024 TYPE AND SCREE N* antibody screen NEGATI VE Valid thru date: 08/25 x110/05 03/28. 1431. KLT. . . time: 08/20.1 351.K AM. . . ===== ===== ===== ===== ==ELIDA FLANAGAN IN ERROR ===== ===== ===== ===== === Valid thru date: 08/23 n110/05 03/28. 1351. ANDREA. . . Not Available [facility] (Lab) [address] [place] [address], [address], 08/20/2024 14:32:41 08/20/20 24 08/20/2024 TYPE AND SCREE N* type and screen* BLOOD TYPE AND ANTIB SEGUNDO SCREE N Not Available [facility] (Lab) [address] [place] [address], [address], 08/20/2024 13:52:40 08/20/2008/20/2024 TYPE AND SCREE N* blood group A Not Available [facility] (Lab) [address] [place] [address], [address], 08/20/2024 13:52:40 08/20/2008/20/2024 TYPE AND SCREE N* Rh (D) POSITI VE Not Available [facility] (Lab) [address] [place] [address], [address], 08/20/2024 13:52:40 08/20/2008/20/2024 TYPE AND SCREE N* antibody screen NEGATI VE Valid thru date: 08/23.1 351.K AM. . . time: 08/20.1 351.K AM. . . Not Available [facility] (Lab) [address] [place] [address], [address], 08/20/2024 13:52:40 08/20/2008/20/2024 CBC W/ DIFFE RENTI AL* WBC 4.78 TH/cm m 5.00 - 10.00 low Not Available [facility] (Lab) [address] [place] [address], [address], 08/20/2024 09:47:31 08/20/2008/20/2024 CBC W/ DIFFE RENTI AL* neut % 51.3 % 40.0 - 80.0 Not Available [facility] (Lab) [address] [place] [address], [address], 08/20/2024 09:47:31 08/20/20 24 08/20/2024 CBC W/ DIFFE RENTI AL* lymph % 38.5 % 10.0 - 50.0 Not Available [facility] (Lab) [address] [place] [address], [address], 08/20/2024 09:47:31 08/20/20 24 08/20/2024 CBC W/ DIFFE RENTI AL* mono % 6.7 % 2.0 - 12.0 Not Available [facility] (Lab) [address] [place], [address], 08/20/2024 09:47:31 08/20/20 24 08/20/2024 CBC W/ DIFFE RENTI AL* eos % 2.5 % 0.0 - 8.0 Not Available [facility] (Lab) [address] [place] [address], [address], 08/20/2024 09:47:31 08/20/20 24 08/20/2024 CBC W/ DIFFE RENTI AL* baso % 0.8 % 0.0 - 3.0 Not Available [facility] (Lab) [address] [place] [address], [address], 08/20/2024 09:47:31 08/20/20 24 08/20/2024 CBC W/ DIFFE RENTI AL* Ig % 0.2 % 0.0 - 1.1 Not Available [facility] (Lab) [address] [place] [address], [address], 08/20/2024 09:47:31 08/20/20 24 08/20/2024 CBC W/ DIFFE RENTI AL* NRBC % 0.0 % 0.0 - 0.0 Not Available [facility] (Lab) [address] [place] [address], [address], 08/20/2024 09:47:31 08/20/20 24 08/20/2024 CBC W/ DIFFE RENTI AL* neut abs count 2.5 TH/cm m 1.6 - 8.4 Not Available [facility] (Lab) [address] [place] [address], [address], 08/20/2024 09:47:31 08/20/20 24 08/20/2024 CBC W/ DIFFE RENTI AL* lymph abs count 1.8 TH/cm m 1.5 - 4.0 Not Available [facility] (Lab) [address] [place], [address], 08/20/2024 09:47:31 08/20/20 24 08/20/2024 CBC W/ DIFFE RENTI AL* mono abs count 0.3 TH/cm m 0.2 - 1.0 Not Available [facility] (Lab) [address] [place], [address], 08/20/2024 09:47:31 08/20/20 24 08/20/2024 CBC W/ DIFFE RENTI AL* eos abs count 0.1 TH/cm m 0.0 - 0.5 Not Available [facility] (Lab) [address] [place] [address], [address], 08/20/2024 09:47:31 08/20/20 24 08/20/2024 CBC W/ DIFFE RENTI AL* baso abs count 0.0 TH/cm m 0.0 - 0.2 Not Available [facility] (Lab) [address] [place] [address], 47[address], 08/20/2024 09:47:31 08/20/20 24 08/20/2024 CBC W/ DIFFE RENTI AL* Ig abs count 0.0 TH/cm m 0.0 - 0.1 Not Available [facility] (Lab) [address] [place], [address], 08/20/2024 09:47:31 08/20/20 24 08/20/2024 CBC W/ DIFFE RENTI AL* NRBC abs count 0.0 mil/c mm 0.0 - 0.0 Not Available [facility] (Lab) [address] [place] [address], [address], 08/20/2024 09:47:31 08/20/20 24 08/20/2024 CBC W/ DIFFE RENTI AL* RBC 4.78 mil/c mm 3.90 - 5.40 Not Available [facility] (Lab) [address] [place] [address], 14[address], 08/20/2024 09:47:31 08/20/20 24 08/20/2024 CBC W/ DIFFE RENTI AL* hemoglobin 13.0 gm/dL 12.0 - 16.0 Not Available [facility] (Lab) [address] [place] [address], [address], 08/20/2024 09:47:31 08/20/20 24 08/20/2024 CBC W/ DIFFE RENTI AL* hematocrit 42 % 37 - 47 Not Available [facility] (Lab) [address] [place] [address], 0[address], 08/20/2024 09:47:31 08/20/20 24 08/20/2024 CBC W/ DIFFE RENTI AL* MCV 87 fL 82 - 92 Not Available [facility] (Lab) [address] [place] [address], 21051, 08/20/2024 09:47:31 08/20/20 24 08/20/2024 CBC W/ DIFFE RENTI AL* MCH 27.2 pg 27.0 - 31.0 Not Available [facility] (Lab) [address] [place] [address], 28[address], 08/20/2024 09:47:31 08/20/20 24 08/20/2024 CBC W/ DIFFE RENTI AL* MCHC 31.3 % 32.0 - 36.0 low Not Available [facility] (Lab) [address] [place] [address], 9[address], 08/20/2024 09:47:31 08/20/20 24 08/20/2024 CBC W/ DIFFE RENTI AL* RDW-SD 48.9 fL 39.0 - 49.0 Not Available [facility] (Lab) [address] [place] [address], 84187, 08/20/2024 09:47:31 08/20/20 24 08/20/2024 CBC W/ MARCIA CLARK* platelet count 363 TH/cm m 150 - 450 Not Available [facility] (Lab) [address] [place], [address], 08/20/2024 09:47:31 08/22/20 24 08/22/2024 SURGI KANDACE PATHO LOGY* surgical pathology* [facility] [address] [facility] [place] [address] PATHO LOGY REPOR T Name: CAROLYNN Herbert michelle #: [id number] : [birth year] (AGE: 39) F 8 Order Phys: TANK BURT 572 Admit Phys: TANK PRADHAN EL Colle cted Date: 08/22 13:50 Order #: [id number] Recei jonna Date: 08/22 13:50 Prima ry Care: WOHLB ERG J Uns igned Trans cript ions repre sent a preli minar y repor t and do not repre sent a medic al or legal docum ent * FINAL PATHO LOGIC DIAGN OSIS: Uteru s, right and left fallo pian tubes , hyste recto my and bilat eral salpi ngect deni: Endom etriu m: Inact lela endom etriu m with pseud odeci duali zed victoria a, consi stent with exoge nous hormo ne effec t. Cervi x: No speci fic patho logic featu res. Myome trium : Leiom yoma. Seros a: No speci fic patho logic featu res. Fallo pian tubes : No speci fic patho logic featu res. Revie wed and Elect nicole Rose d by: AROLDO MARTINEZ MD PATHO LOGIS T 08/26 11:49 By the christin cheema above , the atten ding physi porsha certi fies that he/sh e has perso berhane condu cted a gross and/o r micro scopi c exami natio n of the descr ibed speci mens and rende red or confi rmed the above diagn osis. Gross Descr iptio n: Recei jonna in forma natalia label ed with the patie nt's name and uteru s plus bilat eral fallo pian tubes is a 180-g roney uteru s with attac hed bilat eral fallo pian tubes . The uteru s measu res 10.0 x 6.0 x 5.0 cm. The cervi x is norman purpl e and unrem arkab le measu ring 3.[address] with a 1.0 cm paten t cervi kandace os. The seros al surfa ce appea rs carter h and glist ening . The fimbr iated fallo pian tubes are unrem arkab le measu ring 6.0 cm in lengt h x 0.5 and 4.5 cm in lengt h x 0.5 cm. The uteru s is opene d to revea l a norman pink hyper emic endoc ervic al canal measu ring 2.0 cm in lengt h. The endom etria l cavit y is norman pink velve ty measu ring 5.0 x 1.5 cm. The myome trium is norman pink trabe culat ed measu ring 2.0 cm in great est thick ness. A round small fibro id measu ring 0.3 cm is ident ified on the anter ior wall. Repre senta tive secti ons submi tted as A1 anter ior and poste rior cervi x, A2 anter ior cervi x, A3 poste rior cervi x, A4 anter ior endom yomet rium with fibro id, A5 fallo pian tubes . Clini kandace Diagn osis: Abnor mal uteri ne bleed ing. Perti nent Clini kandace Data: Speci men Sourc e: Uteru s, bilat eral fallo pian tubes . Proce dure Locat ion Note: Gross evalu [facility]ion done at [facility], [place], [place]. Micro scopi c evalu ation done at [facility], [place]. Histo logy proce ssed at [facility] nt Medic al Shazia becerril, Gertrude wheeler , [place]. Compl exity Code: R d: 08/22, 14:19 , [id number] 3 t: 08/24 18:56 ML d: 08/24, 09:49 , [id number] 7 [facility] [address] [facility] [place], [place] [address] PATHO LOGY REPOR T Name: CAROLYNN Panda Acces michelle #: [id number] : [birth year] (AGE: 39) F 8 Order Phys: TANK BURT 572 Admit Phys: TANK BURT Colle cted Date: 08/22 13:50 Order #: [id number] Recei jonna Date: 08/22 13:50 Prima ry Care: WOHLB ERG J Uns igned Trans cript ions repre sent a preli minar y repor t and do not repre sent a medic al or legal docum ent * t: 08/25, 13:45 , ML Copy for: File copy print er # [id number] Copy for: TANK BURT via modem DISCH ARGED Not Available [facility] (Lab) [address] [place] [address], [address], 08/26/2024 11:51:19 08/22/20 24 08/22/2024 PREGN BRADY TEST QUAL (URIN E) test NEGATI VE (URIN E) Not Available [facility] (Lab) [address] [place] [address], [address], 08/22/2024 08:57:02 09/06/20 24 09/06/2024 influ dee virus A + B + SARS- CoV-2 (COVI D19) Ag panel , rapid IA, upper respi rator y speci men Influenza A negati ve Not Available [address], [place], [address], 09/06/2024 13:59:11 09/06/20 24 09/06/2024 influ dee virus A + B + SARS- CoV-2 (COVI D19) Ag panel , rapid IA, upper respi rator y speci men Influenza B negati ve Not Available [address], [address], 09/06/2024 13:59:11 09/06/20 24 09/06/2024 influ dee virus A + B + SARS- CoV-2 (COVI D19) Ag panel , rapid IA, upper respi rator y speci men SARS-COV-2 negati ve Not Available [address], [address], 09/06/2024 13:59:11 06/17/20 24 03/31/2019 imagi ng/di enos tic resul t No observ ation record [...] ation record ed. Not Available 06/17 01:12:26 07/14/20 24 07/14/2024 pelvi c trans vagin al* [facility] RADIOL OGY Jitendra iMracle wylie [address] RADIOL OGY TRANSC RIPTIO N REPORT _ Patien t Name: JULISSA PalomoTARA MRN: Sex: : Age: [id number] F [id number] Accoun t: Access ion: Admit: StayTy pe: [id number] 2023 O Aciha d: Order ID: Submit prasad: Martínez Be er: 2023 08:38 [id number] Merlyn BANKS prasad: Techno logist : Result ed: 2023 08:42 GVS 2023 12:10 _ Gyneco logica l Report (Rose palomo Final 2023 12:10 pm) ------ ------ - PATIEN T INFO: ------ ------ - ID #: [id number] : (38 yrs)(F ) Name: REID Palomo Visit Date: 2023 09:10 am ------ ------ - PERFOR MED BY: ------ ------ - Attend ing: Tonya howard MD, Carlos Tatum Perfor med By: Jeffrey TRAN, RVT, Philip castillo Referr ed By: CARLOS FRAZIER [facility]ati [facility] ------ ------ ------ -- SERVIC Jojo(S) PROVID ED: ------ ------ ------ -- UTV - Transv aginal - [id number] ------ ------ INDICA TIONS: ------ ------ REASON : ABNORM AL UTERIN E BLEEDI NG (AUB ADD'L INFO: NO ENTRY ------ -- HISTOR Y: ------ -- Age: 38 ------ - UTERUS : ------ - Uterus : Visual ized Positi on: Retrov erted Size (cm) L: 9.4 W: 7.7 H: 5.7 Descri ption: Hetero geneou s ------ ------ ENDOME TRIUM: ------ ------ Endome trium: Normal appear ance Thickn ess(mm ): 5.9 ------ ------ RIGHT OVARY: ------ ------ Status : Visual ized Size (cm) L: 2.5 W: 1.7 H: 1.8 Vol (ml): 4.0 Morpho logy: Normal appear ance ------ ----- LEFT OVARY: ------ ----- Status : Visual ized Size (cm) L: 2.5 W: 2.8 H: 1.7 Vol (ml): 6.2 Morpho logy: Normal appear ance ------ ----- IMPRES MICHELLE: ------ ----- Retrov erted retrof lexed uterus of normal overal l size. Endome trium age-ap propri ate at about 6 mm thickn ess withou t omar vásquez focal pathol ogy. Electr onical ly signed by: Carlos howard MD, Radiol ogy 12:04 PM Thank you for lettin g us partic ipate in the care of this daniel alvarez. If you are a health care [facility] er and have any questi ons regard ing this report , please contac t the number above. For patiannamaria ts who have questi ons, please contac t the health care profes ayush that reques prasad your imagin g first. Carlos howard Electr onical ly Signed Final Report 2023 12:10 pm INTERFACE [facility] (Lab) [address] [place] [address], [address], 07/14/2024 12:13:23 09/06/20 24 09/06/2024 XR, chest , 2 view [facility] RADIOL OGY [place] [id number] RADIOL OGY [facility] RIPTIO N REPORT _ Patiannamaria alvarez Name: JULISSA Palomo,TARA Salas J MRN: Sex: : Age: [id number] F [id number] Accoun t: Access ion: Admit: StayTy pe: [id number] O Aicha d: Order ID: Submit prasad: Martínez peoples Provid er: 2023 14:44 [id number] ROCKY JESUS prasad: Techno logist : Result ed: 2023 [...] active proces s seen. Thank you for lettin g us partic ipate in the care of this patien t. If you are a health care [facility] and have any questi ons regard ing this report , please contac t the number below. For patien ts who have questi ons please contac t the [facility] that reques prasad your imagin g first. Electr onical ly signed by: Carlos howard MD Radiol demetria walker ([phone]), at 024 4:[address] (Lab) [address] [place] [address], [address], 09/16/2024 07:53:05 Result Notes None recorded. Problems Name Problem SNOMED Code Status Onset Date Resolution Date Notes Provider Name and Address Organization Details Recorded Time Hysterec [place] Active 2023 lap sekou bautista slpingec [place], still has ovaries, dx: AUB 2023 S[address], [place], [address] , [facility] 4 08:29:50 Cough 05859981 Completed 202310/18/2024 Problem Code: R05.8; Problem Code Type: ICD-10; [address], [place], [address] , [facility] 5 11:46:39 Persiste nt cough 437014340 Completed 202310/18/[address], [place], [address] , [facility] 5 11:46:36 Insomnia 292161315 Active 2015 Problem Code: G47.00; Problem Code Type: ICD-10; SIL[address]IO [address]TY Dr, [facility] [address] [place] [address] 4 16:34:11 Obesity 785578615 Active 2015 Problem Code: E66.9; Problem Code Type: ICD-10; SIL[address] Dr, [address] 4 16:34:11 History of disorder of digestiv e system 183471381 Active 2016 Problem Code: Z87.19; Problem Code Type: ICD-10; SIL[address] Dr, [address] 4 16:34:11 Acute bronchit is 88429673 Completed 201611/08/2016 Problem Code: J20.9; Problem Code Type: ICD-10; Not Available [facility] 3 04:42:39 Urticari a 143204951 Completed 201602/28/2024 Problem Code: L50.9; Problem Code Type: ICD-10; SIL[address] Dr, [facility] [address] , [facility] 4 08:04:53 Pelvic and perineal pain 748136333 Active 2017 Problem Code: R10.2; Problem Code Type: ICD-Cory; [address], [facility] [address] [place] [address] 4 16:34:11 Dysmenor pilar 630010168 Completed 201710/18/2024 Problem Code: N94.6; Problem Code Type: ICD-10; [address], [place], [address] , [facility] 5 12:09:09 Urinary tract infectio us disease 64170569 Completed 201706/03/2018 05/24/20 18 - Comments only - 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 - -UA pos for leuks, RBCs, nitrites , sent for C&S -START bactim DS 1 tab po bid x3 days -reviewe d red flag sx -RTC if sx worsen/p ersist Problem Code: N39.0; Problem Code Type: ICD-10; Not Available [facility] 3 04:42:39 Malaise 949510736 Completed 201711/24/2023 Problem Code: R53.81; Problem Code Type: ICD-10; [address], [place], [address] , [facility] 4 16:34:37 Joint pain 21525321 Active 2018 Problem Code: M25.50; Problem Code Type: ICD-10; [address], [place], [place], [address] [place] [address] , [facility] 4 16:34:11 C-reacti ve protein above referenc e range 94995763368 9104 Active 2018 Problem Code: R79.82; Problem Code Type: ICD-10; [address], [facility] [address] , [facility] 4 16:34:10 Migraine 74635203 Active 2018 Problem Code: G43.909; Problem Code Type: ICD-10; [address], [facility] [address] , [facility] 4 16:34:11 Irritabl e bowel syndrome 89422876 Active 2019 Problem Code: K58.9; Problem Code Type: ICD-10; [address], [place], [address] , [facility] 4 16:34:10 Gastroes ophageal reflux disease without esophagi tis 640275916 Active 2019 Problem Code: K21.9; Problem Code Type: ICD-10; [address], [facility] [address] , [facility] 4 16:34:11 Adult health examinat ion Active 2019 Problem Code: Z00.00; Problem Code Type: ICD-10; [address], [facility] [address] , [facility] 4 16:34:11 Hyperlip idemia screenin g Active 2019 Problem Code: Z13.220; Problem Code Type: ICD-10; [address] Dr, [facility] [address] , [facility] 4 16:34:11 Diabetes mellitus screenin g Active 2019 Problem Code: Z13.1; Problem Code Type: ICD-10; [address], [facility] [address] , [facility] 4 16:34:10 Hyperlip idemia 19747278 Active 2019 LDL 160s in [address], [facility] [address] , [facility] 4 11:26:35 Acute upper respirat ory infectio n 80475998 Completed 202103/19/2022 03/05/20 22 - Comments only - Zoya Oconnor MD - refilled cough syrup which helped before; advised conserva tive manageme nt; Reviewed indicati ons for re-evalu ation. Problem Code: J06.9; Problem Code Type: ICD-10; Not Available [facility] 3 04:42:41 Fever 886010776 Completed 202103/21/2022 Problem Code: R50.9; Problem Code Type: ICD-10; Not Available [facility] 3 04:42:41 Cough 30944494 Completed 202103/21/2022 Problem Code: R05.8; Problem Code Type: ICD-10; [address], [place], [address] , [facility] 5 11:46:39 Urgent desire to urinate 01372815 Completed 202106/16/2022 Problem Code: R39.15; Problem Code Type: ICD-10; Not Available [facility] 3 04:42:41 Acute pyelonep hritis 19700817 Completed 202106/16/2022 06/02/20 22 - Comments only [...] future. Problem Code: N10; Problem Code Type: ICD-Cory; [address], [place], [address] , [facility] 4 16:34:28 Acute pyelonep hritis 62352475 Completed 202111/24/2023 Problem Code: N10; Problem Code Type: ICD-Cory; [address], [place], [address] , [facility] 4 16:34:28 Acute sinusiti s 10423655 Completed 202212/11/2022 12/02/19 23 - Comments only [...] J01.90; Problem Code Type: ICD-10; Not Available [facility] 3 04:42:42 Acute bronchit is 39304827 Completed 202212/17/2022 Problem Code: J20.9; Problem Code Type: ICD-10; Not Available [facility] 3 04:42:42 Carpal tunnel syndrome of left wrist 90350876835 9102 Active 2022 Problem Code: G56.02; Problem Code Type: ICD-10; SILVERIO PETTY [address], [place], [address] , [facility] 4 16:34:11 Hand pain 58592533 Completed 202207/27/2023 Problem Code: M79.643; Problem Code Type: ICD-10; Not Available [facility] 4 05:35:53 Pain of breast 63060735 Completed 202207/27/2023 Problem Code: N64.4; Problem Code Type: ICD-10; Not Available [facility] 4 05:35:54 Family history of breast cancer 894804152 Active 2022 Problem Code: Z80.3; Problem Code Type: ICD-10; SILVERIO PETTY [address], [place], [address] , [facility] 4 16:34:11 Blood chemistr y outside referenc e range 970349452 Completed 202205/07/2023 Problem Code: R79.89; Problem Code Type: ICD-10; Not Available [facility] 3 04:42:43 Abnormal finding on evaluati on procedur e 728039960 Completed 202207/27/2023 Problem Code: R89.9; Problem Code Type: ICD-10; Not Available [facility] 4 05:35:52 Fatigue 98749813 Active 2022 Problem Code: R53.83; Problem Code Type: ICD-10; SUSI LUNDBERG, SILVERIO [address], [place], [address] , [facility] 4 16:34:11 Hypertro phic conditio n of skin 33568709 Completed 201705/10/2018 Problem Code: L91.8; Problem Code Type: ICD-10; Not Available [facility] 3 04:42:43 General examinat ion of patient Completed 200502/12/2018 Problem Code: Z00.8; Problem Code Type: ICD-10; Not Available [facility] 3 04:42:44 Acute effect of ultravio let radiatio n on normal skin 695143213 Completed 201805/30/2019 Problem Code: L56.8; Problem Code Type: ICD-10; Not Available [facility] 3 04:42:44 Headache 87693725 Completed 201807/01/2023 Problem Code: R51; Problem Code Type: ICD-10; Not Available [facility] 3 04:42:44 Abdomina l pain 25581010 Completed 202111/03/2022 Problem Code: R10.9; Problem Code Type: ICD-10; Not Available [facility] 3 04:42:44 Cholecys titis 03707219 Completed 201607/01/2023 Problem Code: K81.9; Problem Code Type: ICD-10; Not Available [facility] 3 04:42:44 Diarrhea 28934602 Completed 201704/29/2019 Problem Code: R19.7; Problem Code Type: ICD-10; Not Available [facility] 3 04:42:45 Irregula r periods 78619319 Completed 201505/10/2018 Problem Code: N92.6; Problem Code Type: ICD-10; Not Available [facility] 3 04:42:45 Pelvic and perineal pain 073689048 Completed 201502/12/2018 Problem Code: R10.2; Problem Code Type: ICD-10; [address], [place], [address] , [facility] 4 16:34:11 Counseli ng Completed 201705/24/2018 Problem Code: Z71.89; Problem Code Type: ICD-10; Not Available [facility] 3 04:42:45 Pain of right knee joint 81904388834 4100 Completed 202106/26/2022 Problem Code: M25.561; Problem Code Type: ICD-10; Not Available [facility] 3 04:42:45 History AND physical examinat ion Completed 200507/01/2023 Not Available [facility] 3 04:42:45 Acute pharyngi tis 962685402 Completed 201702/12/2018 Problem Code: J02.9; Problem Code Type: ICD-10; Not Available [facility] 3 04:42:46 Pain in left foot 95628741466 9107 Completed 201806/26/2022 Problem Code: M79.672; Problem Code Type: ICD-10; Not Available [facility] 3 04:42:46 History of urinary disease 683415611 Active 2021 Problem Code: Z87.448; Problem Code Type: ICD-10; [address], [place], [address] , [facility] 4 16:34:11 Mixed anxiety and depressi ve disorder 921584258 Active [address], [place], [address] , [facility] 4 10:36:32 Tremor 59283442 Completed 202306/30/[address], [facility] [address] , [facility] 4 10:59:59 Numbness 26120463 Completed 202306/30/[address], [address] , [facility] 11:00:11 Cobalami n deficien cy 105890885 Active [address], [place] [address] , [facility] 16:39:58 Iron deficien cy 54085376 Active [address], [address] , [facility] 17:10:09 Hemorrho ids 45125528 Active [address], [address] , [facility] 10:19:46 Paresthe fede 12833233 Completed 202306/30/[address], [facility] [address] , [facility] 11:00:03 Restless legs 63103088 Active 2023 sleep study 2023, no LORNE [address], [facility] [address] , [facility] 16:47:53 Carpal tunnel syndrome 01245953 Active 2023 ALAN CHRISTIANSON MA null, [facility] 4 13:48:15 Sleep pattern disturba nce 63961535 Active 2023 no result from sleep study? Did not have it? [address]IL[address] Dr, [facility] [address] , [facility] 4 14:43:07 Menorrha og 823268899 Active [address], [facility] [address] , [facility] 4 09:54:15 Raynaud' s phenomen on 156649979 Active [address], [facility] [address] , [facility] 4 09:55:53 Abnormal uterine bleeding 76392820764 100 Completed 202310/18/[address], [facility] [address] , [facility] 5 11:46:43 Notes:*Problem Name: Contrac eption-mirena- 2013 *Problem Status: inactive *Comments: *Problem Code: V25.02 *Problem Code Type: ICD-9 *Note Date: 12/13/2013 Problem Notes None recorded. Procedures Surgical History Date Name Laterality Status Provider Name and Address Organization Details Recorded Time 4 Hysterectomy [address], [facility] [address], [facility] 08/30/2024 08:30:09 Imaging Results Imaging Date Name Status LastModified by [facility] Details LastModified Time 03/31/2019 imaging/diagn ostic result [...] completed Information no t available 06/17/2024 01:12:26 07/14/2024 US pelvic transvaginal* completed INTERFACE [facility] (Lab) [address] [place], [address], 07/14/2024 12:13:23 09/06/2024 XR, chest, 2 view completed [id number] [place] [address] (Lab) [address] [place], [address], 09/16/2024 07:53:05 Procedure Notes None recorded. Medical Equipment None Reported. Allergies Allergen ID Allergen Name Allergen Category Reaction Reaction Severity Criticality Documentation Date Start Date Code Code System Note Provider Name and Address Organization Details Recorded Time amoxicill in trihydrat e medicatio n hives severe Not available 08/14/20232002 37519 8 RxNorm full body hives Aller gyCod e: '3081 82'; Aller gyNam e: 'AMOX ICILL IN'; Aller gyCon ceptT ype: 'RX Norm' ; Aller gyRea ction : 'full body hives '; Not Available [facility] 16:11:42 cephalexi n monohydra te medicatio n hives severe Not available 08/14/20232015 29433 8 RxNorm full body hives Aller gyRea ction : 'full body hives '; Not Available [facility] 16:11:42 Medications Name Sig Start Date Stop [...] to have cause tremor in pt. See #053913. Not Available Not Available Not Available promethaz [...] needed for bowel issues 2019 active from [facility] Not Available Not Available Not Available [...] Relief 50 mcg/actua tion nasal spray,ismael pension [place] 1 spray every day by intranas al [...] Updated DateTime 4 170.815 cm 37 kg/m2 333987. 98 g 97.8 [degF] 99 % 99 % 79 /min 118 mm[Hg] 78 mm[Hg] VARUN MIKE RN [facility] 4 08:30:12 Date Recorded Body height Body mass index (BMI) Body weight Body temperature Oxygen saturation Oxygen saturation in Arterial blood by Pulse oximetry Heart rate Systolic blood pressure Diastolic blood pressure Provider Name and Address Organization Details Last Updated DateTime 4 170.815 cm 37.6 kg/m2 249408. 05 g 97.6 [degF] 99 % 99 % 80 /min 120 mm[Hg] 74 mm[Hg] ED MADDOX LPN [facility] 4 07:50:56 Date Recorded Body height Body mass index (BMI) Body weight Body temperature Oxygen saturation Oxygen saturation in Arterial blood by Pulse oximetry Heart rate Systolic blood pressure Diastolic blood pressure Provider Name and Address Organization Details Last Updated DateTime 4 170.815 cm 37.2 kg/m2 216529. 58 g 97.3 [degF] 98 % 98 % 83 /min 100 mm[Hg] 70 mm[Hg] ALAN CHRISTIANSON MA [facility] 4 09:51:27 Date Recorded Body height Oxygen saturation Oxygen saturation in Arterial blood by Pulse oximetry Heart rate Systolic blood pressure Diastolic blood pressure Provider Name and Address Organization Details Last Updated DateTime 4 170.815 cm 97 % 97 % 109 /min 112 mm[Hg] 81 mm[Hg] DEEPAK MCCALL MA [facility] 4 13:41:54 Date Recorded Body height Body mass index (BMI) Body weight Body temperature Oxygen saturation Oxygen saturation in Arterial blood by Pulse oximetry Heart rate Systolic blood pressure Diastolic blood pressure Provider Name and Address Organization Details Last Updated DateTime 5 170.815 cm 38 kg/m2 054447. 98 g 98.4 [degF] 98 % 98 % 85 /min 104 mm[Hg] 68 mm[Hg] Rose Batista LPN [facility] 5 11:18:32 Social History Question Answer Notes LastModified by Organizat ion Details LastModified Time Tobacco Smoking Status Former Smoker ED MADDOX LPN [facility] 09/29/2023 13:02:52 When Did You Quit Smoking? 11-15yearssi [email or web address] ette Information not available 09/29/2023 What Was The Date Of Your Most Recent Tobacco Screening? 10/18/2024 [email or web address] Information not available 10/18/2024 Sex: Female Functional Status None recorded. Mental Status None recorded. Family History Relationship Description Onset Age of this Age Resolved Age Notes LastModified by Organization Details LastModified Time Unspecified Relation Family history unknown Relati ve: 'First Degree Blood Relati ve'; [email or web address] Not available 08/14/2023 03:54:41 Notes:*Problem: Mother: sebastian e , mental health, adiction mgm- ? [place], [place] 50s or 60s Father- HLD, mgm- breast [...] split virus, trivalent, PF 4 completed JERRY BARRERA, [facility] [employer] [facility] 06/30/2024 11:12:59 MMR 9 completed Not Available [facility] 08/14/2023 05:59:12 MMR 4 completed Not Available [facility] 08/14/2023 05:59:12 Td (adult), 2 Lf tetanus toxoid, preservative free, adsorbed 2 completed Not Available [facility] 08/14/2023 05:59:12 Tdap 2 completed Not Available [facility] 08/14/2023 05:59:12 Novel [id number] , all formulations 9 completed Not Available [facility] 08/14/2023 05:59:12 Td(adult) unspecified formulation 2 completed Not Available [facility] 08/14/2023 05:59:12 Td(adult) unspecified formulation 2 completed Not Available [facility] 08/14/2023 05:59:12 Influenza, split virus, quadrivalent, PF 2 completed Not Available [facility] 08/14/2023 05:59:13 Influenza, split virus, quadrivalent, PF 0 completed Not Available [facility] 08/14/2023 05:59:13 Influenza, split virus, quadrivalent, PF 1 completed Not Available [facility] 08/14/2023 05:59:13 Influenza, split virus, quadrivalent, preservative 7 completed Not Available [facility] 08/14/2023 05:59:13 DTaP 8 completed Not Available [facility] 08/14/2023 05:59:13 DTaP 8 completed Not Available [facility] 08/14/2023 05:59:13 DTaP 9 completed Not Available [facility] 08/14/2023 05:59:13 DTaP 8 completed Not Available [facility] 08/14/2023 05:59:13 COVID-19, mRNA, LNP-S, PF, 30 mcg/0.3 mL dose 1 completed Not Available [facility] 08/14/2023 05:59:14 COVID-19, mRNA, LNP-S, PF, 30 mcg/0.3 mL dose 1 completed Not Available [facility] 08/14/2023 05:59:14 Hep B, unspecified formulation 8 completed Not Available [facility] 08/14/2023 05:59:14 Hep B, unspecified formulation 8 completed Not Available [facility] 08/14/2023 05:59:14 Hep B, unspecified formulation 8 completed Not Available [facility] 08/14/2023 05:59:14 influenza, unspecified formulation 4 completed Not Available [facility] 08/14/2023 05:59:14 influenza, unspecified formulation 9 completed Not Available [facility] 08/14/2023 05:59:14 influenza, unspecified formulation 3 completed Not Available [facility] 08/14/2023 05:59:14 polio, unspecified formulation 8 completed Not Available [facility] 08/14/2023 05:59:14 polio, unspecified formulation 8 completed Not Available [facility] 08/14/2023 05:59:14 polio, unspecified formulation 9 completed Not Available [facility] 08/14/2023 05:59:15 polio, unspecified formulation 8 completed Not Available [facility] 08/14/2023 05:59:15 polio, unspecified formulation 2 completed Not Available [facility] 08/14/2023 05:59:15 Influenza, split virus, quadrivalent, PF 3 completed Not Available [facility] 10/16/2023 05:31:15 Past Encounters Encounter ID Performer Location Encounter Start Date Encounter Closed Date Diagnosis/Indication Diagnosis SNOMED-CT Code Diagnosis ICD10 Code Diagnosis Note [id number] Jennifer Combs PA-C [address] [address] 09/29/2023 12:54:32 09/29/2023 13:30:06 Headache 60370162 R51.9 Patient with new type of bilateral mod/severe headaches that have been happening for 3-4 daily. No neuro deficits in office, non toxic, normal vital signs. Labs from 04/2023 generally wnl. Hx of migraines that were previously controlled with topiramate . Now with different headaches across front and top of head. No notable patterns but sxs of vomiting, dizziness, ear ringing are persisting and getting worse. Neuro exam today without deficits. Will give short burst of ibuprofen (with food, hx of GI upset with NSAIDs) to take prn for sxs. MRI was previously considered for BRAMBILA in 2019 but never done due to control with migraine maintenanc e medication . Will get imaging to r/o mass or lesion with new sxs.If any worsening of current sxs, numbness, tingling, weakness, severe headache, pt advised to go to ER or call 911 right away. She understand s and agrees [id number] Jennifer Combs PA-C [address] [address] 10/27/2023 15:07:19 10/27/2023 16:35:54 Headache 56120148 R51.9 Pt on telehealth visit with severe headache getting worse, sudden, hx of migraines, states these do not feel similar to past headaches. No neuro deficits noted on telehealth encounter. worst headache I have ever had. No relief with supportive care. Due to sudden onset, different headache pattern, severe discomfort , multiple 'red flag' complaints , she will proceed to [facility] ER for evaluation and treatment. She will have a family member drive her to the emergency room. Spoke with Dr. Gonzalez at [facility] ED for informatio n transfer. [id number] SUSI LUNDBERG [address] [address] 11/26/2023 07:55:37 11/26/2023 08:59:01 Migraine 51102118 G43.909 deteriorat ed-we will plan to increase her topiramate to a total of 150 mg daily. She is on oral contracept isabell and recognizes that if we need to increase further we will need to do something in terms of contracept ion. She will talk to partner about vasectomy Obesity 230391164 E66.9 Continues to be pleased with results. Reports 30 to 40 pound weight loss. Continue Victoza 1.8 mg daily Cough 64299475 R05.9 Lingering cough after upper respirator y infection. Reassuranc e. Refill albuterol. Follow-up with fever or shortness of breath [id number] SUSI LUNDBERG [address] [address] 12/21/2023 10:06:18 12/21/2023 10:38:38 Migraine 85079023 G43.909 Mixed anxi ety and depressive disorder 888228706 F41.8 Anxiety and depression , deteriorat ed. No evidence of hypomania although does have family history of bipolar disorder. Discussed options. Plan to increase fluoxetine to 40 mg daily. She will call in 2 weeks if no improvemen t. In that case would go back down to 20 mg of fluoxetine and add 150 mg of bupropion XR. Continue with supports through gnosticism, friends, partner. [id number] SUSI LUNDBERG [address] [address] 01/25/2024 15:15:09 01/25/2024 15:55:28 Tremor 62483869 R25.1 Resting tremor: Intermitte nt: No intention tremor. 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 [id number] JESSE GRAY LPN [address] [address] 01/27/2024 12:23:32 01/27/2024 12:30:47 Fatigue 91145810 R53.83 [id number] SUSI LUNDBERG, [address] [address] 03/03/2024 07:25:04 03/03/2024 08:52:05 Adult health examination 534107291 Z00.00 38 year old female here today for annual exam but with many other concerns. Tremor 76695442 R25.1 mild action tremor, recently evald by neuro, most c/w essential tremor. I do wonder if this is related to the increased dose of the fluoxetine . Will add buspirone and then try to wean down on fluoxetine . Could consider BB for control of tremor and BRAMBILA terri if weaning off topiramate causes exacerbati on. neuro labs requested and second neuro consult reviewed Mixed anxi ety and depressive disorder 085566715 F41.8 Anxiety and depression , deteriorat ed. No SI. PHQ more sig than NATHALIE however she endorses sig anxiety. Plan a couple months ago was to add Wellbutrin if symptoms were not well-contr olled, however at this point would avoid Wellbutrin given tremor and would add buspirone for anxiety. See below regarding tremor. Short interval follow up Obesity 526534194 E66.9 Continues to be pleased with results. Reports 30 to 40 pound weight loss in total. Continue Victoza 1.8 mg daily Migraine 60256897 G43.90 9 Currently weaning off topiramate as it could be implicated in paresthesi as. Continue to monitor and consider beta-block er Numbness 14413965 R20.0 No improvemen t in paresthesi as with decreased dose of topiramate . Will continue to monitor to see whether it improves when off topiramate completely . Recent normal MRI. Reviewed neurology consult Fatigue 26966202 R53.83 Suspect sleep apnea. Obtain records from sleep study Cobalamin deficiency 190 847093 E53.8 continue oral B12 Patient ks dical record not available 284471209 Z76.89 [id number] NICKO CAMARENA, [address] [address] 03/24/2024 09:37:14 03/24/2024 10:04:57 Hemorrhoids 17081803 K64.9 The patient has been struggling with severe pain due to external hemorrhoid s. Conservati ve treatments have not offered significan t relief. A referral to a surgeon will be made for an urgent evaluation and possible surgical interventi on. In the meantime, the patient will be advised to try sitz baths and a prescripti on-strengt h cream with a stronger analgesic component will be prescribed for symptom relief. [id number] SUSI LUNDBERG, [address] [address] 03/31/2024 08:18:17 03/31/2024 09:06:05 Mixed anxiety and depressive disorder 805620860 F41.8 Improvemen t on lower dose fluoxetine as well as addition of buspirone. She would like to continue this combinatio n. Of note, tremor has also resolved Tremor 59497098 R25.1 Resolved, likely due to decreased dose of fluoxetine Migraine 57952206 G43.90 9 Now worsened after discontinu ing topiramate secondary to paresthesi as. We discussed options including slowly titrating back onto topiramate at a lower dose. She was previously at 100 mg twice daily. Versus adding tricyclic versus beta-block er. She will slowly increase topiramate starting at 25 twice daily and increasing as needed to 50 mg twice daily. If that does not resolve her symptoms causes paresthesi as would revisit TCA versus beta-block er versus calcium channel pop Iron deficiency 61579963 E61.1 Has been on iron for couple of months but discontinu ed it 2 weeks ago. Recheck ferritin iron etc. I advised her to take ferrous sulfate every other day and perhaps can break the tablets in half if not tolerating Cobalamin deficiency 190 437004 E53.8 continue oral B12 labs, Hemorrhoids 12812757 K64 .9 Start Colace, high-fiber diet , fluids, has referral to GI surgery Fatigue 90990459 R53.83 Suspect sleep apnea. Obtain records from sleep study Obesity 093995511 E66.9 Sasha mcintyre unable to obtain liraglutid e on [address] pricing. Insurance will not pay for other options given it is being used for weight loss. Will continue to wait for generic liraglutid e or other option [id number] SILVERIO PETTY [address] [address] 05/31/2024 07:45:38 05/31/2024 08:41:09 Carpal tunnel syndrome of left wrist 7492764818 43067 G56.02 Hand pain 85970650 M79.6 42 [id number] ALAN CHRISTIANSON MA [address] [address] 06/30/2024 09:42:18 06/30/2024 10:23:28 Mixed anxiety and depressive disorder 607260526 F41.8 Improvemen t on lower dose fluoxetine as well as addition of buspirone. She would like to continue this combinatio n. Of note, tremor has also resolved Migraine 78678304 G43.90 9 sxs markedly improved on topiramate 50mg in am and 25 mg pm. Continues this dosing Iron deficiency 38537394 E61.1 recheck iron/valeria tin given ongoing heavy menstrual bleeding and hx iron def without anemia Fatigue 76946608 R53.83 records indicate that she had consult but no PSG. Will follow up at next OV as this was not noticed til after she had left Obesity 291437593 E66.9 continue victoza at 1.8mg daily Menorrhagia 997075494 N9 2.0 reviewd options, refer to crimper operator for eval, ? [place] Carpal ana maria robbie syndrome 55905617 G56.02 pending surgery at [facility] Raynaud's phenomenon 266 435904 I73.00 reviewed symptomati c control measures (warm packs, heated gloves), consider CCB if sxs poorly controlled in winter Active or passive immunization 649660062 Z23 Public non-vfc Diabetes m ellitus screening 463129443 Z13.1 Hyperlipid emia screening 592080953 Z13.894 [id number] SUSI LUNDBERG, [address] [address] 09/06/2024 13:25:49 09/06/2024 13:58:48 Persistent cough 936441648 R05.3 Pending chest xray results. [id number] SUSI LUNDBERG, [address] [address] 10/18/2024 11:03:41 10/18/2024 12:27:14 Mixed anxiety and depressive disorder 442256408 F41.8 worsened sxs, terri vegetative sxs of depression . No SI. Has good social support. No substance overuse.Di scussed options. She will add wellbutrin , d/c buspirone as does not seem helpful. continue fluoxetine . Could consider increase in fluoxetine but increased dose has caused tremor in past. declines counseling for now but asked her to consider. Check labs Iron deficiency 58496278 E61.1 recheck iron/valeria tin , s/p hyst and no longer on iron Cobalamin deficiency 190 166945 E53.8 not taking B12, recheck labs Vitamin D deficiency 347 63807 E55.9 Health Concerns Section Related Observation LastModified by Organization Detai ls LastModified Time None Recorded Concern Status LastModified by Organization Details LastModified Time None Recorded Advance Directives Directive None Recorded Payers Encounter Date Sequence Insurance Name Policy Number Policy Del Castillo Covered Member ID Del Castillo Member ID Guarantor Name 03/31/2024 1 [facility] (MEDICAID) Reid Flanagan [id number] Reid Flanagan 05/31/2024 1 [facility] (MEDICAID) Reid Flanagan [id number] Reid Flanagan 06/30/2024 1 [facility] (MEDICAID) Reid Flanagan [id number] Reid Flanagan 09/06/2024 1 [facility] (MEDICAID) Reid Flanagan [id number] Reid Flanagan 10/18/2024 1 [facility] (MEDICAID) Reid Flanagan [id number] Reid Flanagan Notes Date Note Type Note Provider Name and Address Organization Details Recorded Time 03/31/2024 text/html She is here for follow-up of several medical issues. [...] loss SUSI LUNDBERG, SILVERIO [address], [place], [address], [facility]. 03/31/2024 10:12:32 05/31/2024 text/html Pt is a 38 y/o F with [...] CTS sxs. Pt has neuro appt in [place] in 2 days. Hx of EMG [facility] 07/2023: dxed mild b/l CTS. [address], [place], [address], [place] - [facility]. 05/31/2024 08:37:42 06/30/2024 text/html CC: Follow-up The patient presents with a new symptom of fingers turning white and numb in cold, wet conditions, raising concerns about potential Raynaud's and nerve damage. Saw provider soumya harvey this am and they dx raynauds. Carpal tunnel syndrome has been confirmed by EMG, and surgery is scheduled with Dr. Knott. Medications:- Fluoxetine and buspirone: reports doing okay, working well for mood- Victoza: Dosage increased from 0.6 mg to 1.8 mg; notes prescription shortage from [facility], doing well w this medication and would like to continue Gynecological concerns:- Heavy periods; on Sprintec control- Daily bleeding for 3 months with cramping- Previous Mirena use resulted in ovarian cysts,wants it all out Supplements:- B12 and iron; hemoglobin normal, iron previously low- B12 levels fine on last check due to supplementation JERRY BARRERA, [place] - [facility]. 06/30/2024 11:13:37 09/06/2024 text/html Pt presents with complaint of [...] and reports no significant changes in appetite. MD [address], [place], [address], [facility] 09/06/2024 14:04:42 10/18/2024 text/html CC: Follow-up vi sit Patient reports:- Exhaustion following hysterectomy 6 weeks ago- Overwhelming feeling causing physical nausea- Bleeding for half a day after procedure, again 6 weeks later after vigorous vacuuming- Taking it easy since bleeding episode- Ongoing stress and emotional distress related to family dynamics, particularly with stepdaughter- Feeling heartbroken and overwhelmed, causing significant anxiety and worry-no SI-not in counseling but has good social support Medications:- Fluoxetine 20 mg for depression and anxiety- Buspirone for anxiety, reports no noticeable difference- Previously experienced tremors on higher dose (40 mg) of fluoxetine- Occasionally uses cannabis edibles for sleep-Alcohol 3 days per week, usually 1-2 drinks Headaches:- Attempting to wean off Topamax, reducing dosage from two tablets to one in morning and one at night, headaches have been fine Hormonal changes:- Night sweats resolved following hysterectomy and cessation of progesterone therapy Social History:- Lives with spouse and children, including a teenager- - Occasional cannabis edible use for sleep- Alcohol consumption 1-2 times per week in moderation- Increased alcohol consumption following wrist surgery in July due to boredom Review of Systems:- General: Exhaustion, feeling overwhelmed, physically nauseous- Psychiatric: Stress, broken heart feeling- Reproductive: Bleeding after hysterectomy (resolved)- Neurological: Previously had tremors (resolved)- Endocrine: Night sweats (resolved)- Head: Headaches (improved) [address], [place], [address], [facility] 10/18/2024 14:28:09 OBGyn Episode No OBEpisode recorded.
--- OUTSIDE RECORDS SUMMARY | 2024-10-18 16:44 | XMS_ITS | Encounter Summary ---
Author Organization [place] [id number] Care Team Providers Care Ferry Terminal Agent Name Role Phone Susi Yuan APRN Primary Care Provider [phone] Encounter Details Date Type Department Care Team (Late st Contact Info) Description 02/20/2021 Telephone [place] [address] Joseph Benavides Social History Tobacco Use Types [...] calls can be handled by: Motility Lab Engineer Internship documented in this encounter Plan of Treatment Not on file documented as of this encounter Visit Diagnoses Not on filedocumented in this encounter Care Teams Ferry Terminal Agent Relationship Specialty Start Date End Date Susi Yuan APRN [address] [place] [address] PCP - General Family Medicine 05/23/19 documented as of this encounter
--- OUTSIDE RECORDS SUMMARY | 2024-10-18 16:44 | XMS_ITS | Encounter Summary ---
[place] [address] Care Team Providers Care Mumps Developer Name Role Phone EnderSusi cobb Esdras STOCKTON Primary Care Provider [phone] Encounter Details Date Type Department Care Team (Late st Contact Info) Description 07/14/2024 Interpretation Only [facility] in [place] [address] [place] [address] Aubrey Jean, DO [address] [place] [address] Social History Tobacco Use Types Packs/Day Years [...] Name Priority Date/Time Associated Diagnosis Comments US PELVIS TV Routine 07/14/2024 8:59 AM EDT documented in this encounter Results * US PELVIS TV (07/14/2024 8:59 AM EDT) PT CLASS O RAD ADMITDTTM [id number] RAD PT RAD MD INFO [id number]^SHAHANA FRAZIER^AUBREY RAD EXAM DESC UPELTVRAD^US PELVIC TRANSVAGINAL^RIS RAD WORKSTATION ID [id number] DH RAD Anatomical Region Laterality Modality Other 07/14/2024 9:10 AM EDT Impressions 07/14/2024 12:11 PM EDT Retroverted retroflexed uterus of normal overall size. Endometrium age-appropriate at about 6 mm thickness without discernible focal pathology. Thank you for letting us participate in the care of this patient. If you are a health care provider and have any questions regarding this report, please contact the number above. For patients who have questions, please contact the health rn palliative care that requested your imaging first. ?Aubrey Vale Electronically Signed Final Report ?? 07/14/2024 12:10 pm Narrative 07/14/2024 12:11 PM EDT Gynecological Report ?(Signed Final 07/14/2024 12:10 pm) PATIENT INFO: ID #: ? [id number] ?: ??[birth year] (38 yrs)(F) Name: ? LIAT FLANAGAN ?Visit Date: 07/14/2024 09:10 am PERFORMED BY: Attending: ?Kavin RANDOLPH, Aubrey Tatum Performed By: ? Jeffrey TRAN, RVEmeli Garcia Referred By: ?AUBREY JEAN Location: ? [facility] SERVICE(S) PROVIDED: UTV - Transvaginal - [id number] ?[id number] INDICATIONS: REASON: ABNORMAL UTERINE BLEEDING (AUB ??ADD'L INFO: NO ENTRY -------- HISTORY: -------- Age: ?? 38 ------- UTERUS: ------- Uterus: ? Visualized Position: ?? Retroverted Size (cm) ?L: ??9.4 ? W: ?? 7.7 ?H: ??5.7 Description: ?? Heterogeneous ENDOMETRIUM: Endometrium: ?Normal appearance Thickness(mm): ?5.9 RIGHT OVARY: Status: ?? Visualized Size (cm) ?L: ??2.5 ? W: ?? 1.7 ?H: ??1.8 Vol (ml): ?4.0 Morphology: ?Normal appearance LEFT OVARY: Status: ?? Visualized Size (cm) ?L: ??2.5 ? W: ?? 2.8 ?H: ??1.7 Vol (ml): ?6.2 Morphology: ?Normal appearance Procedure Note Aubrey Vale MD - 07/14/2024 Gynecological Report (Signed Final 07/14/2024 12:10 pm) PATIENT INFO: ID #: [id number] : [birth year] (38 yrs)(F) Name: LIAT FLANAGAN Visit Date: 07/14/2024 09:10 am PERFORMED BY: Attending: Aubrey Vale MD Performed By: Jeffrey TRAN RVT, Gabrielle Referred By: AUBREY JEAN Location: [facility] SERVICE(S) PROVIDED: UTV - Transvaginal - [id number] INDICATIONS: REASON: ABNORMAL UTERINE BLEEDING (AUB ADD'L [...] 1.7 Vol (ml): 6.2 Morphology: Normal appearance IMPRESSION Retroverted retroflexed uterus of normal overall size. Endometrium age-appropriate at about 6 mm thickness without discernible focal pathology. Thank you for letting us participate in the care of this patient. If you are a health care provider and have any questions regarding this report, please contact the number above. For patients who have questions, please contact the health rn palliative care that requested your imaging first. Aubrey Vale Electronically Signed Final Report 07/14/2024 12:10 pm Aubrey Jean DO PACS IMAGES documented in this encounter Visit Diagnoses Not on filedocumented in this encounter Care Teams Mumps Developer Relationship Specialty Start Date End Date Susi Yuan APRN [address] [place] [address] PCP - General Family Medicine 05/23/19 documented as of this encounter
--- OUTSIDE RECORDS SUMMARY | 2024-10-18 16:44 | XMS_ITS | Encounter Summary ---
[facility] [place] [address] Care Team Providers Care Diaper Folder Name Role Phone Otilia Escamilla APRN Primary Care Provider + Reason for Visit * Reason Comments Ultrasound Finding choroid plexus cysts Encounter Details Date Type Department Care Team (Late st Contact Info) Description 12/03/2012 9:30 AM EST Office Visit Obstetrics [place] [address] Jayme Ortega, [facility] [place] [address] Choroid plexus cysts, , affecting care of [...] Screen negative ??? Open spina bifida risk 1:17477 ? ? Down syndrome risk <1:79054 ??? Trisomy 18 risk 1:80953 ??? Cystic fibrosis carrier screen Negative in [...] Liat's quad marker screen, which estimated a 1:46840 risk for trisomy 18. We discussed the [...] counseling documented in this encounter Care Teams Diaper Folder Relationship Specialty Start Date End Date Otilia Escamilla, KATH [address] [place] [address] PCP - General 11/24/12 05/22/19 documented as of this encounter
--- OUTSIDE RECORDS SUMMARY | 2024-10-18 16:44 | XMS_ITS | Encounter Summary ---
[place] [address] Care Team Providers Care Major Gifts Officer Name Role Phone Susi Yuan APRN Primary Care Provider Reason for Visit * Reason Onset Date Comments Medication Refill 01/18/2020 Encounter Details Date Type Department Care Team (Late st Contact Info) Description 01/18/2020 Refill [place] [address] Liat Estrada APRN [address] [place] [address] Social History Tobacco Use Types Packs/Day Years [...] on filedocumented in this encounter Care Teams Major Gifts Officer Relationship Specialty Start Date End Date Susi Yuan APRN [address] [place] [address] PCP - General Family Medicine 05/23/19 documented as of this encounter
--- OUTSIDE RECORDS SUMMARY | 2024-10-18 16:44 | XMS_ITS | Encounter Summary ---
[place] [address] Care Team Providers Care Laborer Poultry Hatchery Name Role Phone Lissy Susi Dewitt APRN Primary Care Provider [phone] Encounter Details Date Type Department Care Team (Late st Contact Info) Description 10/27/2019 Telephone [place] [phone] Clary Saul Social History Tobacco Use Types [...] on filedocumented in this encounter Care Teams Laborer Poultry Hatchery Relationship Specialty Start Date End Date Susi Yuan, KATH [address] [place] [address] PCP - General Family Medicine 05/23/19 documented as of this encounter
--- OUTSIDE RECORDS SUMMARY | 2024-10-18 16:44 | XMS_ITS | Continuity of Care Document ---
Author Organization [facility] Address [address] [place] [address] Care Team Providers Care International Coordinator Name Role Phone KEANU MARTIN Dentist SCHUYLER KRISHNAN Neurologist Assessment No assessment recorded. Plan of Treatment Reminders Order Date Submit Date Provider Last Modified By Organization Details Last Modified Time Details Appointments Follow Up 2024 11:20A Merlyn LUNDBERG Not available Not available Not available Follow Up 2024 09:00A Merlyn LUNDBERG Not available Not available Not available Lab iron + total iron-bind ing capacity (TIBC), serum 2024 025 [facility] (Registration ), [address] [place] [address] [place], [address], 10/18/2024 13:00:50 ferritin, serum or plasma 2024 025 [facility] (Registration ), [address] [place] [address] [place], [address], 10/18/2024 13:00:50 CBC 2024 025 [facility] (Registration ), [address] [place] [address] [place], [address], 10/18/2024 13:10:30 vitamin D, 25-hydrox y, total, serum 2024 025 [facility] (Registration ), [address] [place] [address] [place], [address], 10/18/2024 13:05:28 vitamin B12, serum 2024 025 [facility] (Registration ), [address] [place] [address] [place], [address], 10/18/2024 13:10:30 TSH, serum or plasma 2024 025 [facility] (Registration ), [address] [place] [address] [place], [address], 10/18/2024 13:00:49 Referral None recorded. Procedures None recorded. Surgeries None recorded. Imaging None recorded. Medication Orders bupropion HCl XL 150 mg 24 hr tablet, extended release 2024 025 [id number], [address] [place], [address], 10/18/2024 12:19:26 Patient TargetsNo targets recorded. Patient Instructions Encounter Date Encounter Id Patient Instructions Last Modified By Organization Details Last Modified Time 10/18/2024 [id number] Dear Liat, Thank you for visiting us today. Your [...] clarification on your treatment plan. Warm regards, SILVERIO Petty [facility] [email or web address] Not available 10/18/2024 12:13:15 Reason for Referral None Reported. Problems Name Problem SNOMED Code Status Onset Date Resolution Date Notes Provider Name and Address Organization Details Recorded Time Hysterec [place] Active 2023 sekou bedolla slpingec [place], still has ovaries, dx: AUB [address], [facility] [address] , [facility] 4 08:29:50 Cough [id number] Completed 202310/18/2024 Problem Code: R05.8; Problem Code Type: ICD-10; SILVERIO PETTY Dr, [facility] [address] , [facility] 5 11:46:39 Persiste nt cough 552037126 Completed 202310/18/[address], [facility] [address] , [facility] 5 11:46:36 Insomnia 054407577 Active 2015 Problem Code: G47.00; Problem Code Type: ICD-10; SILVERIO PETTY Dr, [facility] [address] , [facility] 4 16:34:11 Obesity 159826925 Active 2015 Problem Code: E66.9; Problem Code Type: ICD-Cory; SILVERIO PETTY Dr, [facility] [address] , [facility] 4 16:34:11 History of disorder of digestiv e system 928141020 Active 2016 Problem Code: Z87.19; Problem Code Type: ICD-10; SILVERIO PETTY Dr, [facility] [address] , [facility] 4 16:34:11 Acute bronchit is 72109859 Completed 201611/08/2016 Problem Code: J20.9; Problem Code Type: ICD-10; Not Available [facility] 3 04:42:39 Urticari a 843814643 Completed 201602/28/2024 Problem Code: L50.9; Problem Code Type: ICD-10; SILVERIO PETTY Dr, [facility] [address] , [facility] 4 08:04:53 Pelvic and perineal pain 019185242 Active 2017 Problem Code: R10.2; Problem Code Type: ICD-10; SILVERIO PETTY Dr, [facility] [address] [place] [address] 4 16:34:11 Dysmenor pilar 400802706 Completed 201710/18/2024 Problem Code: N94.6; Problem Code Type: ICD-10; SILVERIO PETTY Dr, [facility] [address] [place] [address] 5 12:09:09 Urinary tract infectio us disease 95095137 Completed 201706/03/2018 05/24/20 18 - Comments only - 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 - -UA pos 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 leuks, RBCs, nitrites , sent for C&S -START bactim DS 1 tab po bid x3 days -reviewe d red flag sx -RTC if sx worsen/p ersist Problem Code: N39.0; Problem Code Type: ICD-10; Not Available [facility] 3 04:42:39 Malaise 609070137 Completed 201711/24/2023 Problem Code: R53.81; Problem Code Type: ICD-10; SILVERIO PETTY Dr, [place], [address] , [facility] 4 16:34:37 Joint pain 89198131 Active 2018 Problem Code: M25.50; Problem Code Type: ICD-10; SILVERIO PETTY Dr, [place] [address] , [facility] 4 16:34:11 C-reacti ve protein above referenc e range 63561706268 9104 Active 2018 Problem Code: R79.82; Problem Code Type: ICD-10; SILVERIO PETTY Dr, [place] [address] , [facility] 4 16:34:10 Migraine 03395244 Active 2018 Problem Code: G43.909; Problem Code Type: ICD-10; SILVERIO PETTY Dr, [address] 4 16:34:11 Irritabl e bowel syndrome 25211967 Active 2019 Problem Code: K58.9; Problem Code Type: ICD-10; SILVERIO PETTY Dr, [address] 4 16:34:10 Gastroes ophageal reflux disease without esophagi tis 620488661 Active 2019 Problem Code: K21.9; Problem Code Type: ICD-10; SILVERIO PETTY Dr, [place] [address] , [facility] 4 16:34:11 Adult health examinat ion Active 2019 Problem Code: Z00.00; Problem Code Type: ICD-10; SILVERIO PETTY Dr, [facility] [address] , [facility] 4 16:34:11 Hyperlip idemia screenin g Active 2019 Problem Code: Z13.220; Problem Code Type: ICD-10; SILVERIO PETTY Dr, [facility] [address] , [facility] 4 16:34:11 Diabetes mellitus screenin g Active 2019 Problem Code: Z13.1; Problem Code Type: ICD-10; SILVERIO PETTY Dr, [facility] [address] , [facility] 4 16:34:10 Hyperlip idemia 35253752 Active 2019 LDL 160s in [address], [facility] [address] , [facility] 4 11:26:35 Acute upper respirat ory infectio n 11254483 Completed 202103/19/2022 03/05/20 22 - Comments only - Zoya Oconnor MD - refilled cough syrup which helped before; advised conserva tive manageme nt; Reviewed indicati ons for re-evalu ation. Problem Code: J06.9; Problem Code Type: ICD-10; Not Available [facility] 3 04:42:41 Fever 012445695 Completed 202103/21/2022 Problem Code: R50.9; Problem Code Type: ICD-10; Not Available [facility] 3 04:42:41 Cough 34133075 Completed 202103/21/2022 Problem Code: R05.8; Problem Code Type: ICD-10; SILVERIO PETTY Dr, [place], [address] , [facility] 5 11:46:39 Urgent desire to urinate 73995498 Completed 202106/16/2022 Problem Code: R39.15; Problem Code Type: ICD-10; Not Available [facility] 3 04:42:41 Acute pyelonep hritis 97458325 Completed 202106/16/2022 06/02/20 22 - Comments only [...] Type: ICD-10; SILVERIO PETTY [address], [place], [address] , [facility] 4 16:34:28 Acute pyelonep hritis 32443178 Completed 202111/24/2023 Problem Code: N10; Problem Code Type: ICD-10; SILVERIO PETTY Dr, [place], [address] , [facility] 4 16:34:28 Acute sinusiti s 90399931 Completed 202212/11/2022 12/02/19 23 - Comments only [...] J01.90; Problem Code Type: ICD-10; Not Available [facility] 3 04:42:42 Acute bronchit is 57641317 Completed 202212/17/2022 Problem Code: J20.9; Problem Code Type: ICD-10; Not Available [facility] 3 04:42:42 Carpal tunnel syndrome of left wrist 86411059483 9102 Active 2022 Problem Code: G56.02; Problem Code Type: ICD-10; SILVERIO PETTY Dr, [facility] [address] [facility] 4 16:34:11 Hand pain 10944767 Completed 202207/27/2023 Problem Code: M79.643; Problem Code Type: ICD-10; Not Available [facility] 4 05:35:53 Pain of breast 99122359 Completed 202207/27/2023 Problem Code: N64.4; Problem Code Type: ICD-10; Not Available [facility] 4 05:35:54 Family history of breast cancer 754703232 Active 2022 Problem Code: Z80.3; Problem Code Type: ICD-10; SILVERIO PETTY Dr, [facility] [address] , [facility] 4 16:34:11 Blood chemistr y outside referenc e range 951060639 Completed 202205/07/2023 Problem Code: R79.89; Problem Code Type: ICD-10; Not Available [facility] 3 04:42:43 Abnormal finding on evaluati on procedur e 213078883 Completed 202207/27/2023 Problem Code: R89.9; Problem Code Type: ICD-10; Not Available [facility] 4 05:35:52 Fatigue 54960531 Active 2022 Problem Code: R53.83; Problem Code Type: ICD-10; SILVERIO PETTY Dr, [facility] [address] [facility] 4 16:34:11 Hypertro phic conditio n of skin 34841653 Completed 201705/10/2018 Problem Code: L91.8; Problem Code Type: ICD-10; Not Available [facility] 3 04:42:43 General examinat ion of patient Completed 200502/12/2018 Problem Code: Z00.8; Problem Code Type: ICD-10; Not Available [facility] 3 04:42:44 Acute effect of ultravio let radiatio n on normal skin 770101116 Completed 201805/30/2019 Problem Code: L56.8; Problem Code Type: ICD-10; Not Available [facility] 3 04:42:44 Headache 63870601 Completed 201807/01/2023 Problem Code: R51; Problem Code Type: ICD-10; Not Available [facility] 3 04:42:44 Abdomina l pain 22538704 Completed 202111/03/2022 Problem Code: R10.9; Problem Code Type: ICD-10; Not Available [facility] 3 04:42:44 Cholecys titis 28187949 Completed 201607/01/2023 Problem Code: K81.9; Problem Code Type: ICD-10; Not Available [facility] 3 04:42:44 Diarrhea 58355141 Completed 201704/29/2019 Problem Code: R19.7; Problem Code Type: ICD-10; Not Available [facility] 3 04:42:45 Irregula r periods 70141670 Completed 201505/10/2018 Problem Code: N92.6; Problem Code Type: ICD-10; Not Available [facility] 3 04:42:45 Pelvic and perineal pain 661515647 Completed 201502/12/2018 Problem Code: R10.2; Problem Code Type: ICD-10; SILVERIO PETTY Dr, [place], [address] , [facility]. 4 16:34:11 Saurabh peoples Completed 201705/24/2018 Problem Code: Z71.89; Problem Code Type: ICD-10; Not Available [facility] 3 04:42:45 Pain of right knee joint 77090411629 4100 Completed 202106/26/2022 Problem Code: M25.561; Problem Code Type: ICD-10; Not Available [facility] 3 04:42:45 History AND physical examinat ion Completed 200507/01/2023 Not Available [facility] 3 04:42:45 Acute pharyngi tis 021158703 Completed 201702/12/2018 Problem Code: J02.9; Problem Code Type: ICD-10; Not Available [facility] 3 04:42:46 Pain in left foot 84831228999 9107 Completed 201806/26/2022 Problem Code: M79.672; Problem Code Type: ICD-10; Not Available [facility] 3 04:42:46 History of urinary disease 659344227 Active 2021 Problem Code: Z87.448; Problem Code Type: ICD-10; SILVERIO PETTY Dr, [facility] [address] , [facility] 4 16:34:11 Mixed anxiety and depressi ve disorder 955183053 Active [address], [facility] [address] , [facility] 4 10:36:32 Tremor 51234133 Completed 202306/30/[address], [facility] [address] , [facility] 4 10:59:59 Numbness 72198708 Completed 202306/30/[address], [facility] [address] , [facility]. 4 11:00:11 Cobalami n deficien cy 767262506 Active [address] [facility] [address] , [facility] 4 16:39:58 Iron deficien cy 17865567 Active [address], [facility] [address] , [facility] 4 17:10:09 Hemorrho ids 83713957 Active [address], [facility] [address] , [facility] 4 10:19:46 Paresthe fede 74664647 Completed 202306/30/[address], [facility] [address] , [facility] 4 11:00:03 Restless legs 62167241 Active 2023 sleep study 2023, no LORNE SILVERIO PETTY Dr, [facility] [address] , [facility] 4 16:47:53 Carpal tunnel syndrome 79921673 Active 2023 ALAN CHRISTIANSON MA null, [facility] 4 13:48:15 Sleep pattern disturba nce 36742080 Active 2023 no result from sleep study? Did not have it? SILVERIO PETTY Dr, [facility] [address] , [facility] 4 14:43:07 Menorrha og 503127006 Active [address], [facility] [address] , [facility] 4 09:54:15 Raynaud' s phenomen on 815284531 Active [address], [facility] [address] , [facility] 4 09:55:53 Abnormal uterine bleeding 89605653261 100 Completed 202310/18/[address], [place], [address] , [facility] 5 11:46:43 Notes:*Problem Name: Contrac eption-mirena- 2012 *Problem Status: inactive *Comments: *Problem Code: V25.02 *Problem Code Type: ICD-9 *Note Date: 12/13/2013 Problem Notes None recorded. Procedures Surgical History Date Name Laterality Status Provider Name and Address Organization Details Recorded Time 4 Hysterectomy completed [address]TY [address], [place], [address], [facility] 08/30/2024 08:30:09 Imaging Results None recorded. Procedure Notes None recorded. Medical Equipment None Reported. Allergies Allergen ID Allergen Name Allergen Category Reaction Reaction Severity Criticality Documentation Date Start Date Code Code System Note Provider Name and Address Organization Details Recorded Time amoxicill in trihydrat e medicatio n hives severe Not available 08/14/20232002 37222 8 RxNorm full body hives Aller gyCod e: '3081 82'; Aller gyNam e: 'AMOX ICILL IN'; Aller gyCon ceptT ype: 'RX Norm' ; Aller gyRea ction : 'full body hives '; Not Available [facility] 3 16:11:42 cephalexi n monohydra te medicatio n hives severe Not available 08/14/20232015 32968 8 RxNorm full body hives Aller gyRea ction : 'full body hives '; Not Available [facility] 3 16:11:42 Medications Name Sig Start Date [...] to have cause tremor in pt. See #[id number]. Not Available Not Available Not Available promethaz [...] Relief 50 mcg/actua tion nasal spray,ismael pension Exira 1 spray every day by intranas al [...] Updated DateTime 5 170.815 cm 38 kg/m2 714228. 98 g 98.4 [degF] 98 % 98 % 85 /min 104 mm[Hg] 68 mm[Hg] Rose Batista LPN [facility] 5 11:18:32 Social History Question Answer Notes LastModified by Organizat ion Details LastModified Time Tobacco Smoking Status Former Smoker ED MADDOX LPN [facility] 09/29/2023 13:02:52 When Did You Quit Smoking? 11-15yearssi ncelastcigar ette Information not available 09/29/2023 What Was The Date Of Your Most Recent Tobacco Screening? 10/18/2024 Information not available 10/18/2024 Sex: Female Functional Status None recorded. Mental Status None recorded. Family History Relationship Description Onset Age of this Age Resolved Age Notes LastModified by Organization Details LastModified Time Unspecified Relation Family history unknown Relati ve: 'First Degree Blood Relati ve'; [email or web address] Not available 08/14/2023 03:54:41 Notes:*Problem: Mother: aliv e , mental health, adiction mgm- ? DM, [place] 50s or 60s Father- HLD, mgm- breast [...] virus, trivalent, PF 4 completed JERRY BARRERA, [facility] 06/30/2024 11:12:59 MMR 9 completed Not Available [facility] 08/14/2023 05:59:12 MMR 4 completed Not Available [facility] 08/14/2023 05:59:12 Td (adult), 2 Lf tetanus toxoid, preservative free, adsorbed 2 completed Not Available [facility] 08/14/2023 05:59:12 Tdap 2 completed Not Available [facility] 08/14/2023 05:59:12 Novel Tfnqzesxy-V4N0-60 , all formulations 9 completed Not Available [facility] 08/14/2023 05:59:12 Td(adult) unspecified formulation 2 completed Not Available [facility] 08/14/2023 05:59:12 Td(adult) unspecified formulation 2 completed Not Available [facility] 08/14/2023 05:59:12 Influenza, split virus, quadrivalent, PF 2 completed Not Available [facility] 08/14/2023 05:59:13 Influenza, split virus, quadrivalent, PF 0 completed Not Available [facility] 08/14/2023 05:59:13 Influenza, split virus, quadrivalent, PF 1 completed Not Available [facility] 08/14/2023 05:59:13 Influenza, split virus, quadrivalent, preservative 7 completed Not Available [facility] 08/14/2023 05:59:13 DTaP 8 completed Not Available [facility] 08/14/2023 05:59:13 DTaP 8 completed Not Available [facility] 08/14/2023 05:59:13 DTaP 9 completed Not Available [facility] 08/14/2023 05:59:13 DTaP 8 completed Not Available [facility] 08/14/2023 05:59:13 COVID-19, mRNA, LNP-S, PF, 30 mcg/0.3 mL dose 1 completed Not Available [facility] 08/14/2023 05:59:14 COVID-19, mRNA, LNP-S, PF, 30 mcg/0.3 mL dose 1 completed Not Available [facility] 08/14/2023 05:59:14 Hep B, unspecified formulation 8 completed Not Available [facility] 08/14/2023 05:59:14 Hep B, unspecified formulation 8 completed Not Available [facility] 08/14/2023 05:59:14 Hep B, unspecified formulation 8 completed Not Available [facility] 08/14/2023 05:59:14 influenza, unspecified formulation 4 completed Not Available [facility] 08/14/2023 05:59:14 influenza, unspecified formulation 9 completed Not Available [facility] 08/14/2023 05:59:14 influenza, unspecified formulation 3 completed Not Available [facility] 08/14/2023 05:59:14 polio, unspecified formulation 8 completed Not Available [facility] 08/14/2023 05:59:14 polio, unspecified formulation 8 completed Not Available [facility] 08/14/2023 05:59:14 polio, unspecified formulation 9 completed Not Available [facility] 08/14/2023 05:59:15 polio, unspecified formulation 8 completed Not Available [facility] 08/14/2023 05:59:15 polio, unspecified formulation 2 completed Not Available [facility] 08/14/2023 05:59:15 Influenza, split virus, quadrivalent, PF 3 completed Not Available [facility] 10/16/2023 05:31:15 Past Encounters Encounter ID Performer Location Encounter Start Date Encounter Closed Date Diagnosis/Indication Diagnosis SNOMED-CT Code Diagnosis ICD10 Code Diagnosis Note [id number] SILVERIO PETTY [address] [address] 10/18/2024 11:03:41 10/18/2024 12:27:14 Mixed anxiety and depressive disorder [id number] F41.8 worsened sxs, terri vegetative sxs of depression . No SI. Has good social support. No substance overuse.Di scussed options. She will add wellbutrin , d/c buspirone as does not seem helpful. continue fluoxetine . Could consider increase in fluoxetine but increased dose has caused tremor in past. declines counseling for now but asked her to consider. Check labs Iron deficiency 99904076 E61.1 recheck iron/rico tin , s/p hyst and no longer on iron Cobalamin deficiency 190 570448 E53.8 not taking B12, recheck labs Vitamin D deficiency 347 44617 E55.9 Health Concerns Section Related Observation LastModified by Organization Detai ls LastModified Time None Recorded Concern Status LastModified by Organization Details LastModified Time None Recorded Payers Encounter Date Sequence Insurance Name Policy Number Policy Del Castillo Covered Member ID Del Castillo Member ID Guarantor Name 10/18/[address] [facility] (MEDICAID) Liat Sosaaud [id number] Liat Panda Masha Notes Date Note Type Note Provider Name and Address Organization Details Recorded Time 10/18/2024 text/html CC: Follow-up visit Patient reports:- Exhaustion following hysterectomy 6 weeks [...] Endocrine: Night sweats (resolved)- Head: Headaches (improved) MOE LUNDBERG, SILVERIO [address], [place], [address], [place] [facility]. 10/18/2024 14:28:09 OBGyn Episode No OBEpisode recorded.
--- OUTSIDE RECORDS SUMMARY | 2024-10-18 16:44 | XMS_ITS | Encounter Summary ---
Author Organization Formerly [facility] [place] [address] Care Team Providers Care Nursery Manager Name Role Phone Lissy Susi Esdras STOCKTON Primary Care Provider [phone] Encounter Details Date Type Department Care Team (Late st Contact Info) Description 10/31/2019 Telephone [place] [phone] Yanique Dunne Social History Tobacco Use Types [...] - 10/31/2019 9:35 AM EST Liat Flanagan [id number] Diagnosis/Indication: Reflux symptoms with h/o chronic NSAID [...] to patient: You must have a responsible constitution party who will drive you to your procedure, stay [place] for the entire duration of your procedure, and drive you home from your procedure? Yes Height: 5' 8 Weight:280 BMI: 42.6 Age:34 y.o. documented in this encounter Plan of Treatment Not on file documented as of this encounter Visit Diagnoses Not on filedocumented in this encounter Care Teams Nursery Manager Relationship Specialty Start Date End Date Susi Yuan APRN [address] [place] [id number] PCP - General Family Medicine 05/23/19 documented as of this encounter
--- OUTSIDE RECORDS SUMMARY | 2024-10-18 16:44 | XMS_ITS | Encounter Summary ---
[place] [address] Care Team Providers Care Residential Electrician Name Role Phone Susi Yuan APRN Primary Care Provider [phone] Encounter Details Date Type Department Care Team (Late st Contact Info) Description 12/05/2019 Tele[place] [id number] Adam Narvaez MD Social History Tobacco Use Types Packs/Day Years [...] on filedocumented in this encounter Care Teams Residential Electrician Relationship Specialty Start Date End Date Susi Yuan APRN [address] [place] [address] PCP - General Family Medicine 05/23/19 documented as of this encounter
--- OUTSIDE RECORDS SUMMARY | 2024-10-18 16:44 | XMS_ITS | Encounter Summary ---
[place] [address] Care Team Providers Care Talk Show Host Name Role Phone Otilia Escamilla APRN Primary Care Provider + Encounter Details Date Type Department Care Team (Late st Contact Info) Description 12/28/2015 Telephone [place] [phone] Hilda Urias Social History Tobacco Use Types [...] on filedocumented in this encounter Care Teams Talk Show Host Relationship Specialty Start Date End Date Otilia Escamilla APRN [address] [place] [address] PCP - General 11/24/12 05/22/19 documented as of this encounter
--- OUTSIDE RECORDS SUMMARY | 2024-10-18 16:44 | XMS_ITS | Encounter Summary ---
[place] [address] Care Team Providers Care Manager Etl Name Role Phone Susi Yuan APRN Primary Care Provider Encounter Details Date Type Department Care Team (Late st Contact Info) Description 10/17/2019 Telephone [place] [phone] Clary Saul Social History Tobacco Use Types [...] filedocumented in this encounter Care Teams Manager Etl Relationship Specialty Start Date End Date Susi Yuan APRN [address] [place] [address] PCP - General Family Medicine 05/23/19 documented as of this encounter
--- OUTSIDE RECORDS SUMMARY | 2024-10-18 16:44 | XMS_ITS | Encounter Summary ---
[place] [address] Care Team Providers Care Healthcare Account Manager Name Role Phone Susi Yuan APRN Primary Care Provider [phone] Encounter Details Date Type Department Care Team (Late st Contact Info) Description 09/17/2020 Telephone [place] [address] Yanique Dunne Social History Tobacco Use Types [...] CLINICAL SAFETY CHECKLIST 09/17/2020 Yanique Flanagan [address] [facility] [id number] : 1985 REFERRING PROVIDER: LIAT LUNSFORD [[id number]] PRIMARY CARE PROVIDER: Susi Yuan APRN PRIMARY SYMPTOM (PROCEDURE INDICATION): heartburn SAFETY QUESTIONS FOR THE PATIENT HISTORY OF TRANSSPHENOIDAL OR PITUITARY SURGERY? no IF YES, please inform the patient that the test cannot be scheduled due to safety concerns about testing, and the patient should speak with their provider to consider alternative testing. The production control scheduler should also contact the provider's office directly [...] HAS AN ESOPHAGEAL MANOMETRY BEEN PERFORMED AT [facility]? no IF NO, please inform the [...] on PPI, symptom: heartburn, RMD: LIAT LUNSFORD [[id number]], PCP: Susi Yuan APRN, wheelchair: No, blood [...] on filedocumented in this encounter Care Teams Healthcare Account Manager Relationship Specialty Start Date End Date Susi Yuan APRN [address] [place] [address] PCP - General Family Medicine 05/23/19 documented as of this encounter
--- OUTSIDE RECORDS SUMMARY | 2024-10-18 16:44 | XMS_ITS | Encounter Summary ---
[place] [address] Care Team Providers Care Maid Supervisor Name Role Phone Susi Yuan APRN Primary Care Provider [phone] Reason for Visit * Consultation (Routine) - Closed Specialty Diagnoses / Procedures Referred By Damaso t Referred To Contact Gastroenterology Diagnoses Noninfective gastroenteritis and colitis, unspecified Melena Chronic diarrhea , Hematochezia - blood in stool Procedures consult Susi Yuan APRN [address] [place] [address] [facility] [place] [address] Referral ID Status Reason Start Date Expiration Date Visits Re quested Visits Authorized [id number] Closed 03/31/2019 03/30/2020 1 1 Encounter Details Date Type Department Care Team (Latest Contact Info) Description 10/18/2019 11:00 AM EST Office Visit [place] [phone] Liat Estrada, [employer] [address] [place] [address] Gastroesophageal reflux disease, esophagitis [...] you sleepy. 7. Please send me a IPX message about 1-2 weeks after upper endoscopy 8. 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 . 4 children (3 biological). HABITS [...] you sleepy. 7. Please send me a IPX message about 1-2 weeks after upper endoscopy [...] 11:51 AM Section of Gastroenterology & Hepatology [facility] documented in this encounter Plan of Treatment Scheduled Orders Name Type Priority Associated Diagnoses Orde r Schedule UPPER GI ENDOSCOPY Procedures Routine Gastroesophageal Reflux Disease, Esophagitis Presence Not Specified Lower abdominal pain Ordered: 10/18/2019 documented as of this encounter Visit Diagnoses Diagnosis Gastroesophageal reflux disease, esophagitis presence not specified Lower abdominal pain Abdominal pain, other specified site documented in this encounter Care Teams Maid Supervisor Relationship Specialty Start Date End Date Susi Yuan APRN [address] [place] [address] PCP - General Family Medicine 05/23/19 documented as of this encounter
[2024-10-18 22:01] LABS: HCT 42.8 % (36.0-46.0); HGB 13.5 g/dL (11.2-15.7); MCH 27.2 pg (27.0-33.0); MCHC 31.5 % (32.0-36.0); MCV 86 fL (80-95); MPV 10.3 fL (8.0-11.0); Platelet Count 333 10^3/uL (130-400); RBC 4.97 10^6/uL (3.93-5.22); RDW 14.4 % (11.7-14.6); RDW-SD 45.1 fL; WBC 5.77 10^3/uL (4.4-10.8)
[2024-10-18 22:11] LABS: Iron 32 ug/dL (50-170); Total Iron Binding Capacity 364 ug/dL (250-450); Transferrin Sat 9 % (15-50)
[2024-10-18 22:39] LABS: Ferritin 9 ng/mL (8-252); TSH 1.53 uIU/mL (0.36-3.74); Vitamin B12 923 pg/mL (193-986); Vitamin D 25 Total 44.5 ng/mL (30-100)
== END 2024-10-18 16:35 | disposition home or self-care (01) ==
LOC: NCHCN 16:34
PROVIDERS: PCP Family Medicine; Visit Provider Nurse Practitioner Family
DX: F41.8 Other specified anxiety disorders (principal); E61.1 Iron deficiency; E53.8 Deficiency of other specified B group vitamins; E55.9 Vitamin D deficiency, unspecified
CPT/HCPCS: 82306; 85027; 82607; 82728; 83540; 83550; 84443

== ENCOUNTER 2024-11-28 12:45 | Outpatient (REF) | payer MEDICAID, SELFPAY ==
[2024-11-28 16:32] LABS: Anion Gap 12.6 mmol/L (3-11); BUN 9 mg/dL (7-18); CO2 24.4 mmol/L (21.0-32.0); Calcium 9.8 mg/dL (8.5-10.1); Chloride 105 mmol/L (98-107); Estimated GFR 74.41 (mL/min/1.73m2); FREE T4 0.88 ng/dL (0.76-1.46); Glucose 76 mg/dL (74-106); Potassium 4.1 mmol/L (3.5-5.1); Sodium 142 mmol/L (136-145); TSH 1.39 uIU/mL (0.36-3.74)
[2024-11-28 23:07] LABS: Prolactin 41.6 ng/mL (See Note)
== END 2024-11-28 12:46 | disposition home or self-care (01) ==
LOC: NCHCN 12:45
PROVIDERS: PCP Family Medicine; Visit Provider Family Medicine
DX: N64.3 Galactorrhea not associated with childbirth (principal)
CPT/HCPCS: 80048; 84146; 84439; 84443

== ENCOUNTER 2024-12-02 08:22 | Outpatient (REF) | payer MEDICAID, SELFPAY ==
[2024-12-05 08:44] LABS: Prolactin 46.5 ng/mL (See Note)
== END 2024-12-02 08:23 | disposition home or self-care (01) ==
LOC: NCHCN 08:22
PROVIDERS: PCP Family Medicine; Visit Provider Nurse Practitioner Family
DX: N64.3 Galactorrhea not associated with childbirth (principal)
CPT/HCPCS: 84146

== ENCOUNTER 2024-12-23 11:28 | Outpatient (REF) | payer MEDICAID, SELFPAY | END 2024-12-23 11:29 | disposition home or self-care (01) | LOC: NCHCN 11:28 | PROVIDERS: PCP Family Medicine; Visit Provider Nurse Practitioner Family | DX: D35.2 Benign neoplasm of pituitary gland (principal) | CPT/HCPCS: 82533 ==

== ENCOUNTER 2025-02-09 08:38 | Outpatient (REF) | payer MEDICAID, SELFPAY ==
[2025-02-10 09:26] LABS: Prolactin 9.4 ng/mL (See Note)
== END 2025-02-09 08:39 | disposition home or self-care (01) ==
LOC: LBN 08:38
PROVIDERS: PCP Family Medicine; Visit Provider Student in an Organized Health Care Education/Training Program
DX: D35.2 Benign neoplasm of pituitary gland (principal); E22.1 Hyperprolactinemia
CPT/HCPCS: 84146

== ENCOUNTER 2025-04-10 15:20 | Outpatient (REF) | payer MEDICAID, SELFPAY | END 2025-04-10 15:21 | disposition home or self-care (01) | LOC: LBN 15:20 | PROVIDERS: PCP Family Medicine; Visit Provider Student in an Organized Health Care Education/Training Program | DX: D35.2 Benign neoplasm of pituitary gland (principal); E22.1 Hyperprolactinemia | CPT/HCPCS: 84146 ==

== ENCOUNTER 2025-07-11 09:25 | Outpatient (REF) | payer MEDICAID, SELFPAY ==
[2025-07-11 20:07] LABS: HCT 41.7 % (36.0-46.0); HGB 12.6 g/dL (11.2-15.7); MCH 26.0 pg (27.0-33.0); MCHC 30.2 % (32.0-36.0); MCV 86 fL (80-95); MPV 10.1 fL (8.0-11.0); Platelet Count 285 10^3/uL (130-400); RBC 4.84 10^6/uL (3.93-5.22); RDW 17.2 % (11.7-14.6); RDW-SD 53.5 fL; WBC 5.19 10^3/uL (4.4-10.8)
[2025-07-11 20:30] LABS: Hemoglobin A1C 4.6 % (<5.7); Iron 45 ug/dL (50-170); Total Iron Binding Capacity 367 ug/dL (250-450); Transferrin Sat 12 % (15-50)
[2025-07-11 20:51] LABS: Calculated LDL 148 mg/dL (<100); Cholesterol 212 mg/dL (<200); Ferritin 14 ng/mL (8-252); HDL Cholesterol 50 mg/dL (>or=50); TSH 1.36 uIU/mL (0.36-3.74); Triglyceride 72 mg/dL (<150); Vitamin B12 638 pg/mL (193-986)
== END 2025-07-11 09:26 | disposition home or self-care (01) ==
LOC: NCHCN 09:25
PROVIDERS: PCP Family Medicine; Visit Provider Nurse Practitioner Family
DX: Z86.2 Personal history of diseases of the blood and blood-forming organs and certain disorders involving the immune mechanism (principal); Z13.29 Encounter for screening for other suspected endocrine disorder; R53.83 Other fatigue; Z13.1 Encounter for screening for diabetes mellitus; E53.8 Deficiency of other specified B group vitamins
CPT/HCPCS: 80061; 85027; 82607; 82728; 83036; 83540; 83550; 84443

== ENCOUNTER 2025-08-24 10:39 | Outpatient (REF) | payer MEDICAID, SELFPAY | END 2025-08-24 10:40 | disposition home or self-care (01) | LOC: NCHCN 10:39 | PROVIDERS: PCP Family Medicine; Visit Provider Nurse Practitioner Family | DX: D35.2 Benign neoplasm of pituitary gland (principal) | CPT/HCPCS: 84146 ==